=== PATIENT | female | born 1955 | race Caucasian/White ===

== ENCOUNTER → 2016-10-01 | Outpatient (CLI) | payer OTHER ==
[2016-10-01 13:46] LABS: ARTERIAL BLOOD O2 SATURATION 97.5 % (94-98)
== END ==
LOC: OD 13:03
PROVIDERS: ATTEND Nurse Practitioner Adult Health
DX: J96.12 Chronic respiratory failure with hypercapnia (principal); J18.9 Pneumonia, unspecified organism
CPT/HCPCS: 36600; 82803

== ENCOUNTER → 2016-11-02 | Outpatient (CLI) | payer OTHER | LOC: OD 14:10 | PROVIDERS: ATTEND Nurse Practitioner Adult Health | DX: J20.9 Acute bronchitis, unspecified (principal) | CPT/HCPCS: 71020 ==

== ENCOUNTER → 2016-11-02 | Outpatient (CLI) | payer OTHER ==
[2016-11-02 14:28] LABS: VENOUS BLOOD BASE EXCESS 5.1 mmol/L; VENOUS BLOOD HCO3 30.8 mmol/L (20-32); VENOUS BLOOD PCO2 50.2 mmHg (35-63); VENOUS BLOOD PH 7.41 (7.30-7.42)
[2016-11-02 14:42] LABS: ABSOLUTE LYMPHOCYTES (AUTO) 0.9 10^3/uL (0.5-4.7); ABSOLUTE MONOCYTES (AUTO) 0.6 10^3/uL (0.1-1.4); ABSOLUTE NEUT (AUTO) 9.4 10^3/uL (1.7-8.2); BASOPHILS % (AUTO) 0.2 % (0-2); EOSINOPHILS % (AUTO) 0.1 % (0-6); HEMATOCRIT 38.5 % (36.0-47.0); HEMOGLOBIN 12.4 g/dL (12.0-15.5); HGB HCT DIFFERENCE -1.3; LYMPHOCYTES % (AUTO) 8.1 % (13-45); MEAN CORPUSCULAR HEMOGLOBIN 31.1 pg (27.0-33.4); MEAN CORPUSCULAR HGB CONC 32.3 g/dL (32.0-36.0); MEAN CORPUSCULAR VOLUME 96 fl (80-97); MONOCYTES % (AUTO) 5.2 % (3-13); RED CELL DISTRIBUTION WIDTH 16.1 % (11.5-14.0); SEGMENTED NEUTROPHILS % (AUTO) 86.4 % (42-78); WHITE BLOOD COUNT 10.9 10^3/uL (4.0-10.5)
== END ==
LOC: OD 13:36
PROVIDERS: ATTEND Nurse Practitioner Adult Health
DX: J20.9 Acute bronchitis, unspecified (principal)
CPT/HCPCS: 36415; 82803; 85025

== ENCOUNTER 2016-11-11 13:39 | Inpatient (IN) | payer OTHER ==
[~2016-11-11 13:39] MED LIST: ROCURONIUM BROMIDE INJ 50 MG/5 ML VIAL IV ONE
[2016-11-11] MEDS ORDERED: NALOXONE HCL INJ 2 MG/2 ML DISP.SYRIN ONE (13:45)
[2016-11-11] MEDS ORDERED: IPRATROPIUM/ALBUTEROL 0.5-2.5 MG/3 ML AMPUL NEB ONE (13:49)
[2016-11-11] MEDS ORDERED: NOREPINEPHRINE BITARTRATE INJ/PF 4 MG/4 ML SDV IV ONE ×2 (13:59→16:51)
[2016-11-11] MEDS ORDERED: ETOMIDATE INJ/PF 20 MG/10 ML SDV IV ONE (14:01)
[2016-11-11] MEDS ORDERED: DIGOXIN INJ 0.5 MG/2 ML AMPULE IV ONE ×3 (14:15→22:30)
[2016-11-11] MEDS ORDERED: METHYLPREDNISOLONE INJ 125 MG/2 ML SDV IV ONE (14:15)
[2016-11-11] MEDS ORDERED: LORAZEPAM INJ 2 MG/1 ML VIAL ONE ×2 (14:21→14:38)
[2016-11-11 14:31] LABS: ABSOLUTE BASOPHILS # (AUTO) 0.1 10^3/uL (0.0-0.2); ABSOLUTE EOSINOPHILS # (AUTO) 0.1 10^3/uL (0.0-0.6); ABSOLUTE LYMPHOCYTES (AUTO) 1.7 10^3/uL (0.5-4.7); ABSOLUTE MONOCYTES (AUTO) 0.8 10^3/uL (0.1-1.4); ABSOLUTE NEUT (AUTO) 12.7 10^3/uL (1.7-8.2); BASOPHILS % (AUTO) 0.7 % (0-2); EOSINOPHILS % (AUTO) 0.7 % (0-6); HEMOGLOBIN 12.6 g/dL (12.0-15.5); HGB HCT DIFFERENCE -2.2; LYMPHOCYTES % (AUTO) 11.2 % (13-45); MEAN CORPUSCULAR HEMOGLOBIN 30.8 pg (27.0-33.4); MEAN CORPUSCULAR HGB CONC 31.5 g/dL (32.0-36.0); MEAN CORPUSCULAR VOLUME 98 fl (80-97); MONOCYTES % (AUTO) 5.4 % (3-13); RED BLOOD COUNT 4.09 10^6/uL (3.72-5.28); RED CELL DISTRIBUTION WIDTH 16.7 % (11.5-14.0); WHITE BLOOD COUNT 15.4 10^3/uL (4.0-10.5)
[2016-11-11 14:34] LABS: PARTIAL THROMBOPLASTIN TIME 40.7 SEC (23.5-35.8); PROTHROMBIN TIME 30.5 SEC (11.4-15.4)
[2016-11-11 14:45] LABS: ARTERIAL BLOOD BASE EXCESS -0.8 mmol/L; ARTERIAL BLOOD O2 SATURATION 89.5 % (94-98)
[2016-11-11 14:46] LABS: ALANINE AMINOTRANSFERASE 224 U/L (9-52); ALBUMIN 3.5 g/dL (3.5-5.0); ALKALINE PHOSPHATASE 61 U/L (38-126); ANION GAP 16 (5-19); ASPARTATE AMINO TRANSFERASE 241 U/L (14-36); BILIRUBIN,TOTAL 1.4 mg/dL (0.2-1.3); BLOOD UREA NITROGEN 38 mg/dL (7-20); CALCIUM 8.9 mg/dL (8.4-10.2); CARBON DIOXIDE 27 mmol/L (22-30); CHLORIDE 98 mmol/L (98-107); CREATINE KINASE 127 U/L (30-135); CREATININE RESULT 2.72 mg/dL (0.52-1.25); GLUCOSE 66 mg/dL (75-110); POTASSIUM 3.8 mmol/L (3.6-5.0); SODIUM 140.9 mmol/L (137-145); TOTAL PROTEIN 5.6 g/dL (6.3-8.2)
[2016-11-11 14:50] LABS: APPEARANCE,URINE CLEAR; BILIRUBIN,URINE NEGATIVE (NEGATIVE); GLUCOSE, URINE NEGATIVE (NEGATIVE); KETONES,URINE NEGATIVE (NEGATIVE); LEUKOCYTE ESTERASE,URINE NEGATIVE (NEGATIVE); NITRITE,URINE NEGATIVE (NEGATIVE); PROTEIN,URINE NEGATIVE (NEGATIVE); URINE SPECIFIC GRAVITY 1.012; UROBILINOGEN,URINE NEGATIVE mg/dL (<2.0)
[2016-11-11 14:58] LABS: CREATINE KINASE MB 1.75 ng/mL (<4.55)
[2016-11-11 15:00] LABS: TROPONIN I 0.073 ng/mL
[2016-11-11] MEDS ORDERED: CEFEPIME 1 GM/D5W RTU 50 ML IV ONE (15:43)
[2016-11-11] MEDS ORDERED: LINEZOLID 300 ML IV ONE (15:44)
[2016-11-11] MEDS ORDERED: CIPROFLOXACIN 400 MG/D5W RTU 200 ML IV ONE (15:44)
[2016-11-11] MEDS ORDERED: CEFEPIME HCL 1 GM in DEXTROSE 5%-WATER 50 ML IV ONE (17:00)
[2016-11-11] MEDS ORDERED: DEXTROSE 5%-WATER 250 ML with PHENYLEPHRINE HCL 40 MG IV PRN ×2 (17:11)
[2016-11-11] MEDS ORDERED: PHENYLEPHRINE HCL INJ/PF 10 MG/1 ML SDV ONE (17:22)
[2016-11-11] MEDS ORDERED: PROPOFOL 100 ML IV ONE (18:03)
[2016-11-11] MEDS ORDERED: PROPOFOL 100 ML IV PRN (18:06)
[2016-11-11] MEDS ORDERED: IMIPENEM/CILASTATIN SODIUM INJ 500 MG VIAL IV SCH (18:15)
--- NOTE | 2016-11-11 18:15 | ER Document Report ---
ED General - General Chief Complaint: Respiratory Distress Stated Complaint: RESPIRATORY DISTRESS Time seen by provider: 13:35 Mode of Arrival: Medic Information source: Relative, Emergency Med Personnel Notes: 60-year-old female brought via EMS with report of altered mental status and respiratory difficulty. Patient's arrives later and gives the following history. The patient for 3 days has had cough and subjective fever. She has a history of COPD and is followed by a physician for that and has had pneumonia in the past. The patient's cough and become productive over the past 2 days and what she's had in the past with pneumonia but she had no vomiting or complaints of pain. The patient had what may been some shaking chills during the night last night and frequent cough but seemed well when the last saw her about 12:30 this afternoon. She he checked on her again about 1:00 and found her on the floor wedged in sitting up in between dresser nightstand and unresponsive. EMS personnel were called. They report that at times the patient would wake up but would not follow commands and they had widely variable blood pressures varying between 80 systolic and 180 systolic. reports the patient also has a history of congestive heart failure and atrial fibrillation but his knowledge she is not on any anticoagulation. On arrival here the patient would awaken to voice and speak her name but otherwise would not follow commands and was intubated for hypoxemia airway protection impending respiratory failure and hypotension. Physical Exam: General: Lethargic HEENT: Normocephalic. Atraumatic. PERRLA. Extraocular movements intact. Oropharynx clear. Neck: Supple. Non-tender. No JVD no carotid bruits Respiratory: Markedly diminished aeration throughout all lung méndez with rhonchi bilaterally poor inspiratory effort tachypnea Cardiovascular: Regular rate and rhythm. Abdominal: Normal Inspection. Soft, non-tender. No distension. Normal Bowel Sounds. Back: Non-tender. No deformity or step off. Extremities all warm with brisk capillary refill but I do not palpate radial or dorsalis pedis pulses. She has strong femoral and carotid pulses.. Neurological: Patient could not cooperate with formal neurologic testing Skin: Warm. Dry. Normal color. TRAVEL OUTSIDE OF THE [place] IN LAST 30 DAYS: No - Related Data Allergies/Adverse Reactions: MERRITT Inhibitors [Merritt Inhibitors] Allergy (Verified 07/26/16 14:17) amoxicillin trihydrate [From Augmentin] Allergy (Verified 07/26/16 14:17) Potassium Clavulanate * [From Augmentin] Allergy (Verified 07/26/16 14:17) Home Medications: Current Home Medications Allopurinol [Zyloprim 300 mg Tablet] 300 mg PO DAILY 11/11/16 [History] Atenolol [Tenormin 50 mg Tablet] 50 mg PO BID 11/11/16 [History] Cyclobenzaprine HCl [Flexeril 10 mg Tablet] 10 mg PO TID 11/11/16 [History] Diltiazem HCl [Diltiazem 24Hr Cd] 120 mg PO DAILY 11/11/16 [History] Fentanyl [Duragesic 12 Mcg/Hr Transdermal Patch] 1 patch TOP Q3D 11/11/16 [ History] Fentanyl [Duragesic 25 mcg/hr Transdermal Patch] 1 patch TOP Q3D 11/11/16 [ History] Furosemide [Lasix] 40 mg PO BID 11/11/16 [History] Guaifenesin [Mucinex] 600 mg PO Q12 11/11/16 [History] Hydrocodone/Acetaminophen [[place] 5-325 mg Tablet] 1 tab PO QIDP PRN 11/11/16 [ History] Levothyroxine Sodium [Synthroid 0.025 mg Tablet] 0.025 mg PO DAILY 11/11/16 [ History] Prednisone 2.5 mg PO DAILY@1500 11/11/16 [History] Prednisone [Deltasone 5 mg Tablet] 5 mg PO QAM 11/11/16 [History] Pregabalin [Lyrica] 150 mg PO TID 11/11/16 [History] Ropinirole HCl 1 mg PO QHS 11/11/16 [History] Simvastatin [Zocor 20 mg Tablet] 20 mg PO QHS 11/11/16 [History] Spironolactone [Aldactone 25 mg Tablet] 12.5 mg PO Q12 11/11/16 [History] Sumatriptan Succinate [Imitrex 100 mg Tablet] 100 mg PO PRN PRN 11/11/16 [ History] Past Medical History - Social History Smoking Status: Former Smoker Family History: Other - Asthma and dementia - Past Medical History Cardiac Medical History: Reports: Hx Congestive Heart Failure, Hx Hypertension Pulmonary Medical History: Reports: Hx Asthma, Hx Pneumonia Psychiatric Medical History: Reports: Hx Depression Past Surgical History: Reports: Hx Section - X4, Hx Orthopedic Surgery - right knee replacement, right toe, left shoulder - Immunizations Hx Diphtheria, Pertussis, Tetanus Vaccination: Yes Review of Systems - Review of Systems -: Yes ROS unobtainable due to patient's medical condition Physical Exam - Vital signs Vitals: Pulse Ox 94 11/11/16 14:20 Course - Re-evaluation Re-evalutation: 11/11/16 19:47 Patient was hypotensive on arrival and was initially treated with fluid bolus. Patient's B Ector peptide is elevated and chest x-ray showed some evidence for vascular congestion and additional concern is a right lower lobe aspiration pneumonia and fluids were stopped and switched to norepinephrine IV drip. This was titrated to a map of 60. The patient also is in A. fib RVR I believe most of tachycardia is physiologic related to her hypotension because of a rate in the 140 she was treated with digoxin 0.125 mg IV 1 dose which reduced her rate to approximately 110 and I have elected to leave that there. Patient also temperature 100.9 on arrival and she is cultured and started on IV antibiotics. Prior to intubation we had a trial of supple oxygen and BiPAP along with IV steroids and nebulizer treatments but the patient's respiratory distress declined in spite of that necessitating intubation. I discussed CODE STATUS with patient and after he arrived and he confirms that she should be a full code. I discussed case with Dr. Remy on the hospitalist service and he'll be coming to see the patient 11/11/16 19:50 Total critical care time excluding billable procedures is 1 hour - Vital Signs Vital signs: Temp Pulse Resp BP Pulse Ox 100.4 F 36 H 90/51 L 95 11/11/16 19:30 11/11/16 19:30 11/11/16 19:30 11/11/16 19:30 - Laboratory Result Diagrams: 11/11/16 13:45 11/11/16 13:45 Laboratory results interpreted by me: 11/11/16 11/11/16 11/11/16 13:45 13:45 13:45 WBC 15.4 H MCV 98 H MCHC 31.5 L RDW 16.7 H Seg Neutrophils % 82.0 H Lymphocytes % 11.2 L Absolute Neutrophils 12.7 H PT APTT ABG pCO2 ABG pO2 ABG O2 Saturation BUN 38 H Creatinine 2.72 H Est GFR ( Amer) 21 L Est GFR (Non-Af Amer) 18 L Glucose 66 L Total Bilirubin 1.4 H AST 241 H ALT 224 H NT-Pro-B Natriuret Pep 32351 H Total Protein 5.6 L 11/11/16 11/11/16 13:45 14:20 WBC MCV MCHC RDW Seg Neutrophils % Lymphocytes % Absolute Neutrophils PT 30.5 H APTT 40.7 H ABG pCO2 34.8 L ABG pO2 54.3 L ABG O2 Saturation 89.5 L BUN Creatinine Est GFR ( Amer) Est GFR (Non-Af Amer) Glucose Total Bilirubin AST ALT NT-Pro-B Natriuret Pep Total Protein - Diagnostic Test Radiology reviewed: Image reviewed, Reports reviewed - EKG Interpretation by Me Additional EKG results interpreted by me: 11/11/16 19:44 EKG reviewed by myself shows atrial fibrillation with ventricular rate of [address] changes Procedures - Central Line Right Internal jugular Time completed: 15:30 Consent obtained: No - procedure performed emergently prior to family arriving Central line pre-insertion: Sterile PPE donned Central line lumen type: Triple Anesthetic type: 1% Lidocaine mL's of anesthesia: 2 Ultrasound guided: Yes CM at insertion site: 12 Line secured with sutures: Yes Central line post-insertion: Blood return from lumens, Sterile dressing applied , Position confirmed w/ CXR Number of attempts: 1 Complications: No - Intubation Orotracheal Time of Intubation: 14:00 Medications: Etomidate Intubation method: Orotracheal Blade type: Lissette Blade size: 3 ETT size: 7.5 ETT secured at: Teeth ETT secured at (cm): 23 Breath Sounds after Intubation: Equal End tidal CO2 confirmed: Yes Post Intubation Xray: Yes Intubation Complications: No complications Discharge - Discharge Clinical Impression: Acute hypoxemic respiratory failure Pneumonia Qualifiers: Pneumonia type: due to unspecified organism Laterality: right Lung location: lower lobe of lung Qualified Code(s): J18.1 - Lobar pneumonia, unspecified organism Sepsis Qualifiers: Sepsis type: sepsis due to unspecified organism Qualified Code(s): A41.9 - Sepsis, unspecified organism Condition: Critical Disposition: ADMITTED INPATIENT Admitting Provider: Hospitalist Unit Admitted: ICU
[2016-11-11] MEDS ORDERED: 1/2 NORMAL SALINE 1,000 ML IV PRN (18:20)
[2016-11-11] MEDS ORDERED: ONDANSETRON HCL INJ/PF 4 MG/2 ML SDV IV PRN (18:20)
[2016-11-11] MEDS ORDERED: ACETAMINOPHEN 325 MG TABLET NG PRN (18:20)
[2016-11-11] MEDS ORDERED: PHARMACY COMMUNICATION ORDER MC NR (18:30)
[2016-11-11] MEDS ORDERED: HYDROCORTISONE SOD SUCCINATE INJ/PF 100 MG/2 ML SDV IV ONE (19:00)
--- NOTE | 2016-11-11 19:00 | PDOC H&P ---
History of Present Illness Admission Date/PCP: ARA WEBB MD Patient complains of: Altered mental status History of Present Illness: NIMISHA PORTILLO is a 60 year old female, with history of COPD and chronic respiratory failure on home oxygen, diastolic heart failure, atrial fibrillation , pulmonary hypertension, valvular heart disease, morbid obesity, adrenal insufficiency brought to the emergency room by the family due to altered mental status. For the past several weeks the patient has been dealing with increasing lower extremity edema and coughing with dyspnea on exertion where he was evaluated by her physician and was placed on Bumex. She developed a rash and therefore this was discontinued and she was maintained on Lasix which she has chronically. Her lower extremity edema improved. However she continues to have intermittent coughing and she has baseline shortness of breath where she was evaluated by her feeder associate and the chest x-ray did not reveal any acute infiltrate 10 days ago. She was in her usual state of health with no noted increasing edema on the legs, but with persistent cough and chronic shortness of breath started to develop low-grade fever last night. Family reports that she has not really complained of anything new. Cough is normally dry. No reported paroxysmal nocturnal dyspnea or any orthopnea. She is supposed to see her physician today in the pain clinic however the patient remains unresponsive when the family went back home. She was found in between the bed and the closet sitting on the floor but leaning on the bed unresponsive. She was brought to the emergency room reportedly she was in respiratory distress with systolic blood pressure in the 50s. She was intubated. Chest x-ray shows findings suggestive of pulmonary edema, as well as cardiomegaly. WBC however was elevated. She was begun on intravenous antibiotic, vasopressors and was referred for admission Past Medical History Past Medical History: Medication reconciliation pending verification from the patient's pharmacist. Cardiac Medical History: Reports: Atrial Fibrillation, Congestive Heart Failure , Hypertension, Other - Valvular heart disease Pulmonary Medical History: Reports: Chronic Obstructive Pulmonary Disease (COPD) , Pneumonia, Respiratory Failure - On home oxygen, Other - Pulmonary hypertension Endocrine Medical History: Reports: Hypothyroidism, Other - Adrenal insufficiency Psychiatric Medical History: Reports: Depression Past Surgical History Past Surgical History: Reports: Section - X4, Orthopedic Surgery - right knee replacement, right toe, left shoulder Social History Information Source: Relative Smoking Status: Former Smoker Frequency of Alcohol Use: None Hx Recreational Drug Use: No Drugs: None Hx Prescription Drug Abuse: No Family History Family History: Other - Asthma and dementia Parental Family History Reviewed: Yes Children Family History Reviewed: Yes Sibling(s) Family History Reviewed.: Yes Medication/Allergy Home Medications: Allopurinol [Zyloprim 300 mg Tablet] 300 mg PO DAILY 11/11/16 Atenolol [Tenormin 50 mg Tablet] 50 mg PO BID 11/11/16 Cyclobenzaprine HCl [Flexeril 10 mg Tablet] 10 mg PO TID 11/11/16 Diltiazem HCl [Diltiazem 24Hr Cd] 120 mg PO DAILY 11/11/16 Fentanyl [Duragesic 12 Mcg/Hr Transdermal Patch] 1 patch TOP Q3D 11/11/16 Fentanyl [Duragesic 25 mcg/hr Transdermal Patch] 1 patch TOP Q3D 11/11/16 Furosemide [Lasix] 40 mg PO BID 11/11/16 Guaifenesin [Mucinex] 600 mg PO Q12 11/11/16 Hydrocodone/Acetaminophen [[place] 5-325 mg Tablet] 1 tab PO QIDP PRN 11/11/16 Levothyroxine Sodium [Synthroid 0.025 mg Tablet] 0.025 mg PO DAILY 11/11/16 Prednisone 2.5 mg PO DAILY@1500 11/11/16 Prednisone [Deltasone 5 mg Tablet] 5 mg PO QAM 11/11/16 Pregabalin [Lyrica] 150 mg PO TID 11/11/16 Ropinirole HCl 1 mg PO QHS 11/11/16 Simvastatin [Zocor 20 mg Tablet] 20 mg PO QHS 11/11/16 Spironolactone [Aldactone 25 mg Tablet] 12.5 mg PO Q12 11/11/16 Sumatriptan Succinate [Imitrex 100 mg Tablet] 100 mg PO PRN PRN 11/11/16 Allergies/Adverse Reactions: MERRITT Inhibitors [Merritt Inhibitors] Allergy (Verified 07/26/16 14:17) amoxicillin trihydrate [From Augmentin] Allergy (Verified 07/26/16 14:17) Potassium Clavulanate * [From Augmentin] Allergy (Verified 07/26/16 14:17) Review of Systems ROS unobtainable: Due to endotracheal tube - Other than demonstrated in the history no other available information at this time, Due to mental status Physical Exam Vital Signs: Temp Pulse Resp BP Pulse Ox 100.0 F 13 80/49 L 94 11/11/16 17:42 11/11/16 17:42 11/11/16 17:42 11/11/16 17:42 General appearance: PRESENT: no acute distress, morbidly obese, other - Intubated and sedated Head exam: PRESENT: atraumatic, normocephalic Eye exam: PRESENT: conjunctiva pink, other - Pupils are fixed and dilated but the patient received paralytic. ABSENT: scleral icterus Ear exam: PRESENT: normal external ear exam. ABSENT: drainage Mouth exam: PRESENT: moist, neck supple Neck exam: ABSENT: carotid bruit, JVD, lymphadenopathy, thyromegaly Respiratory exam: PRESENT: crackles - Scattered bilateral, decreased breath sounds, wheezes - Mild bilateral Cardiovascular exam: PRESENT: irregular rhythm, +S1, +S2. ABSENT: diastolic murmur, gallop, rubs, systolic murmur Pulses: PRESENT: normal dorsalis pedis pul Vascular exam: PRESENT: normal capillary refill GI/Abdominal exam: PRESENT: distended - Obese, normal bowel sounds, soft. ABSENT: guarding, mass, organolmegaly, rebound, tenderness Rectal exam: PRESENT: deferred Extremities exam: PRESENT: full ROM, +1 edema. ABSENT: calf tenderness, clubbing Neurological exam: PRESENT: altered - Intubated and sedated Skin exam: PRESENT: dry, intact, rash - On the anterior chest wall and on the face which are macular, warm. ABSENT: cyanosis Results Laboratory Results: 11/11/16 13:45 11/11/16 13:45 11/11/16 11/11/16 11/11/16 13:45 13:45 14:20 WBC 15.4 H RBC 4.09 Hgb 12.6 Hct 40.0 MCV 98 H MCH 30.8 MCHC 31.5 L RDW 16.7 H Plt Count 194 Seg Neutrophils % 82.0 H Lymphocytes % 11.2 L Monocytes % 5.4 Eosinophils % 0.7 Basophils % 0.7 Absolute Neutrophils 12.7 H Absolute Lymphocytes 1.7 Absolute Monocytes 0.8 Absolute Eosinophils 0.1 Absolute Basophils 0.1 Carbonic Acid HCO3/H2CO3 Ratio ABG pH ABG pCO2 ABG pO2 ABG HCO3 ABG O2 Saturation ABG Base Excess FiO2 Sodium 140.9 Potassium 3.8 Chloride 98 Carbon Dioxide 27 Anion Gap 16 BUN 38 H Creatinine 2.72 H Est GFR ( Amer) 21 L Est GFR (Non-Af Amer) 18 L Glucose 66 L Calcium 8.9 Magnesium 2.0 Total Bilirubin 1.4 H AST 241 H ALT 224 H Alkaline Phosphatase 61 Total Protein 5.6 L Albumin 3.5 Urine Color YELLOW Urine Appearance CLEAR Urine pH 6.0 Ur Specific [place] 1.012 Urine Protein NEGATIVE Urine Glucose (UA) NEGATIVE Urine Ketones NEGATIVE Urine Blood NEGATIVE Urine Nitrite NEGATIVE Ur Leukocyte Esterase NEGATIVE Urine RBC (Auto) 0 11/11/16 14:20 WBC RBC Hgb Hct MCV MCH MCHC RDW Plt Count Seg Neutrophils % Lymphocytes % Monocytes % Eosinophils % Basophils % Absolute Neutrophils Absolute Lymphocytes Absolute Monocytes Absolute Eosinophils Absolute Basophils Carbonic Acid 1.05 HCO3/H2CO3 Ratio 21:1 ABG pH 7.44 ABG pCO2 34.8 L ABG pO2 54.3 L ABG HCO3 22.9 ABG O2 Saturation 89.5 L ABG Base Excess -0.8 FiO2 45% Sodium Potassium Chloride Carbon Dioxide Anion Gap BUN Creatinine Est GFR ( Amer) Est GFR (Non-Af Amer) Glucose Calcium Magnesium Total Bilirubin AST ALT Alkaline Phosphatase Total Protein Albumin Urine Color Urine Appearance Urine pH Ur Specific Wray Urine Protein Urine Glucose (UA) Urine Ketones Urine Blood Urine Nitrite Ur Leukocyte Esterase Urine RBC (Auto) 11/11/16 11/11/16 13:45 13:45 Creatine Kinase 127 CK-MB (CK-2) 1.75 Troponin I 0.073 NT-Pro-B Natriuret Pep 60574 H Impressions: Chest X-Ray 11/11/16 14:12 IMPRESSION: Cardiomegaly with pulmonary vascular congestion. Bilateral pleural effusions as noted above. Ill-defined density in the left mid lung field which could represent a focal infiltrate or asymmetric pulmonary edema. Other findings as noted above Cervical Spine CT 11/11/16 14:13 IMPRESSION: CHRONIC DEGENERATIVE CHANGES. NO ACUTE FINDINGS. Head CT 11/11/16 14:13 IMPRESSION: NORMAL BRAIN CT WITHOUT CONTRAST. Assessment & Plan - Diagnosis (1) Acute and chronic respiratory failure ([id number]) Qualifiers: Respiratory failure complication: hypoxia Qualified Code(s): J96.21 - Acute and chronic respiratory failure with hypoxia Is this a current diagnosis for this admission?: Yes (2) Septic shock Is this a current diagnosis for this admission?: Yes (3) Bilateral pneumonia Qualifiers: Pneumonia type: due to unspecified organism Lung location: unspecified part of lung Qualified Code(s): J18.9 - Pneumonia, unspecified organism Is this a current diagnosis for this admission?: Yes (4) Adrenal insufficiency Is this a current diagnosis for this admission?: Yes (5) Acute on chronic diastolic heart failure Is this a current diagnosis for this admission?: Yes (6) Acute renal failure Qualifiers: Acute renal failure type: unspecified Qualified Code(s): N17.9 - Acute kidney failure, unspecified Is this a current diagnosis for this admission?: Yes (7) Transaminitis Is this a current diagnosis for this admission?: Yes (8) Hypoglycemia Is this a current diagnosis for this admission?: Yes (9) Coagulopathy Is this a current diagnosis for this admission?: Yes (10) Atrial fibrillation Qualifiers: Atrial fibrillation type: unspecified Qualified Code(s): I48.91 - Unspecified atrial fibrillation Is this a current diagnosis for this admission?: Yes (11) Hypothyroidism (acquired) Is this a current diagnosis for this admission?: Yes (12) Morbid obesity Qualifiers: Obesity type: unspecified obesity type Qualified Code(s): E66.01 - Morbid (severe) obesity due to excess calories Is this a current diagnosis for this admission?: Yes (13) Pulmonary hypertension Is this a current diagnosis for this admission?: Yes (14) Valvular heart disease Is this a current diagnosis for this admission?: Yes - Time Time Spent: 50 to 70 Minutes - Inpatient Certification Based on my medical assessment, after consideration of the patient's comorbidities, presenting symptoms, or acuity I expect that the services needed warrant INPATIENT care.: Yes I certify that my determination is in accordance with my understanding of Medicare's requirements for reasonable and necessary INPATIENT services [42 CFR 412.3e].: Yes Medical Necessity: Significant Comorbidiites Make Outpatient Treatment Too Risky , Need Close Monitoring Due to Risk of Patient Decompensation, Need For Continuous Telemetry Monitoring, Need for Nebulizer Therapy and Monitoring of Response, Need for IV Antibiotics, Risk of Complication if Not Cared For in Hospital, Risk of Diagnosis Which Will Require Inpatient Eval/Care/Monitoring Post Hospital Care: D/C Assisted Living Care Manager Documentation - Plan Summary Plan Summary: The patient will be admitted to the intensive care unit. We will begin broad- spectrum antibiotic with Primaxin and Levaquin. We will culture the sputum and the blood. I will give the patient intravenous diuretic obtain echocardiogram. We will culture the sputum and blood and urine. I will hold the patient's antihypertensive medications. Continue Levophed and Brady-Synephrine. Add diprivan and continue ventilatory support. Consult cardiology and pulmonary for further management. I will continue the patient on eliquis instead of xarelto. Stress dose of steroids will also be given. Bronchodilators will be added to the treatment regimen. Further testing depends on the initial evaluation and per specialty recommendation as outlined above.
[2016-11-11] MEDS ORDERED: RINGERS SOLUTION,LACTATED 2,000 ML IV ONE (19:45)
--- NOTE | 2016-11-11 20:05 | EKG REPORT ---
SEVERITY:- ABNORMAL ECG - ATRIAL FIBRILLATION, V-RATE [id number] PROBABLE INFERIOR INFARCT, AGE INDETERMINATE : Confirmed by: Cezar Arellano 11-Nov-2016 20:04:13
[2016-11-11 20:19] LABS: ARTERIAL BLOOD BASE EXCESS -5.7 mmol/L; ARTERIAL BLOOD O2 SATURATION 95.4 % (94-98)
[2016-11-11] MEDS: IPRATROPIUM/ALBUTEROL 0.5-2.5 MG/3 ML AMPUL NEB SCH (20:30)
[2016-11-11] MEDS ORDERED: VASOPRESSIN INJ 20 UNIT/1 ML VIAL ONE (20:58)
[2016-11-11] MEDS: DEXTROSE 5%-WATER 250 ML with NOREPINEPHRINE BITARTRATE 4 MG IV PRN ×2 (21:30)
[2016-11-11] MEDS: IMIPENEM/CILASTATIN SODIUM 250 MG in NORMAL SALINE 100 ML IV SCH (21:32)
[2016-11-11] MEDS ORDERED: FUROSEMIDE INJ/PF 40 MG/4 ML SDV IV SCH (22:00)
[2016-11-11 22:06] LABS: ANION GAP 13 (5-19); BLOOD UREA NITROGEN 39 mg/dL (7-20); CALCIUM 8.1 mg/dL (8.4-10.2); CARBON DIOXIDE 22 mmol/L (22-30); CHLORIDE 100 mmol/L (98-107); CREATINE KINASE 1287 U/L (30-135); CREATININE RESULT 2.58 mg/dL (0.52-1.25); GLUCOSE 163 mg/dL (75-110); SODIUM 134.8 mmol/L (137-145)
[2016-11-11 22:35] LABS: THYROID STIMULATING HORMONE 1.14 uIU/mL (0.47-4.68)
[2016-11-11 22:42] LABS: CREATINE KINASE MB 9.96 ng/mL (<4.55)
[2016-11-11 22:45] LABS: TROPONIN I 0.483 ng/mL
[2016-11-11] MEDS ORDERED: NORMAL SALINE 1000 ML 2,000 ML IV ONE (22:45)
[2016-11-11] MEDS: APIXABAN 2.5 MG TABLET NG SCH (22:56)
[2016-11-11] MEDS ORDERED: VANCOMYCIN HCL 0 MG in DEXTROSE 5%-WATER 250 ML IV NR (23:15)
[2016-11-11] MEDS ORDERED: VANCOMYCIN HCL INJ 500 MG VIAL IV SCH (23:45)
[2016-11-11] MEDS ORDERED: VANCOMYCIN HCL INJ 1000 MG VIAL IV SCH (23:45)
[2016-11-12] MEDS: HYDROCORTISONE SOD SUCCINATE INJ/PF 100 MG/2 ML SDV IV SCH ×2 (00:01→05:24)
[2016-11-12] MEDS ORDERED: VANCOMYCIN HCL INJ 1000 MG VIAL ONE (00:29)
[2016-11-12] MEDS ORDERED: VANCOMYCIN HCL INJ 500 MG VIAL ONE (00:30)
[2016-11-12] MEDS ORDERED: VANCOMYCIN HCL 1,500 MG in DEXTROSE 5%-WATER 250 ML IV ONE (01:00)
[2016-11-12] MEDS ORDERED: ALBUTEROL SULFATE 0.083% NEB 2.5 MG/3 ML AMPUL NEB PRN (02:45)
[2016-11-12 03:21] LABS: ANION GAP 17 (5-19); BLOOD UREA NITROGEN 35 mg/dL (7-20); CALCIUM 7.2 mg/dL (8.4-10.2); CARBON DIOXIDE 15 mmol/L (22-30); CHLORIDE 101 mmol/L (98-107); CREATININE RESULT 2.53 mg/dL (0.52-1.25); GLUCOSE 200 mg/dL (75-110); MAGNESIUM 1.7 mg/dL (1.6-2.3); POTASSIUM 5.5 mmol/L (3.6-5.0); SODIUM 133.1 mmol/L (137-145)
[2016-11-12] MEDS: DEXTROSE 5%-WATER 250 ML with PHENYLEPHRINE HCL 40 MG IV PRN ×6 (03:54→10:16)
[2016-11-12] MEDS: IMIPENEM/CILASTATIN SODIUM 250 MG in NORMAL SALINE 100 ML IV SCH ×2 (03:54→09:53)
[2016-11-12] MEDS ORDERED: DEXTROSE 50%-WATER 25 GM/50 ML DISP.SYRIN IV ONE (04:46)
[2016-11-12] MEDS ORDERED: NORMAL SALINE 1000 ML 1,000 ML IV ONE (04:48)
[2016-11-12] MEDS ORDERED: INSULIN REG, HUMAN 100 UNIT/ML 3 ML VIAL (PYX) IV ONE (05:00)
[2016-11-12 05:02] LABS: CREATINE KINASE MB 15.4 ng/mL (<4.55)
[2016-11-12 05:07] LABS: TROPONIN I 0.477 ng/mL
[2016-11-12] MEDS: NORMAL SALINE 1000 ML 1,000 ML IV PRN ×2 (06:26→09:51)
[2016-11-12 06:49] LABS: ARTERIAL BLOOD BASE EXCESS -14.9 mmol/L; ARTERIAL BLOOD O2 SATURATION 96.9 % (94-98)
[2016-11-12 06:54] LABS: HEMATOCRIT 38.1 % (36.0-47.0); HEMOGLOBIN 11.7 g/dL (12.0-15.5); MEAN CORPUSCULAR HEMOGLOBIN 30.9 pg (27.0-33.4); MEAN CORPUSCULAR HGB CONC 30.7 g/dL (32.0-36.0); MEAN CORPUSCULAR VOLUME 101 fl (80-97); RED BLOOD COUNT 3.79 10^6/uL (3.72-5.28); RED CELL DISTRIBUTION WIDTH 16.5 % (11.5-14.0); WHITE BLOOD COUNT 21.9 10^3/uL (4.0-10.5)
[2016-11-12 07:20] LABS: BASOPHILS % (MANUAL) 0 % (0-2); EOSINOPHILS % (MANUAL) 0 % (0-6); LYMPHOCYTES % (MANUAL) 3 % (13-45); TOTAL CELLS COUNTED 100
[2016-11-12 07:23] LABS: ANISOCYTOSIS 1+; BAND NEUTROPHILS % (MANUAL) 20 % (3-5); BURR CELLS SLIGHT; OVALOCYTES SLIGHT; POIKILOCYTOSIS 1+; POLYCHROMASIA SLIGHT; TOXIC GRANULATION SLIGHT; TOXIC VACUOLATION PRESENT
[2016-11-12 07:26] LABS: ALBUMIN 2.5 g/dL (3.5-5.0); ALKALINE PHOSPHATASE 73 U/L (38-126); ANION GAP 16 (5-19); BILIRUBIN,DIRECT 0.3 mg/dL (0.0-0.3); BILIRUBIN,TOTAL 2.1 mg/dL (0.2-1.3); BLOOD UREA NITROGEN 36 mg/dL (7-20); CALCIUM 7.1 mg/dL (8.4-10.2); CARBON DIOXIDE 15 mmol/L (22-30); CHLORIDE 101 mmol/L (98-107); CREATININE RESULT 2.65 mg/dL (0.52-1.25); GLUCOSE 337 mg/dL (75-110); SODIUM 132.3 mmol/L (137-145); TOTAL PROTEIN 4.3 g/dL (6.3-8.2)
[2016-11-12] MEDS: IPRATROPIUM/ALBUTEROL 0.5-2.5 MG/3 ML AMPUL NEB SCH (07:30)
[2016-11-12 07:46] LABS: ALANINE AMINOTRANSFERASE 3520 U/L (9-52); ASPARTATE AMINO TRANSFERASE 5695 U/L (14-36)
[2016-11-12 08:35] LABS: ARTERIAL BLOOD O2 SATURATION 95.2 % (94-98)
[2016-11-12] MEDS ORDERED: FUROSEMIDE INJ/PF 40 MG/4 ML SDV ONE (08:53)
[2016-11-12] MEDS ORDERED: DOBUTAMINE HCL/D5W 500 MG/250 ML RTUINJ IV ONE (08:53)
[2016-11-12] MEDS: DEXTROSE 5%-WATER 250 ML with NOREPINEPHRINE BITARTRATE 4 MG IV PRN ×2 (09:03)
[2016-11-12 09:27] LABS: PATH REVIEW PATHOLOGIST REVIEWED
[2016-11-12] MEDS ORDERED: DEXTROSE 5%-WATER 250 ML with VASOPRESSIN 100 UNIT IV PRN ×2 (09:48)
[2016-11-12] MEDS ORDERED: LEVOFLOXACIN 750 MG/D5W RTU 750 MG/150 ML RTUPB IV SCH (10:00)
[2016-11-12] MEDS ORDERED: LEVOTHYROXINE SODIUM 0.025 MG TABLET NG SCH (10:00)
[2016-11-12] MEDS: APIXABAN 2.5 MG TABLET NG SCH (10:16)
[2016-11-12 10:26] LABS: CREATINE KINASE MB 13.3 ng/mL (<4.55); TROPONIN I 0.372 ng/mL
--- NOTE | 2016-11-12 10:30 | PDOC TRANSFER SUMMARY ---
General Admission Date/PCP: 11/11/16 18:14 ARA WEBB MD Transfer Date: 11/12/16 Accepting Facility: [facility] Accepting Physician: Dr. Palma Resuscitation Status: Full Code - Transfer Diagnosis (1) Acute and chronic respiratory failure ([id number]) Is this a current diagnosis for this admission?: Yes (2) Septic shock Is this a current diagnosis for this admission?: Yes (3) Bilateral pneumonia Is this a current diagnosis for this admission?: Yes (4) Adrenal insufficiency Is this a current diagnosis for this admission?: Yes (5) Acute on chronic diastolic heart failure Is this a current diagnosis for this admission?: Yes (6) Acute renal failure Is this a current diagnosis for this admission?: Yes (7) Transaminitis Is this a current diagnosis for this admission?: Yes (8) Hypoglycemia Is this a current diagnosis for this admission?: Yes (9) Coagulopathy Is this a current diagnosis for this admission?: Yes (10) Atrial fibrillation Is this a current diagnosis for this admission?: Yes (11) Hypothyroidism (acquired) Is this a current diagnosis for this admission?: Yes (12) Morbid obesity Is this a current diagnosis for this admission?: Yes (13) Pulmonary hypertension Is this a current diagnosis for this admission?: Yes (14) Valvular heart disease Is this a current diagnosis for this admission?: Yes - Transfer Medications Home Medications: Allopurinol [Zyloprim 300 mg Tablet] 300 mg PO DAILY 11/11/16 Atenolol [Tenormin 50 mg Tablet] 50 mg PO BID 11/11/16 Cyclobenzaprine HCl [Flexeril 10 mg Tablet] 10 mg PO TID 11/11/16 Diltiazem HCl [Diltiazem 24Hr Cd] 120 mg PO DAILY 11/11/16 Fentanyl [Duragesic 12 Mcg/Hr Transdermal Patch] 1 patch TOP Q3D 11/11/16 Fentanyl [Duragesic 25 mcg/hr Transdermal Patch] 1 patch TOP Q3D 11/11/16 Furosemide [Lasix] 40 mg PO BID 11/11/16 Guaifenesin [Mucinex] 600 mg PO Q12 11/11/16 Hydrocodone/Acetaminophen [[place] 5-325 mg Tablet] 1 tab PO QIDP PRN 11/11/16 Levothyroxine Sodium [Synthroid 0.025 mg Tablet] 0.025 mg PO DAILY 11/11/16 Prednisone 2.5 mg PO DAILY@1500 11/11/16 Prednisone [Deltasone 5 mg Tablet] 5 mg PO QAM 11/11/16 Pregabalin [Lyrica] 150 mg PO TID 11/11/16 Ropinirole HCl 1 mg PO QHS 11/11/16 Simvastatin [Zocor 20 mg Tablet] 20 mg PO QHS 11/11/16 Spironolactone [Aldactone 25 mg Tablet] 12.5 mg PO Q12 11/11/16 Sumatriptan Succinate [Imitrex 100 mg Tablet] 100 mg PO PRN PRN 11/11/16 Transfer Medications: Current Medications Acetaminophen (Tylenol 325 Mg Tablet) 650 mg NG Q4HP PRN PRN Reason: pain or temp greater than 101F Stop: 12/11/16 18:19 Last Admin: 11/12/16 00:07 Dose: 650 mg Albuterol (Ventolin 0.083% Neb 2.5 Mg/3 Ml Ampul) 2.5 mg NEB RTQ2HP PRN PRN Reason: SHORTNESS OF BREATH Stop: 12/12/16 02:44 Last Admin: 11/12/16 03:00 Dose: 2.5 mg Albuterol/Ipratropium (Duoneb 3 Ml Ampul) 3 ml NEB [id number] [facility] Stop: 12/11/16 19:59 Last Admin: 11/12/16 07:30 Dose: 3 ml Furosemide (Lasix Inj/Pf 40 Mg/4 Ml Sdv) 40 mg IV Q8 [facility] Stop: 12/12/16 13:59 Hydrocortisone Sodium Succinate (Solu-Cortef Inj/Pf 100 Mg/ 2 Ml Sdv) 100 mg IV Q6 [facility] Stop: 12/12/16 00:00 Last Admin: 11/12/16 05:24 Dose: 100 mg Norepinephrine Bitartrate 4 mg (/ Dextrose) 254 mls @ 0 mls/hr IV CONTINUOUS PRN; Titrate PRN Reason: THIS MED IS NOT "PRN" Stop: 12/11/16 18:05 Last Admin: 11/12/16 09:03 Dose: 4 mg Propofol (Diprivan Rtu 1000 Mg/100 Ml Inf.Bottle) 100 mls @ 0 mls/hr IV CONTINUOUS PRN; Titrate PRN Reason: THIS MED IS NOT "PRN" Stop: 12/11/16 18:05 Last Admin: 11/12/16 09:56 Dose: 100 ml Hard Fat/Phenylephrine 40 mg/ (Dextrose) 254 mls @ 0 mls/hr IV CONTINUOUS PRN; Protocol; Titrate PRN Reason: THIS MED IS NOT "PRN" Stop: 12/11/16 17:10 Last Admin: 11/12/16 03:55 Dose: 40 mg Levofloxacin/Dextrose (Levaquin Rtu 750 Mg/D5w 150 Ml Premix) 750 mg in 150 mls @ 100 mls/hr IV Q2DAYS [facility] Stop: 11/19/16 09:59 Imipenem/Cilastatin Sodium 250 (mg/ Sodium Chloride) 100 mls @ 100 mls/hr IV Q6A [facility] Stop: 11/18/16 20:59 Last Admin: 11/12/16 09:53 Dose: 250 mg Sodium Chloride (Nacl 0.9% 1000 Ml Iv Soln) 1,000 mls @ 300 mls/hr IV CONTINUOUS PRN PRN Reason: THIS MED IS NOT "PRN" Stop: 12/11/16 22:30 Last Admin: 11/12/16 09:51 Dose: 1,000 ml Vancomycin HCl 750 mg/ (Dextrose) 250 mls @ 166.667 mls/hr IV QHS [facility] Stop: 11/19/16 21:59 Levothyroxine Sodium (Synthroid 0.025 Mg Tablet) 0.025 mg NG DAILY [facility] Stop: 12/12/16 09:59 Ondansetron HCl (Zofran Inj/Pf 4 Mg/2 Ml Sdv) 4 mg IV Q6HP PRN PRN Reason: nausea/vomiting Stop: 12/11/16 18:19 Pharmacy Profile Note (Medication Communication Order) 1 each .NOTICE NR Stop: 12/11/16 18:29 Sodium Chloride (Saline Flush 2.5 Ml Monoject Prefil Syrin) 2.5 ml IV Q8 [facility] Stop: 12/11/16 21:59 Last Admin: 11/12/16 05:26 Dose: Not Given - Allergies Allergies/Adverse Reactions: MERRITT Inhibitors [Merritt Inhibitors] Allergy (Verified 07/26/16 14:17) amoxicillin trihydrate [From Augmentin] Allergy (Verified 07/26/16 14:17) bumetanide [From Bumex] Allergy (Unverified 11/12/16 08:06) Potassium Clavulanate * [From Augmentin] Allergy (Verified 07/26/16 14:17) - Diet/Activity Discharge Diet: Other (Comments) - Nothing by mouth Discharge Activity: Bedrest Hospital Course Hospital Course: The patient was admitted to the intensive care unit. The patient was given intravenous fluids, continued on vasopressors with Brady-Synephrine, as well as the Levophed. Cultures were performed. Broad-spectrum antibiotics were started. Blood culture grew gram-positive cocci and vancomycin was added to the treatment regimen. The patient was noted to have renal failure as well as abn. LFTs. Renal ultrasound did not show any obstruction or hydronephrosis. Diuretics was likewise started for heart failure findings. Coagulation panel was abnormal. Her chronic anticoagulation for atrial fibrillation was discontinued. Heparin given for DVT prophylaxis. Nephrology, cardiology, and pulmonary services were consulted. The family requested the patient be transferred to a tertiary facility. At this point, [facility] was contacted for transfer, Dr. Palma responded and accepted the patient. When a bed was available she was eventually transferred. Physical Exam Vital Signs: Temp Pulse Resp BP Pulse Ox 100.0 F 115 H 15 99/56 L 95 11/12/16 07:44 11/12/16 07:56 11/12/16 07:44 11/12/16 07:44 11/12/16 07:44 Intake & Output 11/11/16 11/12/16 11/13/16 06:59 06:59 06:59 Intake Total 6503 Output Total 55 20 Balance 6448 -20 Weight 101.6 kg General appearance: PRESENT: obese, other - Intubated and sedated Head exam: PRESENT: normocephalic Eye exam: PRESENT: conjunctiva pale Mouth exam: PRESENT: moist, neck supple Neck exam: ABSENT: JVD Respiratory exam: PRESENT: rhonchi - Bilateral. ABSENT: wheezes Cardiovascular exam: PRESENT: irregular rhythm. ABSENT: gallop GI/Abdominal exam: PRESENT: soft. ABSENT: distended Extremities exam: PRESENT: other - Trace edema Skin exam: PRESENT: dry, warm. ABSENT: cyanosis Results Laboratory Results: 11/12/16 06:30 11/12/16 06:30 11/11/16 11/11/16 11/11/16 20:05 21:25 21:25 WBC RBC Hgb Hct MCV MCH MCHC RDW Plt Count Seg Neutrophils % Lymphocytes % Monocytes % Eosinophils % Basophils % Absolute Neutrophils Absolute Lymphocytes Absolute Monocytes Absolute Eosinophils Absolute Basophils Carbonic Acid 1.10 HCO3/H2CO3 Ratio 17:1 ABG pH 7.34 L ABG pCO2 36.4 ABG pO2 80.8 ABG HCO3 19.3 L ABG O2 Saturation 95.4 ABG Base Excess -5.7 FiO2 60% Sodium 134.8 L Potassium 5.0 D Chloride 100 Carbon Dioxide 22 Anion Gap 13 BUN 39 H Creatinine 2.58 H Est GFR ( Amer) 23 L Est GFR (Non-Af Amer) 19 L Glucose 163 H Calcium 8.1 L Magnesium Total Bilirubin AST ALT Alkaline Phosphatase Total Protein Albumin Triglycerides TSH 1.14 Free T4 1.47 11/11/16 11/11/16 11/12/16 21:25 21:25 02:55 WBC RBC Hgb Hct MCV MCH MCHC RDW Plt Count Seg Neutrophils % Lymphocytes % Monocytes % Eosinophils % Basophils % Absolute Neutrophils Absolute Lymphocytes Absolute Monocytes Absolute Eosinophils Absolute Basophils Carbonic Acid HCO3/H2CO3 Ratio ABG pH ABG pCO2 ABG pO2 ABG HCO3 ABG O2 Saturation ABG Base Excess FiO2 Sodium Cancelled 133.1 L Potassium Cancelled 5.5 H Chloride Cancelled 101 Carbon Dioxide Cancelled 15 L Anion Gap Cancelled 17 BUN Cancelled 35 H Creatinine Cancelled 2.53 H Est GFR ( Amer) Cancelled 23 L Est GFR (Non-Af Amer) Cancelled 19 L Glucose Cancelled 200 H Calcium Cancelled 7.2 L Magnesium 1.7 Total Bilirubin AST ALT Alkaline Phosphatase Total Protein Albumin Triglycerides TSH Free T4 Cancelled 11/12/16 11/12/16 11/12/16 02:55 06:30 06:30 WBC 21.9 H RBC 3.79 Hgb 11.7 L Hct 38.1 MCV 101 H MCH 30.9 MCHC 30.7 L RDW 16.5 H Plt Count 177 Seg Neutrophils % Not Reportable Lymphocytes % Not Reportable Monocytes % Not Reportable Eosinophils % Not Reportable Basophils % Not Reportable Absolute Neutrophils Not Reportable Absolute Lymphocytes Not Reportable Absolute Monocytes Not Reportable Absolute Eosinophils Not Reportable Absolute Basophils Not Reportable Carbonic Acid HCO3/H2CO3 Ratio ABG pH ABG pCO2 ABG pO2 ABG HCO3 ABG O2 Saturation ABG Base Excess FiO2 Sodium 132.3 L Potassium 5.0 Chloride 101 Carbon Dioxide 15 L Anion Gap 16 BUN 36 H Creatinine 2.65 H Est GFR ( Amer) 22 L Est GFR (Non-Af Amer) 18 L Glucose 337 H Calcium 7.1 L Magnesium Total Bilirubin 2.1 H AST 5695 H ALT 3520 H Alkaline Phosphatase 73 Total Protein 4.3 L Albumin 2.5 L Triglycerides 108 TSH Free T4 11/12/16 11/12/16 06:30 08:27 WBC RBC Hgb Hct MCV MCH MCHC RDW Plt Count Seg Neutrophils % Lymphocytes % Monocytes % Eosinophils % Basophils % Absolute Neutrophils Absolute Lymphocytes Absolute Monocytes Absolute Eosinophils Absolute Basophils Carbonic Acid 1.00 L 0.73 L HCO3/H2CO3 Ratio 12:1 15:1 ABG pH 7.19 L* 7.28 L ABG pCO2 33.3 L 24.2 L ABG pO2 109.5 H 83.0 ABG HCO3 12.3 L 11.0 L ABG O2 Saturation 96.9 95.2 ABG Base Excess -14.9 -14.0 FiO2 80% 55% Sodium Potassium Chloride Carbon Dioxide Anion Gap BUN Creatinine Est GFR ( Amer) Est GFR (Non-Af Amer) Glucose Calcium Magnesium Total Bilirubin AST ALT Alkaline Phosphatase Total Protein Albumin Triglycerides TSH Free T4 11/11/16 11/11/16 11/11/16 21:25 21:25 21:25 Creatine Kinase 1287 H Cancelled CK-MB (CK-2) 9.96 H Troponin I 0.483 11/12/16 11/12/16 03:50 03:50 Creatine Kinase 2330 H CK-MB (CK-2) 15.40 H Troponin I 0.477 Impressions: Cervical Spine CT 11/11/16 14:13 IMPRESSION: CHRONIC DEGENERATIVE CHANGES. NO ACUTE FINDINGS. Head CT 11/11/16 14:13 IMPRESSION: NORMAL BRAIN CT WITHOUT CONTRAST. Renal Ultrasound 11/12/16 00:00 IMPRESSION: No hydronephrosis. Chest X-Ray 11/12/16 06:00 IMPRESSION: No significant interval change. 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
--- NOTE | 2016-11-12 10:44 | Progress Note ---
Provider Note Provider Note: 11/11/2016, 11:40 PM: After chart review was performed, I met at bedside with patient's and younger female--daughter? I discussed patient's overall acute health issues and told them in Krishna layperson's terms that patient was extremely sick, and despite quite intensive efforts by nursing staff and multiple physicians, that patient may very well not survive this profound insult. Questions were answered. They seemed to accept this discussion well.
[2016-11-12 13:01] VITALS: BP 88/63
[2016-11-12] MEDS ORDERED: HEPARIN SOD (PORCINE) 5,000 UNIT/ML 1 ML SYRINGE SUBCUT SCH (14:00)
[2016-11-12] MEDS ORDERED: FUROSEMIDE INJ/PF 40 MG/4 ML SDV IV SCH (14:00)
--- NOTE | 2016-11-12 18:27 | XCELERA REPORT ---
[address] [address] Transthoracic Echocardiogram Report Name: NIMISHA PORTILLO Age: 60 yrs Gender: Female : 1955 Patient Status: Inpatient Patient Location: ICU\S\610\S\A Study Date: 11/12/2016 08:29 AM Height: 62 in Weight: 223 lb BSA: 2.0 m2 Procedure: A two-dimensional transthoracic echocardiogram with color flow and Doppler was performed. The study was technically difficult with many images being suboptimal in quality. Reason For Study: CHF History: CHF. Ordering Physician: JASON CARTER Performed By: Sharifa Owen Interpretation Summary The left ventricle is normal in size. There is normal left ventricular wall thickness. LV EF is 40% Left ventricular systolic function is moderately reduced. There is moderate global hypokinesis of the left ventricle. Mild to moderate LA enlargement. There is no evidence of mitral valve prolapse. There is no mitral valve stenosis. There is a moderate to severe amount of mitral regurgitation There is no aortic valve stenosis There is no LVOT obstruction. Aortic Scllerosiscwithout Sctenosis There is no pulmonic valvular stenosis. There is no pericardial effusion. Moderta to severe TR. RVSP is 45 mm of Hg , RA mean of 20.RVSP is 45 mm of Hg , with RA mean of 20. MMode/2D Measurements \T\ Calculations RVDd: 3.4 cm LVIDd: 3.9 cm FS: 21.6 % MV Diam: 2.5 cm IVSd: 1.1 cm LVIDs: 3.0 cm EDV(Teich): LVPWd: 1.1 cm 64.2 ml ESV(Teich): 35.7 ml EF(Teich): 44.5 % Ao root diam: LVOT diam: LVLd ap4: 7.4 cm SV(MOD-sp4): 40.0 ml 2.8 cm 2.1 cm EDV(MOD-sp4): Ao root area: LVOT area: 88.0 ml 6.0 cm2 3.5 cm2 LVLs ap4: 6.4 cm LA dimension: ESV(MOD-sp4): 4.5 cm 48.0 ml EF(MOD-sp4): 45.5 % LA A2Cs: 25.8 cm2 LA A4Cs: LA length: 7.0 cm LA Vol Index (BP): 26.4 cm2 41.3 ml/m2 LA Volume: 82.7 ml Doppler Measurements \T\ Calculations MV E max coral: MV area (1 diam): MV P1/2t max coral: Ao V2 max: 89.3 cm/sec 89.8 cm/sec 184.0 cm/sec 5.1 cm2 MV P1/2t: 53.9 msec Ao max PG: MV Flow area 13.5 mmHg (1diam): 5.1 cm2 MVA(P1/2t): 4.1 cm2 SALVATORE(V,D): MV dec slope: 487.9 cm/sec2 1.5 cm2 AI max coral: LV V1 max PG: MR max coral: PA V2 max: 403.0 cm/sec 2.4 mmHg 485.9 cm/sec 56.3 cm/sec AI max PG: LV V1 max: MR max P.5 mmHgPA max P.0 mmHg 77.9 cm/sec 1.3 mmHg AI dec slope: LV dP/dt: 144.0 cm/sec2 699.0 mmHg/s AI P1/2t: 819.9 msec TR max coral: 246.3 cm/sec TR max P.3 mmHg Left Ventricle The left ventricle is normal in size. There is normal left ventricular wall thickness. LV EF is 40%. Left ventricular systolic function is moderately reduced. LV diastolic function not assessed. There is moderate global hypokinesis of the left ventricle. There is no thrombus. Right Ventricle The right ventricle is not well visualized secondary to technical limitations. Atria The right atrium is normal. Mild to moderate LA enlargement. Mitral Valve There is mild mitral annular calcification. There is no evidence of mitral valve prolapse. There is no mitral valve stenosis. There is a moderate to severe amount of mitral regurgitation. Aortic Valve There is no aortic valvular vegetation. There is no aortic valve stenosis. There is no LVOT obstruction. Aortic Scllerosiscwithout Sctenosis. Tricuspid Valve Moderta to severe TR. RVSP is 45 mm of Hg , RA mean of 20.RVSP is 45 mm of Hg , with RA mean of 20. There is mild pulmonary hypertension by echo. Pulmonic Valve There is no pulmonic valvular stenosis. There is a trace amount of pulmonic regurgitation. Great Vessels The aortic root is normal size. Effusions There is no pericardial effusion. : JASON CARTER Lakshmi
--- NOTE | 2016-11-12 19:41 | EKG REPORT ---
SEVERITY:- ABNORMAL ECG - ATRIAL FIBRILLATION BORDERLINE RIGHT AXIS DEVIATION LOW VOLTAGE THROUGHOUT NONSPECIFIC T ABNORMALITIES, DIFFUSE LEADS : Confirmed by: Cezar Arellano 12-Nov-2016 19:40:33
[2016-11-12] MEDS ORDERED: VANCOMYCIN HCL 750 MG in DEXTROSE 5%-WATER 250 ML IV SCH (22:00)
== END 2016-11-12 12:30 | disposition short-term general hospital (02) | DRG 871 ==
LOC: ER 13:39 → EH 18:14 → UNDOADMIN 18:53 → EH 18:53 → ICU 20:24
PROC: 5A1935Z Respiratory Ventilation, Less than 24 Consecutive Hours (ICD-10-PCS; principal; 2016-11-11)
PROC: 0BH17EZ Insertion of Endotracheal Airway into Trachea, Via Natural or Artificial Opening (ICD-10-PCS; 2016-11-11)
PROC: 05HM33Z Insertion of Infusion Device into Right Internal Jugular Vein, Percutaneous Approach (ICD-10-PCS; 2016-11-11)
PROC: B543ZZA Ultrasonography of Right Jugular Veins, Guidance (ICD-10-PCS; 2016-11-11)
PROC: 3E0F73Z Introduction of Anti-inflammatory into Respiratory Tract, Via Natural or Artificial Opening (ICD-10-PCS; 2016-11-12)
DX: A41.9 Sepsis, unspecified organism (principal); J96.21 Acute and chronic respiratory failure with hypoxia; R65.21 Severe sepsis with septic shock; J18.9 Pneumonia, unspecified organism; I50.33 Acute on chronic diastolic (congestive) heart failure; J44.0 Chronic obstructive pulmonary disease with (acute) lower respiratory infection; E27.40 Unspecified adrenocortical insufficiency; N17.9 Acute kidney failure, unspecified; Z68.41 Body mass index [BMI] 40.0-44.9, adult; I11.0 Hypertensive heart disease with heart failure; E16.2 Hypoglycemia, unspecified; I48.91 Unspecified atrial fibrillation; E03.9 Hypothyroidism, unspecified; I27.2 Other secondary pulmonary hypertension; F32.9 Major depressive disorder, single episode, unspecified; E66.01 Morbid (severe) obesity due to excess calories; Z78.1 Physical restraint status; Z79.899 Other long term (current) drug therapy; Z88.1 Allergy status to other antibiotic agents; Z88.8 Allergy status to other drugs, medicaments and biological substances; Z99.81 Dependence on supplemental oxygen; Z87.891 Personal history of nicotine dependence; Z82.5 Family history of asthma and other chronic lower respiratory diseases; Z84.89 Family history of other specified conditions
CPT/HCPCS: 36415; 36600; 70450; 71010; 72125; 76770; 80048; 80053; 81001; 82550; 82553; 82803; 83735; 83880; 84439; 84443; 84478; 84484; 85025; 85610; 85730; 87040; 87070; 87077; 87086; 87186; 87205; 93005; 93010; 93306; 94002; 94003; 94640; 96365; 96375; 96376; 99285; C1751; J0692; J0743; J0744; J1160; J1250; J1720; J1815; J1940; J1956; J2060; J2310; J2370; J2704; J2930; J3370; J3490; J7030; J7060; J7120; J7620

== ENCOUNTER 2016-12-01 15:36 | Inpatient (IN) | payer OTHER ==
[2016-12-01] MEDS ORDERED: GUAIFENESIN SYRP 200 MG/10 ML UDC PO PRN (21:24)
[2016-12-01] MEDS ORDERED: IPRATROPIUM/ALBUTEROL 0.5-2.5 MG/3 ML AMPUL NEB PRN (21:24)
[2016-12-01] MEDS ORDERED: ACETAMINOPHEN 325 MG TABLET PO PRN (21:24)
[2016-12-01] MEDS ORDERED: METOPROLOL TARTRATE PF/INJ 5 MG/5 ML SDV IV ONE (22:45)
[2016-12-01] MEDS ORDERED: DILTIAZEM HCL 60 MG TABLET PO ONE (22:45)
[2016-12-01] MEDS ORDERED: DILTIAZEM HCL INJ 25 MG/5 ML VIAL ONE (23:57)
[2016-12-02] MEDS ORDERED: FENTANYL 25 MCG/HR PATCH.TD72 TOP SCH
[2016-12-02] MEDS ORDERED: INSULIN LISPRO 100 UNIT/ML 3 ML VIAL SUBCUT PRN (00:20)
[2016-12-02] MEDS ORDERED: GLUCAGON,HUMAN RECOMB 1 MG INJ IM PRN (00:20)
[2016-12-02] MEDS ORDERED: DEXTROSE 40% GEL 15 GM TUBE PO PRN ×2 (00:20)
[2016-12-02] MEDS ORDERED: DEXTROSE 50%-WATER 25 GM/50 ML DISP.SYRIN IV PRN ×2 (00:20)
[2016-12-02] MEDS ORDERED: CLINDAMYCIN 900 MG/D5W RTU 50 ML IV SCH (00:30)
[2016-12-02 00:56] LABS: ALANINE AMINOTRANSFERASE 24 U/L (9-52); ALBUMIN 3.3 g/dL (3.5-5.0); ALKALINE PHOSPHATASE 103 U/L (38-126); ANION GAP 15 (5-19); ASPARTATE AMINO TRANSFERASE 24 U/L (14-36); BILIRUBIN,DIRECT 0.4 mg/dL (0.0-0.4); BILIRUBIN,TOTAL 0.6 mg/dL (0.2-1.3); BLOOD UREA NITROGEN 13 mg/dL (7-20); CALCIUM 9.3 mg/dL (8.4-10.2); CARBON DIOXIDE 24 mmol/L (22-30); CHLORIDE 105 mmol/L (98-107); CREATINE KINASE 28 U/L (30-135); CREATININE RESULT 0.73 mg/dL (0.52-1.25); GLUCOSE 108 mg/dL (75-110); MAGNESIUM 1.6 mg/dL (1.6-2.3); POTASSIUM 3.9 mmol/L (3.6-5.0); SODIUM 143.5 mmol/L (137-145); TOTAL PROTEIN 6.8 g/dL (6.3-8.2)
[2016-12-02] MEDS ORDERED: CLINDAMYCIN 900 MG/D5W RTU 50 ML IV ONE ×2 (01:00)
[2016-12-02 01:27] LABS: ABSOLUTE BASOPHILS # (AUTO) 0.1 10^3/uL (0.0-0.2); ABSOLUTE EOSINOPHILS # (AUTO) 0.1 10^3/uL (0.0-0.6); ABSOLUTE LYMPHOCYTES (AUTO) 1.5 10^3/uL (0.5-4.7); ABSOLUTE MONOCYTES (AUTO) 0.8 10^3/uL (0.1-1.4); ABSOLUTE NEUT (AUTO) 6.8 10^3/uL (1.7-8.2); BASOPHILS % (AUTO) 1.2 % (0-2); EOSINOPHILS % (AUTO) 0.7 % (0-6); HEMATOCRIT 33.3 % (36.0-47.0); HEMOGLOBIN 10.9 g/dL (12.0-15.5); HGB HCT DIFFERENCE -0.6; LYMPHOCYTES % (AUTO) 16.2 % (13-45); MEAN CORPUSCULAR HEMOGLOBIN 30.1 pg (27.0-33.4); MEAN CORPUSCULAR HGB CONC 32.7 g/dL (32.0-36.0); MONOCYTES % (AUTO) 9.1 % (3-13); RED BLOOD COUNT 3.61 10^6/uL (3.72-5.28); RED CELL DISTRIBUTION WIDTH 15.9 % (11.5-14.0); SEGMENTED NEUTROPHILS % (AUTO) 72.8 % (42-78); WHITE BLOOD COUNT 9.3 10^3/uL (4.0-10.5)
[2016-12-02 01:29] LABS: TROPONIN I < 0.012 ng/mL
[2016-12-02 01:32] LABS: MEAN CORPUSCULAR VOLUME 92 fl (80-97)
[2016-12-02] MEDS: IPRATROPIUM/ALBUTEROL 0.5-2.5 MG/3 ML AMPUL NEB SCH ×4 (02:10→21:14)
[2016-12-02] MEDS ORDERED: D5W RTU IV ONE (02:12)
[2016-12-02] MEDS ORDERED: CLINDAMYCIN IV ONE (02:12)
--- NOTE | 2016-12-02 02:41 | PDOC H&P ---
History of Present Illness Admission Date/PCP: 12/01/16 15:36 ARA WEBB MD Patient complains of: Short of breath History of Present Illness: NIMISHA PORTILLO is a 60 year old female with an extensive past medical history including hypothyroidism, COPD, pulmonary hypertension, adrenal insufficiency, diastolic heart failure, H fibrillation, morbid obesity, obstructive sleep apnea , fibromyalgia, diabetes, opiate dependent chronic pain, who was transferred to [facility] and in [place] for pneumonia with septic shock on November 12 and now has been accepted in transfer to return, following a 20 day admission for profound sepsis with methicillin sensitive staph aureus bacteremia requiring intubation for respiratory failure, and complicated by shock liver and acute renal failure who is had tremendous recovery. She remains severely debilitated requiring IV antibiotics will require extensive physical therapy. Upon arrival she is notably short of breath with A. fib with RVR and nonproductive cough with crackles in the bilateral lung méndez. Patient's nurse is ordered to obtain EKG initiate IV Cardizem, BiPAP and labs Past Medical History Cardiac Medical History: Reports: Atrial Fibrillation, Congestive Heart Failure , Hypertension Pulmonary Medical History: Reports: Asthma, Chronic Obstructive Pulmonary Disease (COPD), Pneumonia, Respiratory Failure - On home oxygen, Sleep Apnea Endocrine Medical History: Reports: Hypothyroidism, Obesity Psychiatric Medical History: Reports: Depression, Other - Chronic pain, restless legs Past Surgical History Past Surgical History: Reports: Section - X4, Orthopedic Surgery - right knee replacement, right toe, left shoulder Social History Information Source: Patient, Outside Facility Records Lives with: Alone Smoking Status: Never Smoker Frequency of Alcohol Use: None Hx Recreational Drug Use: No Drugs: None Hx Prescription Drug Abuse: No - Advance Directive Resuscitation Status: Full Code Family History Family History: Other - Asthma and dementia Parental Family History Reviewed: Yes Children Family History Reviewed: Yes Sibling(s) Family History Reviewed.: Yes Medication/Allergy Home Medications: Allopurinol [Zyloprim 300 mg Tablet] 300 mg PO DAILY 11/11/16 Atenolol [Tenormin 50 mg Tablet] 50 mg PO BID 11/11/16 Cyclobenzaprine HCl [Flexeril 10 mg Tablet] 10 mg PO TID 11/11/16 Diltiazem HCl [Diltiazem 24Hr Cd] 120 mg PO DAILY 11/11/16 Fentanyl [Duragesic 12 Mcg/Hr Transdermal Patch] 1 patch TOP Q3D 11/11/16 Fentanyl [Duragesic 25 mcg/hr Transdermal Patch] 1 patch TOP Q3D 11/11/16 Furosemide [Lasix] 40 mg PO BID 11/11/16 Guaifenesin [Mucinex] 600 mg PO Q12 11/11/16 Hydrocodone/Acetaminophen [[place] 5-325 mg Tablet] 1 tab PO QIDP PRN 11/11/16 Levothyroxine Sodium [Synthroid 0.025 mg Tablet] 0.025 mg PO DAILY 11/11/16 Prednisone 2.5 mg PO DAILY@1500 11/11/16 Prednisone [Deltasone 5 mg Tablet] 5 mg PO QAM 11/11/16 Pregabalin [Lyrica] 150 mg PO TID 11/11/16 Ropinirole HCl 1 mg PO QHS 11/11/16 Simvastatin [Zocor 20 mg Tablet] 20 mg PO QHS 11/11/16 Spironolactone [Aldactone 25 mg Tablet] 12.5 mg PO Q12 11/11/16 Sumatriptan Succinate [Imitrex 100 mg Tablet] 100 mg PO PRN PRN 11/11/16 Budesonide/Formoterol Fumarate [Symbicort Hfa 160-4.5 Mcg Inhaler 6 gm] 2 puff IH Q12 12/01/16 Cefazolin Sodium in 0.9 % NaCl [Cefazolin 2 G/100 ml-0.9% NaCl] 2 gm IV Diltiazem HCl [Diltiazem 24Hr ER] 12/01/16 Allergies/Adverse Reactions: MERRITT Inhibitors [Merritt Inhibitors] Allergy (Verified 07/26/16 14:17) amoxicillin trihydrate [From Augmentin] Allergy (Verified 07/26/16 14:17) bumetanide [From Bumex] Allergy (Unverified 11/12/16 08:06) Potassium Clavulanate * [From Augmentin] Allergy (Verified 07/26/16 14:17) Review of Systems Constitutional: ABSENT: chills, fever(s), headache(s), weight gain, weight loss Eyes: ABSENT: visual disturbances Ears: ABSENT: hearing changes Cardiovascular: PRESENT: palpitations. ABSENT: chest pain, dyspnea on exertion , edema, orthropnea Respiratory: ABSENT: cough, hemoptysis Gastrointestinal: ABSENT: abdominal pain, constipation, diarrhea, hematemesis, hematochezia, nausea, vomiting Genitourinary: ABSENT: dysuria, hematuria Musculoskeletal: ABSENT: joint swelling Integumentary: ABSENT: rash, wounds Neurological: PRESENT: weakness. ABSENT: abnormal gait, abnormal speech, confusion, dizziness, focal weakness, syncope Psychiatric: PRESENT: anxiety, depression. ABSENT: homidical ideation, suicidal ideation Endocrine: ABSENT: cold intolerance, heat intolerance, polydipsia, polyuria Hematologic/Lymphatic: ABSENT: easy bleeding, easy bruising Physical Exam Vital Signs: Temp Pulse Resp BP Pulse Ox 98.5 F 104 H 24 H 123/77 97 12/01/16 21:04 12/02/16 00:00 12/02/16 01:06 12/01/16 21:04 12/02/16 01:06 Intake & Output 11/30/16 12/01/16 12/02/16 11:59 11:59 11:59 Intake Total 310 Balance 310 Weight 79.7 kg General appearance: PRESENT: cooperative, mild distress Head exam: PRESENT: atraumatic, normocephalic Eye exam: PRESENT: conjunctiva pink, EOMI, PERRLA. ABSENT: scleral icterus Ear exam: PRESENT: normal external ear exam Mouth exam: PRESENT: moist, tongue midline Neck exam: ABSENT: carotid bruit, JVD, lymphadenopathy, thyromegaly Respiratory exam: PRESENT: accessory muscle use, crackles, prolonged expiratory phas, symmetrical, tachypnea. ABSENT: chest wall tenderness, clear to auscultation lyn, rhonchi, stridor Cardiovascular exam: PRESENT: RRR. ABSENT: diastolic murmur, rubs, systolic murmur Pulses: PRESENT: normal dorsalis pedis pul Vascular exam: PRESENT: normal capillary refill GI/Abdominal exam: PRESENT: normal bowel sounds, soft. ABSENT: distended, guarding, mass, organolmegaly, rebound, tenderness Rectal exam: PRESENT: deferred Extremities exam: PRESENT: full ROM. ABSENT: calf tenderness, clubbing, pedal edema Neurological exam: PRESENT: alert, awake, oriented to person, oriented to place , oriented to time, oriented to situation, CN II-XII grossly intact. ABSENT: motor sensory deficit Psychiatric exam: PRESENT: anxious, normal mood. ABSENT: homicidal ideation, suicidal ideation Skin exam: PRESENT: dry, intact, warm. ABSENT: cyanosis, rash Results Laboratory Results: 12/02/16 01:18 12/02/16 00:31 12/02/16 12/02/16 12/02/16 00:31 00:31 01:18 WBC Cancelled 9.3 RBC Cancelled 3.61 L Hgb Cancelled 10.9 L Hct Cancelled 33.3 L MCV Cancelled 92 D MCH Cancelled 30.1 MCHC Cancelled 32.7 RDW Cancelled 15.9 H Plt Count Cancelled 243 Seg Neutrophils % Cancelled 72.8 Lymphocytes % Cancelled 16.2 Monocytes % Cancelled 9.1 Eosinophils % Cancelled 0.7 Basophils % Cancelled 1.2 Absolute Neutrophils Cancelled 6.8 Absolute Lymphocytes Cancelled 1.5 Absolute Monocytes Cancelled 0.8 Absolute Eosinophils Cancelled 0.1 Absolute Basophils Cancelled 0.1 Sodium 143.5 Potassium 3.9 Chloride 105 Carbon Dioxide 24 Anion Gap 15 BUN 13 Creatinine 0.73 Est GFR ( Amer) > 60 Est GFR (Non-Af Amer) > 60 Glucose 108 Calcium 9.3 Magnesium 1.6 Total Bilirubin 0.6 AST 24 ALT 24 Alkaline Phosphatase 103 Total Protein 6.8 Albumin 3.3 L 12/02/16 12/02/16 00:31 00:31 Creatine Kinase 28 L CK-MB (CK-2) 0.60 Troponin I < 0.012 Assessment & Plan - Diagnosis (1) Atrial fibrillation Qualifiers: Atrial fibrillation type: unspecified Qualified Code(s): I48.91 - Unspecified atrial fibrillation Plan: Given her presentation with A. fib with RVR she's gotten receive IV Lopressor as blood pressure tolerates and IV Cardizem with transition to by mouth (2) Bacteremia Is this a current diagnosis for this admission?: YesPlan: Evaluation of patient's microbiology is significant for methicillin sensitive staph aureus , on cefazolin sodium, she is on day 20 of 28 of IV antibiotics. Given her evaluation on arrival I am concerned for recurrent pneumonia following evaluation of blood cultures November 12 I'll initiate clindamycin given excellent PAULINE less than 0.5 (3) Acute and chronic respiratory failure ([id number]) Qualifiers: Respiratory failure complication: hypoxia Qualified Code(s): J96.21 - Acute and chronic respiratory failure with hypoxia Is this a current diagnosis for this admission?: YesPlan: Encourage incentive spirometry, flutter valve and continue albuterol and Atrovent with early mobilization (4) Debility Is this a current diagnosis for this admission?: YesPlan: Profound debility following prolonged critical care compensated by the above I' ll obtain physical therapy consultation in anticipation for inpatient rehabilitation (5) ANNA (obstructive sleep apnea) Is this a current diagnosis for this admission?: YesPlan: Cpap ordered - Time Time Spent: 50 to 70 Minutes - Inpatient Certification Medical Necessity: Need Close Monitoring Due to Risk of Patient Decompensation
[2016-12-02] MEDS: DILTIAZEM HCL 60 MG TABLET PO SCH ×4 (04:19→20:58)
[2016-12-02] MEDS: HEPARIN SOD (PORCINE) 5,000 UNIT/ML 1 ML SYRINGE SUBCUT SCH ×3 (04:22→14:20)
[2016-12-02 06:20] LABS: ABSOLUTE BASOPHILS # (AUTO) 0.1 10^3/uL (0.0-0.2); ABSOLUTE EOSINOPHILS # (AUTO) 0.1 10^3/uL (0.0-0.6); ABSOLUTE LYMPHOCYTES (AUTO) 0.8 10^3/uL (0.5-4.7); ABSOLUTE MONOCYTES (AUTO) 0.7 10^3/uL (0.1-1.4); ABSOLUTE NEUT (AUTO) 5.8 10^3/uL (1.7-8.2); HEMATOCRIT 33.7 % (36.0-47.0); HEMOGLOBIN 10.8 g/dL (12.0-15.5); HGB HCT DIFFERENCE -1.3; LYMPHOCYTES % (AUTO) 10.8 % (13-45); MEAN CORPUSCULAR HEMOGLOBIN 29.3 pg (27.0-33.4); MEAN CORPUSCULAR VOLUME 92 fl (80-97); MONOCYTES % (AUTO) 9.6 % (3-13); RED BLOOD COUNT 3.68 10^6/uL (3.72-5.28); SEGMENTED NEUTROPHILS % (AUTO) 77.6 % (42-78); WHITE BLOOD COUNT 7.4 10^3/uL (4.0-10.5)
[2016-12-02 06:33] LABS: ANION GAP 11 (5-19); BLOOD UREA NITROGEN 11 mg/dL (7-20); CALCIUM 9.5 mg/dL (8.4-10.2); CARBON DIOXIDE 27 mmol/L (22-30); CHLORIDE 104 mmol/L (98-107); GLUCOSE 88 mg/dL (75-110); POTASSIUM 3.5 mmol/L (3.6-5.0); SODIUM 142.2 mmol/L (137-145)
--- NOTE | 2016-12-02 08:18 | EKG REPORT ---
SEVERITY:- ABNORMAL ECG - ATRIAL FIBRILLATION, V-RATE 81-156 ABNORMAL T, NON SPECIFIC BORDERLINE PROLONGED QT INTERVAL : Confirmed by: Cezar Arellano 02-Dec-2016 08:16:57
[2016-12-02] MEDS: PREDNISONE 5 MG TABLET PO SCH (08:43)
[2016-12-02] MEDS: ATENOLOL 50 MG TABLET PO SCH ×2 (09:53→17:59)
[2016-12-02] MEDS: CLINDAMYCIN 900 MG/D5W RTU 50 ML IV SCH ×2 (09:55→17:58)
--- NOTE | 2016-12-02 11:24 | PDOC PROGRESS REPORT ---
Subjective Progress Note for:: 12/02/16 Subjective:: Complaints of productive cough. She also had an episode of atrial fibrillation with rapid ventricular rate yesterday evening. Physical Exam Vital Signs: Temp Pulse Resp BP Pulse Ox 98.2 F 132 H 16 110/68 100 12/02/16 08:06 12/02/16 08:55 12/02/16 08:55 12/02/16 08:06 12/02/16 08:06 Intake & Output 12/01/16 12/02/16 12/03/16 06:59 06:59 06:59 Intake Total 532 Output Total 350 Balance 182 Weight 79.4 kg General appearance: PRESENT: no acute distress Eye exam: PRESENT: conjunctiva pink. ABSENT: scleral icterus Mouth exam: PRESENT: moist, tongue midline Neck exam: ABSENT: JVD Respiratory exam: PRESENT: rhonchi - Coarse rhonchi bilaterally.. ABSENT: rales , wheezes Cardiovascular exam: PRESENT: irregular rhythm. ABSENT: diastolic murmur, rubs , systolic murmur GI/Abdominal exam: PRESENT: normal bowel sounds, soft. ABSENT: distended, guarding, mass, organolmegaly, rebound, tenderness Extremities exam: ABSENT: calf tenderness, clubbing, pedal edema Neurological exam: PRESENT: alert, awake, oriented to person, oriented to place , oriented to time, oriented to situation, CN II-XII grossly intact. ABSENT: motor sensory deficit Psychiatric exam: PRESENT: appropriate affect Skin exam: PRESENT: dry, intact, warm. ABSENT: cyanosis, rash Results Laboratory Results: 12/02/16 05:48 12/02/16 05:48 12/02/16 12/02/16 12/02/16 00:31 00:31 01:18 WBC Cancelled 9.3 RBC Cancelled 3.61 L Hgb Cancelled 10.9 L Hct Cancelled 33.3 L MCV Cancelled 92 D MCH Cancelled 30.1 MCHC Cancelled 32.7 RDW Cancelled 15.9 H Plt Count Cancelled 243 Seg Neutrophils % Cancelled 72.8 Lymphocytes % Cancelled 16.2 Monocytes % Cancelled 9.1 Eosinophils % Cancelled 0.7 Basophils % Cancelled 1.2 Absolute Neutrophils Cancelled 6.8 Absolute Lymphocytes Cancelled 1.5 Absolute Monocytes Cancelled 0.8 Absolute Eosinophils Cancelled 0.1 Absolute Basophils Cancelled 0.1 Sodium 143.5 Potassium 3.9 Chloride 105 Carbon Dioxide 24 Anion Gap 15 BUN 13 Creatinine 0.73 Est GFR ( Amer) > 60 Est GFR (Non-Af Amer) > 60 Glucose 108 Calcium 9.3 Magnesium 1.6 Total Bilirubin 0.6 AST 24 ALT 24 Alkaline Phosphatase 103 Total Protein 6.8 Albumin 3.3 L 12/02/16 12/02/16 05:48 05:48 WBC 7.4 RBC 3.68 L Hgb 10.8 L Hct 33.7 L MCV 92 MCH 29.3 MCHC 32.0 RDW 16.0 H Plt Count 220 Seg Neutrophils % 77.6 Lymphocytes % 10.8 L Monocytes % 9.6 Eosinophils % 1.0 Basophils % 1.0 Absolute Neutrophils 5.8 Absolute Lymphocytes 0.8 Absolute Monocytes 0.7 Absolute Eosinophils 0.1 Absolute Basophils 0.1 Sodium 142.2 Potassium 3.5 L Chloride 104 Carbon Dioxide 27 Anion Gap 11 BUN 11 Creatinine 0.70 Est GFR ( Amer) > 60 Est GFR (Non-Af Amer) > 60 Glucose 88 Calcium 9.5 Magnesium Total Bilirubin AST ALT Alkaline Phosphatase Total Protein Albumin 12/02/16 12/02/16 00:31 00:31 Creatine Kinase 28 L CK-MB (CK-2) 0.60 Troponin I < 0.012 Assessment & Plan - Diagnosis (1) Sepsis Qualifiers: Sepsis type: sepsis due to unspecified organism Qualified Code(s): A41.9 - Sepsis, unspecified organism Is this a current diagnosis for this admission?: YesPlan: Has sepsis from bilateral pneumonia. The patient was just transferred back from [place]. We'll continue with antibiotics for methicillin sensitive staph aureus bacteremia. (2) Bilateral pneumonia Qualifiers: Pneumonia type: due to unspecified organism Lung location: unspecified part of lung Qualified Code(s): J18.9 - Pneumonia, unspecified organism Is this a current diagnosis for this admission?: YesPlan: Patient is on clindamycin for bilateral pneumonia. (3) Acute and chronic respiratory failure ([id number]) Qualifiers: Respiratory failure complication: hypoxia Qualified Code(s): J96.21 - Acute and chronic respiratory failure with hypoxia Is this a current diagnosis for this admission?: YesPlan: This was secondary to the bilateral pneumonia. The patient was on a ventilator for greater than a week (4) Bacteremia Is this a current diagnosis for this admission?: YesPlan: With methicillin sensitive staph aureus. Patient will be on clindamycin. (5) Acute on chronic diastolic heart failure Is this a current diagnosis for this admission?: YesPlan: Patient appears to be euvolemic at this time. (6) Debility Is this a current diagnosis for this admission?: YesPlan: Patient will get physical therapy and referred for rehabilitation. (7) Acute renal failure Qualifiers: Acute renal failure type: unspecified Qualified Code(s): N17.9 - Acute kidney failure, unspecified Is this a current diagnosis for this admission?: YesPlan: Patient's creatinine has normalized. (8) Adrenal insufficiency Is this a current diagnosis for this admission?: YesPlan: Continue with prednisone. (9) Atrial fibrillation Qualifiers: Atrial fibrillation type: unspecified Qualified Code(s): I48.91 - Unspecified atrial fibrillation Is this a current diagnosis for this admission?: YesPlan: The patient has had some episodes of tachycardia overnight. We'll continue with her beta shaun and diltiazem. (10) COPD exacerbation Is this a current diagnosis for this admission?: YesPlan: Patient has no wheezing on exam today. We'll continue with the prednisone and nebulizers as needed (11) Hypokalemia Is this a current diagnosis for this admission?: YesPlan: Will monitor and replace as needed. (12) Hypothyroidism (acquired) Is this a current diagnosis for this admission?: YesPlan: The patient was on Synthroid prior to hospitalization. We will check a TSH and a T4 and restart the Synthroid. (13) Pulmonary hypertension Is this a current diagnosis for this admission?: Yes (14) Valvular heart disease Is this a current diagnosis for this admission?: Yes (15) Fibromyalgia Is this a current diagnosis for this admission?: Yes (16) Hyperlipidemia Is this a current diagnosis for this admission?: Yes (17) ANNA (obstructive sleep apnea) Is this a current diagnosis for this admission?: YesPlan: Continue CPAP as needed - Time Time Spent with patient: 25-34 minutes - Inpatient Certification Medical Necessity: Need Close Monitoring Due to Risk of Patient Decompensation
[2016-12-02 12:47] LABS: THYROID STIMULATING HORMONE 2.81 uIU/mL (0.47-4.68)
[2016-12-02] MEDS ORDERED: LEVALBUTEROL HCL NEB 1.25 MG/3 ML AMPUL NEB PRN (13:10)
[2016-12-02] MEDS ORDERED: DIGOXIN 0.25 MG TABLET PO ONE (14:00)
[2016-12-02] MEDS ORDERED: CALCIUM CARBONATE 500 MG TABLET PO PRN (19:50)
[2016-12-02] MEDS ORDERED: CALCIUM CARBONATE 500 MG TAB.CHEW PO PRN (20:19)
[2016-12-03] MEDS: IPRATROPIUM/ALBUTEROL 0.5-2.5 MG/3 ML AMPUL NEB SCH ×4 (02:38→20:58)
[2016-12-03] MEDS: DILTIAZEM HCL 60 MG TABLET PO SCH ×4 (03:34→22:12)
[2016-12-03] MEDS: CLINDAMYCIN 900 MG/D5W RTU 50 ML IV SCH ×3 (03:35→17:41)
[2016-12-03] MEDS: ROPINIROLE HCL 1 MG TABLET PO SCH ×2 (03:41→22:13)
[2016-12-03] MEDS: HEPARIN SOD (PORCINE) 5,000 UNIT/ML 1 ML SYRINGE SUBCUT SCH ×4 (05:23→22:11)
[2016-12-03 05:53] LABS: ABSOLUTE BASOPHILS # (AUTO) 0.1 10^3/uL (0.0-0.2); ABSOLUTE LYMPHOCYTES (AUTO) 0.8 10^3/uL (0.5-4.7); ABSOLUTE MONOCYTES (AUTO) 0.7 10^3/uL (0.1-1.4); ABSOLUTE NEUT (AUTO) 3.3 10^3/uL (1.7-8.2); BASOPHILS % (AUTO) 1.8 % (0-2); EOSINOPHILS % (AUTO) 0.7 % (0-6); HEMATOCRIT 31.4 % (36.0-47.0); HEMOGLOBIN 10.4 g/dL (12.0-15.5); HGB HCT DIFFERENCE -0.2; MEAN CORPUSCULAR HEMOGLOBIN 30.3 pg (27.0-33.4); MEAN CORPUSCULAR HGB CONC 33.3 g/dL (32.0-36.0); MEAN CORPUSCULAR VOLUME 91 fl (80-97); MONOCYTES % (AUTO) 14.6 % (3-13); RED BLOOD COUNT 3.45 10^6/uL (3.72-5.28); RED CELL DISTRIBUTION WIDTH 15.8 % (11.5-14.0); SEGMENTED NEUTROPHILS % (AUTO) 66.9 % (42-78); WHITE BLOOD COUNT 4.9 10^3/uL (4.0-10.5)
[2016-12-03 06:06] LABS: ANION GAP 11 (5-19); BLOOD UREA NITROGEN 13 mg/dL (7-20); CALCIUM 9.2 mg/dL (8.4-10.2); CARBON DIOXIDE 28 mmol/L (22-30); CHLORIDE 102 mmol/L (98-107); CREATININE RESULT 0.67 mg/dL (0.52-1.25); GLUCOSE 78 mg/dL (75-110); POTASSIUM 3.5 mmol/L (3.6-5.0); SODIUM 141.2 mmol/L (137-145)
[2016-12-03] MEDS: PREDNISONE 5 MG TABLET PO SCH (08:33)
--- NOTE | 2016-12-03 10:17 | PDOC PROGRESS REPORT ---
Subjective Progress Note for:: 12/03/16 Subjective:: Complains of nausea. Physical Exam Vital Signs: Temp Pulse Resp BP Pulse Ox 97.9 F 87 18 97/57 L 100 12/03/16 07:47 12/03/16 07:47 12/03/16 07:47 12/03/16 07:47 12/03/16 07:47 Intake & Output 12/02/16 12/03/16 12/04/16 06:59 06:59 06:59 Intake Total 532 1673 Output Total 350 1100 Balance 182 573 Weight 79.4 kg 80.1 kg General appearance: PRESENT: no acute distress Eye exam: PRESENT: conjunctiva pink. ABSENT: scleral icterus Mouth exam: PRESENT: moist, tongue midline Neck exam: ABSENT: JVD Respiratory exam: PRESENT: wheezes - Bilateral expiratory wheezes.. ABSENT: rales, rhonchi Cardiovascular exam: PRESENT: irregular rhythm, tachycardia. ABSENT: diastolic murmur, rubs, systolic murmur GI/Abdominal exam: PRESENT: normal bowel sounds, soft. ABSENT: distended, guarding, mass, organolmegaly, rebound, tenderness Extremities exam: ABSENT: calf tenderness, clubbing, pedal edema Neurological exam: PRESENT: alert, awake, oriented to person, oriented to place , oriented to time, oriented to situation, CN II-XII grossly intact. ABSENT: motor sensory deficit Psychiatric exam: PRESENT: appropriate affect Skin exam: PRESENT: dry, intact, warm. ABSENT: cyanosis, rash Results Laboratory Results: 12/03/16 05:20 12/03/16 05:20 12/02/16 12/03/16 12/03/16 05:48 05:20 05:20 WBC 4.9 RBC 3.45 L Hgb 10.4 L Hct 31.4 L MCV 91 MCH 30.3 MCHC 33.3 RDW 15.8 H Plt Count 164 Seg Neutrophils % 66.9 Lymphocytes % 16.0 Monocytes % 14.6 H Eosinophils % 0.7 Basophils % 1.8 Absolute Neutrophils 3.3 Absolute Lymphocytes 0.8 Absolute Monocytes 0.7 Absolute Eosinophils 0.0 Absolute Basophils 0.1 Sodium 141.2 Potassium 3.5 L Chloride 102 Carbon Dioxide 28 Anion Gap 11 BUN 13 Creatinine 0.67 Est GFR ( Amer) > 60 Est GFR (Non-Af Amer) > 60 Glucose 78 Calcium 9.2 TSH 2.81 Free T4 2.16 12/02/16 12/02/16 00:31 00:31 Creatine Kinase 28 L CK-MB (CK-2) 0.60 Troponin I < 0.012 Assessment & Plan - Diagnosis (1) Sepsis Qualifiers: Sepsis type: sepsis due to unspecified organism Qualified Code(s): A41.9 - Sepsis, unspecified organism Is this a current diagnosis for this admission?: YesPlan: Has sepsis from bilateral pneumonia. We'll continue with antibiotics for methicillin sensitive staph aureus bacteremia. (2) Bilateral pneumonia Qualifiers: Pneumonia type: due to unspecified organism Lung location: unspecified part of lung Qualified Code(s): J18.9 - Pneumonia, unspecified organism Is this a current diagnosis for this admission?: YesPlan: Patient is on clindamycin for bilateral pneumonia. (3) Acute and chronic respiratory failure ([id number]) Qualifiers: Respiratory failure complication: hypoxia Qualified Code(s): J96.21 - Acute and chronic respiratory failure with hypoxia Is this a current diagnosis for this admission?: YesPlan: This was secondary to the bilateral pneumonia. The patient was on a ventilator for greater than a week (4) Bacteremia Is this a current diagnosis for this admission?: YesPlan: With methicillin sensitive staph aureus. Patient will be on clindamycin. (5) Acute on chronic diastolic heart failure Is this a current diagnosis for this admission?: YesPlan: Patient appears to be euvolemic at this time. (6) Debility Is this a current diagnosis for this admission?: YesPlan: Patient will get physical therapy and referred for rehabilitation. (7) Acute renal failure Qualifiers: Acute renal failure type: unspecified Qualified Code(s): N17.9 - Acute kidney failure, unspecified Is this a current diagnosis for this admission?: YesPlan: Patient's creatinine has normalized. (8) Adrenal insufficiency Is this a current diagnosis for this admission?: YesPlan: Continue with prednisone. (9) Atrial fibrillation Qualifiers: Atrial fibrillation type: unspecified Qualified Code(s): I48.91 - Unspecified atrial fibrillation Is this a current diagnosis for this admission?: YesPlan: The patient has had some episodes of tachycardia. We'll continue with her beta shaun and diltiazem. (10) COPD exacerbation Is this a current diagnosis for this admission?: YesPlan: Patient has wheezing on exam today. We'll continue with the prednisone and nebulizers as needed (11) Hypokalemia Is this a current diagnosis for this admission?: YesPlan: Will monitor and replace as needed. (12) Hypothyroidism (acquired) Is this a current diagnosis for this admission?: YesPlan: The patient was on Synthroid prior to hospitalization. TSH and T4 were normal and have restart the Synthroid. (13) Pulmonary hypertension Is this a current diagnosis for this admission?: Yes (14) Valvular heart disease Is this a current diagnosis for this admission?: Yes (15) Fibromyalgia Is this a current diagnosis for this admission?: Yes (16) Hyperlipidemia Is this a current diagnosis for this admission?: Yes (17) ANNA (obstructive sleep apnea) Is this a current diagnosis for this admission?: YesPlan: Continue CPAP as needed - Time Time Spent with patient: 25-34 minutes - Inpatient Certification Medical Necessity: Need Close Monitoring Due to Risk of Patient Decompensation, Need for IV Antibiotics
[2016-12-03] MEDS: DIGOXIN 0.25 MG TABLET PO SCH (11:01)
[2016-12-03] MEDS: LEVOTHYROXINE SODIUM 0.025 MG TABLET PO SCH (11:01)
[2016-12-03] MEDS: ATENOLOL 50 MG TABLET PO SCH ×2 (11:02→17:42)
[2016-12-03] MEDS: ONDANSETRON HCL INJ/PF 4 MG/2 ML SDV IV PRN (21:02)
[2016-12-04] MEDS: IPRATROPIUM/ALBUTEROL 0.5-2.5 MG/3 ML AMPUL NEB SCH ×4 (02:11→20:31)
[2016-12-04] MEDS: CLINDAMYCIN 900 MG/D5W RTU 50 ML IV SCH ×3 (03:06→18:33)
[2016-12-04] MEDS: DILTIAZEM HCL 60 MG TABLET PO SCH ×4 (04:33→21:13)
[2016-12-04 05:27] LABS: ABSOLUTE BASOPHILS # (AUTO) 0.1 10^3/uL (0.0-0.2); ABSOLUTE EOSINOPHILS # (AUTO) 0.1 10^3/uL (0.0-0.6); ABSOLUTE LYMPHOCYTES (AUTO) 1.7 10^3/uL (0.5-4.7); ABSOLUTE MONOCYTES (AUTO) 0.6 10^3/uL (0.1-1.4); ABSOLUTE NEUT (AUTO) 2.1 10^3/uL (1.7-8.2); BASOPHILS % (AUTO) 2.1 % (0-2); EOSINOPHILS % (AUTO) 2.4 % (0-6); HEMATOCRIT 29.8 % (36.0-47.0); HEMOGLOBIN 9.9 g/dL (12.0-15.5); HGB HCT DIFFERENCE -0.1; MEAN CORPUSCULAR HEMOGLOBIN 30.3 pg (27.0-33.4); MEAN CORPUSCULAR HGB CONC 33.1 g/dL (32.0-36.0); MEAN CORPUSCULAR VOLUME 92 fl (80-97); MONOCYTES % (AUTO) 12.7 % (3-13); RED BLOOD COUNT 3.26 10^6/uL (3.72-5.28); RED CELL DISTRIBUTION WIDTH 15.7 % (11.5-14.0); SEGMENTED NEUTROPHILS % (AUTO) 45.8 % (42-78); WHITE BLOOD COUNT 4.6 10^3/uL (4.0-10.5)
[2016-12-04 05:51] LABS: ANION GAP 12 (5-19); BLOOD UREA NITROGEN 13 mg/dL (7-20); CALCIUM 8.7 mg/dL (8.4-10.2); CARBON DIOXIDE 26 mmol/L (22-30); CHLORIDE 102 mmol/L (98-107); GLUCOSE 81 mg/dL (75-110); POTASSIUM 3.6 mmol/L (3.6-5.0)
[2016-12-04] MEDS: HEPARIN SOD (PORCINE) 5,000 UNIT/ML 1 ML SYRINGE SUBCUT SCH ×3 (06:35→21:16)
[2016-12-04] MEDS: LEVOTHYROXINE SODIUM 0.025 MG TABLET PO SCH (09:04)
[2016-12-04] MEDS: DIGOXIN 0.25 MG TABLET PO SCH (09:04)
[2016-12-04] MEDS: PREDNISONE 5 MG TABLET PO SCH (09:04)
[2016-12-04] MEDS: ATENOLOL 50 MG TABLET PO SCH ×2 (09:29→18:31)
--- NOTE | 2016-12-04 10:55 | PDOC PROGRESS REPORT ---
Subjective Progress Note for:: 12/04/16 Subjective:: Complains of cough. Physical Exam Vital Signs: Temp Pulse Resp BP Pulse Ox 98.1 F 89 20 91/55 L 96 12/04/16 08:00 12/04/16 08:37 12/04/16 08:37 12/04/16 08:00 12/04/16 08:37 Intake & Output 12/03/16 12/04/16 12/05/16 06:59 06:59 06:59 Intake Total 1673 1303 Output Total 1100 1700 Balance 573 -397 Weight 80.1 kg 81.1 kg General appearance: PRESENT: no acute distress Eye exam: PRESENT: conjunctiva pink. ABSENT: scleral icterus Mouth exam: PRESENT: moist, tongue midline Neck exam: ABSENT: JVD Respiratory exam: PRESENT: rales - Bibasal rails. ABSENT: rhonchi, wheezes Cardiovascular exam: PRESENT: irregular rhythm. ABSENT: diastolic murmur, rubs , systolic murmur GI/Abdominal exam: PRESENT: normal bowel sounds, soft. ABSENT: distended, guarding, mass, organolmegaly, rebound, tenderness Extremities exam: ABSENT: calf tenderness, clubbing, pedal edema Neurological exam: PRESENT: alert, awake, oriented to person, oriented to place , oriented to time, oriented to situation, CN II-XII grossly intact. ABSENT: motor sensory deficit Psychiatric exam: PRESENT: appropriate affect Skin exam: PRESENT: dry, intact, warm. ABSENT: cyanosis, rash Results Laboratory Results: 12/04/16 04:24 12/04/16 04:24 12/04/16 12/04/16 04:24 04:24 WBC 4.6 RBC 3.26 L Hgb 9.9 L Hct 29.8 L MCV 92 MCH 30.3 MCHC 33.1 RDW 15.7 H Plt Count 146 L Seg Neutrophils % 45.8 Lymphocytes % 37.0 Monocytes % 12.7 Eosinophils % 2.4 Basophils % 2.1 H Absolute Neutrophils 2.1 Absolute Lymphocytes 1.7 Absolute Monocytes 0.6 Absolute Eosinophils 0.1 Absolute Basophils 0.1 Sodium 140.0 Potassium 3.6 Chloride 102 Carbon Dioxide 26 Anion Gap 12 BUN 13 Creatinine 0.70 Est GFR ( Amer) > 60 Est GFR (Non-Af Amer) > 60 Glucose 81 Calcium 8.7 12/02/16 12/02/16 00:31 00:31 Creatine Kinase 28 L CK-MB (CK-2) 0.60 Troponin I < 0.012 Assessment & Plan - Diagnosis (1) Sepsis Qualifiers: Sepsis type: sepsis due to unspecified organism Qualified Code(s): A41.9 - Sepsis, unspecified organism Is this a current diagnosis for this admission?: YesPlan: Has sepsis from bilateral pneumonia. We'll continue with antibiotics for methicillin sensitive staph aureus bacteremia. The patient continues to have bibasal her rails and we will get a repeat chest x-ray today. (2) Bilateral pneumonia Qualifiers: Pneumonia type: due to unspecified organism Lung location: unspecified part of lung Qualified Code(s): J18.9 - Pneumonia, unspecified organism Is this a current diagnosis for this admission?: YesPlan: Patient is on clindamycin for bilateral pneumonia. (3) Acute and chronic respiratory failure ([id number]) Qualifiers: Respiratory failure complication: hypoxia Qualified Code(s): J96.21 - Acute and chronic respiratory failure with hypoxia Is this a current diagnosis for this admission?: YesPlan: This was secondary to the bilateral pneumonia. The patient was on a ventilator for greater than a week (4) Bacteremia Is this a current diagnosis for this admission?: YesPlan: With methicillin sensitive staph aureus. Patient will be on clindamycin. (5) Acute on chronic diastolic heart failure Is this a current diagnosis for this admission?: YesPlan: Patient appears to be euvolemic at this time. (6) Debility Is this a current diagnosis for this admission?: YesPlan: Patient will get physical therapy and referred for rehabilitation. (7) Acute renal failure Qualifiers: Acute renal failure type: unspecified Qualified Code(s): N17.9 - Acute kidney failure, unspecified Is this a current diagnosis for this admission?: YesPlan: Patient's creatinine has normalized. (8) Adrenal insufficiency Is this a current diagnosis for this admission?: YesPlan: Continue with prednisone. (9) Atrial fibrillation Qualifiers: Atrial fibrillation type: unspecified Qualified Code(s): I48.91 - Unspecified atrial fibrillation Is this a current diagnosis for this admission?: YesPlan: The patient has had some episodes of tachycardia. We'll continue with her beta shaun and diltiazem. (10) COPD exacerbation Is this a current diagnosis for this admission?: YesPlan: Patient has wheezing on exam today. We'll continue with the prednisone and nebulizers as needed (11) Hypokalemia Is this a current diagnosis for this admission?: YesPlan: Will monitor and replace as needed. (12) Hypothyroidism (acquired) Is this a current diagnosis for this admission?: YesPlan: The patient was on Synthroid prior to hospitalization. TSH and T4 were normal and have restarted the Synthroid. (13) Pulmonary hypertension Is this a current diagnosis for this admission?: Yes (14) Valvular heart disease Is this a current diagnosis for this admission?: Yes (15) Fibromyalgia Is this a current diagnosis for this admission?: Yes (16) Hyperlipidemia Is this a current diagnosis for this admission?: Yes (17) ANNA (obstructive sleep apnea) Is this a current diagnosis for this admission?: YesPlan: Continue CPAP as needed - Time Time Spent with patient: 25-34 minutes - Inpatient Certification Medical Necessity: Need for IV Antibiotics
[2016-12-04] MEDS: ONDANSETRON HCL INJ/PF 4 MG/2 ML SDV IV PRN (11:32)
[2016-12-04] MEDS: ROPINIROLE HCL 1 MG TABLET PO SCH (21:16)
[2016-12-05] MEDS: IPRATROPIUM/ALBUTEROL 0.5-2.5 MG/3 ML AMPUL NEB SCH ×4 (02:19→21:08)
[2016-12-05] MEDS: DILTIAZEM HCL 60 MG TABLET PO SCH ×4 (02:39→21:29)
[2016-12-05] MEDS: CLINDAMYCIN 900 MG/D5W RTU 50 ML IV SCH ×3 (02:42→18:26)
[2016-12-05] MEDS: HEPARIN SOD (PORCINE) 5,000 UNIT/ML 1 ML SYRINGE SUBCUT SCH ×3 (06:42→21:31)
[2016-12-05] MEDS: PREDNISONE 5 MG TABLET PO SCH (08:53)
[2016-12-05] MEDS: LEVOTHYROXINE SODIUM 0.025 MG TABLET PO SCH (09:01)
[2016-12-05] MEDS: ATENOLOL 50 MG TABLET PO SCH ×2 (09:02→18:27)
[2016-12-05] MEDS: DIGOXIN 0.25 MG TABLET PO SCH (09:04)
--- NOTE | 2016-12-05 11:14 | PDOC PROGRESS REPORT ---
Subjective Progress Note for:: 12/05/16 Subjective:: Denies any complaints. Physical Exam Vital Signs: Temp Pulse Resp BP Pulse Ox 98.1 F 73 16 93/51 L 98 12/05/16 08:11 12/05/16 08:11 12/05/16 08:11 12/05/16 08:11 12/05/16 08:11 Intake & Output 12/04/16 12/05/16 12/06/16 06:59 06:59 06:59 Intake Total 1303 1973 Output Total 1700 1450 Balance -397 523 Weight 81.1 kg 82 kg General appearance: PRESENT: no acute distress Eye exam: PRESENT: conjunctiva pink. ABSENT: scleral icterus Mouth exam: PRESENT: moist, tongue midline Neck exam: ABSENT: JVD Respiratory exam: PRESENT: rhonchi - Coarse rhonchi bilaterally.. ABSENT: rales , wheezes Cardiovascular exam: PRESENT: irregular rhythm. ABSENT: diastolic murmur, rubs , systolic murmur GI/Abdominal exam: PRESENT: normal bowel sounds, soft. ABSENT: distended, guarding, mass, organolmegaly, rebound, tenderness Extremities exam: ABSENT: calf tenderness, clubbing, pedal edema Neurological exam: PRESENT: alert, awake, oriented to person, oriented to place , oriented to time, oriented to situation, CN II-XII grossly intact. ABSENT: motor sensory deficit Psychiatric exam: PRESENT: appropriate affect Skin exam: PRESENT: dry, intact, warm. ABSENT: cyanosis, rash Results Laboratory Results: 12/04/16 04:24 12/04/16 04:24 12/03/16 03:00 Nasophary ([facility] Only) MRSA Surveillance Culture - Final NO MRSA RECOVERED 12/02/16 12/02/16 00:31 00:31 Creatine Kinase 28 L CK-MB (CK-2) 0.60 Troponin I < 0.012 Impressions: Chest X-Ray 12/04/16 00:00 IMPRESSION: CARDIOMEGALY. MILD SCATTERED ATELECTASIS. PREVIOUSLY SEEN INFILTRATES HAVE CLEARED. Assessment & Plan - Diagnosis (1) Sepsis Qualifiers: Sepsis type: sepsis due to unspecified organism Qualified Code(s): A41.9 - Sepsis, unspecified organism Is this a current diagnosis for this admission?: YesPlan: Has sepsis from bilateral pneumonia. We'll continue with antibiotics for methicillin sensitive staph aureus bacteremia. The patient repeat chest x-ray yesterday that shows resolution of the infiltrates. (2) Bilateral pneumonia Qualifiers: Pneumonia type: due to unspecified organism Lung location: unspecified part of lung Qualified Code(s): J18.9 - Pneumonia, unspecified organism Is this a current diagnosis for this admission?: YesPlan: Patient is on clindamycin for bilateral pneumonia. The chest x-ray yesterday has shown resolution of the infiltrates however she continues to clinically have rales. (3) Acute and chronic respiratory failure ([id number]) Qualifiers: Respiratory failure complication: hypoxia Qualified Code(s): J96.21 - Acute and chronic respiratory failure with hypoxia Is this a current diagnosis for this admission?: YesPlan: This was secondary to the bilateral pneumonia. The patient was on a ventilator for greater than a week (4) Bacteremia Is this a current diagnosis for this admission?: YesPlan: With methicillin sensitive staph aureus. Patient is on clindamycin. (5) Acute on chronic diastolic heart failure Is this a current diagnosis for this admission?: YesPlan: Patient appears to be euvolemic at this time. (6) Debility Is this a current diagnosis for this admission?: YesPlan: Patient will get physical therapy and referred for rehabilitation. (7) Acute renal failure Qualifiers: Acute renal failure type: unspecified Qualified Code(s): N17.9 - Acute kidney failure, unspecified Is this a current diagnosis for this admission?: YesPlan: Patient's creatinine has normalized. (8) Adrenal insufficiency Is this a current diagnosis for this admission?: YesPlan: Continue with prednisone. (9) Atrial fibrillation Qualifiers: Atrial fibrillation type: unspecified Qualified Code(s): I48.91 - Unspecified atrial fibrillation Is this a current diagnosis for this admission?: YesPlan: The patient has had some episodes of tachycardia. We'll continue with her beta shaun and diltiazem. Diltiazem was held yesterday and today because of relatively low blood pressure. (10) COPD exacerbation Is this a current diagnosis for this admission?: YesPlan: Patient has less wheezing on exam today. We'll continue with the prednisone and nebulizers as needed (11) Hypokalemia Is this a current diagnosis for this admission?: YesPlan: Resolved. (12) Hypothyroidism (acquired) Is this a current diagnosis for this admission?: YesPlan: The patient was on Synthroid prior to hospitalization. TSH and T4 were normal and have restarted the Synthroid. (13) Pulmonary hypertension Is this a current diagnosis for this admission?: Yes (14) Valvular heart disease Is this a current diagnosis for this admission?: Yes (15) Fibromyalgia Is this a current diagnosis for this admission?: Yes (16) Hyperlipidemia Is this a current diagnosis for this admission?: Yes (17) ANNA (obstructive sleep apnea) Is this a current diagnosis for this admission?: YesPlan: Continue CPAP as needed - Time Time Spent with patient: 25-34 minutes - Inpatient Certification Medical Necessity: Need Close Monitoring Due to Risk of Patient Decompensation
[2016-12-05] MEDS: ROPINIROLE HCL 1 MG TABLET PO SCH (21:29)
[2016-12-06] MEDS: IPRATROPIUM/ALBUTEROL 0.5-2.5 MG/3 ML AMPUL NEB SCH ×4 (02:37→20:50)
[2016-12-06] MEDS: CLINDAMYCIN 900 MG/D5W RTU 50 ML IV SCH ×3 (02:48→17:14)
[2016-12-06] MEDS: DILTIAZEM HCL 60 MG TABLET PO SCH ×4 (02:49→21:13)
[2016-12-06 05:59] LABS: ABSOLUTE BASOPHILS # (AUTO) 0.1 10^3/uL (0.0-0.2); ABSOLUTE EOSINOPHILS # (AUTO) 0.1 10^3/uL (0.0-0.6); ABSOLUTE LYMPHOCYTES (AUTO) 2.3 10^3/uL (0.5-4.7); ABSOLUTE MONOCYTES (AUTO) 0.6 10^3/uL (0.1-1.4); ABSOLUTE NEUT (AUTO) 3.5 10^3/uL (1.7-8.2); BASOPHILS % (AUTO) 0.9 % (0-2); EOSINOPHILS % (AUTO) 1.4 % (0-6); HEMATOCRIT 31.7 % (36.0-47.0); HEMOGLOBIN 10.4 g/dL (12.0-15.5); HGB HCT DIFFERENCE -0.5; MEAN CORPUSCULAR HEMOGLOBIN 29.8 pg (27.0-33.4); MEAN CORPUSCULAR HGB CONC 32.7 g/dL (32.0-36.0); MEAN CORPUSCULAR VOLUME 91 fl (80-97); MONOCYTES % (AUTO) 9.9 % (3-13); RED BLOOD COUNT 3.48 10^6/uL (3.72-5.28); RED CELL DISTRIBUTION WIDTH 16.1 % (11.5-14.0); SEGMENTED NEUTROPHILS % (AUTO) 52.8 % (42-78); WHITE BLOOD COUNT 6.6 10^3/uL (4.0-10.5)
[2016-12-06 06:27] LABS: ANION GAP 11 (5-19); BLOOD UREA NITROGEN 13 mg/dL (7-20); CARBON DIOXIDE 28 mmol/L (22-30); CHLORIDE 101 mmol/L (98-107); CREATININE RESULT 0.62 mg/dL (0.52-1.25); GLUCOSE 68 mg/dL (75-110); SODIUM 139.5 mmol/L (137-145)
[2016-12-06] MEDS: HEPARIN SOD (PORCINE) 5,000 UNIT/ML 1 ML SYRINGE SUBCUT SCH ×3 (06:51→21:12)
[2016-12-06] MEDS: PREDNISONE 5 MG TABLET PO SCH (10:17)
[2016-12-06] MEDS: DIGOXIN 0.25 MG TABLET PO SCH (10:17)
[2016-12-06] MEDS: ATENOLOL 50 MG TABLET PO SCH ×2 (10:17→17:12)
[2016-12-06] MEDS: LEVOTHYROXINE SODIUM 0.025 MG TABLET PO SCH (10:18)
--- NOTE | 2016-12-06 11:10 | PDOC PROGRESS REPORT ---
Subjective Progress Note for:: 12/06/16 Subjective:: Denies any complaints. Physical Exam Vital Signs: Temp Pulse Resp BP Pulse Ox 98.9 F 98 20 94/51 L 100 12/06/16 08:26 12/06/16 08:26 12/06/16 08:26 12/06/16 08:26 12/06/16 08:26 Intake & Output 12/05/16 12/06/16 12/07/16 06:59 06:59 06:59 Intake Total 1973 1700 Output Total 1450 2200 Balance 523 -500 Weight 82 kg 80.5 kg General appearance: PRESENT: no acute distress Eye exam: PRESENT: conjunctiva pink. ABSENT: scleral icterus Mouth exam: PRESENT: moist, tongue midline Neck exam: ABSENT: JVD Respiratory exam: PRESENT: rhonchi - Coarse rhonchi bilaterally.. ABSENT: rales , wheezes Cardiovascular exam: PRESENT: irregular rhythm. ABSENT: diastolic murmur, rubs , systolic murmur GI/Abdominal exam: PRESENT: normal bowel sounds, soft. ABSENT: distended, guarding, mass, organolmegaly, rebound, tenderness Extremities exam: ABSENT: calf tenderness, clubbing, pedal edema Neurological exam: PRESENT: alert, awake, oriented to person, oriented to place , oriented to time, oriented to situation, CN II-XII grossly intact. ABSENT: motor sensory deficit Psychiatric exam: PRESENT: appropriate affect Skin exam: PRESENT: dry, intact, warm. ABSENT: cyanosis, rash Results Laboratory Results: 12/06/16 05:14 12/06/16 05:14 12/06/16 12/06/16 05:14 05:14 WBC 6.6 RBC 3.48 L Hgb 10.4 L Hct 31.7 L MCV 91 MCH 29.8 MCHC 32.7 RDW 16.1 H Plt Count 139 L Seg Neutrophils % 52.8 Lymphocytes % 35.0 Monocytes % 9.9 Eosinophils % 1.4 Basophils % 0.9 Absolute Neutrophils 3.5 Absolute Lymphocytes 2.3 Absolute Monocytes 0.6 Absolute Eosinophils 0.1 Absolute Basophils 0.1 Sodium 139.5 Potassium 4.0 Chloride 101 Carbon Dioxide 28 Anion Gap 11 BUN 13 Creatinine 0.62 Est GFR ( Amer) > 60 Est GFR (Non-Af Amer) > 60 Glucose 68 L Calcium 9.0 12/02/16 12/02/16 00:31 00:31 Creatine Kinase 28 L CK-MB (CK-2) 0.60 Troponin I < 0.012 Impressions: Chest X-Ray 12/04/16 00:00 IMPRESSION: CARDIOMEGALY. MILD SCATTERED ATELECTASIS. PREVIOUSLY SEEN INFILTRATES HAVE CLEARED. Assessment & Plan - Diagnosis (1) Sepsis Qualifiers: Sepsis type: sepsis due to unspecified organism Qualified Code(s): A41.9 - Sepsis, unspecified organism Is this a current diagnosis for this admission?: YesPlan: Has sepsis from bilateral pneumonia. We'll continue with antibiotics for methicillin sensitive staph aureus bacteremia. The patient repeat chest x-ray yesterday that shows resolution of the infiltrates. (2) Bilateral pneumonia Qualifiers: Pneumonia type: due to unspecified organism Lung location: unspecified part of lung Qualified Code(s): J18.9 - Pneumonia, unspecified organism Is this a current diagnosis for this admission?: YesPlan: Patient is on clindamycin for bilateral pneumonia. The chest x-ray yesterday has shown resolution of the infiltrates however she continues to clinically have rales. (3) Acute and chronic respiratory failure ([id number]) Qualifiers: Respiratory failure complication: hypoxia Qualified Code(s): J96.21 - Acute and chronic respiratory failure with hypoxia Is this a current diagnosis for this admission?: YesPlan: This was secondary to the bilateral pneumonia. The patient was on a ventilator for greater than a week (4) Bacteremia Is this a current diagnosis for this admission?: YesPlan: With methicillin sensitive staph aureus. Patient is on clindamycin. (5) Acute on chronic diastolic heart failure Is this a current diagnosis for this admission?: YesPlan: Patient appears to be euvolemic at this time. (6) Debility Is this a current diagnosis for this admission?: YesPlan: Patient will get physical therapy and referred for rehabilitation. (7) Acute renal failure Qualifiers: Acute renal failure type: unspecified Qualified Code(s): N17.9 - Acute kidney failure, unspecified Is this a current diagnosis for this admission?: YesPlan: Patient's creatinine has normalized. (8) Adrenal insufficiency Is this a current diagnosis for this admission?: YesPlan: Continue with prednisone. (9) Atrial fibrillation Qualifiers: Atrial fibrillation type: unspecified Qualified Code(s): I48.91 - Unspecified atrial fibrillation Is this a current diagnosis for this admission?: YesPlan: The patient has had some episodes of tachycardia. We'll continue with her beta shaun and diltiazem. (10) COPD exacerbation Is this a current diagnosis for this admission?: YesPlan: Patient has less wheezing on exam today. We'll continue with the prednisone and nebulizers as needed (11) Hypokalemia Is this a current diagnosis for this admission?: YesPlan: Resolved. (12) Hypothyroidism (acquired) Is this a current diagnosis for this admission?: YesPlan: Continue Synthroid. (13) Pulmonary hypertension Is this a current diagnosis for this admission?: Yes (14) Valvular heart disease Is this a current diagnosis for this admission?: Yes (15) Fibromyalgia Is this a current diagnosis for this admission?: Yes (16) Hyperlipidemia Is this a current diagnosis for this admission?: Yes (17) ANNA (obstructive sleep apnea) Is this a current diagnosis for this admission?: YesPlan: Continue CPAP as needed - Time Time Spent with patient: 25-34 minutes - Inpatient Certification Medical Necessity: Need Close Monitoring Due to Risk of Patient Decompensation, Need for IV Antibiotics
[2016-12-06] MEDS: ONDANSETRON HCL INJ/PF 4 MG/2 ML SDV IV PRN (20:56)
[2016-12-06] MEDS: ROPINIROLE HCL 1 MG TABLET PO SCH (21:12)
[2016-12-07] MEDS: IPRATROPIUM/ALBUTEROL 0.5-2.5 MG/3 ML AMPUL NEB SCH ×4 (02:29→20:39)
[2016-12-07] MEDS: CLINDAMYCIN 900 MG/D5W RTU 50 ML IV SCH ×3 (02:43→17:30)
[2016-12-07] MEDS: DILTIAZEM HCL 60 MG TABLET PO SCH ×4 (02:49→21:45)
[2016-12-07] MEDS: HEPARIN SOD (PORCINE) 5,000 UNIT/ML 1 ML SYRINGE SUBCUT SCH ×3 (06:23→21:44)
[2016-12-07] MEDS: PREDNISONE 5 MG TABLET PO SCH (08:18)
[2016-12-07] MEDS: DIGOXIN 0.25 MG TABLET PO SCH (10:39)
[2016-12-07] MEDS: LEVOTHYROXINE SODIUM 0.025 MG TABLET PO SCH (10:39)
[2016-12-07] MEDS: ATENOLOL 50 MG TABLET PO SCH ×2 (10:40→17:30)
--- NOTE | 2016-12-07 12:19 | PDOC PROGRESS REPORT ---
Subjective Progress Note for:: 12/07/16 Subjective:: Denies any complaints. Physical Exam Vital Signs: Temp Pulse Resp BP Pulse Ox 98.3 F 81 18 94/62 L 93 12/07/16 07:26 12/07/16 08:11 12/07/16 08:11 12/07/16 07:26 12/07/16 08:11 Intake & Output 12/06/16 12/07/16 12/08/16 06:59 06:59 06:59 Intake Total 1700 1679 Output Total 2200 1250 Balance -500 429 Weight 80.5 kg 80.1 kg General appearance: PRESENT: no acute distress Eye exam: PRESENT: conjunctiva pink. ABSENT: scleral icterus Mouth exam: PRESENT: moist, tongue midline Neck exam: ABSENT: JVD Respiratory exam: PRESENT: rhonchi - Coarse rhonchi bilaterally.. ABSENT: rales , wheezes Cardiovascular exam: PRESENT: RRR. ABSENT: diastolic murmur, rubs, systolic murmur GI/Abdominal exam: PRESENT: normal bowel sounds, soft. ABSENT: distended, guarding, mass, organolmegaly, rebound, tenderness Extremities exam: ABSENT: calf tenderness, clubbing, pedal edema Neurological exam: PRESENT: alert, awake, oriented to person, oriented to place , oriented to time, oriented to situation, CN II-XII grossly intact. ABSENT: motor sensory deficit Psychiatric exam: PRESENT: appropriate affect Skin exam: PRESENT: dry, intact, warm. ABSENT: cyanosis, rash Results Laboratory Results: 12/06/16 05:14 12/06/16 05:14 12/02/16 12/02/16 00:31 00:31 Creatine Kinase 28 L CK-MB (CK-2) 0.60 Troponin I < 0.012 Impressions: Chest X-Ray 12/04/16 00:00 IMPRESSION: CARDIOMEGALY. MILD SCATTERED ATELECTASIS. PREVIOUSLY SEEN INFILTRATES HAVE CLEARED. Assessment & Plan - Diagnosis (1) Sepsis Qualifiers: Sepsis type: sepsis due to unspecified organism Qualified Code(s): A41.9 - Sepsis, unspecified organism Is this a current diagnosis for this admission?: YesPlan: Has sepsis from bilateral pneumonia. We'll continue with antibiotics for methicillin sensitive staph aureus bacteremia. . (2) Bilateral pneumonia Qualifiers: Pneumonia type: due to unspecified organism Lung location: unspecified part of lung Qualified Code(s): J18.9 - Pneumonia, unspecified organism Is this a current diagnosis for this admission?: YesPlan: Patient is on clindamycin for bilateral pneumonia. (3) Acute and chronic respiratory failure ([id number]) Qualifiers: Respiratory failure complication: hypoxia Qualified Code(s): J96.21 - Acute and chronic respiratory failure with hypoxia Is this a current diagnosis for this admission?: YesPlan: This was secondary to the bilateral pneumonia. The patient was on a ventilator for greater than a week (4) Bacteremia Is this a current diagnosis for this admission?: YesPlan: With methicillin sensitive staph aureus. Patient is on clindamycin. (5) Acute on chronic diastolic heart failure Is this a current diagnosis for this admission?: YesPlan: Patient appears to be euvolemic at this time. (6) Debility Is this a current diagnosis for this admission?: YesPlan: Patient will get physical therapy and referred for rehabilitation. (7) Acute renal failure Qualifiers: Acute renal failure type: unspecified Qualified Code(s): N17.9 - Acute kidney failure, unspecified Is this a current diagnosis for this admission?: YesPlan: Patient's creatinine has normalized. (8) Adrenal insufficiency Is this a current diagnosis for this admission?: YesPlan: Continue with prednisone. (9) Atrial fibrillation Qualifiers: Atrial fibrillation type: unspecified Qualified Code(s): I48.91 - Unspecified atrial fibrillation Is this a current diagnosis for this admission?: YesPlan: The patient has had some episodes of tachycardia. We'll continue with her beta shaun and diltiazem. (10) COPD exacerbation Is this a current diagnosis for this admission?: YesPlan: We'll continue with the prednisone and nebulizers as needed (11) Hypokalemia Is this a current diagnosis for this admission?: YesPlan: Resolved. (12) Hypothyroidism (acquired) Is this a current diagnosis for this admission?: YesPlan: Continue Synthroid. (13) Pulmonary hypertension Is this a current diagnosis for this admission?: Yes (14) Valvular heart disease Is this a current diagnosis for this admission?: Yes (15) Fibromyalgia Is this a current diagnosis for this admission?: Yes (16) Hyperlipidemia Is this a current diagnosis for this admission?: Yes (17) ANNA (obstructive sleep apnea) Is this a current diagnosis for this admission?: YesPlan: Continue CPAP as needed - Time Time Spent with patient: 25-34 minutes - Inpatient Certification Medical Necessity: Need for IV Antibiotics - Plan Summary Plan Summary: We'll plan on transfer to rehabilitation when a bed becomes available
[2016-12-07] MEDS: ROPINIROLE HCL 1 MG TABLET PO SCH (21:45)
[2016-12-08] MEDS: DILTIAZEM HCL 60 MG TABLET PO SCH ×4 (02:24→22:17)
[2016-12-08] MEDS: CLINDAMYCIN 900 MG/D5W RTU 50 ML IV SCH (02:24)
[2016-12-08] MEDS: IPRATROPIUM/ALBUTEROL 0.5-2.5 MG/3 ML AMPUL NEB SCH ×4 (02:32→21:29)
[2016-12-08] MEDS: HEPARIN SOD (PORCINE) 5,000 UNIT/ML 1 ML SYRINGE SUBCUT SCH ×2 (06:09→14:07)
[2016-12-08] MEDS: ONDANSETRON HCL INJ/PF 4 MG/2 ML SDV IV PRN ×2 (08:34→18:17)
[2016-12-08] MEDS: PREDNISONE 5 MG TABLET PO SCH (08:35)
--- NOTE | 2016-12-08 10:26 | PDOC PROGRESS REPORT ---
Subjective Progress Note for:: 12/08/16 Subjective:: Denies any complaints. Physical Exam Vital Signs: Temp Pulse Resp BP Pulse Ox 98.0 F 80 16 93/61 L 96 12/08/16 07:36 12/08/16 08:12 12/08/16 08:12 12/08/16 07:36 12/08/16 08:12 Intake & Output 12/07/16 12/08/16 12/09/16 06:59 06:59 06:59 Intake Total 1679 1931 Output Total 1250 1400 Balance 429 531 Weight 80.1 kg 80.4 kg General appearance: PRESENT: no acute distress Eye exam: PRESENT: conjunctiva pink. ABSENT: scleral icterus Mouth exam: PRESENT: moist, tongue midline Neck exam: ABSENT: JVD Respiratory exam: PRESENT: rhonchi - Coarse rhonchi bilaterally.. ABSENT: rales , wheezes Cardiovascular exam: PRESENT: RRR. ABSENT: diastolic murmur, rubs, systolic murmur GI/Abdominal exam: PRESENT: normal bowel sounds, soft. ABSENT: distended, guarding, mass, organolmegaly, rebound, tenderness Extremities exam: ABSENT: calf tenderness, clubbing, pedal edema Neurological exam: PRESENT: alert, awake, oriented to person, oriented to place , oriented to time, oriented to situation, CN II-XII grossly intact. ABSENT: motor sensory deficit Psychiatric exam: PRESENT: appropriate affect Skin exam: PRESENT: dry, intact, warm. ABSENT: cyanosis, rash Results Laboratory Results: 12/06/16 05:14 12/06/16 05:14 12/02/16 12/02/16 00:31 00:31 Creatine Kinase 28 L CK-MB (CK-2) 0.60 Troponin I < 0.012 Impressions: Chest X-Ray 12/04/16 00:00 IMPRESSION: CARDIOMEGALY. MILD SCATTERED ATELECTASIS. PREVIOUSLY SEEN INFILTRATES HAVE CLEARED. Assessment & Plan - Diagnosis (1) Sepsis Qualifiers: Sepsis type: sepsis due to unspecified organism Qualified Code(s): A41.9 - Sepsis, unspecified organism Is this a current diagnosis for this admission?: YesPlan: Has sepsis from bilateral pneumonia. Patient has completed antibiotics for methicillin sensitive staph aureus bacteremia. . (2) Bilateral pneumonia Qualifiers: Pneumonia type: due to unspecified organism Lung location: unspecified part of lung Qualified Code(s): J18.9 - Pneumonia, unspecified organism Is this a current diagnosis for this admission?: YesPlan: Patient has finished clindamycin for bilateral pneumonia. (3) Acute and chronic respiratory failure ([id number]) Qualifiers: Respiratory failure complication: hypoxia Qualified Code(s): J96.21 - Acute and chronic respiratory failure with hypoxia Is this a current diagnosis for this admission?: YesPlan: This was secondary to the bilateral pneumonia. The patient was on a ventilator for greater than a week (4) Bacteremia Is this a current diagnosis for this admission?: YesPlan: With methicillin sensitive staph aureus. Patient has completed clindamycin. (5) Acute on chronic diastolic heart failure Is this a current diagnosis for this admission?: YesPlan: Patient appears to be euvolemic at this time. (6) Debility Is this a current diagnosis for this admission?: YesPlan: Patient will get physical therapy and referred for rehabilitation. (7) Acute renal failure Qualifiers: Acute renal failure type: unspecified Qualified Code(s): N17.9 - Acute kidney failure, unspecified Is this a current diagnosis for this admission?: YesPlan: Patient's creatinine has normalized. (8) Adrenal insufficiency Is this a current diagnosis for this admission?: YesPlan: Continue with prednisone. (9) Atrial fibrillation Qualifiers: Atrial fibrillation type: unspecified Qualified Code(s): I48.91 - Unspecified atrial fibrillation Is this a current diagnosis for this admission?: YesPlan: The patient has had some episodes of tachycardia. We'll continue with her beta shaun and diltiazem. (10) COPD exacerbation Is this a current diagnosis for this admission?: YesPlan: We'll continue with the prednisone and nebulizers as needed (11) Hypokalemia Is this a current diagnosis for this admission?: YesPlan: Resolved. (12) Hypothyroidism (acquired) Is this a current diagnosis for this admission?: YesPlan: Continue Synthroid. (13) Pulmonary hypertension Is this a current diagnosis for this admission?: Yes (14) Valvular heart disease Is this a current diagnosis for this admission?: Yes (15) Fibromyalgia Is this a current diagnosis for this admission?: Yes (16) Hyperlipidemia Is this a current diagnosis for this admission?: Yes (17) ANNA (obstructive sleep apnea) Is this a current diagnosis for this admission?: YesPlan: Continue CPAP as needed - Time Time Spent with patient: 25-34 minutes - Inpatient Certification Medical Necessity: Need Close Monitoring Due to Risk of Patient Decompensation - Plan Summary Plan Summary: Will DC to rehabilitation when a bed becomes available.
[2016-12-08] MEDS: DIGOXIN 0.25 MG TABLET PO SCH (10:41)
[2016-12-08] MEDS: ATENOLOL 50 MG TABLET PO SCH ×2 (10:41→18:15)
[2016-12-08] MEDS: LEVOTHYROXINE SODIUM 0.025 MG TABLET PO SCH (10:41)
[2016-12-08] MEDS: ROPINIROLE HCL 1 MG TABLET PO SCH (22:17)
[2016-12-09] MEDS: IPRATROPIUM/ALBUTEROL 0.5-2.5 MG/3 ML AMPUL NEB SCH ×4 (02:29→20:54)
[2016-12-09] MEDS: HEPARIN SOD (PORCINE) 5,000 UNIT/ML 1 ML SYRINGE SUBCUT SCH ×4 (02:42→21:37)
[2016-12-09] MEDS: DILTIAZEM HCL 60 MG TABLET PO SCH (05:35)
[2016-12-09 06:44] LABS: ABSOLUTE EOSINOPHILS # (AUTO) 0.2 10^3/uL (0.0-0.6); ABSOLUTE LYMPHOCYTES (AUTO) 2.8 10^3/uL (0.5-4.7); ABSOLUTE MONOCYTES (AUTO) 0.7 10^3/uL (0.1-1.4); ABSOLUTE NEUT (AUTO) 2.8 10^3/uL (1.7-8.2); BASOPHILS % (AUTO) 0.7 % (0-2); EOSINOPHILS % (AUTO) 2.8 % (0-6); HEMOGLOBIN 10.8 g/dL (12.0-15.5); HGB HCT DIFFERENCE -0.6; LYMPHOCYTES % (AUTO) 43.2 % (13-45); MEAN CORPUSCULAR HEMOGLOBIN 29.7 pg (27.0-33.4); MEAN CORPUSCULAR HGB CONC 32.6 g/dL (32.0-36.0); MEAN CORPUSCULAR VOLUME 91 fl (80-97); MONOCYTES % (AUTO) 10.3 % (3-13); RED BLOOD COUNT 3.63 10^6/uL (3.72-5.28); RED CELL DISTRIBUTION WIDTH 16.5 % (11.5-14.0); WHITE BLOOD COUNT 6.5 10^3/uL (4.0-10.5)
[2016-12-09 06:59] LABS: ANION GAP 10 (5-19); BLOOD UREA NITROGEN 13 mg/dL (7-20); CALCIUM 9.3 mg/dL (8.4-10.2); CARBON DIOXIDE 29 mmol/L (22-30); CHLORIDE 102 mmol/L (98-107); CREATININE RESULT 0.65 mg/dL (0.52-1.25); GLUCOSE 72 mg/dL (75-110); POTASSIUM 4.3 mmol/L (3.6-5.0); SODIUM 140.8 mmol/L (137-145)
[2016-12-09] MEDS: PREDNISONE 5 MG TABLET PO SCH (08:57)
[2016-12-09] MEDS: DIGOXIN 0.25 MG TABLET PO SCH (11:12)
[2016-12-09] MEDS: LEVOTHYROXINE SODIUM 0.025 MG TABLET PO SCH (11:12)
--- NOTE | 2016-12-09 11:12 | PDOC PROGRESS REPORT ---
Subjective Progress Note for:: 12/09/16 Subjective:: Denies any complaints. Physical Exam Vital Signs: Temp Pulse Resp BP Pulse Ox 98.2 F 96 17 94/51 L 99 12/09/16 08:28 12/09/16 08:28 12/09/16 08:28 12/09/16 08:28 12/09/16 08:28 Intake & Output 12/08/16 12/09/16 12/10/16 06:59 06:59 06:59 Intake Total 1931 342 Output Total 1400 700 Balance 531 -358 Weight 80.4 kg 80.1 kg General appearance: PRESENT: no acute distress Eye exam: PRESENT: conjunctiva pink. ABSENT: scleral icterus Mouth exam: PRESENT: moist, tongue midline Neck exam: ABSENT: JVD Respiratory exam: PRESENT: rhonchi. ABSENT: rales, wheezes Cardiovascular exam: PRESENT: irregular rhythm. ABSENT: diastolic murmur, rubs , systolic murmur GI/Abdominal exam: PRESENT: normal bowel sounds, soft. ABSENT: distended, guarding, mass, organolmegaly, rebound, tenderness Extremities exam: ABSENT: calf tenderness, clubbing, pedal edema Neurological exam: PRESENT: alert, awake, oriented to person, oriented to place , oriented to time, oriented to situation, CN II-XII grossly intact. ABSENT: motor sensory deficit Psychiatric exam: PRESENT: appropriate affect Skin exam: PRESENT: dry, intact, warm. ABSENT: cyanosis, rash Results Laboratory Results: 12/09/16 06:22 12/09/16 06:22 12/09/16 12/09/16 06:22 06:22 WBC 6.5 RBC 3.63 L Hgb 10.8 L Hct 33.0 L MCV 91 MCH 29.7 MCHC 32.6 RDW 16.5 H Plt Count 181 Seg Neutrophils % 43.0 Lymphocytes % 43.2 Monocytes % 10.3 Eosinophils % 2.8 Basophils % 0.7 Absolute Neutrophils 2.8 Absolute Lymphocytes 2.8 Absolute Monocytes 0.7 Absolute Eosinophils 0.2 Absolute Basophils 0.0 Sodium 140.8 Potassium 4.3 Chloride 102 Carbon Dioxide 29 Anion Gap 10 BUN 13 Creatinine 0.65 Est GFR ( Amer) > 60 Est GFR (Non-Af Amer) > 60 Glucose 72 L Calcium 9.3 12/02/16 12/02/16 00:31 00:31 Creatine Kinase 28 L CK-MB (CK-2) 0.60 Troponin I < 0.012 Impressions: Chest X-Ray 12/04/16 00:00 IMPRESSION: CARDIOMEGALY. MILD SCATTERED ATELECTASIS. PREVIOUSLY SEEN INFILTRATES HAVE CLEARED. Assessment & Plan - Diagnosis (1) Sepsis Qualifiers: Sepsis type: sepsis due to unspecified organism Qualified Code(s): A41.9 - Sepsis, unspecified organism Is this a current diagnosis for this admission?: YesPlan: Has sepsis from bilateral pneumonia. Patient has completed antibiotics for methicillin sensitive staph aureus bacteremia. . (2) Bilateral pneumonia Qualifiers: Pneumonia type: due to unspecified organism Lung location: unspecified part of lung Qualified Code(s): J18.9 - Pneumonia, unspecified organism Is this a current diagnosis for this admission?: YesPlan: Patient has finished clindamycin for bilateral pneumonia. (3) Acute and chronic respiratory failure ([id number]) Qualifiers: Respiratory failure complication: hypoxia Qualified Code(s): J96.21 - Acute and chronic respiratory failure with hypoxia Is this a current diagnosis for this admission?: YesPlan: This was secondary to the bilateral pneumonia. The patient was on a ventilator for greater than a week (4) Bacteremia Is this a current diagnosis for this admission?: YesPlan: With methicillin sensitive staph aureus. Patient has completed clindamycin. (5) Acute on chronic diastolic heart failure Is this a current diagnosis for this admission?: YesPlan: Patient appears to be euvolemic at this time. (6) Debility Is this a current diagnosis for this admission?: YesPlan: Patient will get physical therapy at rehabilitation. (7) Acute renal failure Qualifiers: Acute renal failure type: unspecified Qualified Code(s): N17.9 - Acute kidney failure, unspecified Is this a current diagnosis for this admission?: YesPlan: Patient's creatinine has normalized. (8) Adrenal insufficiency Is this a current diagnosis for this admission?: YesPlan: Continue with prednisone. Patient had an episode of hypotension last night. We will hold her an hypertensives and if she has any further hypotension would give stress dose steroids. (9) Atrial fibrillation Qualifiers: Atrial fibrillation type: unspecified Qualified Code(s): I48.91 - Unspecified atrial fibrillation Is this a current diagnosis for this admission?: YesPlan: The patient has been rate controlled. We will stop the shaun and diltiazem because of hypotension. (10) COPD exacerbation Is this a current diagnosis for this admission?: YesPlan: We'll continue with the prednisone and nebulizers as needed (11) Hypokalemia Is this a current diagnosis for this admission?: YesPlan: Resolved. (12) Hypothyroidism (acquired) Is this a current diagnosis for this admission?: YesPlan: Continue Synthroid. (13) Pulmonary hypertension Is this a current diagnosis for this admission?: Yes (14) Valvular heart disease Is this a current diagnosis for this admission?: Yes (15) Fibromyalgia Is this a current diagnosis for this admission?: Yes (16) Hyperlipidemia Is this a current diagnosis for this admission?: Yes (17) ANNA (obstructive sleep apnea) Is this a current diagnosis for this admission?: YesPlan: Continue CPAP as needed - Time Time Spent with patient: 25-34 minutes - Inpatient Certification Medical Necessity: Need Close Monitoring Due to Risk of Patient Decompensation
--- NOTE | 2016-12-09 16:37 | PDOC TRANSFER SUMMARY ---
General - Admit/Disc Date/PCP Admission Date/Primary Care Provider: 12/01/16 15:36 ARA WEBB MD Discharge Date: 12/10/16 - Discharge Diagnosis (1) Sepsis Is this a current diagnosis for this admission?: YesSummary: Secondary to methicillin sensitive staph aureus bacteremia because of pneumonia. Patient has completed 14 days of antibiotics. (2) Bilateral pneumonia Is this a current diagnosis for this admission?: YesSummary: With positive blood cultures for methicillin sensitive staph aureus. Patient was on a ventilator for over a week. (3) Acute and chronic respiratory failure ([id number]) Is this a current diagnosis for this admission?: Yes (4) Bacteremia Is this a current diagnosis for this admission?: Yes (5) Acute on chronic diastolic heart failure Is this a current diagnosis for this admission?: Yes (6) Debility Is this a current diagnosis for this admission?: Yes (7) Acute renal failure Is this a current diagnosis for this admission?: Yes (8) Adrenal insufficiency Is this a current diagnosis for this admission?: Yes (9) Atrial fibrillation Is this a current diagnosis for this admission?: Yes (10) COPD exacerbation Is this a current diagnosis for this admission?: Yes (11) Hypokalemia Is this a current diagnosis for this admission?: Yes (12) Hypothyroidism (acquired) Is this a current diagnosis for this admission?: Yes (13) Pulmonary hypertension Is this a current diagnosis for this admission?: Yes (14) Valvular heart disease Is this a current diagnosis for this admission?: Yes (15) Fibromyalgia Is this a current diagnosis for this admission?: Yes (16) Hyperlipidemia Is this a current diagnosis for this admission?: Yes (17) ANNA (obstructive sleep apnea) Is this a current diagnosis for this admission?: YesSummary: To be sent home on CPAP with a pressure of 12. - Additional Information Resuscitation Status: Full Code Discharge Diet: Cardiac Discharge Activity: Activity As Tolerated Home Medications: Allopurinol [Zyloprim 300 mg Tablet] 300 mg PO DAILY 11/11/16 Cyclobenzaprine HCl [Flexeril 10 mg Tablet] 10 mg PO TID 11/11/16 Furosemide [Lasix] 40 mg PO BID 11/11/16 Levothyroxine Sodium [Synthroid 0.025 mg Tablet] 0.025 mg PO DAILY 11/11/16 Prednisone 2.5 mg PO DAILY@1500 11/11/16 Prednisone [Deltasone 5 mg Tablet] 5 mg PO QAM 11/11/16 Pregabalin [Lyrica] 150 mg PO TID 11/11/16 Ropinirole HCl 1 mg PO QHS 11/11/16 Simvastatin [Zocor 20 mg Tablet] 20 mg PO QHS 11/11/16 Sumatriptan Succinate [Imitrex 100 mg Tablet] 100 mg PO PRN PRN 11/11/16 Budesonide/Formoterol Fumarate [Symbicort HFA 160-4.5 mcg Inhaler 6 gm] 2 puff IH Q12 12/01/16 Atenolol [Tenormin 50 mg Tablet] 25 mg PO Q12 tablet 12/09/16 Calcium Carbonate [Tums Chewable 500 mg Tab.chew] 500 mg PO Q6HP PRN tab.chew 12/09/16 History of Present Illness Admission Date/PCP: 12/01/16 15:36 ARA WEBB MD History of Present Illness: NIMISHA PORTILLO is a 60 year old female with an extensive past medical history including hypothyroidism, COPD, pulmonary hypertension, adrenal insufficiency, diastolic heart failure, H fibrillation, morbid obesity, obstructive sleep apnea , fibromyalgia, diabetes, opiate dependent chronic pain, who was transferred to provide care in [place] for pneumonia with septic shock on November 12 and now has been accepted in transfer to return, following a 20 day admission for profound sepsis with methicillin sensitive staph aureus bacteremia requiring intubation for respiratory failure, and complicated by shock liver and acute renal failure who is had tremendous recovery. She remains severely debilitated requiring IV antibiotics will require extensive physical therapy. Upon arrival she is notably short of breath with A. fib with RVR and nonproductive cough with crackles in the bilateral lung méndez. Patient's nurse is ordered to obtain EKG initiate IV Cardizem, BiPAP and labs Hospital Course Hospital Course: 60-year-old female who initially presented to our facility with pneumonia bilaterally requiring intubation and ventilation. Because of her sepsis and acute illness she was transferred to [facility] for further care. She was therefore 2 weeks and then was transferred back to our facility. The patient grew methicillin sensitive staph aureus from her cultures. She has completed a course of antibiotics for that. The patient has been doing a physical therapy trying to get stronger. She also has had problems with atrial fibrillation with occasional rapid ventricular rate. She was on both diltiazem and atenolol. And these were stopped because of hypotension. The patient's blood pressure has improved and she's been restarted back on atenolol but still is off of the diltiazem. She has improved but still requires significant rehabilitation be strong enough to go home and the decision was made for her to go to [facility] for rehabilitation. She will need physical therapy. She also has history of obstructive sleep apnea and will be sent home with a CPAP. Physical Exam Vital Signs: Temp Pulse Resp BP Pulse Ox 98.1 F 103 H 20 121/64 98 12/09/16 15:38 12/09/16 15:38 12/09/16 15:38 12/09/16 15:38 12/09/16 15:38 Intake & Output 12/08/16 12/09/16 12/10/16 06:59 06:59 06:59 Intake Total 1931 342 Output Total 1400 700 Balance 531 -358 Weight 80.4 kg 80.1 kg General appearance: PRESENT: no acute distress Eye exam: PRESENT: conjunctiva pink. ABSENT: scleral icterus Mouth exam: PRESENT: moist, tongue midline Neck exam: ABSENT: JVD Respiratory exam: PRESENT: rhonchi - Scattered expiratory rhonchi. Cardiovascular exam: PRESENT: irregular rhythm. ABSENT: diastolic murmur, rubs , systolic murmur GI/Abdominal exam: PRESENT: normal bowel sounds, soft. ABSENT: distended, guarding, mass, organolmegaly, rebound, tenderness Extremities exam: ABSENT: calf tenderness, clubbing, pedal edema Neurological exam: PRESENT: alert, awake, oriented to person, oriented to place , oriented to time, oriented to situation, CN II-XII grossly intact. ABSENT: motor sensory deficit Psychiatric exam: PRESENT: appropriate affect Skin exam: PRESENT: dry, intact, warm. ABSENT: cyanosis, rash Results Laboratory Results: 12/09/16 06:22 12/09/16 06:22 12/09/16 12/09/16 06:22 06:22 WBC 6.5 RBC 3.63 L Hgb 10.8 L Hct 33.0 L MCV 91 MCH 29.7 MCHC 32.6 RDW 16.5 H Plt Count 181 Seg Neutrophils % 43.0 Lymphocytes % 43.2 Monocytes % 10.3 Eosinophils % 2.8 Basophils % 0.7 Absolute Neutrophils 2.8 Absolute Lymphocytes 2.8 Absolute Monocytes 0.7 Absolute Eosinophils 0.2 Absolute Basophils 0.0 Sodium 140.8 Potassium 4.3 Chloride 102 Carbon Dioxide 29 Anion Gap 10 BUN 13 Creatinine 0.65 Est GFR ( Amer) > 60 Est GFR (Non-Af Amer) > 60 Glucose 72 L Calcium 9.3 12/02/16 12/02/16 00:31 00:31 Creatine Kinase 28 L CK-MB (CK-2) 0.60 Troponin I < 0.012 Impressions: Chest X-Ray 12/04/16 00:00 IMPRESSION: CARDIOMEGALY. MILD SCATTERED ATELECTASIS. PREVIOUSLY SEEN INFILTRATES HAVE CLEARED. Transfer Plan - Disposition Transfer Plan: Patient is to be transferred to [facility] for rehabilitation. - Time Spent with Patient Time spent with patient: Greater than 30 Minutes Qualifiers PATEINT BEING DISCHARGED WITH ANY OF THE FOLLOWING DIAGNOSIS?: No Plan Discharge Plan: Patient will follow up with her primary care doctor in 1 week. Time Spent: Greater than 30 Minutes
[2016-12-09] MEDS: ROPINIROLE HCL 1 MG TABLET PO SCH (21:38)
[2016-12-09] MEDS: ATENOLOL 50 MG TABLET PO SCH (21:39)
[2016-12-10] MEDS: IPRATROPIUM/ALBUTEROL 0.5-2.5 MG/3 ML AMPUL NEB SCH ×3 (02:20→13:45)
[2016-12-10] MEDS: HEPARIN SOD (PORCINE) 5,000 UNIT/ML 1 ML SYRINGE SUBCUT SCH ×2 (05:46→14:25)
[2016-12-10] MEDS: DIGOXIN 0.25 MG TABLET PO SCH (09:07)
[2016-12-10] MEDS: ATENOLOL 50 MG TABLET PO SCH (09:07)
[2016-12-10] MEDS: LEVOTHYROXINE SODIUM 0.025 MG TABLET PO SCH (09:08)
[2016-12-10] MEDS: PREDNISONE 5 MG TABLET PO SCH (09:08)
--- NOTE | 2016-12-10 11:44 | PDOC PROGRESS REPORT ---
Subjective Progress Note for:: 12/10/16 Subjective:: Patient has no complaints. She has bed offer a [facility] for acute rehabilitation. Patient denies fever, chills, headache, new focal weakness, chest pain, shortness of breath, abdominal pain, nausea, vomiting, diarrhea, constipation. Physical Exam Vital Signs: Temp Pulse Resp BP Pulse Ox 98.5 F 93 16 104/66 95 12/10/16 07:37 12/10/16 08:27 12/10/16 08:27 12/10/16 07:37 12/10/16 07:37 Intake & Output 12/09/16 12/10/16 12/11/16 06:59 06:59 06:59 Intake Total 342 1376 Output Total 700 1300 Balance -358 76 Weight 80.1 kg 80.5 kg GENERAL: No acute distress HEENT: Conjunctiva clear, nonicteric, moist mucous membranes, no JVD, midline trachea RESPIRATORY: Clear to auscultation bilaterally, no wheezes, no rhonchi CARDIAC: Regular rate and rhythm, no murmurs/gallops/rubs ABDOMEN: Soft, nondistended, nontender, positive bowel sounds, no rebound, no guarding EXTREMETIES: No edema, cyanosis, clubbing NEUROLOGIC: Alert, oriented to person/place/time, CN's grossly intact, no focal deficits SKIN: No rash, wounds PSYCH: Normal mood, normal affect Results Laboratory Results: 12/09/16 06:22 12/09/16 06:22 12/02/16 12/02/16 00:31 00:31 Creatine Kinase 28 L CK-MB (CK-2) 0.60 Troponin I < 0.012 Impressions: Chest X-Ray 12/04/16 00:00 IMPRESSION: CARDIOMEGALY. MILD SCATTERED ATELECTASIS. PREVIOUSLY SEEN INFILTRATES HAVE CLEARED. Assessment & Plan - Diagnosis (1) Acute and chronic respiratory failure ([id number]) Qualifiers: Respiratory failure complication: hypoxia Qualified Code(s): J96.21 - Acute and chronic respiratory failure with hypoxia Is this a current diagnosis for this admission?: YesPlan: Stable for transfer to acute rehabilitation facility. O2 sat now stable on room air. (2) Acute on chronic diastolic heart failure Is this a current diagnosis for this admission?: Yes (3) Critical illness myopathy Is this a current diagnosis for this admission?: YesPlan: Transfer to acute rehabilitation facility. (4) Hypothyroidism (acquired) Is this a current diagnosis for this admission?: Yes (5) Pneumonia Qualifiers: Pneumonia type: due to unspecified organism Laterality: left Lung location: lower lobe of lung Qualified Code(s): J18.9 - Pneumonia, unspecified organism Is this a current diagnosis for this admission?: Yes (6) Septic shock Is this a current diagnosis for this admission?: Yes (7) Adrenal insufficiency Is this a current diagnosis for this admission?: YesPlan: Continue scheduled prednisone. - Time Time Spent with patient: 25-34 minutes Anticipated discharge: Acute Rehab
[2016-12-10 13:27] VITALS: BP 110/69
== END 2016-12-10 15:51 | DRG 871 ==
LOC: 3S 15:36
PROVIDERS: ADMIT Internal Medicine; ATTEND Internal Medicine
PROC: 3E0F7GC Introduction of Other Therapeutic Substance into Respiratory Tract, Via Natural or Artificial Opening (ICD-10-PCS; principal; 2016-12-01)
DX: A41.02 Sepsis due to Methicillin resistant Staphylococcus aureus (principal); R65.21 Severe sepsis with septic shock; J18.9 Pneumonia, unspecified organism; J96.21 Acute and chronic respiratory failure with hypoxia; I50.33 Acute on chronic diastolic (congestive) heart failure; J44.1 Chronic obstructive pulmonary disease with (acute) exacerbation; N17.9 Acute kidney failure, unspecified; E27.40 Unspecified adrenocortical insufficiency; I38 Endocarditis, valve unspecified; I48.91 Unspecified atrial fibrillation; E87.6 Hypokalemia; G72.9 Myopathy, unspecified; M79.7 Fibromyalgia; I27.2 Other secondary pulmonary hypertension; E03.9 Hypothyroidism, unspecified; G47.33 Obstructive sleep apnea (adult) (pediatric); E78.5 Hyperlipidemia, unspecified; E11.9 Type 2 diabetes mellitus without complications; F32.9 Major depressive disorder, single episode, unspecified; Z79.899 Other long term (current) drug therapy; Z88.8 Allergy status to other drugs, medicaments and biological substances; Z88.1 Allergy status to other antibiotic agents; Z96.651 Presence of right artificial knee joint
CPT/HCPCS: 36415; 71020; 80048; 80053; 82533; 82550; 82553; 82962; 83735; 84439; 84443; 84484; 85025; 93005; 93010; 94640; 94660; 94799; J1644; J2405; J3490; J7512; J7620

== ENCOUNTER → 2017-04-05 | Outpatient (CLI) | payer OTHER ==
--- NOTE | 2017-04-05 15:11 | RADIOLOGY REPORT (SQ) ---
EXAM DESCRIPTION: CHEST PA/LATERAL COMPLETED DATE/TIME: 04/05/2017 3:01 pm REASON FOR STUDY: PRE OP COMPARISON: 12/04/2016. EXAM PARAMETERS: NUMBER OF VIEWS: two views TECHNIQUE: Digital Frontal and Lateral radiographic views of the chest acquired. RADIATION DOSE: NA LIMITATIONS: none FINDINGS: LUNGS AND PLEURA: Scattered linear atelectasis/ scarring. No lobar infiltrates, masses or pneumothorax. No pleural effusion. MEDIASTINUM AND HILAR STRUCTURES: No masses or contour abnormalities. HEART AND VASCULAR STRUCTURES: Stable cardiomegaly. BONES: No acute findings. Chronic changes in the spine and shoulders. HARDWARE: Hardware in the left humeral head. OTHER: No other significant finding. IMPRESSION: STABLE CARDIOMEGALY. SCATTERED LINEAR ATELECTASIS/ SCARRING. NO ACUTE FINDINGS. TECHNICAL DOCUMENTATION: JOB ID: [id number] [employer]- All Rights Reserved
[2017-04-05 15:28] LABS: ABSOLUTE LYMPHOCYTES (AUTO) 1.6 10^3/uL (0.5-4.7); ABSOLUTE MONOCYTES (AUTO) 0.8 10^3/uL (0.1-1.4); ABSOLUTE NEUT (AUTO) 9.5 10^3/uL (1.7-8.2); BASOPHILS % (AUTO) 0.3 % (0-2); EOSINOPHILS % (AUTO) 0.3 % (0-6); HEMOGLOBIN 13.9 g/dL (12.0-15.5); HGB HCT DIFFERENCE -0.3; LYMPHOCYTES % (AUTO) 13.7 % (13-45); MEAN CORPUSCULAR HEMOGLOBIN 31.8 pg (27.0-33.4); MEAN CORPUSCULAR HGB CONC 33.1 g/dL (32.0-36.0); MEAN CORPUSCULAR VOLUME 96 fl (80-97); MONOCYTES % (AUTO) 6.8 % (3-13); RED BLOOD COUNT 4.37 10^6/uL (3.72-5.28); RED CELL DISTRIBUTION WIDTH 16.7 % (11.5-14.0); SEGMENTED NEUTROPHILS % (AUTO) 78.9 % (42-78)
[2017-04-05 15:29] LABS: APPEARANCE,URINE CLEAR; BILIRUBIN,URINE NEGATIVE (NEGATIVE); GLUCOSE, URINE NEGATIVE (NEGATIVE); KETONES,URINE NEGATIVE (NEGATIVE); LEUKOCYTE ESTERASE,URINE TRACE (NEGATIVE); NITRITE,URINE NEGATIVE (NEGATIVE); PROTEIN,URINE NEGATIVE (NEGATIVE); URINE SPECIFIC GRAVITY 1.012; UROBILINOGEN,URINE NEGATIVE mg/dL (<2.0)
[2017-04-05 15:52] LABS: ANION GAP 15 (5-19); BLOOD UREA NITROGEN 39 mg/dL (7-20); CALCIUM 10.2 mg/dL (8.4-10.2); CARBON DIOXIDE 27 mmol/L (22-30); CHLORIDE 96 mmol/L (98-107); CREATININE RESULT 1.63 mg/dL (0.52-1.25); GLUCOSE 101 mg/dL (75-110); POTASSIUM 4.5 mmol/L (3.6-5.0); SODIUM 138.2 mmol/L (137-145)
--- NOTE | 2017-04-05 18:26 | EKG REPORT ---
SEVERITY:- ABNORMAL ECG - ATRIAL FIBRILLATION, V-RATE 74-152 PROBABLE INFERIOR INFARCT, AGE INDETERMINATE : Confirmed by: Kamar Mitchell MD 05-Apr-2017 18:26:22
== END ==
LOC: OD 14:13
PROVIDERS: ATTEND Orthopaedic Surgery
DX: Z01.810 Encounter for preprocedural cardiovascular examination (principal); Z01.812 Encounter for preprocedural laboratory examination; Z01.818 Encounter for other preprocedural examination; I51.7 Cardiomegaly
CPT/HCPCS: 36415; 71020; 80048; 81001; 85025; 93005; 93010

== ENCOUNTER 2017-04-29 11:17 | Emergency (ER) | payer OTHER ==
[2017-04-29 11:24] VITALS: BP 101/76
--- NOTE | 2017-04-29 11:41 | ER Document Report ---
ED Extremity Problem, Upper - General Chief Complaint: Arm Pain Stated Complaint: LEFT ARM PAIN Time Seen by Provider: 04/29/17 11:32 Notes: Patient is a 61-year-old female presents emergency department complaining of left elbow pain for the past 3 weeks. Patient denies any trauma, fall or injury. Patient states that she has a history of bursitis. Tender to touch without any surrounding erythema, edema. Range of motion intact. No pain with range of motion. TRAVEL OUTSIDE OF THE [place] IN LAST 30 DAYS: No - Related Data Allergies/Adverse Reactions: MERRITT Inhibitors [Merritt Inhibitors] Allergy (Verified 04/29/17 11:21) Angioneurotic Edema amoxicillin trihydrate [From Augmentin] Allergy (Verified 04/29/17 11:21) Hives bumetanide [From Bumex] Allergy (Verified 04/29/17 11:21) Hives Potassium Clavulanate * [From Augmentin] Allergy (Verified 04/29/17 11:21) Hives Past Medical History - Social History Smoking Status: Unknown if Ever Smoked Family History: Other - Asthma and dementia Patient has suicidal ideation: No Patient has homicidal ideation: No - Past Medical History Cardiac Medical History: Reports: Hx Atrial Fibrillation, Hx Congestive Heart Failure, Hx Hypertension Pulmonary Medical History: Reports: Hx Asthma, Hx COPD, Hx Pneumonia, Hx Respiratory Failure - On home oxygen, Hx Sleep Apnea Endocrine Medical History: Reports: Hx Hypothyroidism Renal/ Medical History: Denies: Hx Peritoneal Dialysis Psychiatric Medical History: Reports: Hx Depression Past Surgical History: Reports: Hx Section - X4, Hx Orthopedic Surgery - right knee replacement, right toe, left shoulder - Immunizations Hx Diphtheria, Pertussis, Tetanus Vaccination: Yes Review of Systems - Review of Systems Constitutional: No symptoms reported Musculoskeletal: See HPI -: Yes All other systems reviewed and negative Physical Exam - Vital signs Vitals: Temp Pulse Resp BP Pulse Ox 98.6 F 100 20 101/76 94 04/29/17 11:21 04/29/17 11:21 04/29/17 11:21 04/29/17 11:21 04/29/17 11:21 - General General appearance: Appears well, Alert In distress: None - Extremities General upper extremity: Normal inspection, Tender - over olecranon bursa, Normal color, Normal ROM, Normal strength, Normal temperature. No: Edema Arm: Normal, Nontender Elbow: Normal, Tender - over olecranon bursa left elbow. No: Abrasion, Deformity, Dislocation, Ecchymosis, Instability, Joint effusion, Laceration, Limited ROM, Swollen bursa Forearm: Normal, Nontender Wrist: Normal, Nontender Hand: Normal, Nontender - Skin Skin Temperature: Warm Skin Moisture: Dry Skin Color: Normal Skin Turgor: Elastic Skin irregularity: negative: Erythema, Laceration Course - Re-evaluation Re-evalutation: 04/29/17 12:02 Patient is a 61-year-old female who is hemodynamically stable, no acute distress afebrile. Presentation consistent with olecranon bursitis. Patient educated on using compression sleeve to help with swelling as well as protect the joint and ice. Patient to continue taking her home Percocet. Given that patient has no traumatic mechanism of injury, intact range of motion without any pain, no evidence of deformity no additional imaging is required. No concern for septic arthritis at this time given no evidence of erythema, edema, joint effusion or pain with range of motion, fever. Patient to follow-up with primary care. - Vital Signs Vital signs: Temp Pulse Resp BP Pulse Ox 98.6 F 100 20 101/76 94 04/29/17 11:21 04/29/17 11:21 04/29/17 11:21 04/29/17 11:21 04/29/17 11:21 Discharge - Discharge Clinical Impression: Olecranon bursitis Qualifiers: Laterality: left Qualified Code(s): M70.22 - Olecranon bursitis, left elbow Condition: Good Disposition: HOME, SELF-CARE Instructions: Olecranon Bursitis ([facility]) Referrals: ARA WEBB MD [Primary Care Provider] - Follow up as needed
== END 2017-04-29 11:47 | disposition home or self-care (01) ==
LOC: ER 11:17
DX: M70.22 Olecranon bursitis, left elbow (principal); I10 Essential (primary) hypertension; J44.9 Chronic obstructive pulmonary disease, unspecified; Z88.8 Allergy status to other drugs, medicaments and biological substances; Z88.0 Allergy status to penicillin
CPT/HCPCS: 99283

== ENCOUNTER 2017-05-29 18:41 | Inpatient (IN) | payer OTHER ==
[2017-05-29] MEDS ORDERED: VANCOMYCIN HCL INJ 1000 MG VIAL IV ONE (18:55)
[2017-05-29] MEDS ORDERED: NORMAL SALINE 250 ML IV ONE (18:55)
[2017-05-29] MEDS ORDERED: AZITHROMYCIN INJ 500 MG VIAL IV ONE (18:56)
[2017-05-29] MEDS ORDERED: CEFEPIME 1 GM/D5W RTU 1 GM/50 ML RTUPB IV ONE (18:56)
[2017-05-29 19:33] LABS: VENOUS BLOOD BASE EXCESS 6.2 mmol/L; VENOUS BLOOD HCO3 31.6 mmol/L (20-32); VENOUS BLOOD PH 7.43 (7.30-7.42)
[2017-05-29 19:34] LABS: HEMATOCRIT 36.2 % (36.0-47.0); HGB HCT DIFFERENCE -0.2; MEAN CORPUSCULAR HEMOGLOBIN 32.9 pg (27.0-33.4); MEAN CORPUSCULAR HGB CONC 33.2 g/dL (32.0-36.0); MEAN CORPUSCULAR VOLUME 99 fl (80-97); RED BLOOD COUNT 3.67 10^6/uL (3.72-5.28); WHITE BLOOD COUNT 23.5 10^3/uL (4.0-10.5)
[2017-05-29 19:48] LABS: ALBUMIN 3.9 g/dL (3.5-5.0); BLOOD UREA NITROGEN 96 mg/dL (7-20); CALCIUM 9.7 mg/dL (8.4-10.2); CARBON DIOXIDE 27 mmol/L (22-30); CHLORIDE 79 mmol/L (98-107); CREATININE RESULT 2.92 mg/dL (0.52-1.25); GLUCOSE 264 mg/dL (75-110); POTASSIUM 5.3 mmol/L (3.6-5.0)
[2017-05-29 19:49] LABS: ALANINE AMINOTRANSFERASE 46 U/L (9-52); ALKALINE PHOSPHATASE 68 U/L (38-126); ASPARTATE AMINO TRANSFERASE 54 U/L (14-36); BILIRUBIN,DIRECT 0.7 mg/dL (0.0-0.4); BILIRUBIN,TOTAL 1.7 mg/dL (0.2-1.3)
[2017-05-29 19:50] LABS: BAND NEUTROPHILS % (MANUAL) 1 % (3-5); BASOPHILS % (MANUAL) 0 % (0-2); EOSINOPHILS % (MANUAL) 0 % (0-6); LYMPHOCYTES % (MANUAL) 3 % (13-45); NUCLEATED RED BLOOD CELLS 2 /100 WBC (0); TOTAL CELLS COUNTED 100
[2017-05-29 19:53] LABS: ANISOCYTOSIS 1+; OVALOCYTES SLIGHT; PLATELET CLUMPS PRESENT; POIKILOCYTOSIS SLIGHT; STOMATOCYTES SLIGHT
[2017-05-29 19:55] LABS: POLYCHROMASIA 1+; TARGET CELLS SLIGHT
[2017-05-29] MEDS ORDERED: HYDROCORTISONE SOD SUCCINATE INJ/PF 100 MG/2 ML SDV IV ONE (19:56)
[2017-05-29 19:57] LABS: ANION GAP 23 (5-19)
--- NOTE | 2017-05-29 20:05 | ER Document Report ---
ED General - General Chief Complaint: Weakness Stated Complaint: COUGH,VOMITING,BACK PAIN Time Seen by Provider: 05/29/17 18:54 Notes: The patient is a 61-year-old female, past medical history A. fib (on Xarelto), CHF, chronic adrenal insufficiency, chronic back and hip pain, presents with 2 days of generalized weakness, productive cough and 1 day of nausea, vomiting and left lower quadrant abdominal pain. 6 months ago, she was admitted for septic shock and respiratory failure with similar symptoms. Patient had a fall last week after tripping over her walker and landing on her left arm and chest wall. She has large bruising in that area. Her spironolactone was decreased last week by her primary care physician. Patient denies chest pain, hematemesis , fevers, urinary symptoms, headache, neck stiffness, new back pain, focal weakness or numbness. TRAVEL OUTSIDE OF THE [place] IN LAST 30 DAYS: No - Related Data Allergies/Adverse Reactions: MERRITT Inhibitors [Merritt Inhibitors] Allergy (Verified 05/29/17 18:49) Angioneurotic Edema amoxicillin trihydrate [From Augmentin] Allergy (Verified 05/29/17 18:49) Hives bumetanide [From Bumex] Allergy (Verified 05/29/17 18:49) Hives Potassium Clavulanate * [From Augmentin] Allergy (Verified 05/29/17 18:49) Hives Past Medical History - General Information source: Patient - Social History Smoking Status: Unknown if Ever Smoked Family History: Other - Asthma and dementia - Past Medical History Cardiac Medical History: Reports: Hx Atrial Fibrillation, Hx Congestive Heart Failure, Hx Hypertension Pulmonary Medical History: Reports: Hx Asthma, Hx COPD, Hx Pneumonia, Hx Respiratory Failure - On home oxygen, Hx Sleep Apnea Endocrine Medical History: Reports: Hx Hypothyroidism Renal/ Medical History: Denies: Hx Peritoneal Dialysis Psychiatric Medical History: Reports: Hx Depression Past Surgical History: Reports: Hx Section - X4, Hx Orthopedic Surgery - right knee replacement, right toe, left shoulder - Immunizations Hx Diphtheria, Pertussis, Tetanus Vaccination: Yes Review of Systems - Review of Systems Notes: REVIEW OF SYSTEMS: CONSTITUTIONAL: -fevers, -chills EENT: -eye pain, -difficulty swallowing, -nasal congestion CARDIOVASCULAR: -chest pain, -syncope. RESPIRATORY: +cough, +SOB GASTROINTESTINAL: +LLQ abdominal pain, +nausea, +vomiting, -diarrhea GENITOURINARY: -dysuria, -hematuria MUSCULOSKELETAL: +chronic back pain, -neck pain SKIN: +bruises HEMATOLOGIC: +easy bruising or bleeding. LYMPHATIC: -swollen, enlarged glands. NEUROLOGICAL: -altered mental status or loss of consciousness, -headache, - neurologic symptoms PSYCHIATRIC: -anxiety, -depression. ALL OTHER SYSTEMS REVIEWED AND NEGATIVE. Physical Exam - Vital signs Vitals: Temp Pulse Resp BP Pulse Ox 97.8 F 119 H 20 73/58 L 95 05/29/17 18:49 05/29/17 18:49 05/29/17 18:49 05/29/17 18:49 05/29/17 18:49 - Notes Notes: PHYSICAL EXAMINATION: GENERAL: Mild distress. HEAD: Atraumatic, normocephalic. EYES: Pupils equal round and reactive to light, extraocular movements intact, sclera anicteric, conjunctiva are normal. ENT: nares patent, oropharynx clear without exudates. Moist mucous membranes. NECK: Normal range of motion, supple without lymphadenopathy LUNGS: Tachypnea. Crackles and coarse breath sounds. HEART: Tachycardia, irregular irregular rhythm ABDOMEN: Soft, moderate LLQ tenderness, normoactive bowel sounds. No guarding, no rebound. No masses appreciated. EXTREMITIES: Normal range of motion, no pitting or edema. No cyanosis. NEUROLOGICAL: Cranial nerves grossly intact. Normal speech, normal gait. Normal sensory and motor exams. PSYCH: Normal mood, normal affect. SKIN: Fentanyl patch on left upper chest wall. Large area of ecchymosis over left upper arm and left chest wall. Course - Re-evaluation Re-evalutation: Patient with hypotension on arrival, which improved with 30 cc/kg IV fluid bolus. She has evidence of severe sepsis with lactate of 8.6, which also improved to 1.6 after IVF and Abx. Central line placed due to hypotension and Levophed started to keep map above 65. It was difficult obtaining accurate blood pressures on patient so left radial arterial line placed to obtain accurate readings. Her initial x-ray does not show any acute processes but repeat x-ray after central line placement shows a right lower lung infiltrate. With her leukocytosis of 23, productive cough and crackles in the right lower lobe, broad-spectrum antibiotics started for HCAP. Patient also has evidence of acute kidney injury, most likely from the hypoperfusion from her hypotension and septic shock. Due to her history of adrenal insufficiency, stress dose hydrocortisone was provided to patient. CT obtained due to left lower quadrant abdominal pain and it revealed an ileus, most likely from her chronic narcotic use. Patient says that she is passing gas. No other signs of infection in her abdomen. Pt's PMD is Dr. Garcia. 05/30/17 00:[address] Cabrera and he will be down to evaluate patient. 05/30/17 01:00 Dr. Cabrera will admit patient to ICU. - Vital Signs Vital signs: Temp Pulse Resp BP Pulse Ox 97.8 F 119 H 21 H 94/72 L 92 05/29/17 18:49 05/29/17 18:49 05/30/17 00:16 05/30/17 00:16 05/30/17 00:16 - Laboratory Result Diagrams: 05/29/17 19:03 05/30/17 01:10 Laboratory results interpreted by me: 05/29/17 05/29/17 05/29/17 19:03 19:03 19:03 WBC 23.5 H RBC 3.67 L MCV 99 H RDW 17.0 H Seg Neuts % (Manual) 90 H Band Neutrophils % 1 L Lymphocytes % (Manual) 3 L Abs Neuts (Manual) 21.4 H PT Carbonic Acid ABG pH ABG pCO2 ABG HCO3 ABG Total CO2 VBG pH Sodium 129.0 L Potassium 5.3 H Chloride 79 L Carbon Dioxide Anion Gap 23 H BUN 96 H Creatinine 2.92 H Est GFR ( Amer) 20 L Est GFR (Non-Af Amer) 16 L Glucose 264 H POC Glucose Lactic Acid 8.6 H Calcium Magnesium Total Bilirubin 1.7 H Direct Bilirubin 0.7 H AST 54 H ALT Total Protein 6.0 L Albumin Urine Glucose (UA) Urine Blood 05/29/17 05/29/17 05/30/17 19:03 20:25 00:43 WBC RBC MCV RDW Seg Neuts % (Manual) Band Neutrophils % Lymphocytes % (Manual) Abs Neuts (Manual) PT 20.5 H Carbonic Acid ABG pH ABG pCO2 ABG HCO3 ABG Total CO2 VBG pH 7.43 H Sodium Potassium Chloride Carbon Dioxide Anion Gap BUN Creatinine Est GFR ( Amer) Est GFR (Non-Af Amer) Glucose POC Glucose Lactic Acid Calcium Magnesium Total Bilirubin Direct Bilirubin AST ALT Total Protein Albumin Urine Glucose (UA) 50 H Urine Blood SMALL H 05/30/17 05/30/17 05/30/17 01:00 01:08 01:10 WBC RBC MCV RDW Seg Neuts % (Manual) Band Neutrophils % Lymphocytes % (Manual) Abs Neuts (Manual) PT Carbonic Acid 1.41 H ABG pH 7.46 H ABG pCO2 46.9 H ABG HCO3 32.3 H ABG Total CO2 33.7 H VBG pH Sodium 128.9 L Potassium Chloride 86 L Carbon Dioxide 33 H Anion Gap BUN 96 H Creatinine 2.37 H Est GFR ( Amer) 25 L Est GFR (Non-Af Amer) 21 L Glucose 135 H POC Glucose 153 H Lactic Acid Calcium 8.0 L Magnesium 2.6 H Total Bilirubin 1.7 H Direct Bilirubin 0.7 H AST 71 H ALT 65 H Total Protein 4.8 L Albumin 2.9 L Urine Glucose (UA) Urine Blood - Diagnostic Test Radiology reviewed: Image reviewed, Reports reviewed Radiology results interpreted by me: CXR: Left IJ central venous catheter tip overlies the region of the SVC at the level of the elissa.No pneumothorax. Mild patchy airspace opacities are present in the right mid lung and left lung base. CT A/P: Multiple loops of small bowel measuring greater than 4.4 cm in diameter with fecalization of contents common nonspecific, possibly persistent ileus. No obvious mesenteric inflammatory changes. 3.2 cm low-density partial rim enhancing lesion in the right sciatic notch, unclear ideology as there are no adjacent inflammatory changes, possible nerve sheath tumor is a differential consideration. Probable wall thickening in the distal esophagus versus adjacent compressive subsegmental atelectasis,, apparent wall thickness measuring up to 7 mm. Small right hip joint effusion and moderate osteoarthritic changes. - EKG Interpretation by Me EKG shows normal: [place], Intervals, QRS Complexes, ST-T Waves Rate: Tachycardia Rhythm: A.Fib When compared to previous EKG there are: No significant change Procedures - Central Line Left Internal jugular Time completed: 22:30 Consent obtained: Yes Central line pre-insertion: Sterile PPE donned, Betadine prep applied, Chloraprep applied, Sterile drapes applied Central line lumen type: Triple Anesthetic type: 1% Lidocaine mL's of anesthesia: 7 Ultrasound guided: Yes CM at insertion site: 17 Line secured with sutures: Yes Central line post-insertion: Blood return from lumens, Biopatch applied, Sutured , Sterile dressing applied, Position confirmed w/ CXR Number of attempts: 1 Complications: No - Additional Procedures ABG Time performed: 22:45 Additional Procedures: Other - Left radial artierial line Notes: After verbal and signed consent, using sterile technique, a 20 gauge arterial line was inserted into his left radial artery under ultrasound guidance with return of arterial blood. Critical Care Note - Critical Care Note Total time excluding time spent on procedures (mins): 55 Discharge - Discharge Clinical Impression: Septic shock, Ileus Pneumonia Qualifiers: Pneumonia type: due to unspecified organism Laterality: right Lung location: lower lobe of lung Qualified Code(s): J18.1 - Lobar pneumonia, unspecified organism Condition: Serious Disposition: ADMITTED INPATIENT Admitting Provider: [facility] Unit Admitted: ICU
--- NOTE | 2017-05-29 20:12 | RADIOLOGY REPORT (SQ) ---
EXAM DESCRIPTION: CHEST SINGLE VIEW COMPLETED DATE/TIME: 05/29/2017 7:55 pm REASON FOR STUDY: bed 8 sepsis protocol COMPARISON: 04/05/2017 EXAM PARAMETERS: NUMBER OF VIEWS: One view. TECHNIQUE: Single frontal radiographic view of the chest acquired. RADIATION DOSE: NA LIMITATIONS: None. FINDINGS: LUNGS AND PLEURA: Low lung volumes. Perihilar atelectasis. No pneumothorax. MEDIASTINUM AND HILAR STRUCTURES: No masses. Contour normal. HEART AND VASCULAR STRUCTURES: Heart normal in size. Normal vasculature. BONES: Postsurgical changes left shoulder. HARDWARE: None in the chest. OTHER: No other significant finding. IMPRESSION: Low lung volumes with perihilar atelectasis. TECHNICAL DOCUMENTATION: JOB ID: [id number]
[2017-05-29 20:40] LABS: PROTHROMBIN TIME 20.5 SEC (11.4-15.4)
[2017-05-29] MEDS ORDERED: ONDANSETRON HCL INJ/PF 4 MG/2 ML SDV IV ONE (21:05)
[2017-05-29] MEDS ORDERED: ONDANSETRON HCL INJ/PF 4 MG/2 ML SDV ONE (21:09)
--- NOTE | 2017-05-29 22:56 | RADIOLOGY REPORT (SQ) ---
EXAM DESCRIPTION: CHEST SINGLE VIEW COMPLETED DATE/TIME: 05/29/2017 10:43 pm REASON FOR STUDY: line placement COMPARISON: None. EXAM PARAMETERS: NUMBER OF VIEWS: One view. TECHNIQUE: Single frontal radiographic view of the chest acquired. RADIATION DOSE: NA LIMITATIONS: None. FINDINGS: LUNGS AND PLEURA: No pneumothorax. Mild patchy airspace opacities are present in the righ t mid lung and left lung base. No significant pleural effusion. MEDIASTINUM AND HILAR STRUCTURES: Stable. HEART AND VASCULAR STRUCTURES: Stable. BONES: No acute findings. HARDWARE: Left IJ central venous catheter tip overlies the region of the SVC at the level of the na. OTHER: No other significant finding. IMPRESSION: Left IJ central venous catheter tip overlies the region of the SVC at the level of the c cheo.No pneumothorax. Mild patchy airspace opacities are present in the right mid lung and left serina g base. TECHNICAL DOCUMENTATION: JOB ID: [id number]
[2017-05-29] MEDS: NORMAL SALINE 1000 ML 1,000 ML IV PRN ×3 (23:03→23:07)
[2017-05-29] MEDS ORDERED: HEPARIN SOD (PORCINE) 1 UNIT/ML PF 3 ML SYRINGE IV PRN (23:03)
--- NOTE | 2017-05-30 00:16 | RADIOLOGY REPORT (SQ) ---
EXAM DESCRIPTION: CT ABD/PELVIS ORAL ONLY COMPLETED DATE/TIME: 05/29/2017 11:48 pm REASON FOR STUDY: LLQ pain, severe sepsis COMPARISON: 06/28/[address] TECHNIQUE: CT scan of the abdomen and pelvis performed without intravenous or oral contrast. Images reviewed with lung, soft tissue, and bone windows. Reconstructed coronal and sagittal MPR images revi ewed. All images stored on PACS. All CT scanners at this facility use dose modulation, iterative reconstruction, and/or weight based d osing when appropriate to reduce radiation dose to as low as reasonably achievable (ALARA). [facility]: Dose Right [facility]: CareDose [facility]: Dose Right [facility]: Teradose 4D [facility]: [employer] RADIATION DOSE: Up-to-date CT equipment and radiation dose reduction techniques were employed. CTDIv ol: 17.8 mGy. DLP: 997 mGy-cm.mGy. LIMITATIONS: None. FINDINGS: LOWER CHEST: Probable wall thickening in the distal esophagus versus adjacent compressive subsegmental atelectasis,, apparent wall thickness measuring up to 7 mm. Mild bibasilar subsegmental atelectasis. Significant effusion NON-CONTRASTED LIVER, SPLEEN, ADRENALS: Evaluation limited by lack of IV contrast. No identified sign ificant masses. PANCREAS: No masses. No peripancreatic inflammatory changes. GALLBLADDER: No identified stones by CT criteria. No inflammatory changes to suggest cholecystitis. RIGHT KIDNEY AND URETER: No suspicious masses. Assessment limited by lack of IV contrast. No signif icant calcifications. No hydronephrosis or hydroureter. 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 . Assessment limited by lack of IV contrast. No significant calcifications. No hydroneph rosis or hydroureter. AORTA AND RETROPERITONEUM: No aneurysm. No retroperitoneal masses or adenopathy. BOWEL AND PERITONEAL CAVITY: Multiple loops of small bowel measuring greater than 4.4 cm in diameter with fecalization of contents. No obvious mesenteric inflammatory changes. No fluid collection. APPENDIX: Normal. PELVIS, BLADDER, AND ABDOMINAL WALL:3.2 cm low-density partial rim enhancing lesion in the right scia tic notch. Age-appropriate appearance of the uterus and ovaries. No fluid in the deep pelvis. Bladd er normal. BONES: Small right hip joint effusion and moderate osteoarthritic changes. OTHER: No other significant finding. IMPRESSION: Multiple loops of small bowel measuring greater than 4.4 cm in diameter with fecalizatio n of contents common nonspecific, possibly persistent ileus. No obvious mesenteric inflammatory mercedes ges. 3.2 cm low-density partial rim enhancing lesion in the right sciatic notch, unclear ideology as there are no adjacent inflammatory changes, possible nerve sheath tumor is a differential consideration. Probable wall thickening in the distal esophagus versus adjacent compressive subsegmental atelectasis ,, apparent wall thickness measuring up to 7 mm. Small right hip joint effusion and moderate osteoarthritic changes. COMMENT: Quality ID # [id number]: Final reports with documentation of one or more dose reduction techniques (e.g., Automated exposure control, adjustment of the mA and/or kV according to patient size, use of iterative reconstruction technique) TECHNICAL DOCUMENTATION: JOB ID: [id number] [employer]- All Rights Reserved
[2017-05-30] MEDS ORDERED: DEXTROSE 5%-WATER 250 ML with NOREPINEPHRINE BITARTRATE 4 MG IV PRN ×2 (00:24)
[2017-05-30 01:07] LABS: ARTERIAL BLOOD BASE EXCESS 7.5 mmol/L; ARTERIAL BLOOD O2 SATURATION 97.1 % (94-98)
[2017-05-30 01:31] LABS: APPEARANCE,URINE SLIGHTLY-CLOUDY; BILIRUBIN,URINE NEGATIVE (NEGATIVE); GLUCOSE, URINE 50 mg/dL (NEGATIVE); KETONES,URINE NEGATIVE (NEGATIVE); LEUKOCYTE ESTERASE,URINE NEGATIVE (NEGATIVE); NITRITE,URINE NEGATIVE (NEGATIVE); PROTEIN,URINE NEGATIVE (NEGATIVE); URINE SPECIFIC GRAVITY 1.013; UROBILINOGEN,URINE NEGATIVE mg/dL (<2.0)
[2017-05-30 01:33] LABS: ALANINE AMINOTRANSFERASE 65 U/L (9-52); ALBUMIN 2.9 g/dL (3.5-5.0); ALKALINE PHOSPHATASE 57 U/L (38-126); ANION GAP 10 (5-19); ASPARTATE AMINO TRANSFERASE 71 U/L (14-36); BILIRUBIN,DIRECT 0.7 mg/dL (0.0-0.4); BILIRUBIN,TOTAL 1.7 mg/dL (0.2-1.3); BLOOD UREA NITROGEN 96 mg/dL (7-20); CARBON DIOXIDE 33 mmol/L (22-30); CHLORIDE 86 mmol/L (98-107); CREATININE RESULT 2.37 mg/dL (0.52-1.25); GLUCOSE 135 mg/dL (75-110); MAGNESIUM 2.6 mg/dL (1.6-2.3); POTASSIUM 4.6 mmol/L (3.6-5.0); SODIUM 128.9 mmol/L (137-145); TOTAL PROTEIN 4.8 g/dL (6.3-8.2)
[2017-05-30] MEDS ORDERED: ALBUTEROL SULFATE 0.083% NEB 2.5 MG/3 ML AMPUL NEB PRN (01:45)
[2017-05-30] MEDS ORDERED: DEXTROSE 50%-WATER 25 GM/50 ML DISP.SYRIN IV PRN ×2 (01:47)
[2017-05-30] MEDS ORDERED: DEXTROSE 40% GEL 15 GM TUBE PO PRN ×2 (01:47)
[2017-05-30] MEDS ORDERED: GLUCAGON,HUMAN RECOMB 1 MG INJ IM PRN (01:47)
[2017-05-30] MEDS ORDERED: ONDANSETRON HCL INJ/PF 4 MG/2 ML SDV ONE (01:48)
[2017-05-30] MEDS ORDERED: PROMETHAZINE HCL INJ 25 MG/1 ML VIAL IV PRN (01:50)
[2017-05-30] MEDS ORDERED: GUAIFENESIN SYRP 200 MG/10 ML UDC PO PRN (01:52)
[2017-05-30] MEDS ORDERED: VANCOMYCIN HCL 0 MG in DEXTROSE 5%-WATER 250 ML IV NR (02:00)
[2017-05-30] MEDS ORDERED: PHARMACY COMMUNICATION ORDER MC NR (02:00)
[2017-05-30] MEDS ORDERED: LEVOFLOXACIN 750 MG/D5W RTU 150 ML IV SCH (02:00)
[2017-05-30] MEDS ORDERED: LEVOFLOXACIN 750 MG/D5W RTU 750 MG/150 ML RTUPB IV ONE (03:00)
--- NOTE | 2017-05-30 03:02 | PDOC H&P ---
History of Present Illness Admission Date/PCP: 05/30/17 01:15 ARA WEBB MD [address] Gardner to be seen for the first time; has been followed by Dr. Berman Pulmonology Dr. Bolanos Endocrinology Dr. Hart in [facility] for her adrenal insufficiency Nephrology first appointment pending Patient complains of: Cough, vomiting, back pain History of Present Illness: NIMISHA PORTILLO is a 61 year old obese female with a fairly complicated chronic medical history, including asthma, COPD, obstructive sleep apnea, chronic atrial fibrillation on Xarelto, systolic congestive heart failure , fibromyalgia, chronic adrenal insufficiency, chronic back and hip pain, on fentanyl patches for same, valvular heart disease, hyperlipidemia, fibromyalgia , and hypothyroidism, who presents to the emergency room for 2 day history of above complaints. Patient has been discussed with emergency room physician who evaluated the patient. 2 day history of generalized weakness, productive cough, slowly progressive difficulty breathing, and a 24 hour history of nausea vomiting and left lower quadrant abdominal pain. Was hypotensive upon emergency room arrival, but has responded well to treatment so far, including steroids, IV antibiotics, and IV fluids. Arterial line and central line inserted by ER physician. Fentanyl patch removed. Fell recently while ambulating through her house with her walker, landing on her left breast, sustaining fairly extensive ecchymosis involving essentially the entire left breast, along with a portion of her left flank. Last antibiotic use was Levaquin a month ago for respiratory tract issue. Last hospitalization was December of this year. Transferred to [facility] November 12 of this year, after being admitted the previous day, with transfer diagnoses including acute and chronic respiratory failure, septic shock, bilateral pneumonia, acute renal failure, and acute on chronic heart failure. Transfer summary has been reviewed. Dictation via voice recognition software. Laboratory results are listed in [employer] and are reviewed. X-ray summary results are listed below, with full report(s) reviewed. . EKG reviewed and compared to tracing from December 01 of this year. Social history/personal habits: . 4 children. Retired. No use of alcohol tobacco or illicit drugs. Allergies/adverse reactions are listed in [employer] and are reviewed. No problems with Keflex or cefepime. Home medications initially autopopulated into [employer] may not accurately reflect patient's true medications, dosages, and/or frequencies. 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 Unfortunately, patient not certain of all medications/dosages/frequencies. REVIEW OF SYSTEMS: Constitutional: Shaking chills. Eyes: Wears glasses. ENT: No swallowing problems or complaints. Denies hearing loss. Pulmonary: See history and present illness. Cardiovascular: Mild chest discomfort with cough. See history and present illness. Gastrointestinal: See history and present illness. Skin: Occasional problems with eczema. Hematologic: Easy bruising. Neurologic: No current complaints, including numbness or tingling. Musculoskeletal: Fibromyalgia and chronic back pain. Psychiatric: Denies anxiety or depression. Endocrine: No current complaints, including polyuria. Genitourinary: No current complaints, including dysuria. PHYSICAL EXAMINATION: 4 feet 10 inches tall. 77.6 kg. BMI 35.7 kg/m. Blood pressure 102/68 by arterial line, inserted by emergency room physician. Pulse 116 and regular. 99 % saturation on 3 L oxygen per nasal cannula. Respirations are 15 and unlabored. Temperature 97.8. Obese otherwise well-developed somewhat chronically ill-appearing female who appears perhaps a bit older than her stated age. Appears somewhat fatigued, but maintaining airway well. Pleasant alert and cooperative. is present at her side; patient approves. Female emergency room nurse Vera is present. Skin is warm and dry. No grossly obvious evidence of rash in areas of skin examined. No subcutaneous nodules palpated. Extensive ecchymosis involving essentially the entire left breast, extending posteriorly along the left flank, and somewhat medially toward the right side. No tisha hematoma palpated. No obvious evidence of infection. ENT: Hearing grossly normal to normal conversation. Tongue midline on protrusion pink and tacky. Eyes: No scleral icterus. Pupils equal and reactive to light at 4 mm. [place] conjunctivae. Neck is supple and nontender to gentle active range of motion and palpation. Midline trachea. No palpable thyroid nodule mass enlargement or tenderness. Lymphatic: No palpable cervical or clavicular nodes. Neck and lymphatic exams limited by patient body habitus along with left internal jugular central line and associated dressing. Psychiatric: Reasonable insight into acute and chronic medical issues. Oriented to time location and why here. Lungs: Auscultation reveals equal breath sounds bilaterally. No use of accessory respiratory muscles. Intermittent coarse rhonchi, at times audible without a stethoscope. Cardiovascular: Heart regular rate and rhythm, without gallop murmur or rub. No right carotid or abdominal aortic bruits. No ankle or pedal edema. Faintly palpable posterior tibial pulses. Difficult to evaluate for left carotid bruit due to central line with associated dressing. Abdomen:soft obese nontender with positive bowel sounds. Unable to adequately evaluate abdomen for masses or organomegaly due to body habitus. Extremities: Feet are warm and dry. No calf tenderness to compression. No grossly obvious visual evidence of calf swelling. Gentle manipulation of lower extremities fails to reveal any obvious evidence of injury or instability to knees hips or ankles. Neurologic: Moves upper extremities grossly normally. Patellar reflexes absent. Absent Babinski. Light touch is intact at feet. Dorsiflexion and plantarflexion of feet 5 / 5 and symmetric. Past Medical History Cardiac Medical History: Reports: Atrial Fibrillation, Congestive Heart Failure , Hypertension Pulmonary Medical History: Reports: Asthma, Chronic Obstructive Pulmonary Disease (COPD), Pneumonia, Respiratory Failure - On home oxygen, Sleep Apnea Endocrine Medical History: Reports: Hypothyroidism Psychiatric Medical History: Reports: Depression Past Surgical History Past Surgical History: Reports: Section - X4, Orthopedic Surgery - right knee replacement, right toe, left shoulder Social History Information Source: Patient, Relative - , Emergency Med Personnel, [facility] Records Lives with: Spouse/Significant other Smoking Status: Unknown if Ever Smoked Frequency of Alcohol Use: None Hx Recreational Drug Use: No Drugs: None Hx Prescription Drug Abuse: No - Advance Directive Resuscitation Status: Full Code Surrogate healthcare decision maker:: Family History Family History: Other - Asthma and dementia Parental Family History Reviewed: Yes - Father of Alzheimer's. Mother of dementia also. Children Family History Reviewed: Yes - Son with asthma Sibling(s) Family History Reviewed.: Yes - Brother with asthma Medication/Allergy Home Medications: RX: Prednisone 2.5 mg PO DAILY@1500 11/11/16 RX: Diltiazem HCl [Cardizem Cd 120 mg Capsule] 120 mg PO DAILY 04/13/17 Albuterol Sulfate [Proair Hfa] 2 puff IN Q4HP PRN 05/30/17 Allopurinol [Zyloprim 300 mg Tablet] 300 mg PO DAILY 05/30/17 Atenolol [Tenormin] 25 mg PO Q12 05/30/17 Cyclobenzaprine HCl [Flexeril 10 mg Tablet] 10 mg PO Q8HP PRN 05/30/17 Fentanyl [Duragesic 25 mcg/hr Transdermal Patch] 1 patch TP Q3D 05/30/17 Fluticasone/Salmeterol [Advair 250-50 Diskus 28 dose] 1 puff IN Q12 05/30/17 Furosemide [Lasix 40 mg Tablet] 40 mg PO Q12 05/30/17 Ipratropium/Albuterol Sulfate [Iprat-Albut 0.5-3(2.5) Mg/3 Ml] 3 ml IN RTQ6HP PRN 05/30/17 Levothyroxine Sodium [Synthroid 0.025 mg Tablet] 0.025 mg PO DAILY 05/30/17 Lidocaine [Lidoderm 5% (700 mg) Transdermal Patch] 1 patch TP DAILY MDD 12 HOURS ON 12 HOURS OFF 05/30/17 Montelukast Sodium [Singulair 10 mg Tablet] 10 mg PO QHS 05/30/17 Oxycodone HCl/Acetaminophen [Oxycodone-Acetaminophen 10-325] 1 tab PO Q6HP PRN 05/30/17 Pregabalin [Lyrica] 150 mg PO Q8 05/30/17 Rivaroxaban [Xarelto] 20 mg PO QHS 05/30/17 Ropinirole HCl [Requip] 4 mg PO QHS 05/30/17 Simvastatin [Zocor 20 mg Tablet] 20 mg PO QHS 05/30/17 Spironolactone [Aldactone 25 mg Tablet] 25 mg PO Q12 05/30/17 Sumatriptan Succinate [Imitrex 100 mg Tablet] 100 mg PO DAILYP PRN MDD 2 TABS Allergies/Adverse Reactions: MERRITT Inhibitors [Merritt Inhibitors] Allergy (Verified 05/29/17 18:49) Angioneurotic Edema amoxicillin trihydrate [From Augmentin] Allergy (Verified 05/29/17 18:49) Hives bumetanide [From Bumex] Allergy (Verified 05/29/17 18:49) Hives Potassium Clavulanate * [From Augmentin] Allergy (Verified 05/29/17 18:49) Hives Physical Exam Vital Signs: Temp Pulse Resp BP Pulse Ox 97.8 F 119 H 18 100/82 96 05/29/17 18:49 05/29/17 18:49 05/30/17 02:01 05/30/17 02:01 05/30/17 02:21 Results Impressions: Abdomen/Pelvis CT 05/29/17 19:55 IMPRESSION: Multiple loops of small bowel measuring greater than 4.4 cm in diameter with fecalization of contents common nonspecific, possibly persistent ileus. No obvious mesenteric inflammatory changes. 3.2 cm low-density partial rim enhancing lesion in the right sciatic notch, unclear ideology as there are no adjacent inflammatory changes, possible nerve sheath tumor is a differential consideration. Probable wall thickening in the distal esophagus versus adjacent compressive subsegmental atelectasis,, apparent wall thickness measuring up to 7 mm. Small right hip joint effusion and moderate osteoarthritic changes. Chest X-Ray 05/29/17 22:30 IMPRESSION: Left IJ central venous catheter tip overlies the region of the SVC at the level of the elissa.No pneumothorax. Mild patchy airspace opacities are present in the right mid lung and left lung base. Assessment & Plan - Diagnosis (1) Abnormal CT scan, pelvis Is this a current diagnosis for this admission?: Yes Plan: Orthopedics consult. (2) Abnormal CT scan, esophagus Is this a current diagnosis for this admission?: Yes Plan: Consider GI consult. Discussed with day hospitalist team. (3) Hypothyroid Qualifiers: Hypothyroidism type: unspecified Qualified Code(s): E03.9 - Hypothyroidism , unspecified Is this a current diagnosis for this admission?: Yes Plan: Resume home medications as appropriate once these have been determined and reviewed. (4) Anticoagulated Is this a current diagnosis for this admission?: Yes Plan: Resume home medications as appropriate once these have been determined and reviewed. (5) Hyponatremia Is this a current diagnosis for this admission?: Yes Plan: Mild. Serial chemistry. (6) Elevated LFTs Is this a current diagnosis for this admission?: Yes Plan: Serial chemistry. (7) ARF (acute renal failure) Qualifiers: Acute renal failure type: unspecified Qualified Code(s): N17.9 - Acute kidney failure, unspecified Is this a current diagnosis for this admission?: Yes Plan: Suspect prerenal in nature. Serial chemistry. IV fluid. Adjust medications as needed. (8) Metabolic acidosis Is this a current diagnosis for this admission?: Yes Plan: Should clear with time and treatment. (9) Septic shock Is this a current diagnosis for this admission?: Yes Plan: Seems to be responding well so far to increased IV fluids. Will add vasopressor if necessary. Mon catheter; strict intake and output. (10) Bilateral pneumonia Qualifiers: Pneumonia type: due to unspecified organism Lung location: unspecified part of lung Qualified Code(s): J18.9 - Pneumonia, unspecified organism Is this a current diagnosis for this admission?: Yes Plan: Patient will be admitted under pneumonia protocol. Incentive spirometry twice a day. Scheduled DuoNeb's. As needed albuterol nebs. Antibiotics will consist of cefepime, and intravenous Levaquin and vancomycin. Pharmacy to assist with dosing. Sputum for culture and sensitivity. Pulmonology consult. Patient is a full code. Knee high SCDs for DVT prophylaxis; with patient on systemic anticoagulation for her atrial fibrillation, no need for Lovenox or heparin. Both patient and understand she is quite sick, and may yet need to be intubated. Impression and plans were discussed with patient and , both of whom concur Time spent in evaluation and management of patient: 100 critical care minutes. (11) COPD exacerbation Is this a current diagnosis for this admission?: Yes (12) ANNA (obstructive sleep apnea) Is this a current diagnosis for this admission?: Yes Plan: CPAP nightly (13) Hyperlipidemia Qualifiers: Hyperlipidemia type: unspecified Qualified Code(s): E78.5 - Hyperlipidemia , unspecified Is this a current diagnosis for this admission?: Yes Plan: Resume home medications as appropriate once these have been determined and reviewed. (14) Atrial fibrillation Qualifiers: Atrial fibrillation type: chronic Qualified Code(s): I48.2 - Chronic atrial fibrillation Is this a current diagnosis for this admission?: Yes Plan: Resume home medications as appropriate once these have been determined and reviewed. (15) Adrenal insufficiency Is this a current diagnosis for this admission?: Yes Plan: Every 8 hour Solu-Cortef for the present time. - Time Critical Time spent with patient: 35 or more minutes Medications reviewed and adjusted accordingly: No - Patient uncertain of all her meds. - Inpatient Certification Based on my medical assessment, after consideration of the patient's comorbidities, presenting symptoms, or acuity I expect that the services needed warrant INPATIENT care.: Yes I certify that my determination is in accordance with my understanding of Medicare's requirements for reasonable and necessary INPATIENT services [42 CFR 412.3e].: Yes Medical Necessity: Need Close Monitoring Due to Risk of Patient Decompensation, Need For IV Fluids, Need For Continuous Telemetry Monitoring, Need for Nebulizer Therapy and Monitoring of Response, Need for IV Antibiotics, Risk of Diagnosis Which Will Require Inpatient Eval/Care/Monitoring Post Hospital Care: D/C or Transfer Summary
[2017-05-30] MEDS ORDERED: NOREPINEPHRINE BITARTRATE INJ/PF 4 MG/4 ML SDV IV ONE (03:41)
[2017-05-30] MEDS ORDERED: HYDROCORTISONE SOD SUCCINATE INJ/PF 100 MG/2 ML SDV IV ONE (04:00)
[2017-05-30] MEDS ORDERED: NORMAL SALINE 1000 ML 500 ML IV ONE (05:00)
[2017-05-30 06:52] LABS: VENOUS BLOOD HCO3 33.6 mmol/L (20-32); VENOUS BLOOD PCO2 52.8 mmHg (35-63); VENOUS BLOOD PH 7.42 (7.30-7.42)
[2017-05-30 06:56] LABS: HEMATOCRIT 26.7 % (36.0-47.0); HGB HCT DIFFERENCE 0.3; MEAN CORPUSCULAR HEMOGLOBIN 33.3 pg (27.0-33.4); MEAN CORPUSCULAR HGB CONC 33.9 g/dL (32.0-36.0); MEAN CORPUSCULAR VOLUME 98 fl (80-97); RED BLOOD COUNT 2.72 10^6/uL (3.72-5.28); RED CELL DISTRIBUTION WIDTH 17.4 % (11.5-14.0); WHITE BLOOD COUNT 19.7 10^3/uL (4.0-10.5)
[2017-05-30 07:10] LABS: ANION GAP 10 (5-19); BLOOD UREA NITROGEN 97 mg/dL (7-20); CALCIUM 7.8 mg/dL (8.4-10.2); CARBON DIOXIDE 34 mmol/L (22-30); CHLORIDE 86 mmol/L (98-107); CREATININE RESULT 2.26 mg/dL (0.52-1.25); GLUCOSE 156 mg/dL (75-110); POTASSIUM 4.4 mmol/L (3.6-5.0); SODIUM 130.4 mmol/L (137-145)
[2017-05-30 07:39] LABS: BAND NEUTROPHILS % (MANUAL) 1 % (3-5); BASOPHILS % (MANUAL) 0 % (0-2); EOSINOPHILS % (MANUAL) 0 % (0-6); LYMPHOCYTES % (MANUAL) 7 % (13-45); NUCLEATED RED BLOOD CELLS 3 /100 WBC (0); TOTAL CELLS COUNTED 100
[2017-05-30 07:43] LABS: ANISOCYTOSIS 1+; OVALOCYTES SLIGHT; POLYCHROMASIA 1+; TARGET CELLS SLIGHT; TOXIC VACUOLATION PRESENT
[2017-05-30] MEDS: IPRATROPIUM/ALBUTEROL 0.5-2.5 MG/3 ML AMPUL NEB SCH ×3 (07:44→20:26)
[2017-05-30 07:45] LABS: POIKILOCYTOSIS SLIGHT; STOMATOCYTES SLIGHT
--- NOTE | 2017-05-30 08:01 | PDOC CONSULTATION ---
Consultation Consult Date: 05/30/17 Attending physician:: ILYA MARR Consult reason:: Right hip abnormality History of Present Illness Admission Date/PCP: 05/30/17 01:45 ARA WEBB MD Patient complains of: Chronic right hip pain History of Present Illness: NIMISHA PORTILLO is a 61 year old obese female with a fairly complicated chronic medical history, including asthma, COPD, obstructive sleep apnea, chronic atrial fibrillation on Xarelto, systolic congestive heart failure , fibromyalgia, chronic adrenal insufficiency, chronic back and hip pain, on fentanyl patches for same, valvular heart disease, hyperlipidemia, fibromyalgia , and hypothyroidism, who presents to the emergency room for due to weakness and cough. Patient was admitted for septicemia secondary to pneumonia. Patient states she has chronic right hip pain. Was set up for a right total hip arthroplasty by Dr. Wilson but has not been scheduled yet. She states the pain is worse with motion of her hip. Denies trauma to her right hip currently not complaining of significant right hip pain. Denies numbness or tingling. Pain 09/14. Past Medical History Cardiac Medical History: Reports: Atrial Fibrillation, Congestive Heart Failure , Hypertension Pulmonary Medical History: Reports: Asthma, Chronic Obstructive Pulmonary Disease (COPD), Pneumonia, Respiratory Failure - On home oxygen, Sleep Apnea Endocrine Medical History: Reports: Hypothyroidism Psychiatric Medical History: Reports: Depression Past Surgical History Past Surgical History: Reports: Section - X4, Orthopedic Surgery - right knee replacement, right toe, left shoulder Social History Lives with: Spouse/Significant other Smoking Status: Unknown if Ever Smoked Frequency of Alcohol Use: None Hx Recreational Drug Use: No Drugs: None Hx Prescription Drug Abuse: No - Advance Directive Resuscitation Status: Full Code Family History Family History: Other - Asthma and dementia Parental Family History Reviewed: No Children Family History Reviewed: No Sibling(s) Family History Reviewed.: No Medication/Allergy Home Medications: Prednisone 2.5 mg PO DAILY@1500 11/11/16 Diltiazem HCl [Cardizem Cd 120 mg Capsule] 120 mg PO DAILY 04/13/17 Furosemide [Lasix 40 mg Tablet] 40 mg PO Q12 05/30/17 Spironolactone [Aldactone 25 mg Tablet] 25 mg PO Q12 05/30/17 Allergies/Adverse Reactions: MERRITT Inhibitors [Merritt Inhibitors] Allergy (Verified 05/29/17 18:49) Angioneurotic Edema amoxicillin trihydrate [From Augmentin] Allergy (Verified 05/29/17 18:49) Hives bumetanide [From Bumex] Allergy (Verified 05/29/17 18:49) Hives Potassium Clavulanate * [From Augmentin] Allergy (Verified 05/29/17 18:49) Hives Review of Systems Constitutional: PRESENT: chills, night sweats, weakness. ABSENT: fever(s), headache(s), weight gain, weight loss Eyes: ABSENT: visual disturbances Ears: ABSENT: hearing changes Cardiovascular: ABSENT: chest pain, dyspnea on exertion, edema, orthropnea, palpitations Respiratory: PRESENT: cough. ABSENT: hemoptysis Gastrointestinal: ABSENT: abdominal pain, constipation, diarrhea, hematemesis, hematochezia, nausea, vomiting Genitourinary: ABSENT: dysuria, hematuria Musculoskeletal: PRESENT: as per HPI Integumentary: PRESENT: lesions. ABSENT: rash, wounds Neurological: PRESENT: frequent falls, weakness. ABSENT: abnormal gait, abnormal speech, confusion, dizziness, focal weakness, syncope Psychiatric: ABSENT: anxiety, depression, homidical ideation, suicidal ideation Endocrine: ABSENT: cold intolerance, heat intolerance, menstrual abnormalities, polydipsia, polyuria Hematologic/Lymphatic: ABSENT: easy bleeding, easy bruising, lymphadenopathy Physical Exam Vital Signs: Temp Pulse Resp BP Pulse Ox 99.7 F 113 H 18 107/63 97 05/30/17 06:15 05/30/17 07:49 05/30/17 07:49 05/30/17 05:13 05/30/17 07:49 Intake & Output 05/29/17 05/30/17 05/31/17 06:59 06:59 06:59 Intake Total 1056 Output Total 150 Balance 906 Weight 82.5 kg General appearance: PRESENT: no acute distress, well-developed, well-nourished Head exam: PRESENT: atraumatic, normocephalic Eye exam: PRESENT: conjunctiva pink, EOMI, PERRLA. ABSENT: scleral icterus Ear exam: PRESENT: normal external ear exam Mouth exam: PRESENT: moist, tongue midline Neck exam: PRESENT: full ROM. ABSENT: carotid bruit, JVD, lymphadenopathy, thyromegaly Respiratory exam: PRESENT: chest wall tenderness, wheezes Additional comments: Ecchymosis on the left chest wall. Cardiovascular exam: PRESENT: RRR. ABSENT: diastolic murmur, rubs, systolic murmur Pulses: PRESENT: normal dorsalis pedis pul, +2 pedal pulses bilateral Vascular exam: PRESENT: normal capillary refill GI/Abdominal exam: PRESENT: normal bowel sounds, soft. ABSENT: distended, guarding, mass, organolmegaly, rebound, tenderness Rectal exam: PRESENT: deferred Musculoskeletal exam: PRESENT: other - Right hip: Limited rotation with flexion internal rotation. Crepitus with range of motion. Mild tenderness along the piriformis musculature at the level of the noted mass on CT scan. Negative straight leg raise. No sensory deficits throughout right lower extremity. Intact plantar flexion/dorsiflexion with strength 5/5. No calf tenderness. Notable ecchymosis throughout the right and left lower extremities. Neurological exam: PRESENT: alert, awake, oriented to person, oriented to place , oriented to time, oriented to situation, CN II-XII grossly intact. ABSENT: motor sensory deficit Psychiatric exam: PRESENT: appropriate affect, normal mood. ABSENT: homicidal ideation, suicidal ideation Skin exam: PRESENT: dry, intact, warm. ABSENT: cyanosis, rash Results Laboratory Results: 05/30/17 06:35 05/30/17 06:35 05/30/17 05/30/17 05/30/17 06:35 06:35 06:35 WBC 19.7 H RBC 2.72 L Hgb 9.0 L D Hct 26.7 L MCV 98 H MCH 33.3 MCHC 33.9 RDW 17.4 H Plt Count 162 Seg Neutrophils % Not Reportable Lymphocytes % Not Reportable Monocytes % Not Reportable Eosinophils % Not Reportable Basophils % Not Reportable Absolute Neutrophils Not Reportable Absolute Lymphocytes Not Reportable Absolute Monocytes Not Reportable Absolute Eosinophils Not Reportable Absolute Basophils Not Reportable VBG pH 7.42 VBG pCO2 52.8 VBG HCO3 33.6 H VBG Base Excess 8.0 Sodium 130.4 L Potassium 4.4 Chloride 86 L Carbon Dioxide 34 H Anion Gap 10 BUN 97 H Creatinine 2.26 H Est GFR ( Amer) 26 L Est GFR (Non-Af Amer) 22 L Glucose 156 H Calcium 7.8 L Impressions: Abdomen/Pelvis CT 05/29/17 19:55 IMPRESSION: Multiple loops of small bowel measuring greater than 4.4 cm in diameter with fecalization of contents common nonspecific, possibly persistent ileus. No obvious mesenteric inflammatory changes. 3.2 cm low-density partial rim enhancing lesion in the right sciatic notch, unclear ideology as there are no adjacent inflammatory changes, possible nerve sheath tumor is a differential consideration. Probable wall thickening in the distal esophagus versus adjacent compressive subsegmental atelectasis,, apparent wall thickness measuring up to 7 mm. Small right hip joint effusion and moderate osteoarthritic changes. Chest X-Ray 05/29/17 22:30 IMPRESSION: Left IJ central venous catheter tip overlies the region of the SVC at the level of the elissa.No pneumothorax. Mild patchy airspace opacities are present in the right mid lung and left lung base. Assessment & Plan - Diagnosis (1) Arthritis of right hip Is this a current diagnosis for this admission?: Yes Plan: I have reviewed patient's CT scan which demonstrates a mass along the sciatic notch of the pelvis. Currently patient is having no symptoms from this but does have known history of right hip arthritis. Given her current medical issues including sepsis secondary to pneumonia I do not feel inpatient workup is required would recommend MRI patient follow-up as an outpatient with Dr. Wilson.
--- NOTE | 2017-05-30 08:07 | EKG REPORT ---
SEVERITY:- ABNORMAL ECG - ATRIAL FIBRILLATION, V-RATE 75-126 PROBABLE INFERIOR INFARCT, AGE INDETERMINATE BORDERLINE R WAVE PROGRESSION, ANTERIOR LEADS BORDERLINE PROLONGED QT INTERVAL : Confirmed by: Mikala Olivo MD 30-May-2017 08:06:29
[2017-05-30] MEDS ORDERED: BISACODYL 10 MG SUPP.RECT PR ONE (08:30)
[2017-05-30] MEDS: PROMETHAZINE HCL INJ 25 MG/1 ML VIAL IV PRN (08:39)
[2017-05-30] MEDS: NORMAL SALINE 1000 ML 1,000 ML IV PRN ×3 (08:40→23:56)
[2017-05-30] MEDS ORDERED: PHENYLEPHRINE HCL INJ/PF 10 MG/1 ML SDV ONE (09:29)
[2017-05-30] MEDS: FAMOTIDINE INJ/PF 20 MG/2 ML SDV IV SCH ×2 (09:35→21:23)
[2017-05-30] MEDS: HYDROCORTISONE SOD SUCCINATE INJ/PF 100 MG/2 ML SDV IV SCH ×2 (09:35→17:07)
[2017-05-30] MEDS: ACETAMINOPHEN 325 MG TABLET PO PRN ×2 (09:46→22:23)
[2017-05-30] MEDS ORDERED: CEFEPIME 2 GM/D5W RTU 50 ML IV SCH (10:00)
[2017-05-30 10:50] LABS: PATH REVIEW PATHOLOGIST REVIEWED
[2017-05-30] MEDS: HEPARIN SOD (PORCINE) 5,000 UNIT/ML 1 ML SYRINGE SUBCUT SCH ×2 (10:50→21:22)
--- NOTE | 2017-05-30 10:59 | PDOC CONSULTATION ---
Consultation Consult Date: 05/30/17 Attending physician:: SERA CHARLTON Consult reason:: sepsis History of Present Illness Admission Date/PCP: 05/30/17 01:45 ARA WEBB MD History of Present Illness: 61-year-old female well-known to my service for asthma and chronic respiratory failure presented to the ED after 3 days of progressive weakness to the cough that was nonproductive questionable fever chills she admits to nausea and abdominal pain but no diarrhea stated above she has a long history of chronic respiratory failure and asthmatic lung disease along with atrial fibrillation congestive heart failure. She is a lifelong asthmatic she admits to exposure to passive smoke as a child but not as much as an adult she herself has never smoked she has no pets denies recent travel denies angina-like chest pain sleeps on 2 pillows no PND occasional nocturnal cough frequent edema. She carries a diagnosis of obstructive sleep apnea and wears CPAP Past Medical History Cardiac Medical History: Reports: Atrial Fibrillation, Congestive Heart Failure , Hypertension Pulmonary Medical History: Reports: Asthma, Chronic Obstructive Pulmonary Disease (COPD), Pneumonia, Respiratory Failure - On home oxygen, Sleep Apnea Endocrine Medical History: Reports: Hypothyroidism Psychiatric Medical History: Reports: Depression Past Surgical History Past Surgical History: Reports: Section - X4, Orthopedic Surgery - right knee replacement, right toe, left shoulder Social History Lives with: Spouse/Significant other Smoking Status: Never Smoker Passive smoke exposure as: Both Frequency of Alcohol Use: None Hx Recreational Drug Use: No Drugs: None Hx Prescription Drug Abuse: No Do you have pets?: No Have you had any respiratory illnesses as a child?: Yes Have you been exposed to any sick contacts recently?: Yes Have you had any recent respiratory illnesses?: Yes Have you travelled outside of [place] in the past 12 months?: No - Advance Directive Resuscitation Status: Full Code Family History Family History: Other - Asthma and dementia Parental Family History Reviewed: Yes Children Family History Reviewed: Yes Sibling(s) Family History Reviewed.: Yes Medication/Allergy Home Medications: Prednisone 2.5 mg PO DAILY@1500 11/11/16 Diltiazem HCl [Cardizem Cd 120 mg Capsule] 120 mg PO DAILY 04/13/17 Albuterol Sulfate [Proair Hfa] 2 puff IN Q4HP PRN 05/30/17 Allopurinol [Zyloprim 300 mg Tablet] 300 mg PO DAILY 05/30/17 Atenolol [Tenormin] 25 mg PO Q12 05/30/17 Cyclobenzaprine HCl [Flexeril 10 mg Tablet] 10 mg PO Q8HP PRN 05/30/17 Fentanyl [Duragesic 25 mcg/hr Transdermal Patch] 1 patch TP Q3D 05/30/17 Fluticasone/Salmeterol [Advair 250-50 Diskus 28 dose] 1 puff IN Q12 05/30/17 Furosemide [Lasix 40 mg Tablet] 40 mg PO Q12 05/30/17 Ipratropium/Albuterol Sulfate [Iprat-Albut 0.5-3(2.5) Mg/3 Ml] 3 ml IN RTQ6HP PRN 05/30/17 Levothyroxine Sodium [Synthroid 0.025 mg Tablet] 0.025 mg PO DAILY 05/30/17 Lidocaine [Lidoderm 5% (700 mg) Transdermal Patch] 1 patch TP DAILY MDD 12 HOURS ON 12 HOURS OFF 05/30/17 Montelukast Sodium [Singulair 10 mg Tablet] 10 mg PO QHS 05/30/17 Oxycodone HCl/Acetaminophen [Oxycodone-Acetaminophen 10-325] 1 tab PO Q6HP PRN 05/30/17 Pregabalin [Lyrica] 150 mg PO Q8 05/30/17 Rivaroxaban [Xarelto] 20 mg PO QHS 05/30/17 Ropinirole HCl [Requip] 4 mg PO QHS 05/30/17 Simvastatin [Zocor 20 mg Tablet] 20 mg PO QHS 05/30/17 Spironolactone [Aldactone 25 mg Tablet] 25 mg PO Q12 05/30/17 Sumatriptan Succinate [Imitrex 100 mg Tablet] 100 mg PO DAILYP PRN MDD 2 TABS Allergies/Adverse Reactions: MERRITT Inhibitors [Merritt Inhibitors] Allergy (Verified 05/29/17 18:49) Angioneurotic Edema amoxicillin trihydrate [From Augmentin] Allergy (Verified 05/29/17 18:49) Hives bumetanide [From Bumex] Allergy (Verified 05/29/17 18:49) Hives Potassium Clavulanate * [From Augmentin] Allergy (Verified 05/29/17 18:49) Hives Review of Systems All systems: reviewed and no additional remarkable complaints except as stated Physical Exam Vital Signs: Temp Pulse Resp BP Pulse Ox 99.7 F 113 H 18 107/63 97 05/30/17 06:15 05/30/17 07:49 05/30/17 07:49 05/30/17 05:13 05/30/17 07:49 Intake & Output 05/29/17 05/30/17 05/31/17 06:59 06:59 06:59 Intake Total 1056 Output Total 150 Balance 906 Weight 82.5 kg General appearance: PRESENT: disheveled, mild distress, morbidly obese, well- developed Head exam: PRESENT: atraumatic, normocephalic Eye exam: PRESENT: conjunctiva pale, EOMI Mouth exam: PRESENT: dry mucosa, neck supple, tongue midline Neck exam: ABSENT: carotid bruit, JVD, lymphadenopathy, thyromegaly Respiratory exam: PRESENT: decreased breath sounds, prolonged expiratory phas, rales, rhonchi, symmetrical. ABSENT: crackles, retraction, stridor, tachypnea, wheezes Cardiovascular exam: PRESENT: RRR, +S1 Pulses: PRESENT: normal radial pulses GI/Abdominal exam: PRESENT: soft, tenderness Rectal exam: PRESENT: deferred Gentrourinary exam: PRESENT: indwelling catheter Extremities exam: PRESENT: +1 edema Neurological exam: PRESENT: awake Skin exam: PRESENT: dry, warm Results Laboratory Results: 05/30/17 06:35 05/30/17 06:35 05/30/17 05/30/17 05/30/17 06:35 06:35 06:35 WBC 19.7 H RBC 2.72 L Hgb 9.0 L D Hct 26.7 L MCV 98 H MCH 33.3 MCHC 33.9 RDW 17.4 H Plt Count 162 Seg Neutrophils % Not Reportable Lymphocytes % Not Reportable Monocytes % Not Reportable Eosinophils % Not Reportable Basophils % Not Reportable Absolute Neutrophils Not Reportable Absolute Lymphocytes Not Reportable Absolute Monocytes Not Reportable Absolute Eosinophils Not Reportable Absolute Basophils Not Reportable VBG pH 7.42 VBG pCO2 52.8 VBG HCO3 33.6 H VBG Base Excess 8.0 Sodium 130.4 L Potassium 4.4 Chloride 86 L Carbon Dioxide 34 H Anion Gap 10 BUN 97 H Creatinine 2.26 H Est GFR ( Amer) 26 L Est GFR (Non-Af Amer) 22 L Glucose 156 H Calcium 7.8 L Impressions: Abdomen/Pelvis CT 05/29/17 19:55 IMPRESSION: Multiple loops of small bowel measuring greater than 4.4 cm in diameter with fecalization of contents common nonspecific, possibly persistent ileus. No obvious mesenteric inflammatory changes. 3.2 cm low-density partial rim enhancing lesion in the right sciatic notch, unclear ideology as there are no adjacent inflammatory changes, possible nerve sheath tumor is a differential consideration. Probable wall thickening in the distal esophagus versus adjacent compressive subsegmental atelectasis,, apparent wall thickness measuring up to 7 mm. Small right hip joint effusion and moderate osteoarthritic changes. Chest X-Ray 05/29/17 22:30 IMPRESSION: Left IJ central venous catheter tip overlies the region of the SVC at the level of the elissa.No pneumothorax. Mild patchy airspace opacities are present in the right mid lung and left lung base. Assessment & Plan - Diagnosis (1) ARF (acute renal failure) Qualifiers: Acute renal failure type: unspecified Qualified Code(s): N17.9 - Acute kidney failure, unspecified Is this a current diagnosis for this admission?: Yes (2) Abnormal CT scan, esophagus Is this a current diagnosis for this admission?: Yes (3) Abnormal CT scan, pelvis Is this a current diagnosis for this admission?: Yes Plan: Surgical consult Dr. Grimes to evaluate; Patient has not had a bowel movement since 10 days prior to admission (5) Asthma Is this a current diagnosis for this admission?: Yes Plan: Bronchodilators inhaled corticosteroids (6) Atrial fibrillation Qualifiers: Atrial fibrillation type: unspecified Qualified Code(s): I48.91 - Unspecified atrial fibrillation Is this a current diagnosis for this admission?: Yes Plan: May need to treat with Cardizem intravenously (7) CHF (congestive heart failure) Is this a current diagnosis for this admission?: Yes Plan: Check a BNP patient oxygenating and ventilating well (8) ANNA (obstructive sleep apnea) Is this a current diagnosis for this admission?: Yes (9) Septic shock Is this a current diagnosis for this admission?: Yes Plan: A. fib with RVR suggest changing Levophed to Brady-Synephrine if necessary adding some Cardizem while this might initially decreased blood pressure and may allow increased filling of the ventricles therefore improving perfusionSignificant leukocytosis with a left shift somewhat out of proportion to the degree of lung abnormalities display suspect there may be a secondary cause of her sepsis - Time Critical Time spent with patient: 35 or more minutes - 55 min
[2017-05-30] MEDS ORDERED: DILTIAZEM HCL/D5W 125 MG/125 ML RTUINJ IV ONE (11:21)
[2017-05-30] MEDS: CEFEPIME 2 GM/D5W RTU 2 GM/50 ML RTUPB IV SCH (13:30)
[2017-05-30] MEDS ORDERED: FUROSEMIDE INJ/PF 40 MG/4 ML SDV ONE (15:13)
[2017-05-30] MEDS ORDERED: FUROSEMIDE INJ/PF 40 MG/4 ML SDV IV ONE (15:30)
--- NOTE | 2017-05-30 15:42 | PDOC CONSULTATION ---
Consultation Consult Date: 05/30/17 Attending physician:: COLLETTE EMMANUEL Consult reason:: Abdominal pain rule out acute abdomen History of Present Illness Admission Date/PCP: 05/30/17 01:45 ARA WEBB MD History of Present Illness: 61-year-old female well-known to my service for asthma and chronic respiratory failure presented to the ED after 3 days of progressive weakness to the cough that was nonproductive questionable fever chills she admits to nausea and abdominal pain but no diarrhea stated above she has a long history of chronic respiratory failure and asthmatic lung disease along with atrial fibrillation congestive heart failure. She is a lifelong asthmatic she admits to exposure to passive smoke as a child but not as much as an adult she herself has never smoked she has no pets denies recent travel denies angina-like chest pain sleeps on 2 pillows no PND occasional nocturnal cough frequent edema. She carries a diagnosis of obstructive sleep apnea and wears CPAP According to the patient and significant other who are poor historians, the patient had a colonoscopy within the last several months which apparently showed no pathologic findings. The patient has not had a good bowel movement in at least a week. Her physical activity is extremely limited she does take a lot of medications. She has never taken a stool softener. She was hospitalized for failure to thrive primarily due to respiratory deterioration. She was seen in the emergency department admitted to the hospital service and brought to the intensive care unit. The patient was evaluated this morning where she stated she felt better compared to when she was admitted Past Medical History Cardiac Medical History: Reports: Atrial Fibrillation, Congestive Heart Failure , Hypertension Pulmonary Medical History: Reports: Asthma, Chronic Obstructive Pulmonary Disease (COPD), Pneumonia, Respiratory Failure - On home oxygen, Sleep Apnea Endocrine Medical History: Reports: Hypothyroidism Psychiatric Medical History: Reports: Depression Past Surgical History Past Surgical History: Reports: Section - X4, Orthopedic Surgery - right knee replacement, right toe, left shoulder Social History Lives with: Spouse/Significant other Smoking Status: Never Smoker Frequency of Alcohol Use: None Hx Recreational Drug Use: No Drugs: None Hx Prescription Drug Abuse: No - Advance Directive Resuscitation Status: Full Code Family History Family History: Other - Asthma and dementia Parental Family History Reviewed: Yes Children Family History Reviewed: Yes Sibling(s) Family History Reviewed.: Yes Medication/Allergy Home Medications: Prednisone 2.5 mg PO DAILY@1500 11/11/16 Diltiazem HCl [Cardizem Cd 120 mg Capsule] 120 mg PO DAILY 04/13/17 Albuterol Sulfate [Proair Hfa] 2 puff IN Q4HP PRN 05/30/17 Allopurinol [Zyloprim 300 mg Tablet] 300 mg PO DAILY 05/30/17 Atenolol [Tenormin] 25 mg PO Q12 05/30/17 Cyclobenzaprine HCl [Flexeril 10 mg Tablet] 10 mg PO Q8HP PRN 05/30/17 Fentanyl [Duragesic 25 mcg/hr Transdermal Patch] 1 patch TP Q3D 05/30/17 Fluticasone/Salmeterol [Advair 250-50 Diskus 28 dose] 1 puff IN Q12 05/30/17 Furosemide [Lasix 40 mg Tablet] 40 mg PO Q12 05/30/17 Ipratropium/Albuterol Sulfate [Iprat-Albut 0.5-3(2.5) Mg/3 Ml] 3 ml IN RTQ6HP PRN 05/30/17 Levothyroxine Sodium [Synthroid 0.025 mg Tablet] 0.025 mg PO DAILY 05/30/17 Lidocaine [Lidoderm 5% (700 mg) Transdermal Patch] 1 patch TP DAILY MDD 12 HOURS ON 12 HOURS OFF 05/30/17 Montelukast Sodium [Singulair 10 mg Tablet] 10 mg PO QHS 05/30/17 Oxycodone HCl/Acetaminophen [Oxycodone-Acetaminophen 10-325] 1 tab PO Q6HP PRN 05/30/17 Pregabalin [Lyrica] 150 mg PO Q8 05/30/17 Rivaroxaban [Xarelto] 20 mg PO QHS 05/30/17 Ropinirole HCl [Requip] 4 mg PO QHS 05/30/17 Simvastatin [Zocor 20 mg Tablet] 20 mg PO QHS 05/30/17 Spironolactone [Aldactone 25 mg Tablet] 25 mg PO Q12 05/30/17 Sumatriptan Succinate [Imitrex 100 mg Tablet] 100 mg PO DAILYP PRN MDD 2 TABS Allergies/Adverse Reactions: MERRITT Inhibitors [Merritt Inhibitors] Allergy (Verified 05/29/17 18:49) Angioneurotic Edema amoxicillin trihydrate [From Augmentin] Allergy (Verified 05/29/17 18:49) Hives bumetanide [From Bumex] Allergy (Verified 05/29/17 18:49) Hives Potassium Clavulanate * [From Augmentin] Allergy (Verified 05/29/17 18:49) Hives Review of Systems Constitutional: PRESENT: as per HPI Eyes: PRESENT: as per HPI Ears: PRESENT: as per HPI Nose, Mouth, and Throat: PRESENT: as per HPI Breasts: PRESENT: as per HPI Cardiovascular: PRESENT: as per HPI Respiratory: PRESENT: as per HPI Gastrointestinal: PRESENT: as per HPI Genitourinary: PRESENT: as per HPI Musculoskeletal: PRESENT: as per HPI Physical Exam Vital Signs: Temp Pulse Resp BP Pulse Ox 100.4 F 107 H 16 81/64 L 94 05/30/17 14:15 05/30/17 13:35 05/30/17 14:15 05/30/17 13:13 05/30/17 14:15 Intake & Output 05/29/17 05/30/17 05/31/17 06:59 06:59 06:59 Intake Total 1056 Output Total 150 410 Balance 906 -410 Weight 82.5 kg General appearance: PRESENT: mild distress, morbidly obese Eye exam: PRESENT: other - Poor focus Mouth exam: PRESENT: dry mucosa Neck exam: PRESENT: other - No JVD Respiratory exam: PRESENT: rhonchi, other - Very productive rattling respiration Cardiovascular exam: PRESENT: RRR Pulses: PRESENT: normal carotid pulses GI/Abdominal exam: PRESENT: other - Moderately distended, no peritoneal signs no rigidity. Well-healed infraumbilical scar, no hernia Results Laboratory Results: 05/30/17 06:35 05/30/17 06:35 05/30/17 05/30/17 05/30/17 06:35 06:35 06:35 WBC 19.7 H RBC 2.72 L Hgb 9.0 L D Hct 26.7 L MCV 98 H MCH 33.3 MCHC 33.9 RDW 17.4 H Plt Count 162 Seg Neutrophils % Not Reportable Lymphocytes % Not Reportable Monocytes % Not Reportable Eosinophils % Not Reportable Basophils % Not Reportable Absolute Neutrophils Not Reportable Absolute Lymphocytes Not Reportable Absolute Monocytes Not Reportable Absolute Eosinophils Not Reportable Absolute Basophils Not Reportable VBG pH 7.42 VBG pCO2 52.8 VBG HCO3 33.6 H VBG Base Excess 8.0 Sodium 130.4 L Potassium 4.4 Chloride 86 L Carbon Dioxide 34 H Anion Gap 10 BUN 97 H Creatinine 2.26 H Est GFR ( Amer) 26 L Est GFR (Non-Af Amer) 22 L Glucose 156 H Lactic Acid Calcium 7.8 L 05/30/17 08:57 WBC RBC Hgb Hct MCV MCH MCHC RDW Plt Count Seg Neutrophils % Lymphocytes % Monocytes % Eosinophils % Basophils % Absolute Neutrophils Absolute Lymphocytes Absolute Monocytes Absolute Eosinophils Absolute Basophils VBG pH VBG pCO2 VBG HCO3 VBG Base Excess Sodium Potassium Chloride Carbon Dioxide Anion Gap BUN Creatinine Est GFR ( Amer) Est GFR (Non-Af Amer) Glucose Lactic Acid 1.3 Calcium Impressions: Abdomen/Pelvis CT 05/29/17 19:55 IMPRESSION: Multiple loops of small bowel measuring greater than 4.4 cm in diameter with fecalization of contents common nonspecific, possibly persistent ileus. No obvious mesenteric inflammatory changes. 3.2 cm low-density partial rim enhancing lesion in the right sciatic notch, unclear ideology as there are no adjacent inflammatory changes, possible nerve sheath tumor is a differential consideration. Probable wall thickening in the distal esophagus versus adjacent compressive subsegmental atelectasis,, apparent wall thickness measuring up to 7 mm. Small right hip joint effusion and moderate osteoarthritic changes. Chest X-Ray 05/29/17 22:30 IMPRESSION: Left IJ central venous catheter tip overlies the region of the SVC at the level of the elissa.No pneumothorax. Mild patchy airspace opacities are present in the right mid lung and left lung base. Status: Imported from PACS Assessment & Plan - Diagnosis (1) Constipation Is this a current diagnosis for this admission?: Yes Plan: I reviewed the patient's documentation, examined the patient, and reviewed her imaging studies. I believe the patient has constipation, with an element of equalization of the small intestine due to immobility chronic medication side effects. Recommendations: 1. No indication for surgical intervention at this time 2. Would suggest cathartics either from above or below 3. Will sign off; reconsult surgery if clinically indicated. - Time Time Spent: 30 to 50 Minutes Critical Time spent with patient: Less than 15 minutes - Inpatient Certification Medical Necessity: Need For IV Fluids
[2017-05-30] MEDS: DILTIAZEM HCL/D5W 125 MG/125 ML RTUINJ IV PRN ×2 (16:22→23:57)
[2017-05-30] MEDS: DEXTROSE 5%-WATER 250 ML with PHENYLEPHRINE HCL 40 MG IV PRN ×4 (17:07→23:58)
[2017-05-30] MEDS: VANCOMYCIN HCL 750 MG in DEXTROSE 5%-WATER 250 ML IV SCH (17:07)
[2017-05-30] MEDS: DEXTROSE 5%-WATER 250 ML with NOREPINEPHRINE BITARTRATE 4 MG IV PRN ×2 (17:14)
[2017-05-30] MEDS: INSULIN LISPRO 100 UNIT/ML 3 ML VIAL SUBCUT PRN ×2 (17:50→23:56)
--- NOTE | 2017-05-30 20:31 | PDOC CONSULTATION ---
Consultation Consult Date: 05/30/17 Attending physician:: SERA CABRERA Consult reason:: I was asked by Dr. Cabrera to see the patient because of acute renal failure. History of Present Illness Admission Date/PCP: 05/30/17 01:45 ARA WEBB MD History of Present Illness: 61-year-old female well-known to my service for asthma and chronic respiratory failure, COPD, obstructive sleep apnea, chronic atrial fibrillation, congestive heart failure, and chronic adrenal insufficiency who presented to the ED after 3 days of progressive weakness to the cough that was nonproductive questionable fever, and chills. She admits progressive worsening of shortness of breath especially for the last 2 days. She admits to nausea and abdominal pain but no diarrhea. She stated that her blood pressure is typically low on the 1 teens over 50s-60s however for the last 2-3 weeks it has been worse with blood pressure of 80s over 40s. She said she has been having decreased oral intake for the last 2-3 weeks. She claims that it is she tries to drink but that has also decreased for the last couple of days. She denies any dizziness no chest pains. She claims that she has good urine output and denies any hematuria. She states her swelling seems actually better compared to previous. Review of history showed that patient was admitted in November by the [facility] for septic shock with MSSA bacteremia and acute kidney injury requiring CRRT briefly. This time the patient came in with a BUN of 96 and creatinine of 2.92 with estimated GFR of 16. Today she has a BUN of 97 creatinine of 2.26 and estimated GFR of 22. Last April 05 she had a BUN of 39 creatinine of 1.63 with a GFR of 32. She is currently nonoliguric and making some urine. She is awake and is able to give me her medical history as well as circumstances leading to her admission. Upon admission the patient was started on pressors which is currently being continued. She is also on normal saline at 150 mL an hour. Due to her atrial fibrillation/atrial flutter she was also started on diltiazem. She was given a dose of Lasix 40 mg IV. She is also currently on antibiotics with cefepime and vancomycin. Currently she seems to be clinically better and she admits that she is feeling a little bit better than she when she came into the emergency room yesterday. Past Medical History Cardiac Medical History: Reports: Atrial Fibrillation, CHF-Systolic, Hyperlipidemia, Valvular Heart disease Pulmonary Medical History: Reports: Asthma, Chronic Obstructive Pulmonary Disease (COPD), Pneumonia, Respiratory Failure - On home oxygen, Sleep Apnea Endocrine Medical History: Reports: Hypothyroidism, Other - Chronic adrenal insufficiency on maintenance steroids Renal/ Medical History: Reports: Other - Episode of acute kidney injury requiring temporary CRRT last November 2016 Musculoskeltal Medical History: Reports: Fibromyalgia, Other - Chronic hip and back pain Psychiatric Medical History: Reports: Depression Past Surgical History Past Surgical History: Reports: Section - X4, Orthopedic Surgery - right knee replacement, right toe, left shoulder Social History Information Source: Patient, [facility] Records Lives with: Spouse/Significant other Smoking Status: Never Smoker Frequency of Alcohol Use: None Hx Recreational Drug Use: No Drugs: None Hx Prescription Drug Abuse: No - Advance Directive Resuscitation Status: Full Code Family History Family History: Chronic Kidney Disease - Grandfather and brothers, Other - Dementia and her father and mother; asthma on her son and brother Parental Family History Reviewed: Yes Children Family History Reviewed: Yes Sibling(s) Family History Reviewed.: Yes Medication/Allergy Home Medications: Prednisone 2.5 mg PO DAILY@1500 11/11/16 Diltiazem HCl [Cardizem Cd 120 mg Capsule] 120 mg PO DAILY 04/13/17 Albuterol Sulfate [Proair Hfa] 2 puff IN Q4HP PRN 05/30/17 Allopurinol [Zyloprim 300 mg Tablet] 300 mg PO DAILY 05/30/17 Atenolol [Tenormin] 25 mg PO Q12 05/30/17 Cyclobenzaprine HCl [Flexeril 10 mg Tablet] 10 mg PO Q8HP PRN 05/30/17 Fentanyl [Duragesic 25 mcg/hr Transdermal Patch] 1 patch TP Q3D 05/30/17 Fluticasone/Salmeterol [Advair 250-50 Diskus 28 dose] 1 puff IN Q12 05/30/17 Furosemide [Lasix 40 mg Tablet] 40 mg PO Q12 05/30/17 Ipratropium/Albuterol Sulfate [Iprat-Albut 0.5-3(2.5) Mg/3 Ml] 3 ml IN RTQ6HP PRN 05/30/17 Levothyroxine Sodium [Synthroid 0.025 mg Tablet] 0.025 mg PO DAILY 05/30/17 Lidocaine [Lidoderm 5% (700 mg) Transdermal Patch] 1 patch TP DAILY MDD 12 HOURS ON 12 HOURS OFF 05/30/17 Montelukast Sodium [Singulair 10 mg Tablet] 10 mg PO QHS 05/30/17 Oxycodone HCl/Acetaminophen [Oxycodone-Acetaminophen 10-325] 1 tab PO Q6HP PRN 05/30/17 Pregabalin [Lyrica] 150 mg PO Q8 05/30/17 Rivaroxaban [Xarelto] 20 mg PO QHS 05/30/17 Ropinirole HCl [Requip] 4 mg PO QHS 05/30/17 Simvastatin [Zocor 20 mg Tablet] 20 mg PO QHS 05/30/17 Spironolactone [Aldactone 25 mg Tablet] 25 mg PO Q12 05/30/17 Sumatriptan Succinate [Imitrex 100 mg Tablet] 100 mg PO DAILYP PRN MDD 2 TABS Allergies/Adverse Reactions: MERRITT Inhibitors [Merritt Inhibitors] Allergy (Verified 05/29/17 18:49) Angioneurotic Edema amoxicillin trihydrate [From Augmentin] Allergy (Verified 05/29/17 18:49) Hives bumetanide [From Bumex] Allergy (Verified 05/29/17 18:49) Hives Potassium Clavulanate * [From Augmentin] Allergy (Verified 05/29/17 18:49) Hives Review of Systems All systems: reviewed and no additional remarkable complaints except as stated Review of Systems: Constitutional: ABSENT: chills, fatigue, fever(s), headache(s), weight gain, weight loss; admits generalized weakness Eyes: ABSENT: visual disturbances Ears: ABSENT: hearing changes Cardiovascular: ABSENT: chest pain, dyspnea on exertion, edema, orthropnea, palpitations Respiratory: ABSENT: Hemoptysis; admits cough and worsening shortness of breath Gastrointestinal: ABSENT: Diarrhea, hematemesis, hematochezia; admits nausea, vomiting, abdominal pain and constipation for 8 days Genitourinary: ABSENT: dysuria, hematuria Musculoskeletal: ABSENT: joint swelling Integumentary: ABSENT: rash, wounds Neurological: ABSENT: abnormal gait, abnormal speech, confusion, dizziness, focal weakness, numbness, syncope Psychiatric: ABSENT: anxiety, depression Endocrine: ABSENT: cold intolerance, heat intolerance, polydipsia, polyuria Hematologic/Lymphatic: ABSENT: easy bleeding, easy bruising, lymphadenopathy Physical Exam Vital Signs: Temp Pulse Resp BP Pulse Ox 99.9 F 107 H 18 76/48 L 93 05/30/17 18:00 05/30/17 13:35 05/30/17 18:00 05/30/17 17:13 05/30/17 18:00 Intake & Output 05/29/17 05/30/17 05/31/17 06:59 06:59 06:59 Intake Total 1056 2065 Output Total 150 1010 Balance 906 1055 Weight 82.5 kg Arterial blood pressure when I was seeing her: 105/61 Exam: General appearance: no acute distress, cooperative, well-developed, well- nourished Head exam: PRESENT: atraumatic, normocephalic Eye exam: PRESENT: Conjunctiva [place], EOMI, PERRLA. ABSENT: conjunctival injection, scleral icterus Mouth exam: PRESENT: moist, neck supple, tongue midline Neck exam: PRESENT: full ROM. ABSENT: carotid bruit, JVD, lymphadenopathy, thyromegaly Respiratory exam: PRESENT: Coarse breath sounds on auscultation anteriorly bilaterally. Positive rhonchi. ABSENT: rales, stridor, wheezes Cardiovascular exam: PRESENT: Irregularly irregular, +S1, +S2. ABSENT: systolic murmur Pulses: PRESENT: normal radial pulses, normal dorsalis pedis pulses GI/Abdominal exam: PRESENT: normal bowel sounds, soft. ABSENT: guarding, mass, tenderness Rectal exam: deferred Extremities exam: PRESENT: full ROM. ABSENT: calf tenderness, pedal edema Musculoskeletal: PRESENT: full ROM. ABSENT: deformity Neurological exam: PRESENT: alert, Awake, Oriented to person, Oriented to place , Oriented to time, reflexes normal, CN II-XII grossly intact. ABSENT: motor sensory deficit Psychiatric exam: PRESENT: appropriate affect, normal mood. ABSENT: homicidal ideation, suicidal ideation Skin exam: PRESENT: intact, dry, warm. ABSENT: rash Results Laboratory Results: 05/30/17 06:35 05/30/17 06:35 05/30/17 05/30/17 05/30/17 06:35 06:35 06:35 WBC 19.7 H RBC 2.72 L Hgb 9.0 L D Hct 26.7 L MCV 98 H MCH 33.3 MCHC 33.9 RDW 17.4 H Plt Count 162 Seg Neutrophils % Not Reportable Lymphocytes % Not Reportable Monocytes % Not Reportable Eosinophils % Not Reportable Basophils % Not Reportable Absolute Neutrophils Not Reportable Absolute Lymphocytes Not Reportable Absolute Monocytes Not Reportable Absolute Eosinophils Not Reportable Absolute Basophils Not Reportable VBG pH 7.42 VBG pCO2 52.8 VBG HCO3 33.6 H VBG Base Excess 8.0 Sodium 130.4 L Potassium 4.4 Chloride 86 L Carbon Dioxide 34 H Anion Gap 10 BUN 97 H Creatinine 2.26 H Est GFR ( Amer) 26 L Est GFR (Non-Af Amer) 22 L Glucose 156 H Lactic Acid Calcium 7.8 L 05/30/17 08:57 WBC RBC Hgb Hct MCV MCH MCHC RDW Plt Count Seg Neutrophils % Lymphocytes % Monocytes % Eosinophils % Basophils % Absolute Neutrophils Absolute Lymphocytes Absolute Monocytes Absolute Eosinophils Absolute Basophils VBG pH VBG pCO2 VBG HCO3 VBG Base Excess Sodium Potassium Chloride Carbon Dioxide Anion Gap BUN Creatinine Est GFR ( Amer) Est GFR (Non-Af Amer) Glucose Lactic Acid 1.3 Calcium Impressions: Abdomen/Pelvis CT 05/29/17 19:55 IMPRESSION: Multiple loops of small bowel measuring greater than 4.4 cm in diameter with fecalization of contents common nonspecific, possibly persistent ileus. No obvious mesenteric inflammatory changes. 3.2 cm low-density partial rim enhancing lesion in the right sciatic notch, unclear ideology as there are no adjacent inflammatory changes, possible nerve sheath tumor is a differential consideration. Probable wall thickening in the distal esophagus versus adjacent compressive subsegmental atelectasis,, apparent wall thickness measuring up to 7 mm. Small right hip joint effusion and moderate osteoarthritic changes. Chest X-Ray 05/29/17 22:30 IMPRESSION: Left IJ central venous catheter tip overlies the region of the SVC at the level of the elissa.No pneumothorax. Mild patchy airspace opacities are present in the right mid lung and left lung base. Assessment & Plan - Diagnosis (1) EDY (acute kidney injury) Is this a current diagnosis for this admission?: Yes Plan: This could start as secondary to prerenal azotemia due to decreased p.o. intake worsened by persistent hypotension leading to acute tubular necrosis. Currently the patient is nonoliguric and I do not believe she is fluid overloaded either. Patient does not have any proteinuria no significant microhematuria. Agree with current management with IV fluids with normal saline , and pressors to maintain an adequate perfusion pressure to the kidneys. At this time the patient does not need any renal replacement therapy. Needs to monitor the patient closely. There seems to be a very slow improvement with current management for the last 24 hours. Needs to follow vancomycin trough level to avoid nephrotoxicity. Continuation of vancomycin needs to be evaluated based on cultures. (2) Acute renal tubular necrosis Is this a current diagnosis for this admission?: Yes (3) Septic shock Is this a current diagnosis for this admission?: Yes (4) Adrenal insufficiency Is this a current diagnosis for this admission?: Yes Plan: Continue hydrocortisone. (5) Hypermagnesemia Is this a current diagnosis for this admission?: Yes (6) Hyponatremia Is this a current diagnosis for this admission?: Yes Plan: Improving with normal saline. (7) Hypoalbuminemia Is this a current diagnosis for this admission?: Yes (8) Bilateral pneumonia Qualifiers: Pneumonia type: due to unspecified organism Lung location: unspecified part of lung Qualified Code(s): J18.9 - Pneumonia, unspecified organism Is this a current diagnosis for this admission?: Yes (9) Atrial fibrillation Qualifiers: Atrial fibrillation type: unspecified Qualified Code(s): I48.91 - Unspecified atrial fibrillation Is this a current diagnosis for this admission?: Yes - Notes Notes: Thank you very much for this consultation. I will follow the patient with you. - Time Time Spent: Greater than 70 Minutes
[2017-05-30 23:51] LABS: VENOUS BLOOD BASE EXCESS 1.9 mmol/L; VENOUS BLOOD PH 7.41 (7.30-7.42)
--- NOTE | 2017-05-30 23:51 | RADIOLOGY REPORT (SQ) ---
EXAM DESCRIPTION: CHEST SINGLE VIEW COMPLETED DATE/TIME: 05/30/2017 11:41 pm REASON FOR STUDY: sob COMPARISON: 05/29/2017 EXAM PARAMETERS: NUMBER OF VIEWS: One view. TECHNIQUE: Single frontal radiographic view of the chest acquired. RADIATION DOSE: NA LIMITATIONS: Patient has made a shallow inspiration. FINDINGS: LUNGS AND PLEURA: There are patchy densities in the left lung which appears slightly more pronounced as compared to the previous study. The previously described patchy airspace opacities in the right mid lung field appear improved. MEDIASTINUM AND HILAR STRUCTURES: No masses. Contour normal. HEART AND VASCULAR STRUCTURES: The configuration of the heart and mediastinal structures is unchanged BONES: No acute findings. HARDWARE: None in the chest. OTHER: No other significant finding. IMPRESSION: Patchy densities in the left lung which appears slightly more pronounced as compared to the previous study. The previously described patchy airspace opacities in the right mid lung field a ppear improved TECHNICAL DOCUMENTATION: JOB ID: [id number]
[2017-05-31 00:04] LABS: ALANINE AMINOTRANSFERASE 46 U/L (9-52); ALBUMIN 2.5 g/dL (3.5-5.0); ALKALINE PHOSPHATASE 47 U/L (38-126); ANION GAP 8 (5-19); ASPARTATE AMINO TRANSFERASE 34 U/L (14-36); BILIRUBIN,DIRECT 0.7 mg/dL (0.0-0.4); BILIRUBIN,TOTAL 1.3 mg/dL (0.2-1.3); BLOOD UREA NITROGEN 94 mg/dL (7-20); CALCIUM 7.8 mg/dL (8.4-10.2); CARBON DIOXIDE 25 mmol/L (22-30); CHLORIDE 92 mmol/L (98-107); CREATININE RESULT 1.98 mg/dL (0.52-1.25); GLUCOSE 207 mg/dL (75-110); MAGNESIUM 2.2 mg/dL (1.6-2.3); POTASSIUM 4.6 mmol/L (3.6-5.0); SODIUM 125.2 mmol/L (137-145); TOTAL PROTEIN 4.3 g/dL (6.3-8.2)
[2017-05-31 00:10] LABS: HEMATOCRIT 24.9 % (36.0-47.0); HEMOGLOBIN 8.3 g/dL (12.0-15.5); MEAN CORPUSCULAR HEMOGLOBIN 33.3 pg (27.0-33.4); MEAN CORPUSCULAR HGB CONC 33.3 g/dL (32.0-36.0); MEAN CORPUSCULAR VOLUME 100 fl (80-97); RED BLOOD COUNT 2.49 10^6/uL (3.72-5.28); RED CELL DISTRIBUTION WIDTH 17.6 % (11.5-14.0); WHITE BLOOD COUNT 15.1 10^3/uL (4.0-10.5)
[2017-05-31 00:19] LABS: BAND NEUTROPHILS % (MANUAL) 6 % (3-5); BASOPHILS % (MANUAL) 0 % (0-2); EOSINOPHILS % (MANUAL) 0 % (0-6); LYMPHOCYTES % (MANUAL) 8 % (13-45); TOTAL CELLS COUNTED 100
[2017-05-31 00:21] LABS: ANISOCYTOSIS 1+; NUCLEATED RED BLOOD CELLS 9 /100 WBC (0); OVALOCYTES SLIGHT; POIKILOCYTOSIS SLIGHT; POLYCHROMASIA 1+; TEAR DROP CELLS SLIGHT; TOXIC GRANULATION 1+
[2017-05-31] MEDS: HYDROCORTISONE SOD SUCCINATE INJ/PF 100 MG/2 ML SDV IV SCH ×3 (01:53→17:57)
[2017-05-31] MEDS: LEVOFLOXACIN 750 MG/D5W RTU 750 MG/150 ML RTUPB IV SCH (05:28)
[2017-05-31 05:34] LABS: HEMATOCRIT 24.9 % (36.0-47.0); HEMOGLOBIN 8.4 g/dL (12.0-15.5); HGB HCT DIFFERENCE 0.3; MEAN CORPUSCULAR HEMOGLOBIN 33.3 pg (27.0-33.4); MEAN CORPUSCULAR HGB CONC 33.8 g/dL (32.0-36.0); MEAN CORPUSCULAR VOLUME 99 fl (80-97); RED BLOOD COUNT 2.53 10^6/uL (3.72-5.28); RED CELL DISTRIBUTION WIDTH 17.8 % (11.5-14.0)
[2017-05-31 05:38] LABS: ARTERIAL BLOOD BASE EXCESS 0.4 mmol/L; ARTERIAL BLOOD O2 SATURATION 95.2 % (94-98)
[2017-05-31 05:55] LABS: ALANINE AMINOTRANSFERASE 41 U/L (9-52); ALBUMIN 2.5 g/dL (3.5-5.0); ALKALINE PHOSPHATASE 46 U/L (38-126); ANION GAP 8 (5-19); ASPARTATE AMINO TRANSFERASE 29 U/L (14-36); BILIRUBIN,DIRECT 0.7 mg/dL (0.0-0.4); BILIRUBIN,TOTAL 1.3 mg/dL (0.2-1.3); BLOOD UREA NITROGEN 93 mg/dL (7-20); CARBON DIOXIDE 23 mmol/L (22-30); CHLORIDE 95 mmol/L (98-107); CREATININE RESULT 1.84 mg/dL (0.52-1.25); GLUCOSE 189 mg/dL (75-110); MAGNESIUM 2.2 mg/dL (1.6-2.3); POTASSIUM 4.4 mmol/L (3.6-5.0); TOTAL PROTEIN 4.4 g/dL (6.3-8.2)
[2017-05-31 06:27] LABS: WHITE BLOOD COUNT 17.2 10^3/uL (4.0-10.5)
[2017-05-31] MEDS: DEXTROSE 5%-WATER 250 ML with PHENYLEPHRINE HCL 40 MG IV PRN ×6 (07:59→22:13)
[2017-05-31] MEDS: IPRATROPIUM/ALBUTEROL 0.5-2.5 MG/3 ML AMPUL NEB SCH ×3 (08:12→20:16)
[2017-05-31] MEDS: LACTULOSE SYRUP 20 GM/30 ML UDCUP PO SCH ×3 (09:53→17:58)
[2017-05-31] MEDS: FAMOTIDINE INJ/PF 20 MG/2 ML SDV IV SCH ×2 (09:53→21:57)
[2017-05-31] MEDS: HEPARIN SOD (PORCINE) 5,000 UNIT/ML 1 ML SYRINGE SUBCUT SCH ×2 (09:53→21:59)
[2017-05-31] MEDS: NORMAL SALINE 1000 ML 1,000 ML IV PRN ×2 (11:53→22:14)
[2017-05-31] MEDS: DILTIAZEM HCL/D5W 125 MG/125 ML RTUINJ IV PRN ×2 (11:54→22:13)
[2017-05-31] MEDS: DEXTROSE 5%-WATER 250 ML with NOREPINEPHRINE BITARTRATE 4 MG IV PRN ×2 (11:54)
[2017-05-31] MEDS: DIGOXIN INJ 0.5 MG/2 ML AMPULE IV SCH ×2 (12:20→17:57)
--- NOTE | 2017-05-31 13:36 | PDOC PROGRESS REPORT ---
Subjective Progress Note for:: 05/31/17 Subjective:: Complains of constipation. Physical Exam Vital Signs: Temp Pulse Resp BP Pulse Ox 99.0 F 101 H 18 94/62 L 94 05/31/17 12:45 05/31/17 10:00 05/31/17 12:45 05/31/17 11:13 05/31/17 12:45 Intake & Output 05/30/17 05/31/17 06/01/17 06:59 06:59 06:59 Intake Total 1056 4363 Output Total 150 1735 275 Balance 906 2628 -275 Weight 82.5 kg 86.9 kg General appearance: PRESENT: no acute distress Eye exam: PRESENT: conjunctiva pink. ABSENT: scleral icterus Mouth exam: PRESENT: moist, tongue midline Neck exam: ABSENT: JVD Respiratory exam: PRESENT: rhonchi - Scattered rhonchi bilaterally.. ABSENT: rales, wheezes Cardiovascular exam: PRESENT: tachycardia. ABSENT: diastolic murmur, rubs, systolic murmur GI/Abdominal exam: PRESENT: normal bowel sounds, soft. ABSENT: distended, guarding, mass, organolmegaly, rebound, tenderness Extremities exam: ABSENT: calf tenderness, clubbing, pedal edema Neurological exam: PRESENT: alert, awake, oriented to person, oriented to place , oriented to time, oriented to situation, CN II-XII grossly intact. ABSENT: motor sensory deficit Psychiatric exam: PRESENT: appropriate affect Skin exam: PRESENT: dry, intact, warm. ABSENT: cyanosis, rash Results Laboratory Results: 05/31/17 05:25 05/31/17 05:25 05/30/17 05/30/17 05/30/17 23:35 23:35 23:35 WBC 15.1 H RBC 2.49 L Hgb 8.3 L Hct 24.9 L MCV 100 H MCH 33.3 MCHC 33.3 RDW 17.6 H Plt Count 158 Seg Neutrophils % Not Reportable Lymphocytes % Not Reportable Monocytes % Not Reportable Eosinophils % Not Reportable Basophils % Not Reportable Absolute Neutrophils Not Reportable Absolute Lymphocytes Not Reportable Absolute Monocytes Not Reportable Absolute Eosinophils Not Reportable Absolute Basophils Not Reportable Carbonic Acid HCO3/H2CO3 Ratio ABG pH ABG pCO2 ABG pO2 ABG HCO3 ABG O2 Saturation ABG Base Excess VBG pH 7.41 VBG pCO2 44.0 VBG HCO3 27.0 VBG Base Excess 1.9 FiO2 Sodium 125.2 L Potassium 4.6 Chloride 92 L Carbon Dioxide 25 Anion Gap 8 BUN 94 H Creatinine 1.98 H Est GFR ( Amer) 31 L Est GFR (Non-Af Amer) 25 L Glucose 207 H Lactic Acid Calcium 7.8 L Magnesium 2.2 Total Bilirubin 1.3 AST 34 ALT 46 Alkaline Phosphatase 47 Total Protein 4.3 L Albumin 2.5 L 05/31/17 05/31/17 05/31/17 05:25 05:25 05:25 WBC 17.2 H RBC 2.53 L Hgb 8.4 L Hct 24.9 L MCV 99 H MCH 33.3 MCHC 33.8 RDW 17.8 H Plt Count 156 Seg Neutrophils % Lymphocytes % Monocytes % Eosinophils % Basophils % Absolute Neutrophils Absolute Lymphocytes Absolute Monocytes Absolute Eosinophils Absolute Basophils Carbonic Acid 1.04 L HCO3/H2CO3 Ratio 23:1 ABG pH 7.46 H ABG pCO2 34.5 L ABG pO2 71.2 L ABG HCO3 24.0 ABG O2 Saturation 95.2 ABG Base Excess 0.4 VBG pH VBG pCO2 VBG HCO3 VBG Base Excess FiO2 4 LITERS Sodium 126.0 L Potassium 4.4 Chloride 95 L Carbon Dioxide 23 Anion Gap 8 BUN 93 H Creatinine 1.84 H Est GFR ( Amer) 34 L Est GFR (Non-Af Amer) 28 L Glucose 189 H Lactic Acid Calcium 8.0 L Magnesium 2.2 Total Bilirubin 1.3 AST 29 ALT 41 Alkaline Phosphatase 46 Total Protein 4.4 L Albumin 2.5 L 05/31/17 09:20 WBC RBC Hgb Hct MCV MCH MCHC RDW Plt Count Seg Neutrophils % Lymphocytes % Monocytes % Eosinophils % Basophils % Absolute Neutrophils Absolute Lymphocytes Absolute Monocytes Absolute Eosinophils Absolute Basophils Carbonic Acid HCO3/H2CO3 Ratio ABG pH ABG pCO2 ABG pO2 ABG HCO3 ABG O2 Saturation ABG Base Excess VBG pH VBG pCO2 VBG HCO3 VBG Base Excess FiO2 Sodium Potassium Chloride Carbon Dioxide Anion Gap BUN Creatinine Est GFR ( Amer) Est GFR (Non-Af Amer) Glucose Lactic Acid 2.7 H Calcium Magnesium Total Bilirubin AST ALT Alkaline Phosphatase Total Protein Albumin 05/30/17 05/30/17 05/31/17 23:35 23:35 05:25 Troponin I 0.015 NT-Pro-B Natriuret Pep 1950 H 1670 H Impressions: Abdomen/Pelvis CT 05/29/17 19:55 IMPRESSION: Multiple loops of small bowel measuring greater than 4.4 cm in diameter with fecalization of contents common nonspecific, possibly persistent ileus. No obvious mesenteric inflammatory changes. 3.2 cm low-density partial rim enhancing lesion in the right sciatic notch, unclear ideology as there are no adjacent inflammatory changes, possible nerve sheath tumor is a differential consideration. Probable wall thickening in the distal esophagus versus adjacent compressive subsegmental atelectasis,, apparent wall thickness measuring up to 7 mm. Small right hip joint effusion and moderate osteoarthritic changes. Chest X-Ray 05/30/17 00:00 IMPRESSION: Patchy densities in the left lung which appears slightly more pronounced as compared to the previous study. The previously described patchy airspace opacities in the right mid lung field appear improved Assessment & Plan - Diagnosis (1) Septic shock Is this a current diagnosis for this admission?: Yes Plan: Patient still requiring vasopressors. Is not entirely clear what her volume status is. She is getting IV fluids. Will ask cardiology to evaluate get their opinion. Also being followed by pulmonary medicine. (2) Bilateral pneumonia Qualifiers: Pneumonia type: due to unspecified organism Lung location: unspecified part of lung Qualified Code(s): J18.9 - Pneumonia, unspecified organism Is this a current diagnosis for this admission?: Yes Plan: Patient is on vancomycin, cefepime, Levaquin. (3) ARF (acute renal failure) Qualifiers: Acute renal failure type: unspecified Qualified Code(s): N17.9 - Acute kidney failure, unspecified Is this a current diagnosis for this admission?: Yes Plan: Patient's creatinine has continued to improve. (4) Metabolic acidosis Is this a current diagnosis for this admission?: Yes Plan: Secondary to acute renal failure (5) Pulmonary hypertension Is this a current diagnosis for this admission?: Yes (6) Atrial fibrillation Qualifiers: Atrial fibrillation type: unspecified Qualified Code(s): I48.91 - Unspecified atrial fibrillation Is this a current diagnosis for this admission?: Yes Plan: Patient is currently rate controlled. Cardiology has been consulted. (7) CHF (congestive heart failure) Is this a current diagnosis for this admission?: Yes Plan: The patient's volume status is not entirely clear to me. Because of this cardiology has been consulted. She has a history of an ejection fraction of 40% . (8) Fibromyalgia Is this a current diagnosis for this admission?: Yes (9) Hyperlipidemia Qualifiers: Hyperlipidemia type: unspecified Qualified Code(s): E78.5 - Hyperlipidemia , unspecified Is this a current diagnosis for this admission?: Yes (10) Hypothyroid Qualifiers: Hypothyroidism type: unspecified Qualified Code(s): E03.9 - Hypothyroidism , unspecified Is this a current diagnosis for this admission?: Yes (11) ANNA (obstructive sleep apnea) Is this a current diagnosis for this admission?: Yes - Time Time Spent with patient: 25-34 minutes - Inpatient Certification Medical Necessity: Need For IV Fluids, Need for IV Antibiotics
[2017-05-31] MEDS ORDERED: NA PHOS,M-B/NA PHOS,DI-BA (ADULT) 133 ML ENEMA PR ONE (14:00)
--- NOTE | 2017-05-31 14:34 | PDOC PROGRESS REPORT ---
Subjective Progress Note for:: 05/31/17 Subjective:: Awake for more alert Physical Exam Vital Signs: Temp Pulse Resp BP Pulse Ox 100.4 F 90 15 96/70 L 94 05/31/17 06:00 05/30/17 21:34 05/31/17 06:00 05/31/17 05:13 05/31/17 06:00 Intake & Output 05/30/17 05/31/17 06/01/17 06:59 06:59 06:59 Intake Total 1056 4363 Output Total 150 1735 Balance 906 2628 Weight 82.5 kg 86.9 kg General appearance: PRESENT: no acute distress, cooperative, disheveled, morbidly obese, well-developed Head exam: PRESENT: atraumatic, normocephalic Eye exam: PRESENT: conjunctiva pale, EOMI Mouth exam: PRESENT: dry mucosa, neck supple, tongue midline Neck exam: ABSENT: carotid bruit, JVD, lymphadenopathy, thyromegaly Respiratory exam: PRESENT: crackles, decreased breath sounds, prolonged expiratory phas, rhonchi, symmetrical, unlabored. ABSENT: retraction, stridor, tachypnea Cardiovascular exam: PRESENT: irregular rhythm. ABSENT: bradycardia Pulses: PRESENT: normal radial pulses GI/Abdominal exam: PRESENT: normal bowel sounds, soft. ABSENT: distended, guarding, mass, organolmegaly, rebound, tenderness Rectal exam: PRESENT: deferred Gentrourinary exam: PRESENT: indwelling catheter Extremities exam: PRESENT: +1 edema Neurological exam: PRESENT: alert, awake Skin exam: PRESENT: dry, warm Results Laboratory Results: 05/31/17 05:25 05/31/17 05:25 05/30/17 05/30/17 05/30/17 08:57 23:35 23:35 WBC 15.1 H RBC 2.49 L Hgb 8.3 L Hct 24.9 L MCV 100 H MCH 33.3 MCHC 33.3 RDW 17.6 H Plt Count 158 Seg Neutrophils % Not Reportable Lymphocytes % Not Reportable Monocytes % Not Reportable Eosinophils % Not Reportable Basophils % Not Reportable Absolute Neutrophils Not Reportable Absolute Lymphocytes Not Reportable Absolute Monocytes Not Reportable Absolute Eosinophils Not Reportable Absolute Basophils Not Reportable Carbonic Acid HCO3/H2CO3 Ratio ABG pH ABG pCO2 ABG pO2 ABG HCO3 ABG O2 Saturation ABG Base Excess VBG pH VBG pCO2 VBG HCO3 VBG Base Excess FiO2 Sodium 125.2 L Potassium 4.6 Chloride 92 L Carbon Dioxide 25 Anion Gap 8 BUN 94 H Creatinine 1.98 H Est GFR ( Amer) 31 L Est GFR (Non-Af Amer) 25 L Glucose 207 H Lactic Acid 1.3 Calcium 7.8 L Magnesium 2.2 Total Bilirubin 1.3 AST 34 ALT 46 Alkaline Phosphatase 47 Total Protein 4.3 L Albumin 2.5 L 05/30/17 05/31/17 05/31/17 23:35 05:25 05:25 WBC RBC Hgb Hct MCV MCH MCHC RDW Plt Count Seg Neutrophils % Lymphocytes % Monocytes % Eosinophils % Basophils % Absolute Neutrophils Absolute Lymphocytes Absolute Monocytes Absolute Eosinophils Absolute Basophils Carbonic Acid 1.04 L HCO3/H2CO3 Ratio 23:1 ABG pH 7.46 H ABG pCO2 34.5 L ABG pO2 71.2 L ABG HCO3 24.0 ABG O2 Saturation 95.2 ABG Base Excess 0.4 VBG pH 7.41 VBG pCO2 44.0 VBG HCO3 27.0 VBG Base Excess 1.9 FiO2 4 LITERS Sodium 126.0 L Potassium 4.4 Chloride 95 L Carbon Dioxide 23 Anion Gap 8 BUN 93 H Creatinine 1.84 H Est GFR ( Amer) 34 L Est GFR (Non-Af Amer) 28 L Glucose 189 H Lactic Acid Calcium 8.0 L Magnesium 2.2 Total Bilirubin 1.3 AST 29 ALT 41 Alkaline Phosphatase 46 Total Protein 4.4 L Albumin 2.5 L 05/31/17 05:25 WBC 17.2 H RBC 2.53 L Hgb 8.4 L Hct 24.9 L MCV 99 H MCH 33.3 MCHC 33.8 RDW 17.8 H Plt Count 156 Seg Neutrophils % Lymphocytes % Monocytes % Eosinophils % Basophils % Absolute Neutrophils Absolute Lymphocytes Absolute Monocytes Absolute Eosinophils Absolute Basophils Carbonic Acid HCO3/H2CO3 Ratio ABG pH ABG pCO2 ABG pO2 ABG HCO3 ABG O2 Saturation ABG Base Excess VBG pH VBG pCO2 VBG HCO3 VBG Base Excess FiO2 Sodium Potassium Chloride Carbon Dioxide Anion Gap BUN Creatinine Est GFR ( Amer) Est GFR (Non-Af Amer) Glucose Lactic Acid Calcium Magnesium Total Bilirubin AST ALT Alkaline Phosphatase Total Protein Albumin 05/30/17 05/30/17 05/31/17 23:35 23:35 05:25 Troponin I 0.015 NT-Pro-B Natriuret Pep 1950 H 1670 H Impressions: Abdomen/Pelvis CT 05/29/17 19:55 IMPRESSION: Multiple loops of small bowel measuring greater than 4.4 cm in diameter with fecalization of contents common nonspecific, possibly persistent ileus. No obvious mesenteric inflammatory changes. 3.2 cm low-density partial rim enhancing lesion in the right sciatic notch, unclear ideology as there are no adjacent inflammatory changes, possible nerve sheath tumor is a differential consideration. Probable wall thickening in the distal esophagus versus adjacent compressive subsegmental atelectasis,, apparent wall thickness measuring up to 7 mm. Small right hip joint effusion and moderate osteoarthritic changes. Chest X-Ray 05/30/17 00:00 IMPRESSION: Patchy densities in the left lung which appears slightly more pronounced as compared to the previous study. The previously described patchy airspace opacities in the right mid lung field appear improved Assessment & Plan - Diagnosis (1) ARF (acute renal failure) Qualifiers: Acute renal failure type: unspecified Qualified Code(s): N17.9 - Acute kidney failure, unspecified Is this a current diagnosis for this admission?: Yes (2) Abnormal CT scan, esophagus Is this a current diagnosis for this admission?: Yes (3) Abnormal CT scan, pelvis Is this a current diagnosis for this admission?: Yes (5) Asthma Is this a current diagnosis for this admission?: Yes (6) Atrial fibrillation Qualifiers: Atrial fibrillation type: unspecified Qualified Code(s): I48.91 - Unspecified atrial fibrillation Is this a current diagnosis for this admission?: Yes (7) CHF (congestive heart failure) Is this a current diagnosis for this admission?: Yes (8) ANNA (obstructive sleep apnea) Is this a current diagnosis for this admission?: Yes (9) Septic shock Is this a current diagnosis for this admission?: Yes - Time Critical Time spent with patient: 35 or more minutes
[2017-05-31] MEDS: CEFEPIME 2 GM/D5W RTU 2 GM/50 ML RTUPB IV SCH (14:37)
--- NOTE | 2017-05-31 15:46 | PDOC PROGRESS REPORT ---
Subjective Progress Note for:: 05/31/17 Subjective:: Patient is looking much better. She also admits feeling much better. She is making good amount of urine. Her blood pressures also been improved within acceptable. However she is still requiring pressors. Physical Exam Vital Signs: Temp Pulse Resp BP Pulse Ox 99.0 F 114 H 16 94/62 L 99 05/31/17 12:45 05/31/17 14:29 05/31/17 14:29 05/31/17 11:13 05/31/17 14:29 Intake & Output 05/30/17 05/31/17 06/01/17 06:59 06:59 06:59 Intake Total 1056 4363 Output Total 150 1735 275 Balance 906 2628 -275 Weight 82.5 kg 86.9 kg Exam: General appearance: PRESENT: no acute distress, cooperative, well-developed, well-nourished Head exam: PRESENT: atraumatic, normocephalic Eye exam: PRESENT: conjunctiva pale, PERRLA. ABSENT: scleral icterus Neck exam: ABSENT: JVD Respiratory exam: PRESENT: Coarse breath sounds. She has rhonchi anteriorly and posteriorly bilaterally diffusely ABSENT: crackles, rales, unlabored, wheezes Cardiovascular exam: PRESENT: Regular rate rhythm -+S1, +S2. ABSENT: diastolic murmur, systolic murmur GI/Abdominal exam: PRESENT: normal bowel sounds, soft. ABSENT: guarding, mass, tenderness Extremities exam: ABSENT: No edema Neurological exam: PRESENT: alert, awake, oriented to person, place and time. Skin exam: PRESENT: dry, warm, Results Laboratory Results: 05/31/17 05:25 05/31/17 05:25 05/30/17 05/30/17 05/30/17 23:35 23:35 23:35 WBC 15.1 H RBC 2.49 L Hgb 8.3 L Hct 24.9 L MCV 100 H MCH 33.3 MCHC 33.3 RDW 17.6 H Plt Count 158 Seg Neutrophils % Not Reportable Lymphocytes % Not Reportable Monocytes % Not Reportable Eosinophils % Not Reportable Basophils % Not Reportable Absolute Neutrophils Not Reportable Absolute Lymphocytes Not Reportable Absolute Monocytes Not Reportable Absolute Eosinophils Not Reportable Absolute Basophils Not Reportable Carbonic Acid HCO3/H2CO3 Ratio ABG pH ABG pCO2 ABG pO2 ABG HCO3 ABG O2 Saturation ABG Base Excess VBG pH 7.41 VBG pCO2 44.0 VBG HCO3 27.0 VBG Base Excess 1.9 FiO2 Sodium 125.2 L Potassium 4.6 Chloride 92 L Carbon Dioxide 25 Anion Gap 8 BUN 94 H Creatinine 1.98 H Est GFR ( Amer) 31 L Est GFR (Non-Af Amer) 25 L Glucose 207 H Lactic Acid Calcium 7.8 L Magnesium 2.2 Total Bilirubin 1.3 AST 34 ALT 46 Alkaline Phosphatase 47 Total Protein 4.3 L Albumin 2.5 L 05/31/17 05/31/17 05/31/17 05:25 05:25 05:25 WBC 17.2 H RBC 2.53 L Hgb 8.4 L Hct 24.9 L MCV 99 H MCH 33.3 MCHC 33.8 RDW 17.8 H Plt Count 156 Seg Neutrophils % Lymphocytes % Monocytes % Eosinophils % Basophils % Absolute Neutrophils Absolute Lymphocytes Absolute Monocytes Absolute Eosinophils Absolute Basophils Carbonic Acid 1.04 L HCO3/H2CO3 Ratio 23:1 ABG pH 7.46 H ABG pCO2 34.5 L ABG pO2 71.2 L ABG HCO3 24.0 ABG O2 Saturation 95.2 ABG Base Excess 0.4 VBG pH VBG pCO2 VBG HCO3 VBG Base Excess FiO2 4 LITERS Sodium 126.0 L Potassium 4.4 Chloride 95 L Carbon Dioxide 23 Anion Gap 8 BUN 93 H Creatinine 1.84 H Est GFR ( Amer) 34 L Est GFR (Non-Af Amer) 28 L Glucose 189 H Lactic Acid Calcium 8.0 L Magnesium 2.2 Total Bilirubin 1.3 AST 29 ALT 41 Alkaline Phosphatase 46 Total Protein 4.4 L Albumin 2.5 L 05/31/17 09:20 WBC RBC Hgb Hct MCV MCH MCHC RDW Plt Count Seg Neutrophils % Lymphocytes % Monocytes % Eosinophils % Basophils % Absolute Neutrophils Absolute Lymphocytes Absolute Monocytes Absolute Eosinophils Absolute Basophils Carbonic Acid HCO3/H2CO3 Ratio ABG pH ABG pCO2 ABG pO2 ABG HCO3 ABG O2 Saturation ABG Base Excess VBG pH VBG pCO2 VBG HCO3 VBG Base Excess FiO2 Sodium Potassium Chloride Carbon Dioxide Anion Gap BUN Creatinine Est GFR ( Amer) Est GFR (Non-Af Amer) Glucose Lactic Acid 2.7 H Calcium Magnesium Total Bilirubin AST ALT Alkaline Phosphatase Total Protein Albumin 05/30/17 05/30/17 05/31/17 23:35 23:35 05:25 Troponin I 0.015 NT-Pro-B Natriuret Pep 1950 H 1670 H Impressions: Abdomen/Pelvis CT 05/29/17 19:55 IMPRESSION: Multiple loops of small bowel measuring greater than 4.4 cm in diameter with fecalization of contents common nonspecific, possibly persistent ileus. No obvious mesenteric inflammatory changes. 3.2 cm low-density partial rim enhancing lesion in the right sciatic notch, unclear ideology as there are no adjacent inflammatory changes, possible nerve sheath tumor is a differential consideration. Probable wall thickening in the distal esophagus versus adjacent compressive subsegmental atelectasis,, apparent wall thickness measuring up to 7 mm. Small right hip joint effusion and moderate osteoarthritic changes. Chest X-Ray 05/30/17 00:00 IMPRESSION: Patchy densities in the left lung which appears slightly more pronounced as compared to the previous study. The previously described patchy airspace opacities in the right mid lung field appear improved Assessment & Plan - Diagnosis (1) EDY (acute kidney injury) Is this a current diagnosis for this admission?: Yes Plan: This could start as secondary to prerenal azotemia due to decreased p.o. intake worsened by persistent hypotension leading to acute tubular necrosis. Currently the patient is nonoliguric and I do not believe she is fluid overloaded either. Patient does not have any proteinuria no significant microhematuria. Agree with current management with IV fluids with normal saline , and pressors to maintain an adequate perfusion pressure to the kidneys. At this time the patient does not need any renal replacement therapy. Needs to monitor the patient closely. There seems to be a very slow improvement with current management for the last 24 hours. Needs to follow vancomycin trough level to avoid nephrotoxicity. Continuation of vancomycin needs to be evaluated based on cultures. Patient's kidney function is slowly improving. Her BUN seems to be disproportionately more elevated compared to the creatinine which is likely due to combination of factors including steroids, and cardiorenal syndrome. Decrease her IV fluid to 75 mL an hour. Continue to monitor kidney function. (2) Acute renal tubular necrosis Is this a current diagnosis for this admission?: Yes (3) Septic shock Is this a current diagnosis for this admission?: Yes (4) Adrenal insufficiency Is this a current diagnosis for this admission?: Yes Plan: Continue hydrocortisone. (5) Hypermagnesemia Is this a current diagnosis for this admission?: Yes Plan: Resolved. (6) Hyponatremia Is this a current diagnosis for this admission?: Yes Plan: Unchanged. Could be due to the hypotonic fluids from medications. (7) Hypoalbuminemia Is this a current diagnosis for this admission?: Yes (8) Bilateral pneumonia Qualifiers: Pneumonia type: due to unspecified organism Lung location: unspecified part of lung Qualified Code(s): J18.9 - Pneumonia, unspecified organism Is this a current diagnosis for this admission?: Yes (9) Atrial fibrillation Qualifiers: Atrial fibrillation type: unspecified Qualified Code(s): I48.91 - Unspecified atrial fibrillation Is this a current diagnosis for this admission?: Yes - Time Time with patient: 15-25 minutes
[2017-05-31] MEDS: VANCOMYCIN HCL 750 MG in DEXTROSE 5%-WATER 250 ML IV SCH (17:56)
--- NOTE | 2017-05-31 19:18 | XCELERA REPORT ---
[address] [address] Transthoracic Echocardiogram Report Name: NIMISHA PORTILLO Age: 61 yrs Gender: Female : 1955 Patient Status: Inpatient Patient Location: ICU^[id number] Study Date: 05/31/2017 10:43 AM Height: 59 in Weight: 191 lb BSA: 1.8 m2 Procedure: A complete two-dimensional transthoracic echocardiogram was performed (2D, M-mode, spectral and color flow Doppler). The study was technically difficult with many images being suboptimal in quality. Reason For Study: Hypotension, atrial fibrillation Ordering Physician: CEZAR CLARKE Performed By: Yadi Tripp Interpretation Summary The study was technically difficult with many images being suboptimal in quality. The Ejection Fraction estimate is 45-50% Left ventricular systolic function is mildly reduced. LV diastolic function could not be adequately assessed due to atrial fibrilation. Not all wall segments were well visualized. Wall motion cannot be accurately commented on, but no definite regional wall motion abnormalities noted. There is mild concentric left ventricular hypertrophy. The left ventricle is grossly normal size. The right ventricular systolic function is mildly reduced. The right ventricle is mildly dilated. There is a mild amount of mitral regurgitation No significant mitral valve stenosis. The left atrium is moderately dilated. There is a moderate amount of aortic regurgitation There is no aortic valve stenosis There is a mild amount of tricuspid regurgitation Tricuspid regurgitation jet envelope not well defined to measure RV systolic pressure accurately. Minimal pericardial effusion. Consider additional methods to assess LVEF such as MUGA scan, CTA heart, cardiac MRI, LUIZA, etc. if clinically indicated. MMode/2D Measurements & Calculations RVDd: 2.9 cm LVIDd: 4.2 cm FS: 37.6 % Ao root diam: 2.7 cm IVSd: 0.99 cm LVIDs: 2.6 cm EDV(Teich): 79.5 ml LVPWd: 0.89 cmESV(Teich): 25.4 ml Ao root area: 5.6 cm2 EF(Teich): 68.1 % LA dimension: 4.6 cm LVOT diam: 2.0 cm LVOT area: 3.1 cm2 Doppler Measurements & Calculations MV E max coral: MV P1/2t max coral: Ao V2 max: LV V1 max P.0 cm/sec 79.0 cm/sec 234.8 cm/sec 5.9 mmHg MV P1/2t: 40.0 msec Ao max PG: LV V1 mean PG: MVA(P1/2t): 5.5 cm2 22.1 mmHg 2.9 mmHg MV dec slope: Ao V2 mean: LV V1 max: 578.7 cm/sec2 159.8 cm/sec 121.4 cm/sec Ao mean PG: LV V1 mean: 12.0 mmHg 75.8 cm/sec Ao V2 VTI: 28.7 cmLV V1 VTI: SALVATORE(I,D): 1.9 cm2 17.6 cm SALVATORE(V,D): 1.6 cm2 SV(LVOT): 54.5 ml PA V2 max: PI end-d coral: TR max coral: 91.3 cm/sec 195.5 cm/sec 220.7 cm/sec PA max P.3 mmHg TR max P.5 mmHg Left Ventricle The left ventricle is grossly normal size. There is mild concentric left ventricular hypertrophy. Left ventricular systolic function is mildly reduced. The Ejection Fraction estimate is 45-50%. Consider additional methods to assess LVEF such as MUGA scan, CTA heart, cardiac MRI, LUIZA, etc. if clinically indicated. LV diastolic function could not be adequately assessed due to atrial fibrilation. Not all wall segments were well visualized. Wall motion cannot be accurately commented on, but no definite regional wall motion abnormalities noted. Right Ventricle The right ventricle is mildly dilated. The right ventricular systolic function is mildly reduced. Atria The right atrium is mildly dilated. The left atrium is moderately dilated. Interarterial septum not well visualized and not well dopplered. Cannot comment on ASD/PFO presence. Mitral Valve The mitral valve leaflets are sclerotic, but show no functional abnormalities. No significant mitral valve stenosis. There is a mild amount of mitral regurgitation. Aortic Valve The aortic valve is mildly calcified. There is no aortic valve stenosis. There is a moderate amount of aortic regurgitation. Tricuspid Valve The tricuspid valve is not well visualized secondary to technical limitations. There is no tricuspid stenosis. There is a mild amount of tricuspid regurgitation. Tricuspid regurgitation jet envelope not well defined to measure RV systolic pressure accurately. Pulmonic Valve The pulmonic valve is not well visualized. Great Vessels The aortic root is not well visualized. The inferior vena cava was not well visualized. Effusions Minimal pericardial effusion. : CEZAR CLARKE > Cezar Clarke
--- NOTE | 2017-05-31 19:50 | PDOC CONSULTATION ---
Consultation Consult Date: 05/31/17 Attending physician:: SERA CHARLTON Consult reason:: Atrial fibrillation with rapid ventricular response and hypotension History of Present Illness Admission Date/PCP: 05/30/17 01:45 ARA WEBB MD Patient complains of: Fatigue and tiredness History of Present Illness: 61-year-old female with asthma and chronic respiratory failure, COPD, obstructive sleep apnea, chronic atrial fibrillation, congestive heart failure, and chronic adrenal insufficiency who presented to the ED after 3 days of progressive weakness to the cough that was nonproductive questionable fever, and chills. She admits progressive worsening of shortness of breath especially for the last 2 days. She admits to nausea and abdominal pain but no diarrhea. She stated that her blood pressure is typically low however for the last 2-3 weeks it has been worse with blood pressure of 80s. She said she has been having decreased oral intake for the last 2-3 weeks. She claims that it is she tries to drink but that has also decreased for the last couple of days. She denies any dizziness no chest pains. She claims that she has good urine output and denies any hematuria. She states her swelling seems actually better compared to previous. Review of history showed that patient was admitted in November by the [facility] for septic shock with MSSA bacteremia and acute kidney injury requiring CRRT briefly. This time the patient came in with a BUN of 96 and creatinine of 2.92 with estimated GFR of 16. Today she has a BUN of 97 creatinine of 2.26 and estimated GFR of 22. Last April 05 she had a BUN of 39 creatinine of 1.63 with a GFR of 32. She is currently nonoliguric and making some urine. She is awake and is able to give me her medical history as well as circumstances leading to her admission. Upon admission the patient was started on pressors which is currently being continued. She is also on normal saline at 150 mL an hour. Due to her atrial fibrillation/atrial flutter she was also started on diltiazem. She was given a dose of Lasix 40 mg IV. She is also currently on antibiotics with cefepime and vancomycin. Currently she seems to be clinically better and she admits that she is feeling a little bit better than she when she came into the emergency room. Patient claims that she was recently evaluated at a tertiary care center and does not want to go back there. Will try to obtain those records. Patient is denying any chest pain. She has history of valvular heart disease but denied any history of coronary artery disease. Past Medical History Cardiac Medical History: Reports: Atrial Fibrillation, Congestive Heart Failure , Hyperlipidema, Hypertension Pulmonary Medical History: Reports: Asthma, Chronic Obstructive Pulmonary Disease (COPD), Pneumonia, Respiratory Failure - On home oxygen, Sleep Apnea Endocrine Medical History: Reports: Hypothyroidism, Other - Chronic adrenal insufficiency on maintenance steroids Renal/ Medical History: Reports: Other - Episode of acute kidney injury requiring temporary CRRT last November 2016 Musculoskeltal Medical History: Reports: Fibromyalgia, Other - Chronic hip and back pain Psychiatric Medical History: Reports: Depression Past Surgical History Past Surgical History: Reports: Section - X4, Orthopedic Surgery - right knee replacement, right toe, left shoulder Social History Lives with: Spouse/Significant other Smoking Status: Never Smoker Frequency of Alcohol Use: None Hx Recreational Drug Use: No Drugs: None Hx Prescription Drug Abuse: No - Advance Directive Resuscitation Status: Full Code Family History Family History: Hypertension, Other - Asthma and dementia Parental Family History Reviewed: Yes Children Family History Reviewed: Yes Sibling(s) Family History Reviewed.: Yes Medication/Allergy Home Medications: Prednisone 2.5 mg PO DAILY@1500 11/11/16 Diltiazem HCl [Cardizem Cd 120 mg Capsule] 120 mg PO DAILY 04/13/17 Albuterol Sulfate [Proair Hfa] 2 puff IN Q4HP PRN 05/30/17 Allopurinol [Zyloprim 300 mg Tablet] 300 mg PO DAILY 05/30/17 Atenolol [Tenormin] 25 mg PO Q12 05/30/17 Cyclobenzaprine HCl [Flexeril 10 mg Tablet] 10 mg PO Q8HP PRN 05/30/17 Fentanyl [Duragesic 25 mcg/hr Transdermal Patch] 1 patch TP Q3D 05/30/17 Fluticasone/Salmeterol [Advair 250-50 Diskus 28 dose] 1 puff IN Q12 05/30/17 Furosemide [Lasix 40 mg Tablet] 40 mg PO Q12 05/30/17 Ipratropium/Albuterol Sulfate [Iprat-Albut 0.5-3(2.5) Mg/3 Ml] 3 ml IN RTQ6HP PRN 05/30/17 Levothyroxine Sodium [Synthroid 0.025 mg Tablet] 0.025 mg PO DAILY 05/30/17 Lidocaine [Lidoderm 5% (700 mg) Transdermal Patch] 1 patch TP DAILY MDD 12 HOURS ON 12 HOURS OFF 05/30/17 Montelukast Sodium [Singulair 10 mg Tablet] 10 mg PO QHS 05/30/17 Oxycodone HCl/Acetaminophen [Oxycodone-Acetaminophen 10-325] 1 tab PO Q6HP PRN 05/30/17 Pregabalin [Lyrica] 150 mg PO Q8 05/30/17 Rivaroxaban [Xarelto] 20 mg PO QHS 05/30/17 Ropinirole HCl [Requip] 4 mg PO QHS 05/30/17 Simvastatin [Zocor 20 mg Tablet] 20 mg PO QHS 05/30/17 Spironolactone [Aldactone 25 mg Tablet] 25 mg PO Q12 05/30/17 Sumatriptan Succinate [Imitrex 100 mg Tablet] 100 mg PO DAILYP PRN MDD 2 TABS Allergies/Adverse Reactions: MERRITT Inhibitors [Merritt Inhibitors] Allergy (Verified 05/29/17 18:49) Angioneurotic Edema amoxicillin trihydrate [From Augmentin] Allergy (Verified 05/29/17 18:49) Hives bumetanide [From Bumex] Allergy (Verified 05/29/17 18:49) Hives Potassium Clavulanate * [From Augmentin] Allergy (Verified 05/29/17 18:49) Hives Physical Exam Vital Signs: Temp Pulse Resp BP Pulse Ox 100.4 F 94 18 96/70 L 100 05/31/17 06:00 05/31/17 08:12 05/31/17 08:12 05/31/17 05:13 05/31/17 08:12 Intake & Output 05/30/17 05/31/17 06/01/17 06:59 06:59 06:59 Intake Total 1056 4363 Output Total 150 1735 275 Balance 906 2628 -275 Weight 82.5 kg 86.9 kg Exam: GENERAL: well-nourished and in no acute distress. Alert and oriented x3 HEAD: Atraumatic, normocephalic. EYES: Pupils equal round and reactive to light, extraocular movements intact, sclera anicteric, conjunctiva are normal. ENT: TMs normal, nares patent, oropharynx clear without exudates. Moist mucous membranes. No oral ulcerations or bleeding gums noted NECK: supple without lymphadenopathy. Trachea is central. No cervical or axillary lymphadenopathy noted. Carotids are 2+, JVD WNL LUNGS: Respiration seems nonlabored, no significant accessory muscle action noted. Bibasilar fine crackles are noted CHEST: Palpation of the chest wall shows no significant chest wall tenderness. No other significant abnormalities noted. 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 ABDOMEN: Soft, no significant tenderness appreciated, normoactive bowel sounds. No guarding, no rebound. No rigidity noted . No masses appreciated. EXTREMITIES: Pedal pulses are 1-2+, no calf tenderness noted. No clubbing or cyanosis. 1-2 + pedal edema noted NEUROLOGICAL: Focused neurological exam showed no significant neurologic deficit. Normal speech, no focal weakness appreciated. PSYCH: Normal mood, normal affect. Judgment and insight within normal limits. SKIN: significant multiple areas of ecchymosis noted but no rash, ulcerations or signs of pruritus noted. MUSCULOSKELETAL EXAM: No significant joint swelling noted. Results Laboratory Results: 05/31/17 05:25 05/31/17 05:25 05/30/17 05/30/17 05/30/17 23:35 23:35 23:35 WBC 15.1 H RBC 2.49 L Hgb 8.3 L Hct 24.9 L MCV 100 H MCH 33.3 MCHC 33.3 RDW 17.6 H Plt Count 158 Seg Neutrophils % Not Reportable Lymphocytes % Not Reportable Monocytes % Not Reportable Eosinophils % Not Reportable Basophils % Not Reportable Absolute Neutrophils Not Reportable Absolute Lymphocytes Not Reportable Absolute Monocytes Not Reportable Absolute Eosinophils Not Reportable Absolute Basophils Not Reportable Carbonic Acid HCO3/H2CO3 Ratio ABG pH ABG pCO2 ABG pO2 ABG HCO3 ABG O2 Saturation ABG Base Excess VBG pH 7.41 VBG pCO2 44.0 VBG HCO3 27.0 VBG Base Excess 1.9 FiO2 Sodium 125.2 L Potassium 4.6 Chloride 92 L Carbon Dioxide 25 Anion Gap 8 BUN 94 H Creatinine 1.98 H Est GFR ( Amer) 31 L Est GFR (Non-Af Amer) 25 L Glucose 207 H Calcium 7.8 L Magnesium 2.2 Total Bilirubin 1.3 AST 34 ALT 46 Alkaline Phosphatase 47 Total Protein 4.3 L Albumin 2.5 L 05/31/17 05/31/17 05/31/17 05:25 05:25 05:25 WBC 17.2 H RBC 2.53 L Hgb 8.4 L Hct 24.9 L MCV 99 H MCH 33.3 MCHC 33.8 RDW 17.8 H Plt Count 156 Seg Neutrophils % Lymphocytes % Monocytes % Eosinophils % Basophils % Absolute Neutrophils Absolute Lymphocytes Absolute Monocytes Absolute Eosinophils Absolute Basophils Carbonic Acid 1.04 L HCO3/H2CO3 Ratio 23:1 ABG pH 7.46 H ABG pCO2 34.5 L ABG pO2 71.2 L ABG HCO3 24.0 ABG O2 Saturation 95.2 ABG Base Excess 0.4 VBG pH VBG pCO2 VBG HCO3 VBG Base Excess FiO2 4 LITERS Sodium 126.0 L Potassium 4.4 Chloride 95 L Carbon Dioxide 23 Anion Gap 8 BUN 93 H Creatinine 1.84 H Est GFR ( Amer) 34 L Est GFR (Non-Af Amer) 28 L Glucose 189 H Calcium 8.0 L Magnesium 2.2 Total Bilirubin 1.3 AST 29 ALT 41 Alkaline Phosphatase 46 Total Protein 4.4 L Albumin 2.5 L 05/30/17 05/30/17 05/31/17 23:35 23:35 05:25 Troponin I 0.015 NT-Pro-B Natriuret Pep 1950 H 1670 H EKG Comments: Atrial fibrillation with rapid ventricular response, no acute ST-T wave changes noted. QRS voltage on the low side. Impressions: Abdomen/Pelvis CT 05/29/17 19:55 IMPRESSION: Multiple loops of small bowel measuring greater than 4.4 cm in diameter with fecalization of contents common nonspecific, possibly persistent ileus. No obvious mesenteric inflammatory changes. 3.2 cm low-density partial rim enhancing lesion in the right sciatic notch, unclear ideology as there are no adjacent inflammatory changes, possible nerve sheath tumor is a differential consideration. Probable wall thickening in the distal esophagus versus adjacent compressive subsegmental atelectasis,, apparent wall thickness measuring up to 7 mm. Small right hip joint effusion and moderate osteoarthritic changes. Chest X-Ray 05/30/17 00:00 IMPRESSION: Patchy densities in the left lung which appears slightly more pronounced as compared to the previous study. The previously described patchy airspace opacities in the right mid lung field appear improved Assessment & Plan - Diagnosis (1) Hypotension (arterial) Qualifiers: Hypotension type: unspecified hypotension type Qualified Code(s): I95.9 - Hypotension, unspecified Is this a current diagnosis for this admission?: Yes (2) Atrial fibrillation Qualifiers: Atrial fibrillation type: chronic Qualified Code(s): I48.2 - Chronic atrial fibrillation Is this a current diagnosis for this admission?: Yes (3) CHF (congestive heart failure) Qualifiers: Congestive heart failure type: combined Congestive heart failure chronicity : chronic Qualified Code(s): I50.42 - Chronic combined systolic (congestive) and diastolic (congestive) heart failure Is this a current diagnosis for this admission?: No (4) Valvular heart disease Is this a current diagnosis for this admission?: Yes (5) Sepsis Qualifiers: Sepsis type: sepsis due to unspecified organism Qualified Code(s): A41.9 - Sepsis, unspecified organism Is this a current diagnosis for this admission?: Yes (6) COPD (chronic obstructive pulmonary disease) Qualifiers: Emphysema type: unspecified Is this a current diagnosis for this admission?: Yes - Notes Notes: Hypotension: Most likely related to sepsis, however decreased cardiac output from relative hypovolemia and cardiac pump function could be contributing. Have elected to obtain a 2D echocardiogram to assess cardiac status and adjust therapy as needed. At this point continue with Levophed and Brady-Synephrine. If rapid ventricular response is a problem then vasopressin drip may be a better option for future. Atrial fibrillation with rapid ventricular response: Patient on currently Cardizem drip. Believes beta-blockers and digoxin are better option. In this regard patient., Patient placed on digoxin and also carvedilol therapy. Will try to gradually taper Cardizem to discontinuation. If heart rate control is a problem may consider amiodarone therapy however patient does seem to have some COPD. CHF: Seems compensated without any volume overload but in view of previous history of CHF, patient would need to be observed very carefully. BNP level is just mildly elevated. Valvular heart disease: Patient gives history of previous significant valvular regurgitation. A 2D echo is being repeated to assess this further. Sepsis: Continue broad-spectrum antibiotics. 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 COPD: Currently stable. Pulmonary following. - Time Time Spent with patient: CODE STATUS was discussed, patient remains full code. Surrogate decision-maker unchanged. Multiple medical problems were addressed. More than 50% of the time spent coordinating care, discussing management plans with involved caregivers. Management plans discussed with involved personnels. Medical decision making was of moderate to high complexity, patient's has multiple comorbidities. Medications reviewed and adjusted accordingly: Yes
[2017-05-31] MEDS: CARVEDILOL 3.125 MG TABLET PO SCH (21:58)
[2017-05-31] MEDS: INSULIN LISPRO 100 UNIT/ML 3 ML VIAL SUBCUT PRN (23:55)
[2017-06-01] MEDS: HYDROCORTISONE SOD SUCCINATE INJ/PF 100 MG/2 ML SDV IV SCH ×3 (02:03→17:58)
[2017-06-01] MEDS: DEXTROSE 5%-WATER 250 ML with PHENYLEPHRINE HCL 40 MG IV PRN ×4 (05:20→12:32)
[2017-06-01 05:24] LABS: ARTERIAL BLOOD BASE EXCESS -3.9 mmol/L; ARTERIAL BLOOD O2 SATURATION 95.2 % (94-98)
[2017-06-01 05:31] LABS: HEMATOCRIT 22.7 % (36.0-47.0); HGB HCT DIFFERENCE 0.7; MEAN CORPUSCULAR HEMOGLOBIN 34.1 pg (27.0-33.4); MEAN CORPUSCULAR HGB CONC 34.2 g/dL (32.0-36.0); MEAN CORPUSCULAR VOLUME 100 fl (80-97); RED BLOOD COUNT 2.28 10^6/uL (3.72-5.28); RED CELL DISTRIBUTION WIDTH 18.2 % (11.5-14.0)
[2017-06-01 05:40] LABS: ALANINE AMINOTRANSFERASE 41 U/L (9-52); ALBUMIN 2.4 g/dL (3.5-5.0); ALKALINE PHOSPHATASE 47 U/L (38-126); ANION GAP 11 (5-19); ASPARTATE AMINO TRANSFERASE 24 U/L (14-36); BILIRUBIN,DIRECT 0.6 mg/dL (0.0-0.4); BILIRUBIN,TOTAL 1.2 mg/dL (0.2-1.3); BLOOD UREA NITROGEN 74 mg/dL (7-20); CALCIUM 8.3 mg/dL (8.4-10.2); CARBON DIOXIDE 19 mmol/L (22-30); CHLORIDE 98 mmol/L (98-107); CREATININE RESULT 1.49 mg/dL (0.52-1.25); GLUCOSE 153 mg/dL (75-110); MAGNESIUM 2.2 mg/dL (1.6-2.3); PHOSPHORUS 4.5 mg/dL (2.5-4.5); SODIUM 127.6 mmol/L (137-145); TOTAL PROTEIN 4.3 g/dL (6.3-8.2)
[2017-06-01] MEDS: PROMETHAZINE HCL INJ 25 MG/1 ML VIAL IV PRN (05:58)
[2017-06-01 06:11] LABS: HEMOGLOBIN 7.8 g/dL (12.0-15.5)
[2017-06-01 06:15] LABS: ANISOCYTOSIS 1+; BAND NEUTROPHILS % (MANUAL) 6 % (3-5); BASOPHILS % (MANUAL) 0 % (0-2); EOSINOPHILS % (MANUAL) 0 % (0-6); LYMPHOCYTES % (MANUAL) 10 % (13-45); NUCLEATED RED BLOOD CELLS 8 /100 WBC (0); POLYCHROMASIA 1+; TEAR DROP CELLS SLIGHT; TOTAL CELLS COUNTED 100; TOXIC GRANULATION 1+
[2017-06-01 06:17] LABS: WHITE BLOOD COUNT 13.7 10^3/uL (4.0-10.5)
[2017-06-01] MEDS ORDERED: NORMAL SALINE 250 ML IV PRN ×2 (07:23)
--- NOTE | 2017-06-01 07:59 | RADIOLOGY REPORT (SQ) ---
EXAM DESCRIPTION: CHEST SINGLE VIEW COMPLETED DATE/TIME: 06/01/2017 6:17 am REASON FOR STUDY: sepsis COMPARISON: 05/30/2017. EXAM PARAMETERS: NUMBER OF VIEWS: One view. TECHNIQUE: Single frontal radiographic view of the chest acquired. RADIATION DOSE: NA LIMITATIONS: None. FINDINGS: LUNGS AND PLEURA: Small to moderate mixed interstitial and airspace opacities worst in the left mid and lower lung field and right mid lung field. Consolidate/ fibrosis of the left lower lob e. Moderate left lung volume. MEDIASTINUM AND HILAR STRUCTURES: No masses. Contour normal. HEART AND VASCULAR STRUCTURES: Mild enlargement of the cardiac silhouette. BONES: No acute findings. HARDWARE: Left internal jugular central line tip at the junction of the left brachiocephalic vein and SVC. OTHER: No other significant finding. IMPRESSION: No significant interval change. TECHNICAL DOCUMENTATION: JOB ID: [id number]
[2017-06-01] MEDS ORDERED: ALTEPLASE INJ 2 MG VIAL (CATH CLEARANCE) INJ ONE (08:00)
[2017-06-01] MEDS ORDERED: FUROSEMIDE INJ/PF 40 MG/4 ML SDV IV ONE (08:00)
[2017-06-01] MEDS ORDERED: FUROSEMIDE INJ/PF 40 MG/4 ML SDV IV PRN (08:14)
[2017-06-01] MEDS: IPRATROPIUM/ALBUTEROL 0.5-2.5 MG/3 ML AMPUL NEB SCH ×3 (08:33→20:11)
[2017-06-01] MEDS: CARVEDILOL 3.125 MG TABLET PO SCH ×2 (09:56→21:18)
[2017-06-01] MEDS: DIGOXIN 0.125 MG TABLET PO SCH (09:57)
[2017-06-01] MEDS: FAMOTIDINE INJ/PF 20 MG/2 ML SDV IV SCH ×2 (09:57→21:17)
[2017-06-01] MEDS: HEPARIN SOD (PORCINE) 5,000 UNIT/ML 1 ML SYRINGE SUBCUT SCH ×2 (09:58→22:57)
[2017-06-01] MEDS: LACTULOSE SYRUP 20 GM/30 ML UDCUP PO SCH ×3 (09:58→17:59)
--- NOTE | 2017-06-01 09:58 | PDOC PROGRESS REPORT ---
Subjective Progress Note for:: 06/01/17 Subjective:: Complains of cough. Physical Exam Vital Signs: Temp Pulse Resp BP Pulse Ox 99.7 F 112 H 26 H 86/57 L 100 06/01/17 06:00 06/01/17 08:33 06/01/17 08:33 06/01/17 05:14 06/01/17 08:33 Intake & Output 05/31/17 06/01/17 06/02/17 06:59 06:59 06:59 Intake Total 4363 3546 Output Total 1735 1625 150 Balance 2628 1921 -150 Weight 86.9 kg 88.1 kg General appearance: PRESENT: mild distress Eye exam: PRESENT: conjunctiva pink. ABSENT: scleral icterus Mouth exam: PRESENT: moist, tongue midline Neck exam: ABSENT: JVD Respiratory exam: PRESENT: rhonchi - Coarse rhonchi bilaterally.. ABSENT: rales , wheezes Cardiovascular exam: PRESENT: RRR. ABSENT: diastolic murmur, rubs, systolic murmur GI/Abdominal exam: PRESENT: normal bowel sounds, soft. ABSENT: distended, guarding, mass, organolmegaly, rebound, tenderness Extremities exam: ABSENT: calf tenderness, clubbing, pedal edema Neurological exam: PRESENT: alert, awake, oriented to person, oriented to place , oriented to time, oriented to situation, CN II-XII grossly intact. ABSENT: motor sensory deficit Psychiatric exam: PRESENT: appropriate affect Skin exam: PRESENT: other - Areas of ecchymosis on the legs and left arm. Results Laboratory Results: 06/01/17 05:15 06/01/17 05:15 05/31/17 06/01/17 06/01/17 09:20 04:50 05:15 WBC RBC Hgb Hct MCV MCH MCHC RDW Plt Count Seg Neutrophils % Lymphocytes % Monocytes % Eosinophils % Basophils % Absolute Neutrophils Absolute Lymphocytes Absolute Monocytes Absolute Eosinophils Absolute Basophils Carbonic Acid 0.83 L HCO3/H2CO3 Ratio 23:1 ABG pH 7.46 H ABG pCO2 27.5 L ABG pO2 70.0 L ABG HCO3 19.1 L ABG O2 Saturation 95.2 ABG Base Excess -3.9 FiO2 3 LITERS Sodium Potassium Chloride Carbon Dioxide Anion Gap BUN Creatinine Est GFR ( Amer) Est GFR (Non-Af Amer) Glucose Lactic Acid 2.7 H Calcium Phosphorus Magnesium Total Bilirubin AST ALT Alkaline Phosphatase Total Protein Albumin Stool Occult Blood NEGATIVE Blood Type Antibody Screen 06/01/17 06/01/17 06/01/17 05:15 05:15 05:15 WBC 13.7 H RBC 2.28 L Hgb 7.8 L Hct 22.7 L MCV 100 H MCH 34.1 H MCHC 34.2 RDW 18.2 H Plt Count 133 L Seg Neutrophils % Not Reportable Lymphocytes % Not Reportable Monocytes % Not Reportable Eosinophils % Not Reportable Basophils % Not Reportable Absolute Neutrophils Not Reportable Absolute Lymphocytes Not Reportable Absolute Monocytes Not Reportable Absolute Eosinophils Not Reportable Absolute Basophils Not Reportable Carbonic Acid HCO3/H2CO3 Ratio ABG pH ABG pCO2 ABG pO2 ABG HCO3 ABG O2 Saturation ABG Base Excess FiO2 Sodium 127.6 L Potassium 4.0 Chloride 98 Carbon Dioxide 19 L Anion Gap 11 BUN 74 H Creatinine 1.49 H Est GFR ( Amer) 43 L Est GFR (Non-Af Amer) 35 L Glucose 153 H Lactic Acid 2.3 H Calcium 8.3 L Phosphorus 4.5 Magnesium 2.2 Total Bilirubin 1.2 AST 24 ALT 41 Alkaline Phosphatase 47 Total Protein 4.3 L Albumin 2.4 L Stool Occult Blood Blood Type Antibody Screen 06/01/17 06/01/17 07:50 07:50 WBC RBC Hgb Hct MCV MCH MCHC RDW Plt Count Seg Neutrophils % Lymphocytes % Monocytes % Eosinophils % Basophils % Absolute Neutrophils Absolute Lymphocytes Absolute Monocytes Absolute Eosinophils Absolute Basophils Carbonic Acid HCO3/H2CO3 Ratio ABG pH ABG pCO2 ABG pO2 ABG HCO3 ABG O2 Saturation ABG Base Excess FiO2 Sodium Potassium Chloride Carbon Dioxide Anion Gap BUN Creatinine Est GFR ( Amer) Est GFR (Non-Af Amer) Glucose Lactic Acid 2.0 Calcium Phosphorus Magnesium Total Bilirubin AST ALT Alkaline Phosphatase Total Protein Albumin Stool Occult Blood Blood Type A POSITIVE Antibody Screen NEGATIVE 05/30/17 05/30/17 05/31/17 23:35 23:35 05:25 Troponin I 0.015 NT-Pro-B Natriuret Pep 1950 H 1670 H Impressions: Abdomen/Pelvis CT 05/29/17 19:55 IMPRESSION: Multiple loops of small bowel measuring greater than 4.4 cm in diameter with fecalization of contents common nonspecific, possibly persistent ileus. No obvious mesenteric inflammatory changes. 3.2 cm low-density partial rim enhancing lesion in the right sciatic notch, unclear ideology as there are no adjacent inflammatory changes, possible nerve sheath tumor is a differential consideration. Probable wall thickening in the distal esophagus versus adjacent compressive subsegmental atelectasis,, apparent wall thickness measuring up to 7 mm. Small right hip joint effusion and moderate osteoarthritic changes. Chest X-Ray 06/01/17 06:00 IMPRESSION: No significant interval change. Assessment & Plan - Diagnosis (1) Septic shock Is this a current diagnosis for this admission?: Yes Plan: Patient still requiring vasopressors. The patient is being followed by pulmonary medicine. We will continue with the antibiotics for bilateral pneumonia. (2) Bilateral pneumonia Qualifiers: Pneumonia type: due to unspecified organism Lung location: unspecified part of lung Qualified Code(s): J18.9 - Pneumonia, unspecified organism Is this a current diagnosis for this admission?: Yes Plan: Patient is on vancomycin, cefepime, Levaquin. (3) ARF (acute renal failure) Qualifiers: Acute renal failure type: unspecified Qualified Code(s): N17.9 - Acute kidney failure, unspecified Is this a current diagnosis for this admission?: Yes Plan: Patient is being followed by nephrology. The patient's CVP is not functioning properly and it is somewhat difficult to assess her volume status. (4) Metabolic acidosis Is this a current diagnosis for this admission?: Yes Plan: Secondary to acute renal failure (5) Pulmonary hypertension Is this a current diagnosis for this admission?: Yes (6) Atrial fibrillation Qualifiers: Atrial fibrillation type: chronic Qualified Code(s): I48.2 - Chronic atrial fibrillation Is this a current diagnosis for this admission?: Yes Plan: Patient is currently rate controlled. Cardiology is following (7) CHF (congestive heart failure) Qualifiers: Congestive heart failure type: combined Congestive heart failure chronicity : chronic Qualified Code(s): I50.42 - Chronic combined systolic (congestive) and diastolic (congestive) heart failure Is this a current diagnosis for this admission?: No Plan: Patient had an echocardiogram done yesterday evening. Cardiology is following the patient. (8) Fibromyalgia Is this a current diagnosis for this admission?: Yes (9) Hyperlipidemia Qualifiers: Hyperlipidemia type: unspecified Qualified Code(s): E78.5 - Hyperlipidemia , unspecified Is this a current diagnosis for this admission?: Yes (10) Hypothyroid Qualifiers: Hypothyroidism type: unspecified Qualified Code(s): E03.9 - Hypothyroidism , unspecified Is this a current diagnosis for this admission?: Yes (11) ANNA (obstructive sleep apnea) Is this a current diagnosis for this admission?: Yes (12) Anemia Is this a current diagnosis for this admission?: Yes Plan: Patient does not have any obvious blood loss however she does have a good bit of ecchymosis. Will transfuse 2 units of packed red blood cells. Will need to watch her volume status closely given her renal failure. - Time Time Spent with patient: 25-34 minutes - Inpatient Certification Medical Necessity: Need Close Monitoring Due to Risk of Patient Decompensation, Need for IV Antibiotics
[2017-06-01] MEDS: CEFEPIME 2 GM/D5W RTU 2 GM/50 ML RTUPB IV SCH (13:39)
[2017-06-01] MEDS ORDERED: FUROSEMIDE INJ/PF 20 MG/2 ML SDV IV ONE (16:30)
[2017-06-01] MEDS ORDERED: LORAZEPAM INJ 2 MG/1 ML VIAL IV PRN (16:33)
[2017-06-01] MEDS ORDERED: LORAZEPAM INJ 2 MG/1 ML VIAL ONE (16:44)
[2017-06-01] MEDS: VANCOMYCIN HCL 750 MG in DEXTROSE 5%-WATER 250 ML IV SCH (17:58)
[2017-06-01] MEDS: NORMAL SALINE 1000 ML 1,000 ML IV PRN (18:01)
--- NOTE | 2017-06-01 18:06 | PDOC PROGRESS REPORT ---
Subjective Progress Note for:: 06/01/17 Subjective:: Patient continues to improve every day. She is now off the Cardizem drip and levophed. Patient's hemoglobin dropped so she received 2 units of packed RBC with Lasix in between. She is making urine although less than her intake. Her blood pressures and breathing seems to be stable. Physical Exam Vital Signs: Temp Pulse Resp BP Pulse Ox 99.0 F 98 24 H 111/60 94 06/01/17 16:31 06/01/17 15:50 06/01/17 16:31 06/01/17 16:31 06/01/17 17:36 Intake & Output 05/31/17 06/01/17 06/02/17 06:59 06:59 06:59 Intake Total 4363 3546 700 Output Total 1735 1625 735 Balance 2628 1921 -35 Weight 86.9 kg 88.1 kg Exam: General appearance: PRESENT: no acute distress, cooperative, well-developed, well-nourished Head exam: PRESENT: atraumatic, normocephalic Eye exam: PRESENT: conjunctiva pale, PERRLA. ABSENT: scleral icterus Neck exam: ABSENT: JVD Respiratory exam: PRESENT: Diminished breath sounds. ABSENT: crackles, rales, rhonchi, unlabored, wheezes Cardiovascular exam: PRESENT: Irregularly irregular rate rhythm -+S1, +S2. ABSENT: diastolic murmur, systolic murmur GI/Abdominal exam: PRESENT: normal bowel sounds, soft. ABSENT: guarding, mass, tenderness Extremities exam: ABSENT: No edema Neurological exam: PRESENT: alert, awake, oriented to person, place and time. Skin exam: PRESENT: dry, warm, positive pallor Results Laboratory Results: 06/01/17 05:15 06/01/17 06/01/17 06/01/17 04:50 05:15 05:15 WBC 13.7 H RBC 2.28 L Hgb 7.8 L Hct 22.7 L MCV 100 H MCH 34.1 H MCHC 34.2 RDW 18.2 H Plt Count 133 L Seg Neutrophils % Not Reportable Lymphocytes % Not Reportable Monocytes % Not Reportable Eosinophils % Not Reportable Basophils % Not Reportable Absolute Neutrophils Not Reportable Absolute Lymphocytes Not Reportable Absolute Monocytes Not Reportable Absolute Eosinophils Not Reportable Absolute Basophils Not Reportable Carbonic Acid 0.83 L HCO3/H2CO3 Ratio 23:1 ABG pH 7.46 H ABG pCO2 27.5 L ABG pO2 70.0 L ABG HCO3 19.1 L ABG O2 Saturation 95.2 ABG Base Excess -3.9 FiO2 3 LITERS Sodium Potassium Chloride Carbon Dioxide Anion Gap BUN Creatinine Est GFR ( Amer) Est GFR (Non-Af Amer) Glucose Lactic Acid Calcium Phosphorus Magnesium Total Bilirubin AST ALT Alkaline Phosphatase Total Protein Albumin Stool Occult Blood NEGATIVE Blood Type Antibody Screen 06/01/17 06/01/17 06/01/17 05:15 05:15 07:50 WBC RBC Hgb Hct MCV MCH MCHC RDW Plt Count Seg Neutrophils % Lymphocytes % Monocytes % Eosinophils % Basophils % Absolute Neutrophils Absolute Lymphocytes Absolute Monocytes Absolute Eosinophils Absolute Basophils Carbonic Acid HCO3/H2CO3 Ratio ABG pH ABG pCO2 ABG pO2 ABG HCO3 ABG O2 Saturation ABG Base Excess FiO2 Sodium 127.6 L Potassium 4.0 Chloride 98 Carbon Dioxide 19 L Anion Gap 11 BUN 74 H Creatinine 1.49 H Est GFR ( Amer) 43 L Est GFR (Non-Af Amer) 35 L Glucose 153 H Lactic Acid 2.3 H Calcium 8.3 L Phosphorus 4.5 Magnesium 2.2 Total Bilirubin 1.2 AST 24 ALT 41 Alkaline Phosphatase 47 Total Protein 4.3 L Albumin 2.4 L Stool Occult Blood Blood Type A POSITIVE Antibody Screen NEGATIVE 06/01/17 07:50 WBC RBC Hgb Hct MCV MCH MCHC RDW Plt Count Seg Neutrophils % Lymphocytes % Monocytes % Eosinophils % Basophils % Absolute Neutrophils Absolute Lymphocytes Absolute Monocytes Absolute Eosinophils Absolute Basophils Carbonic Acid HCO3/H2CO3 Ratio ABG pH ABG pCO2 ABG pO2 ABG HCO3 ABG O2 Saturation ABG Base Excess FiO2 Sodium Potassium Chloride Carbon Dioxide Anion Gap BUN Creatinine Est GFR ( Amer) Est GFR (Non-Af Amer) Glucose Lactic Acid 2.0 Calcium Phosphorus Magnesium Total Bilirubin AST ALT Alkaline Phosphatase Total Protein Albumin Stool Occult Blood Blood Type Antibody Screen 05/30/17 05/30/17 05/31/17 23:35 23:35 05:25 Troponin I 0.015 NT-Pro-B Natriuret Pep 1950 H 1670 H Impressions: Abdomen/Pelvis CT 05/29/17 19:55 IMPRESSION: Multiple loops of small bowel measuring greater than 4.4 cm in diameter with fecalization of contents common nonspecific, possibly persistent ileus. No obvious mesenteric inflammatory changes. 3.2 cm low-density partial rim enhancing lesion in the right sciatic notch, unclear ideology as there are no adjacent inflammatory changes, possible nerve sheath tumor is a differential consideration. Probable wall thickening in the distal esophagus versus adjacent compressive subsegmental atelectasis,, apparent wall thickness measuring up to 7 mm. Small right hip joint effusion and moderate osteoarthritic changes. Chest X-Ray 06/01/17 06:00 IMPRESSION: No significant interval change. Assessment & Plan - Diagnosis (1) EDY (acute kidney injury) Is this a current diagnosis for this admission?: Yes Plan: This could start as secondary to prerenal azotemia due to decreased p.o. intake worsened by persistent hypotension leading to acute tubular necrosis. Currently the patient is nonoliguric and I do not believe she is fluid overloaded either. Patient does not have any proteinuria no significant microhematuria. Needs to maintain an adequate perfusion pressure to the kidneys. At this time the patient does not need any renal replacement therapy. Needs to monitor the patient closely. There seems to be a very slow improvement with current management for the last 24 hours. Needs to follow vancomycin trough level to avoid nephrotoxicity. Continuation of vancomycin needs to be evaluated based on cultures. Patient's kidney function is slowly improving. Her BUN seems to be disproportionately more elevated compared to the creatinine which is likely due to combination of factors including steroids, and cardiorenal syndrome. Decrease her IV fluid to 75 mL an hour. Continue to monitor kidney function. Once the patient start some form of diet I think the IV fluids can be tapered down or discontinued to prevent any fluid overload in view of her known CHF which is currently compensated clinically at least. (2) Acute renal tubular necrosis Is this a current diagnosis for this admission?: Yes (3) Septic shock Is this a current diagnosis for this admission?: Yes (4) Adrenal insufficiency Is this a current diagnosis for this admission?: Yes Plan: Continue hydrocortisone. (5) Hypermagnesemia Is this a current diagnosis for this admission?: Yes Plan: Resolved. (6) Hyponatremia Is this a current diagnosis for this admission?: Yes Plan: Slightly improved. Could be due to the hypotonic fluids from medications. (7) Hypoalbuminemia Is this a current diagnosis for this admission?: Yes (8) Bilateral pneumonia Qualifiers: Pneumonia type: due to unspecified organism Lung location: unspecified part of lung Qualified Code(s): J18.9 - Pneumonia, unspecified organism Is this a current diagnosis for this admission?: Yes (9) Atrial fibrillation Qualifiers: Atrial fibrillation type: chronic Qualified Code(s): I48.2 - Chronic atrial fibrillation Is this a current diagnosis for this admission?: Yes (10) Anemia Is this a current diagnosis for this admission?: Yes Plan: Patient transfused 2 units of packed RBC. - Time Time with patient: 15-25 minutes
[2017-06-01 18:12] LABS: HEMATOCRIT 29.9 % (36.0-47.0); HGB HCT DIFFERENCE 0.7; MEAN CORPUSCULAR HEMOGLOBIN 32.4 pg (27.0-33.4); MEAN CORPUSCULAR HGB CONC 34.2 g/dL (32.0-36.0); RED BLOOD COUNT 3.16 10^6/uL (3.72-5.28); RED CELL DISTRIBUTION WIDTH 15.9 % (11.5-14.0)
[2017-06-01 18:13] LABS: HEMOGLOBIN 10.2 g/dL (12.0-15.5)
[2017-06-01 18:14] LABS: MEAN CORPUSCULAR VOLUME 95 fl (80-97)
[2017-06-01 18:48] LABS: WHITE BLOOD COUNT 11.1 10^3/uL (4.0-10.5)
[2017-06-02] MEDS: PROMETHAZINE HCL INJ 25 MG/1 ML VIAL IV PRN (00:44)
[2017-06-02] MEDS: HYDROCORTISONE SOD SUCCINATE INJ/PF 100 MG/2 ML SDV IV SCH ×3 (02:54→17:56)
[2017-06-02 03:33] LABS: ARTERIAL BLOOD BASE EXCESS -1.7 mmol/L; ARTERIAL BLOOD O2 SATURATION 96.3 % (94-98)
[2017-06-02 03:38] LABS: HEMATOCRIT 27.4 % (36.0-47.0); HEMOGLOBIN 9.5 g/dL (12.0-15.5); HGB HCT DIFFERENCE 1.1; MEAN CORPUSCULAR HEMOGLOBIN 32.8 pg (27.0-33.4); MEAN CORPUSCULAR HGB CONC 34.7 g/dL (32.0-36.0); MEAN CORPUSCULAR VOLUME 95 fl (80-97); RED CELL DISTRIBUTION WIDTH 16.6 % (11.5-14.0); WHITE BLOOD COUNT 11.3 10^3/uL (4.0-10.5)
[2017-06-02 03:47] LABS: ALANINE AMINOTRANSFERASE 37 U/L (9-52); ALBUMIN 2.4 g/dL (3.5-5.0); ALKALINE PHOSPHATASE 42 U/L (38-126); ANION GAP 9 (5-19); ASPARTATE AMINO TRANSFERASE 33 U/L (14-36); BILIRUBIN,DIRECT 0.8 mg/dL (0.0-0.4); BILIRUBIN,TOTAL 1.7 mg/dL (0.2-1.3); BLOOD UREA NITROGEN 69 mg/dL (7-20); CALCIUM 8.1 mg/dL (8.4-10.2); CARBON DIOXIDE 21 mmol/L (22-30); CHLORIDE 102 mmol/L (98-107); CREATININE RESULT 1.22 mg/dL (0.52-1.25); GLUCOSE 129 mg/dL (75-110); MAGNESIUM 2.2 mg/dL (1.6-2.3); PHOSPHORUS 3.7 mg/dL (2.5-4.5); POTASSIUM 3.1 mmol/L (3.6-5.0); TOTAL PROTEIN 4.3 g/dL (6.3-8.2)
[2017-06-02 04:13] LABS: BASOPHILS % (MANUAL) 0 % (0-2); EOSINOPHILS % (MANUAL) 0 % (0-6); LYMPHOCYTES % (MANUAL) 16 % (13-45); TOTAL CELLS COUNTED 100
[2017-06-02 04:22] LABS: TOXIC GRANULATION 1+
[2017-06-02 04:23] LABS: ANISOCYTOSIS 1+; OVALOCYTES SLIGHT; POIKILOCYTOSIS SLIGHT; POLYCHROMASIA 1+; TOXIC VACUOLATION PRESENT
[2017-06-02 04:27] LABS: BAND NEUTROPHILS % (MANUAL) 16 % (3-5)
[2017-06-02 04:28] LABS: NUCLEATED RED BLOOD CELLS 8 /100 WBC (0)
[2017-06-02] MEDS: LEVOFLOXACIN 750 MG/D5W RTU 750 MG/150 ML RTUPB IV SCH (05:38)
[2017-06-02] MEDS: POTASSIUM CHLORIDE 20 MEQ/50 ML RTU IV SCH ×2 (05:39→07:18)
[2017-06-02] MEDS: DILTIAZEM HCL/D5W 125 MG/125 ML RTUINJ IV PRN ×2 (06:13→16:35)
[2017-06-02] MEDS ORDERED: POTASSI CL 20 MEQ/50 ML RIDER 20 MEQ/50 ML RTUPB IV SCH (08:00)
--- NOTE | 2017-06-02 08:01 | RADIOLOGY REPORT (SQ) ---
EXAM DESCRIPTION: CHEST SINGLE VIEW COMPLETED DATE/TIME: 06/02/2017 6:00 am REASON FOR STUDY: sepsis COMPARISON: 03/01/2017. EXAM PARAMETERS: NUMBER OF VIEWS: One view. TECHNIQUE: Single frontal radiographic view of the chest acquired. RADIATION DOSE: NA LIMITATIONS: None. FINDINGS: LUNGS AND PLEURA: Small mixed interstitial and airspace opacities worse than left upper he mithorax. Moderate lung volumes, left worse than right. MEDIASTINUM AND HILAR STRUCTURES: No masses. Contour normal. HEART AND VASCULAR STRUCTURES: Mild enlargement of the cardiac silhouette. BONES: No acute findings. HARDWARE: Left internal jugular central line tip at the proximal left brachiocephalic vein. OTHER: No other significant finding. IMPRESSION: No significant interval change. TECHNICAL DOCUMENTATION: JOB ID: [id number]
[2017-06-02] MEDS: IPRATROPIUM/ALBUTEROL 0.5-2.5 MG/3 ML AMPUL NEB SCH ×3 (08:17→19:50)
--- NOTE | 2017-06-02 08:40 | RADIOLOGY REPORT (SQ) ---
EXAM DESCRIPTION: CT HEAD WITHOUT COMPLETED DATE/TIME: 06/02/2017 8:30 am REASON FOR STUDY: confusion COMPARISON: 11/11/2016. TECHNIQUE: Axial images acquired through the brain without intravenous contrast. Images reviewed wi th bone, brain and subdural windows. Images stored on PACS. All CT scanners at this facility use dose modulation, iterative reconstruction, and/or weight based d osing when appropriate to reduce radiation dose to as low as reasonably achievable (ALARA). [facility]: Dose Right [facility]: CareDose [facility]: Dose Right [facility]: Teradose 4D [facility]: Smart Connect RADIATION DOSE: Up-to-date CT equipment and radiation dose reduction techniques were employed. CTDIv ol: 49.0 mGy. DLP: 783 mGy-cm. mGy. LIMITATIONS: None. FINDINGS: VENTRICLES: Prominent. CEREBRUM: No masses. No hemorrhage. No midline shift. Areas of low density in the white matter mos t likely due to chronic micro-vascular ischemic change. No evidence for acute infarction. CEREBELLUM: No masses. No hemorrhage. No alteration of density. No evidence for acute infarction. EXTRAAXIAL SPACES: Mild age-related involutional change. No fluid collections. No masses. ORBITS AND GLOBE: No intra- or extraconal masses. Normal contour of globe without masses. CALVARIUM: No fracture. PARANASAL SINUSES: No fluid or mucosal thickening. SOFT TISSUES: No mass or hematoma. OTHER: No other significant finding. IMPRESSION: MILD CHRONIC CHANGES OF ATROPHY AND MICROVASCULAR ISCHEMIA. NO ACUTE PROCESS. EVIDENCE OF ACUTE STROKE: NO. TECHNICAL DOCUMENTATION: JOB ID: [id number] Quality ID # [id number]: Final reports with documentation of one or more dose reduction techniques (e.g., Au tomated exposure control, adjustment of the mA and/or kV according to patient size, use of iterative reconstruction technique) 2010 [employer]- All Rights Reserved
--- NOTE | 2017-06-02 09:19 | PDOC PROGRESS REPORT ---
Subjective Progress Note for:: 06/01/17 Subjective:: Patient was seen yesterday but for some reason I forgot to dictate a note. Orders were given to the nurses in the morning. Orders were for IV Lasix 40 mg stat. Orders were also given for gradually tapering levo fed and Brady- Synephrine to DC. Patient was also supposed to get 2 units of PRBC which she got. She was noted to be somewhat agitated in the morning. Physical Exam Vital Signs: Temp Pulse Resp BP Pulse Ox 99.3 F 107 H 16 111/59 L 96 06/02/17 06:45 06/02/17 08:17 06/02/17 08:17 06/02/17 05:59 06/02/17 08:17 Intake & Output 06/01/17 06/02/17 06/03/17 06:59 06:59 06:59 Intake Total 3546 3323 Output Total 1625 2110 175 Balance 1921 1213 -175 Weight 88.1 kg 89.6 kg Exam: GENERAL: well-nourished and in no acute distress. Alert and oriented x3, however patient noted to be agitated. HEAD: Atraumatic, normocephalic. EYES: Pupils equal round and reactive to light, extraocular movements intact, sclera anicteric, conjunctiva are normal. ENT: TMs normal, nares patent, oropharynx clear without exudates. Moist mucous membranes. No oral ulcerations or bleeding gums noted NECK: supple without lymphadenopathy. Trachea is central. No cervical or axillary lymphadenopathy noted. Carotids are 2+, JVD WNL LUNGS: Respiration seems nonlabored, no significant accessory muscle action noted. Bilateral coarse crackles were noted. Very mild coarse wheezing noted. CHEST: Palpation of the chest wall shows no significant chest wall tenderness. No other significant abnormalities noted. HEART: [place] [employer], No PSH, 1/6 ZION aortic area, 1/6 laws systolic murmur mitral area, no rubs, no gallops. ABDOMEN: Soft, no significant tenderness appreciated, normoactive bowel sounds. No guarding, no rebound. No rigidity noted . No masses appreciated. EXTREMITIES: Pedal pulses are 1-2+, no calf tenderness noted. No clubbing or cyanosis.1+ pedal edema noted NEUROLOGICAL: Focused neurological exam showed no significant neurologic deficit. Normal speech, no focal weakness appreciated. PSYCH: Normal mood, normal affect. Judgment and insight within normal limits. SKIN: Bilateral diffuse areas of ecchymosis noted but no other rash, ulcerations or signs of pruritus noted. MUSCULOSKELETAL EXAM: No significant joint swelling noted. Results Laboratory Results: 06/02/17 03:05 06/02/17 03:05 06/01/17 06/01/17 06/02/17 07:50 17:43 03:05 WBC 11.1 H RBC 3.16 L Hgb 10.2 L D Hct 29.9 L MCV 95 D MCH 32.4 MCHC 34.2 RDW 15.9 H Plt Count 101 L Seg Neutrophils % Lymphocytes % Monocytes % Eosinophils % Basophils % Absolute Neutrophils Absolute Lymphocytes Absolute Monocytes Absolute Eosinophils Absolute Basophils Carbonic Acid 0.84 L HCO3/H2CO3 Ratio 24:1 ABG pH 7.48 H ABG pCO2 28.0 L ABG pO2 75.7 L ABG HCO3 20.6 ABG O2 Saturation 96.3 ABG Base Excess -1.7 FiO2 2L Sodium Potassium Chloride Carbon Dioxide Anion Gap BUN Creatinine Est GFR ( Amer) Est GFR (Non-Af Amer) Glucose Lactic Acid Calcium Phosphorus Magnesium Total Bilirubin AST ALT Alkaline Phosphatase Total Protein Albumin Blood Type A POSITIVE Antibody Screen NEGATIVE 06/02/17 06/02/17 06/02/17 03:05 03:05 03:05 WBC 11.3 H RBC 2.90 L Hgb 9.5 L Hct 27.4 L MCV 95 MCH 32.8 MCHC 34.7 RDW 16.6 H Plt Count 84 L Seg Neutrophils % Not Reportable Lymphocytes % Not Reportable Monocytes % Not Reportable Eosinophils % Not Reportable Basophils % Not Reportable Absolute Neutrophils Not Reportable Absolute Lymphocytes Not Reportable Absolute Monocytes Not Reportable Absolute Eosinophils Not Reportable Absolute Basophils Not Reportable Carbonic Acid HCO3/H2CO3 Ratio ABG pH ABG pCO2 ABG pO2 ABG HCO3 ABG O2 Saturation ABG Base Excess FiO2 Sodium 132.0 L Potassium 3.1 L Chloride 102 Carbon Dioxide 21 L Anion Gap 9 BUN 69 H Creatinine 1.22 Est GFR ( Amer) 54 L Est GFR (Non-Af Amer) 45 L Glucose 129 H Lactic Acid 1.6 Calcium 8.1 L Phosphorus 3.7 Magnesium 2.2 Total Bilirubin 1.7 H AST 33 ALT 37 Alkaline Phosphatase 42 Total Protein 4.3 L Albumin 2.4 L Blood Type Antibody Screen 05/30/17 05/30/17 05/31/17 23:35 23:35 05:25 Troponin I 0.015 NT-Pro-B Natriuret Pep 1950 H 1670 H Impressions: Abdomen/Pelvis CT 05/29/17 19:55 IMPRESSION: Multiple loops of small bowel measuring greater than 4.4 cm in diameter with fecalization of contents common nonspecific, possibly persistent ileus. No obvious mesenteric inflammatory changes. 3.2 cm low-density partial rim enhancing lesion in the right sciatic notch, unclear ideology as there are no adjacent inflammatory changes, possible nerve sheath tumor is a differential consideration. Probable wall thickening in the distal esophagus versus adjacent compressive subsegmental atelectasis,, apparent wall thickness measuring up to 7 mm. Small right hip joint effusion and moderate osteoarthritic changes. Head CT 06/02/17 00:00 IMPRESSION: MILD CHRONIC CHANGES OF ATROPHY AND MICROVASCULAR ISCHEMIA. NO ACUTE PROCESS. EVIDENCE OF ACUTE STROKE: NO. Chest X-Ray 06/02/17 06:00 IMPRESSION: No significant interval change. Assessment & Plan - Diagnosis (1) Hypotension (arterial) Qualifiers: Hypotension type: unspecified hypotension type Qualified Code(s): I95.9 - Hypotension, unspecified Is this a current diagnosis for this admission?: Yes (2) Atrial fibrillation Qualifiers: Atrial fibrillation type: chronic Qualified Code(s): I48.2 - Chronic atrial fibrillation Is this a current diagnosis for this admission?: Yes (3) CHF (congestive heart failure) Qualifiers: Congestive heart failure type: combined Congestive heart failure chronicity : chronic Qualified Code(s): I50.42 - Chronic combined systolic (congestive) and diastolic (congestive) heart failure Is this a current diagnosis for this admission?: No (4) Valvular heart disease Is this a current diagnosis for this admission?: Yes (5) Sepsis Qualifiers: Sepsis type: sepsis due to unspecified organism Qualified Code(s): A41.9 - Sepsis, unspecified organism Is this a current diagnosis for this admission?: Yes (6) COPD (chronic obstructive pulmonary disease) Qualifiers: Emphysema type: unspecified Is this a current diagnosis for this admission?: Yes - Notes Notes: Hypotension: Patient still on reduced dose of Levophed and up to 100 mcg of Brady- Synephrine. Attempts are being made to discontinue this. Dyspnea: Possibly related to combination of pneumonia and CHF. Patient getting IV Lasix 40 mg 1 dose given a stat. Patient to receive some more IV Lasix prior to blood transfusion. Atrial fibrillation with rapid ventricular response: Patient on currently Cardizem drip. Continue low-dose carvedilol and digoxin. In this regard patient. Will try to gradually taper Cardizem to discontinuation. If heart rate control is a problem may consider amiodarone therapy however patient does seem to have some COPD. CHF: Patient seems to have mild fluid retention. Treat with IV Lasix. 2D echo results were reviewed. Valvular heart disease: Patient gives history of previous significant valvular regurgitation. A 2D echo shows improvement in valvular regurgitation. Mild mitral regurgitation and moderate aortic incompetence noted. LVEF is mildly depressed. Sepsis: Continue broad-spectrum antibiotics. 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 COPD: Currently stable. Pulmonary following. - Time Time with patient: Greater than 35 minutes - CODE STATUS was discussed, patient remains full code. Surrogate decision-maker patient's . Multiple medical problems were addressed. More than 50% of the time spent coordinating care, discussing management plans with involved caregivers. Management plans discussed with involved personnels. Medical decision making was of moderate to high complexity, patient's has multiple comorbidities. Medications reviewed and adjusted accordingly: Yes
--- NOTE | 2017-06-02 09:53 | PDOC PROGRESS REPORT ---
Subjective Progress Note for:: 06/02/17 Subjective:: Patient seems to be doing better with gradual improvement. Pt is denying any chest arm or neck discomfort. Patient denying any PND, orthopnea. Patient denied any sustained palpitations, dizziness, syncope, near syncope. Patient denying any fever chills. Patient denying any other significant discomfort. Patient noted to have intermittent agitation. Last night patient was significantly agitated secondary to ICU psychosis. Patient is maintaining atrial fibrillation. Heart rate was noted to be increased and therefore was started back on Cardizem drip. Patient did receive 2 units of blood transfusion. Patient currently off Levophed and Brady- Synephrine.. Review of systems: Rest review of systems negative. Medications: Medications have been reviewed.. Physical Exam Vital Signs: Temp Pulse Resp BP Pulse Ox 99.3 F 107 H 16 111/59 L 96 06/02/17 06:45 06/02/17 08:17 06/02/17 08:17 06/02/17 05:59 06/02/17 08:17 Intake & Output 06/01/17 06/02/17 06/03/17 06:59 06:59 06:59 Intake Total 3546 3323 Output Total 1625 2110 175 Balance 1921 1213 -175 Weight 88.1 kg 89.6 kg Exam: GENERAL: well-nourished and in no acute distress. Alert and oriented x3. Patient slightly lethargic and at times agitated. HEAD: Atraumatic, normocephalic. EYES: Pupils equal round and reactive to light, extraocular movements intact, sclera anicteric, conjunctiva are normal. ENT: TMs normal, nares patent, oropharynx clear without exudates. Moist mucous membranes. No oral ulcerations or bleeding gums noted NECK: supple without lymphadenopathy. Trachea is central. No cervical or axillary lymphadenopathy noted. Carotids are 2+, JVD WNL LUNGS: Respiration seems nonlabored, no significant accessory muscle action noted. Bibasilar coarse wheezing and coarse rhonchi noted. CHEST: Palpation of the chest wall shows no significant chest wall tenderness. No other significant abnormalities noted. HEART: [place] POTATO PICKER, No PSH, 1/6 ZION aortic area, 1/6 laws systolic murmur mitral area, no rubs, no gallops. ABDOMEN: Soft, no significant tenderness appreciated, normoactive bowel sounds. No guarding, no rebound. No rigidity noted . No masses appreciated. EXTREMITIES: Pedal pulses are 1-2+, no calf tenderness noted. No clubbing or cyanosis. 1+ pedal edema noted NEUROLOGICAL: Focused neurological exam showed no significant neurologic deficit. Normal speech, no focal weakness appreciated. PSYCH: Normal mood, normal affect. Judgment and insight within normal limits. SKIN: Bilateral ecchymosis noted. No ulcerations or signs of pruritus noted. MUSCULOSKELETAL EXAM: No significant joint swelling noted. Results Laboratory Results: 06/02/17 03:05 06/02/17 03:05 06/01/17 06/01/17 06/02/17 07:50 17:43 03:05 WBC 11.1 H RBC 3.16 L Hgb 10.2 L D Hct 29.9 L MCV 95 D MCH 32.4 MCHC 34.2 RDW 15.9 H Plt Count 101 L Seg Neutrophils % Lymphocytes % Monocytes % Eosinophils % Basophils % Absolute Neutrophils Absolute Lymphocytes Absolute Monocytes Absolute Eosinophils Absolute Basophils Carbonic Acid 0.84 L HCO3/H2CO3 Ratio 24:1 ABG pH 7.48 H ABG pCO2 28.0 L ABG pO2 75.7 L ABG HCO3 20.6 ABG O2 Saturation 96.3 ABG Base Excess -1.7 FiO2 2L Sodium Potassium Chloride Carbon Dioxide Anion Gap BUN Creatinine Est GFR ( Amer) Est GFR (Non-Af Amer) Glucose Lactic Acid Calcium Phosphorus Magnesium Total Bilirubin AST ALT Alkaline Phosphatase Total Protein Albumin Blood Type A POSITIVE Antibody Screen NEGATIVE 06/02/17 06/02/17 06/02/17 03:05 03:05 03:05 WBC 11.3 H RBC 2.90 L Hgb 9.5 L Hct 27.4 L MCV 95 MCH 32.8 MCHC 34.7 RDW 16.6 H Plt Count 84 L Seg Neutrophils % Not Reportable Lymphocytes % Not Reportable Monocytes % Not Reportable Eosinophils % Not Reportable Basophils % Not Reportable Absolute Neutrophils Not Reportable Absolute Lymphocytes Not Reportable Absolute Monocytes Not Reportable Absolute Eosinophils Not Reportable Absolute Basophils Not Reportable Carbonic Acid HCO3/H2CO3 Ratio ABG pH ABG pCO2 ABG pO2 ABG HCO3 ABG O2 Saturation ABG Base Excess FiO2 Sodium 132.0 L Potassium 3.1 L Chloride 102 Carbon Dioxide 21 L Anion Gap 9 BUN 69 H Creatinine 1.22 Est GFR ( Amer) 54 L Est GFR (Non-Af Amer) 45 L Glucose 129 H Lactic Acid 1.6 Calcium 8.1 L Phosphorus 3.7 Magnesium 2.2 Total Bilirubin 1.7 H AST 33 ALT 37 Alkaline Phosphatase 42 Total Protein 4.3 L Albumin 2.4 L Blood Type Antibody Screen 05/30/17 05/30/17 05/31/17 23:35 23:35 05:25 Troponin I 0.015 NT-Pro-B Natriuret Pep 1950 H 1670 H Impressions: Abdomen/Pelvis CT 05/29/17 19:55 IMPRESSION: Multiple loops of small bowel measuring greater than 4.4 cm in diameter with fecalization of contents common nonspecific, possibly persistent ileus. No obvious mesenteric inflammatory changes. 3.2 cm low-density partial rim enhancing lesion in the right sciatic notch, unclear ideology as there are no adjacent inflammatory changes, possible nerve sheath tumor is a differential consideration. Probable wall thickening in the distal esophagus versus adjacent compressive subsegmental atelectasis,, apparent wall thickness measuring up to 7 mm. Small right hip joint effusion and moderate osteoarthritic changes. Head CT 06/02/17 00:00 IMPRESSION: MILD CHRONIC CHANGES OF ATROPHY AND MICROVASCULAR ISCHEMIA. NO ACUTE PROCESS. EVIDENCE OF ACUTE STROKE: NO. Chest X-Ray 06/02/17 06:00 IMPRESSION: No significant interval change. Assessment & Plan - Diagnosis (1) Hypotension (arterial) Qualifiers: Hypotension type: unspecified hypotension type Qualified Code(s): I95.9 - Hypotension, unspecified Is this a current diagnosis for this admission?: Yes (2) Atrial fibrillation Qualifiers: Atrial fibrillation type: chronic Qualified Code(s): I48.2 - Chronic atrial fibrillation Is this a current diagnosis for this admission?: Yes (3) CHF (congestive heart failure) Qualifiers: Congestive heart failure type: combined Congestive heart failure chronicity : chronic Qualified Code(s): I50.42 - Chronic combined systolic (congestive) and diastolic (congestive) heart failure Is this a current diagnosis for this admission?: No (4) Valvular heart disease Is this a current diagnosis for this admission?: Yes (5) Sepsis Qualifiers: Sepsis type: sepsis due to unspecified organism Qualified Code(s): A41.9 - Sepsis, unspecified organism Is this a current diagnosis for this admission?: Yes (6) COPD (chronic obstructive pulmonary disease) Qualifiers: Emphysema type: unspecified Is this a current diagnosis for this admission?: Yes - Notes Notes: Hypotension: Improved currently off vasopressors. Continue to monitor blood pressure closely. Atrial fibrillation with rapid ventricular response: Patient on currently Cardizem drip at 5 mg/h. will switch patient from carvedilol to metoprolol XL as patient is noted to have some wheezing today. CHF: Seems mildly decompensated. Lasix 40 mg IV ordered. Will start patient on spironolactone. 2D echo results were reviewed. Valvular heart disease: Currently is stable. Moderate aortic incompetence and mild to moderate mitral regurgitation noted. Sepsis: Continue broad-spectrum antibiotics. 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 COPD: Currently stable. Pulmonary following. - Time Time with patient: Greater than 35 minutes - CODE STATUS was discussed, patient remains full code. Surrogate decision-maker unchanged. Multiple medical problems were addressed. More than 50% of the time spent coordinating care, discussing management plans with involved caregivers. Management plans discussed with involved personnels. Medical decision making was of moderate to high complexity, patient's has multiple comorbidities. Medications reviewed and adjusted accordingly: Yes
[2017-06-02] MEDS ORDERED: SPIRONOLACTONE 25 MG TABLET PO SCH (10:00)
--- NOTE | 2017-06-02 10:16 | PDOC PROGRESS REPORT ---
Subjective Progress Note for:: 06/02/17 Subjective:: More lethargic, confused last night Physical Exam Vital Signs: Temp Pulse Resp BP Pulse Ox 99.3 F 102 H 21 H 111/59 L 96 06/02/17 06:45 06/01/17 22:00 06/02/17 06:45 06/02/17 05:59 06/02/17 06:30 Intake & Output 06/01/17 06/02/17 06/03/17 06:59 06:59 06:59 Intake Total 3546 3323 Output Total 1625 2110 Balance 1921 1213 Weight 88.1 kg 89.6 kg General appearance: PRESENT: no acute distress, cooperative, disheveled, obese Head exam: PRESENT: atraumatic, normocephalic Eye exam: PRESENT: conjunctiva pale, EOMI Mouth exam: PRESENT: dry mucosa, neck supple, tongue midline Neck exam: ABSENT: carotid bruit, JVD, lymphadenopathy, thyromegaly Respiratory exam: PRESENT: decreased breath sounds, prolonged expiratory phas, rales, rhonchi, symmetrical, unlabored. ABSENT: retraction, stridor, tachypnea Cardiovascular exam: PRESENT: RRR, +S1, +S2 Pulses: PRESENT: normal radial pulses GI/Abdominal exam: PRESENT: normal bowel sounds, soft. ABSENT: distended, guarding, mass, organolmegaly, rebound, tenderness Rectal exam: PRESENT: deferred Gentrourinary exam: PRESENT: indwelling catheter Extremities exam: PRESENT: +1 edema Neurological exam: PRESENT: awake Skin exam: PRESENT: dry, warm, other - Diffuse areas of subcutaneous ecchymosis especially left upper extremity left lateral chest wall Results Laboratory Results: 06/02/17 03:05 06/02/17 03:05 06/01/17 06/01/17 06/01/17 07:50 07:50 17:43 WBC 11.1 H RBC 3.16 L Hgb 10.2 L D Hct 29.9 L MCV 95 D MCH 32.4 MCHC 34.2 RDW 15.9 H Plt Count 101 L Seg Neutrophils % Lymphocytes % Monocytes % Eosinophils % Basophils % Absolute Neutrophils Absolute Lymphocytes Absolute Monocytes Absolute Eosinophils Absolute Basophils Carbonic Acid HCO3/H2CO3 Ratio ABG pH ABG pCO2 ABG pO2 ABG HCO3 ABG O2 Saturation ABG Base Excess FiO2 Sodium Potassium Chloride Carbon Dioxide Anion Gap BUN Creatinine Est GFR ( Amer) Est GFR (Non-Af Amer) Glucose Lactic Acid 2.0 Calcium Phosphorus Magnesium Total Bilirubin AST ALT Alkaline Phosphatase Total Protein Albumin Blood Type A POSITIVE Antibody Screen NEGATIVE 06/02/17 06/02/17 06/02/17 03:05 03:05 03:05 WBC 11.3 H RBC 2.90 L Hgb 9.5 L Hct 27.4 L MCV 95 MCH 32.8 MCHC 34.7 RDW 16.6 H Plt Count 84 L Seg Neutrophils % Not Reportable Lymphocytes % Not Reportable Monocytes % Not Reportable Eosinophils % Not Reportable Basophils % Not Reportable Absolute Neutrophils Not Reportable Absolute Lymphocytes Not Reportable Absolute Monocytes Not Reportable Absolute Eosinophils Not Reportable Absolute Basophils Not Reportable Carbonic Acid 0.84 L HCO3/H2CO3 Ratio 24:1 ABG pH 7.48 H ABG pCO2 28.0 L ABG pO2 75.7 L ABG HCO3 20.6 ABG O2 Saturation 96.3 ABG Base Excess -1.7 FiO2 2L Sodium 132.0 L Potassium 3.1 L Chloride 102 Carbon Dioxide 21 L Anion Gap 9 BUN 69 H Creatinine 1.22 Est GFR ( Amer) 54 L Est GFR (Non-Af Amer) 45 L Glucose 129 H Lactic Acid Calcium 8.1 L Phosphorus 3.7 Magnesium 2.2 Total Bilirubin 1.7 H AST 33 ALT 37 Alkaline Phosphatase 42 Total Protein 4.3 L Albumin 2.4 L Blood Type Antibody Screen 06/02/17 03:05 WBC RBC Hgb Hct MCV MCH MCHC RDW Plt Count Seg Neutrophils % Lymphocytes % Monocytes % Eosinophils % Basophils % Absolute Neutrophils Absolute Lymphocytes Absolute Monocytes Absolute Eosinophils Absolute Basophils Carbonic Acid HCO3/H2CO3 Ratio ABG pH ABG pCO2 ABG pO2 ABG HCO3 ABG O2 Saturation ABG Base Excess FiO2 Sodium Potassium Chloride Carbon Dioxide Anion Gap BUN Creatinine Est GFR ( Amer) Est GFR (Non-Af Amer) Glucose Lactic Acid 1.6 Calcium Phosphorus Magnesium Total Bilirubin AST ALT Alkaline Phosphatase Total Protein Albumin Blood Type Antibody Screen 05/30/17 05/30/17 05/31/17 23:35 23:35 05:25 Troponin I 0.015 NT-Pro-B Natriuret Pep 1950 H 1670 H Impressions: Abdomen/Pelvis CT 05/29/17 19:55 IMPRESSION: Multiple loops of small bowel measuring greater than 4.4 cm in diameter with fecalization of contents common nonspecific, possibly persistent ileus. No obvious mesenteric inflammatory changes. 3.2 cm low-density partial rim enhancing lesion in the right sciatic notch, unclear ideology as there are no adjacent inflammatory changes, possible nerve sheath tumor is a differential consideration. Probable wall thickening in the distal esophagus versus adjacent compressive subsegmental atelectasis,, apparent wall thickness measuring up to 7 mm. Small right hip joint effusion and moderate osteoarthritic changes. Chest X-Ray 06/02/17 06:00 IMPRESSION: No significant interval change. Assessment & Plan - Diagnosis (1) ARF (acute renal failure) Qualifiers: Acute renal failure type: unspecified Qualified Code(s): N17.9 - Acute kidney failure, unspecified Is this a current diagnosis for this admission?: Yes (2) Abnormal CT scan, esophagus Is this a current diagnosis for this admission?: Yes (3) Abnormal CT scan, pelvis Is this a current diagnosis for this admission?: Yes (4) Pulmonary hypertension Is this a current diagnosis for this admission?: Yes (5) Asthma Is this a current diagnosis for this admission?: Yes Plan: Bronchodilators inhaled corticosteroids (6) Atrial fibrillation Qualifiers: Atrial fibrillation type: chronic Qualified Code(s): I48.2 - Chronic atrial fibrillation Is this a current diagnosis for this admission?: Yes Plan: Ventricular response with improved control Cardizem and digoxin and beta-shaun (7) CHF (congestive heart failure) Qualifiers: Congestive heart failure type: combined Congestive heart failure chronicity : chronic Qualified Code(s): I50.42 - Chronic combined systolic (congestive) and diastolic (congestive) heart failure Is this a current diagnosis for this admission?: No Plan: Check a BNP (8) ANNA (obstructive sleep apnea) Is this a current diagnosis for this admission?: Yes (9) Septic shock Is this a current diagnosis for this admission?: Yes Plan: Continues to require supplemental vasopressor agent (10) Thrombocytopenia Is this a current diagnosis for this admission?: Yes Plan: Labs- All tests 24 hr 05/30/17 05/30/17 05/31/17 06:35 23:35 05:25 Plt Count 162 158 156 06/01/17 06/01/17 06/02/17 05:15 17:43 03:05 Plt Count 133 L 101 L 84 L check heparin induced
--- NOTE | 2017-06-02 10:19 | PDOC PROGRESS REPORT ---
Subjective Progress Note for:: 06/01/17 Subjective:: More Alert today Physical Exam Vital Signs: Temp Pulse Resp BP Pulse Ox 99.7 F 92 15 86/57 L 96 06/01/17 06:00 05/31/17 22:00 06/01/17 06:00 06/01/17 05:14 06/01/17 06:00 Intake & Output 05/31/17 06/01/17 06/02/17 06:59 06:59 06:59 Intake Total 4363 3546 Output Total 1735 1625 150 Balance 2628 1921 -150 Weight 86.9 kg 88.1 kg General appearance: PRESENT: no acute distress, cooperative, disheveled, morbidly obese, well-developed Head exam: PRESENT: atraumatic, normocephalic Eye exam: PRESENT: conjunctiva pale, EOMI Mouth exam: PRESENT: dry mucosa, neck supple, tongue midline Neck exam: ABSENT: carotid bruit, JVD, lymphadenopathy, thyromegaly Respiratory exam: PRESENT: decreased breath sounds, prolonged expiratory phas, rales, rhonchi, symmetrical, unlabored. ABSENT: retraction, stridor, tachypnea Cardiovascular exam: PRESENT: irregular rhythm Pulses: PRESENT: normal radial pulses GI/Abdominal exam: PRESENT: normal bowel sounds, soft. ABSENT: distended, guarding, mass, organolmegaly, rebound, tenderness Rectal exam: PRESENT: deferred Gentrourinary exam: PRESENT: indwelling catheter Extremities exam: PRESENT: +1 edema Neurological exam: PRESENT: alert, awake, oriented to person, oriented to place , oriented to time Skin exam: PRESENT: dry, warm Results Laboratory Results: 06/01/17 05:15 06/01/17 05:15 05/31/17 06/01/17 06/01/17 09:20 04:50 05:15 WBC RBC Hgb Hct MCV MCH MCHC RDW Plt Count Seg Neutrophils % Lymphocytes % Monocytes % Eosinophils % Basophils % Absolute Neutrophils Absolute Lymphocytes Absolute Monocytes Absolute Eosinophils Absolute Basophils Carbonic Acid 0.83 L HCO3/H2CO3 Ratio 23:1 ABG pH 7.46 H ABG pCO2 27.5 L ABG pO2 70.0 L ABG HCO3 19.1 L ABG O2 Saturation 95.2 ABG Base Excess -3.9 FiO2 3 LITERS Sodium Potassium Chloride Carbon Dioxide Anion Gap BUN Creatinine Est GFR ( Amer) Est GFR (Non-Af Amer) Glucose Lactic Acid 2.7 H Calcium Phosphorus Magnesium Total Bilirubin AST ALT Alkaline Phosphatase Total Protein Albumin Stool Occult Blood NEGATIVE 06/01/17 06/01/17 06/01/17 05:15 05:15 05:15 WBC 13.7 H RBC 2.28 L Hgb 7.8 L Hct 22.7 L MCV 100 H MCH 34.1 H MCHC 34.2 RDW 18.2 H Plt Count 133 L Seg Neutrophils % Not Reportable Lymphocytes % Not Reportable Monocytes % Not Reportable Eosinophils % Not Reportable Basophils % Not Reportable Absolute Neutrophils Not Reportable Absolute Lymphocytes Not Reportable Absolute Monocytes Not Reportable Absolute Eosinophils Not Reportable Absolute Basophils Not Reportable Carbonic Acid HCO3/H2CO3 Ratio ABG pH ABG pCO2 ABG pO2 ABG HCO3 ABG O2 Saturation ABG Base Excess FiO2 Sodium 127.6 L Potassium 4.0 Chloride 98 Carbon Dioxide 19 L Anion Gap 11 BUN 74 H Creatinine 1.49 H Est GFR ( Amer) 43 L Est GFR (Non-Af Amer) 35 L Glucose 153 H Lactic Acid 2.3 H Calcium 8.3 L Phosphorus 4.5 Magnesium 2.2 Total Bilirubin 1.2 AST 24 ALT 41 Alkaline Phosphatase 47 Total Protein 4.3 L Albumin 2.4 L Stool Occult Blood 05/30/17 05/30/17 05/31/17 23:35 23:35 05:25 Troponin I 0.015 NT-Pro-B Natriuret Pep 1950 H 1670 H Impressions: Abdomen/Pelvis CT 05/29/17 19:55 IMPRESSION: Multiple loops of small bowel measuring greater than 4.4 cm in diameter with fecalization of contents common nonspecific, possibly persistent ileus. No obvious mesenteric inflammatory changes. 3.2 cm low-density partial rim enhancing lesion in the right sciatic notch, unclear ideology as there are no adjacent inflammatory changes, possible nerve sheath tumor is a differential consideration. Probable wall thickening in the distal esophagus versus adjacent compressive subsegmental atelectasis,, apparent wall thickness measuring up to 7 mm. Small right hip joint effusion and moderate osteoarthritic changes. Chest X-Ray 06/01/17 06:00 IMPRESSION: No significant interval change. Assessment & Plan - Diagnosis (1) ARF (acute renal failure) Qualifiers: Acute renal failure type: unspecified Qualified Code(s): N17.9 - Acute kidney failure, unspecified Is this a current diagnosis for this admission?: Yes (2) Abnormal CT scan, esophagus Is this a current diagnosis for this admission?: Yes (3) Abnormal CT scan, pelvis Is this a current diagnosis for this admission?: Yes (4) Pulmonary hypertension Is this a current diagnosis for this admission?: Yes (5) Asthma Is this a current diagnosis for this admission?: Yes Plan: Bronchodilators inhaled corticosteroids (6) Atrial fibrillation Qualifiers: Atrial fibrillation type: chronic Qualified Code(s): I48.2 - Chronic atrial fibrillation Is this a current diagnosis for this admission?: Yes Plan: Ventricular response with improved control Cardizem and digoxin and beta-shaun (7) CHF (congestive heart failure) Qualifiers: Congestive heart failure type: combined Congestive heart failure chronicity : chronic Qualified Code(s): I50.42 - Chronic combined systolic (congestive) and diastolic (congestive) heart failure Is this a current diagnosis for this admission?: No (8) ANNA (obstructive sleep apnea) Is this a current diagnosis for this admission?: Yes (9) Septic shock Is this a current diagnosis for this admission?: Yes Plan: Continues to require supplemental vasopressor agent - Time Critical Time spent with patient: 25-34 minutes
[2017-06-02] MEDS: FAMOTIDINE INJ/PF 20 MG/2 ML SDV IV SCH ×2 (10:25→21:20)
[2017-06-02] MEDS: METOPROLOL SUCCINATE 25 MG TAB.SR.24H PO SCH ×2 (10:26→21:19)
[2017-06-02] MEDS: DIGOXIN 0.125 MG TABLET PO SCH (10:26)
[2017-06-02] MEDS: HEPARIN SOD (PORCINE) 5,000 UNIT/ML 1 ML SYRINGE SUBCUT SCH ×2 (10:27→21:20)
[2017-06-02] MEDS: LACTULOSE SYRUP 20 GM/30 ML UDCUP PO SCH ×3 (10:27→18:00)
--- NOTE | 2017-06-02 11:15 | PDOC PROGRESS REPORT ---
Subjective Progress Note for:: 06/02/17 Subjective:: Patient was confused overnight. She is having some component of ICU psychosis Physical Exam Vital Signs: Temp Pulse Resp BP Pulse Ox 99.3 F 107 H 16 111/59 L 96 06/02/17 06:45 06/02/17 08:17 06/02/17 08:17 06/02/17 05:59 06/02/17 08:17 Intake & Output 06/01/17 06/02/17 06/03/17 06:59 06:59 06:59 Intake Total 3546 3323 Output Total 1625 2110 175 Balance 1921 1213 -175 Weight 88.1 kg 89.6 kg General appearance: PRESENT: no acute distress Eye exam: PRESENT: conjunctiva pink. ABSENT: scleral icterus Ear exam: PRESENT: normal external ear exam Neck exam: ABSENT: JVD Respiratory exam: PRESENT: rhonchi - Coarse rhonchi bilaterally.. ABSENT: rales , wheezes Cardiovascular exam: PRESENT: irregular rhythm. ABSENT: diastolic murmur, rubs , systolic murmur GI/Abdominal exam: PRESENT: normal bowel sounds, soft. ABSENT: distended, guarding, mass, organolmegaly, rebound, tenderness Extremities exam: ABSENT: calf tenderness, clubbing, pedal edema Neurological exam: PRESENT: altered, awake Psychiatric exam: PRESENT: anxious Skin exam: PRESENT: other - Ecchymosis present on the left arm and bilateral legs. Results Laboratory Results: 06/02/17 03:05 06/02/17 03:05 06/01/17 06/01/17 06/02/17 07:50 17:43 03:05 WBC 11.1 H RBC 3.16 L Hgb 10.2 L D Hct 29.9 L MCV 95 D MCH 32.4 MCHC 34.2 RDW 15.9 H Plt Count 101 L Seg Neutrophils % Lymphocytes % Monocytes % Eosinophils % Basophils % Absolute Neutrophils Absolute Lymphocytes Absolute Monocytes Absolute Eosinophils Absolute Basophils Carbonic Acid 0.84 L HCO3/H2CO3 Ratio 24:1 ABG pH 7.48 H ABG pCO2 28.0 L ABG pO2 75.7 L ABG HCO3 20.6 ABG O2 Saturation 96.3 ABG Base Excess -1.7 FiO2 2L Sodium Potassium Chloride Carbon Dioxide Anion Gap BUN Creatinine Est GFR ( Amer) Est GFR (Non-Af Amer) Glucose Lactic Acid Calcium Phosphorus Magnesium Total Bilirubin AST ALT Alkaline Phosphatase Total Protein Albumin Blood Type A POSITIVE Antibody Screen NEGATIVE 06/02/17 06/02/17 06/02/17 03:05 03:05 03:05 WBC 11.3 H RBC 2.90 L Hgb 9.5 L Hct 27.4 L MCV 95 MCH 32.8 MCHC 34.7 RDW 16.6 H Plt Count 84 L Seg Neutrophils % Not Reportable Lymphocytes % Not Reportable Monocytes % Not Reportable Eosinophils % Not Reportable Basophils % Not Reportable Absolute Neutrophils Not Reportable Absolute Lymphocytes Not Reportable Absolute Monocytes Not Reportable Absolute Eosinophils Not Reportable Absolute Basophils Not Reportable Carbonic Acid HCO3/H2CO3 Ratio ABG pH ABG pCO2 ABG pO2 ABG HCO3 ABG O2 Saturation ABG Base Excess FiO2 Sodium 132.0 L Potassium 3.1 L Chloride 102 Carbon Dioxide 21 L Anion Gap 9 BUN 69 H Creatinine 1.22 Est GFR ( Amer) 54 L Est GFR (Non-Af Amer) 45 L Glucose 129 H Lactic Acid 1.6 Calcium 8.1 L Phosphorus 3.7 Magnesium 2.2 Total Bilirubin 1.7 H AST 33 ALT 37 Alkaline Phosphatase 42 Total Protein 4.3 L Albumin 2.4 L Blood Type Antibody Screen 05/30/17 05/30/17 05/31/17 23:35 23:35 05:25 Troponin I 0.015 NT-Pro-B Natriuret Pep 1950 H 1670 H Impressions: Abdomen/Pelvis CT 05/29/17 19:55 IMPRESSION: Multiple loops of small bowel measuring greater than 4.4 cm in diameter with fecalization of contents common nonspecific, possibly persistent ileus. No obvious mesenteric inflammatory changes. 3.2 cm low-density partial rim enhancing lesion in the right sciatic notch, unclear ideology as there are no adjacent inflammatory changes, possible nerve sheath tumor is a differential consideration. Probable wall thickening in the distal esophagus versus adjacent compressive subsegmental atelectasis,, apparent wall thickness measuring up to 7 mm. Small right hip joint effusion and moderate osteoarthritic changes. Head CT 06/02/17 00:00 IMPRESSION: MILD CHRONIC CHANGES OF ATROPHY AND MICROVASCULAR ISCHEMIA. NO ACUTE PROCESS. EVIDENCE OF ACUTE STROKE: NO. Chest X-Ray 06/02/17 06:00 IMPRESSION: No significant interval change. Assessment & Plan - Diagnosis (1) Septic shock Is this a current diagnosis for this admission?: Yes Plan: She is no longer requiring vasopressors. The patient is being followed by pulmonary medicine. We will continue with the antibiotics for bilateral pneumonia. (2) Bilateral pneumonia Qualifiers: Pneumonia type: due to unspecified organism Lung location: unspecified part of lung Qualified Code(s): J18.9 - Pneumonia, unspecified organism Is this a current diagnosis for this admission?: Yes Plan: Patient is on vancomycin, cefepime, Levaquin. (3) ARF (acute renal failure) Qualifiers: Acute renal failure type: unspecified Qualified Code(s): N17.9 - Acute kidney failure, unspecified Is this a current diagnosis for this admission?: Yes Plan: Patient is being followed by nephrology. (4) Metabolic acidosis Is this a current diagnosis for this admission?: Yes Plan: Secondary to acute renal failure (5) Pulmonary hypertension Is this a current diagnosis for this admission?: Yes (6) Atrial fibrillation Qualifiers: Atrial fibrillation type: chronic Qualified Code(s): I48.2 - Chronic atrial fibrillation Is this a current diagnosis for this admission?: Yes Plan: Was started on a diltiazem drip last night. Cardiology is following (7) CHF (congestive heart failure) Qualifiers: Congestive heart failure type: combined Congestive heart failure chronicity : chronic Qualified Code(s): I50.42 - Chronic combined systolic (congestive) and diastolic (congestive) heart failure Is this a current diagnosis for this admission?: No Plan: Patient had an echocardiogram done yesterday evening. Cardiology is following the patient. (8) Fibromyalgia Is this a current diagnosis for this admission?: Yes (9) Hyperlipidemia Qualifiers: Hyperlipidemia type: unspecified Qualified Code(s): E78.5 - Hyperlipidemia , unspecified Is this a current diagnosis for this admission?: Yes (10) Hypothyroid Qualifiers: Hypothyroidism type: unspecified Qualified Code(s): E03.9 - Hypothyroidism , unspecified Is this a current diagnosis for this admission?: Yes (11) ANNA (obstructive sleep apnea) Is this a current diagnosis for this admission?: Yes (12) Anemia Is this a current diagnosis for this admission?: Yes Plan: Patient does not have any obvious blood loss however she does have a good bit of ecchymosis. (13) Encephalopathy Is this a current diagnosis for this admission?: Yes Plan: This most likely represents ICU psychosis. The patient had a head CT done this morning which shows no acute event. We will try to move out of the intensive care unit to see if that will improve her confusion. - Time Time Spent with patient: 25-34 minutes - Inpatient Certification Medical Necessity: Need Close Monitoring Due to Risk of Patient Decompensation, Need for IV Antibiotics
[2017-06-02] MEDS: CEFEPIME 2 GM/D5W RTU 2 GM/50 ML RTUPB IV SCH (14:07)
[2017-06-02] MEDS: VANCOMYCIN HCL 750 MG in DEXTROSE 5%-WATER 250 ML IV SCH (18:00)
--- NOTE | 2017-06-02 18:17 | PDOC PROGRESS REPORT ---
Subjective Progress Note for:: 06/02/17 Subjective:: Patient has been transferred to [facility] this afternoon. She has some episodes of confusion deemed to be due to ICU psychosis. Patient's blood pressure has been stable so far. She is making good amount of urine. However her heart rate is still fast and she is back on Cardizem drip. Patient tells me that she wanted to eat but she has not had bowel movement for almost 2 weeks as confirmed by the at bedside. So currently she is still n.p.o. and she is going to receive some soapsuds enema tonight. Physical Exam Vital Signs: Temp Pulse Resp BP Pulse Ox 98.5 F 131 H 20 97/65 L 97 06/02/17 12:42 06/02/17 16:52 06/02/17 14:17 06/02/17 16:52 06/02/17 15:19 Intake & Output 06/01/17 06/02/17 06/03/17 06:59 06:59 06:59 Intake Total 3546 3323 0 Output Total 1625 2110 425 Balance 1921 1213 -425 Weight 88.1 kg 89.6 kg Exam: General appearance: PRESENT: no acute distress, cooperative, well-developed, well-nourished Head exam: PRESENT: atraumatic, normocephalic Eye exam: PRESENT: conjunctiva pale, PERRLA. ABSENT: scleral icterus Neck exam: ABSENT: JVD Respiratory exam: PRESENT: Diminished breath sounds. ABSENT: crackles, rales, rhonchi, unlabored, wheezes Cardiovascular exam: PRESENT: Irregularly irregular rate rhythm -+S1, +S2. ABSENT: diastolic murmur, systolic murmur GI/Abdominal exam: PRESENT: normal bowel sounds, soft. ABSENT: guarding, mass, tenderness Extremities exam: ABSENT: No edema Neurological exam: PRESENT: alert, awake, oriented to person, place and time. Skin exam: PRESENT: dry, warm, Results Laboratory Results: 06/02/17 03:05 06/02/17 03:05 06/01/17 06/01/17 06/02/17 07:50 17:43 03:05 WBC 11.1 H RBC 3.16 L Hgb 10.2 L D Hct 29.9 L MCV 95 D MCH 32.4 MCHC 34.2 RDW 15.9 H Plt Count 101 L Seg Neutrophils % Lymphocytes % Monocytes % Eosinophils % Basophils % Absolute Neutrophils Absolute Lymphocytes Absolute Monocytes Absolute Eosinophils Absolute Basophils Carbonic Acid 0.84 L HCO3/H2CO3 Ratio 24:1 ABG pH 7.48 H ABG pCO2 28.0 L ABG pO2 75.7 L ABG HCO3 20.6 ABG O2 Saturation 96.3 ABG Base Excess -1.7 FiO2 2L Sodium Potassium Chloride Carbon Dioxide Anion Gap BUN Creatinine Est GFR ( Amer) Est GFR (Non-Af Amer) Glucose Lactic Acid Calcium Phosphorus Magnesium Total Bilirubin AST ALT Alkaline Phosphatase Total Protein Albumin Blood Type A POSITIVE Antibody Screen NEGATIVE 06/02/17 06/02/17 06/02/17 03:05 03:05 03:05 WBC 11.3 H RBC 2.90 L Hgb 9.5 L Hct 27.4 L MCV 95 MCH 32.8 MCHC 34.7 RDW 16.6 H Plt Count 84 L Seg Neutrophils % Not Reportable Lymphocytes % Not Reportable Monocytes % Not Reportable Eosinophils % Not Reportable Basophils % Not Reportable Absolute Neutrophils Not Reportable Absolute Lymphocytes Not Reportable Absolute Monocytes Not Reportable Absolute Eosinophils Not Reportable Absolute Basophils Not Reportable Carbonic Acid HCO3/H2CO3 Ratio ABG pH ABG pCO2 ABG pO2 ABG HCO3 ABG O2 Saturation ABG Base Excess FiO2 Sodium 132.0 L Potassium 3.1 L Chloride 102 Carbon Dioxide 21 L Anion Gap 9 BUN 69 H Creatinine 1.22 Est GFR ( Amer) 54 L Est GFR (Non-Af Amer) 45 L Glucose 129 H Lactic Acid 1.6 Calcium 8.1 L Phosphorus 3.7 Magnesium 2.2 Total Bilirubin 1.7 H AST 33 ALT 37 Alkaline Phosphatase 42 Total Protein 4.3 L Albumin 2.4 L Blood Type Antibody Screen 05/30/17 05/30/17 05/31/17 23:35 23:35 05:25 Troponin I 0.015 NT-Pro-B Natriuret Pep 1950 H 1670 H Impressions: Abdomen/Pelvis CT 05/29/17 19:55 IMPRESSION: Multiple loops of small bowel measuring greater than 4.4 cm in diameter with fecalization of contents common nonspecific, possibly persistent ileus. No obvious mesenteric inflammatory changes. 3.2 cm low-density partial rim enhancing lesion in the right sciatic notch, unclear ideology as there are no adjacent inflammatory changes, possible nerve sheath tumor is a differential consideration. Probable wall thickening in the distal esophagus versus adjacent compressive subsegmental atelectasis,, apparent wall thickness measuring up to 7 mm. Small right hip joint effusion and moderate osteoarthritic changes. Head CT 06/02/17 00:00 IMPRESSION: MILD CHRONIC CHANGES OF ATROPHY AND MICROVASCULAR ISCHEMIA. NO ACUTE PROCESS. EVIDENCE OF ACUTE STROKE: NO. Chest X-Ray 06/02/17 06:00 IMPRESSION: No significant interval change. Assessment & Plan - Diagnosis (1) EDY (acute kidney injury) Is this a current diagnosis for this admission?: Yes Plan: This could start as secondary to prerenal azotemia due to decreased p.o. intake worsened by persistent hypotension leading to acute tubular necrosis. Currently the patient is nonoliguric and I do not believe she is fluid overloaded either. Patient does not have any proteinuria no significant microhematuria. Needs to maintain an adequate perfusion pressure to the kidneys. At this time the patient does not need any renal replacement therapy. Needs to follow vancomycin trough level to avoid nephrotoxicity. Continuation of vancomycin needs to be evaluated based on cultures. Patient's kidney function is much improved. Her BUN seems to be disproportionately more elevated compared to the creatinine which is likely due to combination of factors including steroids, and cardiorenal syndrome. Decrease her IV fluid to 75 mL an hour. Continue to monitor kidney function. Once the patient start some form of diet I think the IV fluids can be tapered down or discontinued to prevent any fluid overload in view of her known CHF which is currently compensated clinically at least. (2) Acute renal tubular necrosis Is this a current diagnosis for this admission?: Yes (3) Septic shock Is this a current diagnosis for this admission?: Yes (4) Adrenal insufficiency Is this a current diagnosis for this admission?: Yes Plan: Continue hydrocortisone. (5) Hyponatremia Is this a current diagnosis for this admission?: Yes Plan: Improving. Could be due to the hypotonic fluids from medications. (6) Hypoalbuminemia Is this a current diagnosis for this admission?: Yes (7) Bilateral pneumonia Qualifiers: Pneumonia type: due to unspecified organism Lung location: unspecified part of lung Qualified Code(s): J18.9 - Pneumonia, unspecified organism Is this a current diagnosis for this admission?: Yes (8) Atrial fibrillation Qualifiers: Atrial fibrillation type: chronic Qualified Code(s): I48.2 - Chronic atrial fibrillation Is this a current diagnosis for this admission?: Yes (9) Anemia Is this a current diagnosis for this admission?: Yes Plan: Patient transfused 2 units of packed RBC. - Notes Notes: I will sign off at this time. Please do not hesitate to call me if I can be of further help. - Time Time with patient: 15-25 minutes
[2017-06-03] MEDS ORDERED: ONDANSETRON HCL INJ/PF 4 MG/2 ML SDV IV ONE (01:47)
[2017-06-03] MEDS ORDERED: LACTULOSE SYRUP 20 GM/30 ML UDCUP PR ONE (01:49)
[2017-06-03] MEDS: DILTIAZEM HCL/D5W 125 MG/125 ML RTUINJ IV PRN (02:10)
[2017-06-03] MEDS: HYDROCORTISONE SOD SUCCINATE INJ/PF 100 MG/2 ML SDV IV SCH ×2 (03:54→11:49)
--- NOTE | 2017-06-03 04:35 | RADIOLOGY REPORT (SQ) ---
EXAM DESCRIPTION: ABDOMEN 2 VIEWS COMPLETED DATE/TIME: 06/03/2017 3:14 am REASON FOR STUDY: intractable vomiting COMPARISON: CT, 05/29/2017. CR, chest, 06/02/2017. NUMBER OF VIEWS: Two views. TECHNIQUE: Supine and erect/decubitus radiographic images of the abdomen acquired. LIMITATIONS: Positioning. FINDINGS: FREE AIR: None. No abnormal gas collections. LUNG BASES: Clear. BOWEL GAS PATTERN: Nonobstructive pattern. No dilated loops or air fluid levels. Moderate nonspecifi c gastric distention. Residual intraluminal contrast. CALCIFICATIONS: No suspicious calcifications. SOFT TISSUES: No gross mass or suggestion of organomegaly. HARDWARE: Likely adequate Mon catheter. BONES: No acute fracture. No worrisome bone lesions. Moderate vacuum disc desiccation. Oblique view s of the pelvis and hips. Moderate osteoarthritis. OTHER: No other significant finding. IMPRESSION: No acute findings. Limitation. TECHNICAL DOCUMENTATION: JOB ID: [id number] [employer]- All Rights Reserved
--- NOTE | 2017-06-03 05:29 | PDOC PROGRESS REPORT ---
Subjective Progress Note for:: 06/03/17 Subjective:: 61-year-old patient with multiple medical problems currently in the hospital for sepsis due to pneumonia. Patient with poor mobility and constipation. Recently patient has been noted with confusion. Tonight she had multiple episodes of emesis. She apparently has had small response with the enemas with small hard fecal balls and some diarrhea with the enemas. She had been evaluated by 1 of my colleagues several days ago and the impression at that time was constipation. Hospital is requested reevaluation now with her nausea and vomiting. Patient is confused and cannot provide any type of history. Physical Exam Vital Signs: Temp Pulse Resp BP Pulse Ox 98.7 F 128 H 18 133/72 H 100 06/02/17 23:26 06/03/17 02:00 06/02/17 23:26 06/03/17 00:46 06/02/17 23:26 Intake & Output 06/01/17 06/02/17 06/03/17 06:59 06:59 06:59 Intake Total 3546 3323 310 Output Total 1625 2110 3575 Balance 1921 1213 -3265 Weight 88.1 kg 89.6 kg General appearance: PRESENT: morbidly obese Respiratory exam: PRESENT: rhonchi Cardiovascular exam: PRESENT: irregular rhythm GI/Abdominal exam: PRESENT: other - Morbidly obese and difficult to tell whether she is distended however abdomen is very soft with no apparent distention and patient denies any pain with deep palpation. She has a well- healed lower midline abdominal scar with no palpable hernia defects. Patient has hypoactive bowel sounds. Neurological exam: PRESENT: altered, awake Focused psych exam: PRESENT: restlessness Results Laboratory Results: 06/02/17 03:05 06/02/17 03:05 06/01/17 07:50 Blood Type A POSITIVE Antibody Screen NEGATIVE 05/30/17 05/30/17 05/31/17 23:35 23:35 05:25 Troponin I 0.015 NT-Pro-B Natriuret Pep 1950 H 1670 H Impressions: Abdomen/Pelvis CT 05/29/17 19:55 IMPRESSION: Multiple loops of small bowel measuring greater than 4.4 cm in diameter with fecalization of contents common nonspecific, possibly persistent ileus. No obvious mesenteric inflammatory changes. 3.2 cm low-density partial rim enhancing lesion in the right sciatic notch, unclear ideology as there are no adjacent inflammatory changes, possible nerve sheath tumor is a differential consideration. Probable wall thickening in the distal esophagus versus adjacent compressive subsegmental atelectasis,, apparent wall thickness measuring up to 7 mm. Small right hip joint effusion and moderate osteoarthritic changes. Head CT 06/02/17 00:00 IMPRESSION: MILD CHRONIC CHANGES OF ATROPHY AND MICROVASCULAR ISCHEMIA. NO ACUTE PROCESS. EVIDENCE OF ACUTE STROKE: NO. Chest X-Ray 06/02/17 06:00 IMPRESSION: No significant interval change. Abdomen X-Ray 06/03/17 00:00 IMPRESSION: No acute findings. Limitation. Assessment & Plan - Diagnosis (1) Nausea & vomiting Is this a current diagnosis for this admission?: Yes Plan: Of unclear etiology. However abdomen is very soft and nontender. With her altered mental status and nausea and vomiting I highly recommend NG tube decompression. Will obtain a abdominal pelvic CT scan to better assess her abdomen. Surgical service will follow.
[2017-06-03 06:28] LABS: ALBUMIN 2.4 g/dL (3.5-5.0); BILIRUBIN,DIRECT 0.9 mg/dL (0.0-0.4); BLOOD UREA NITROGEN 74 mg/dL (7-20); CARBON DIOXIDE 21 mmol/L (22-30); GLUCOSE 144 mg/dL (75-110); PHOSPHORUS 3.1 mg/dL (2.5-4.5); POTASSIUM 3.6 mmol/L (3.6-5.0); TOTAL PROTEIN 4.2 g/dL (6.3-8.2)
[2017-06-03 06:37] LABS: ARTERIAL BLOOD BASE EXCESS -1.5 mmol/L; ARTERIAL BLOOD O2 SATURATION 96.5 % (94-98)
[2017-06-03 06:41] LABS: ALANINE AMINOTRANSFERASE 44 U/L (9-52); ALKALINE PHOSPHATASE 44 U/L (38-126); ANION GAP 7 (5-19); ASPARTATE AMINO TRANSFERASE 37 U/L (14-36); CALCIUM 8.2 mg/dL (8.4-10.2); CHLORIDE 106 mmol/L (98-107); CREATININE RESULT 1.17 mg/dL (0.52-1.25); DIGOXIN 1.01 ng/mL (0.8-2.0); LIPASE 406.8 U/L (23-300); SODIUM 134.2 mmol/L (137-145)
[2017-06-03 06:48] LABS: HEMATOCRIT 23.8 % (36.0-47.0); HEMOGLOBIN 8.1 g/dL (12.0-15.5); HGB HCT DIFFERENCE 0.5; MEAN CORPUSCULAR VOLUME 97 fl (80-97); RED BLOOD COUNT 2.45 10^6/uL (3.72-5.28); WHITE BLOOD COUNT 10.9 10^3/uL (4.0-10.5)
[2017-06-03 06:49] LABS: MEAN CORPUSCULAR HEMOGLOBIN 33.1 pg (27.0-33.4); MEAN CORPUSCULAR HGB CONC 34.1 g/dL (32.0-36.0); RED CELL DISTRIBUTION WIDTH 17.9 % (11.5-14.0)
[2017-06-03 07:12] LABS: BAND NEUTROPHILS % (MANUAL) 3 % (3-5); BASOPHILS % (MANUAL) 0 % (0-2); EOSINOPHILS % (MANUAL) 0 % (0-6); LYMPHOCYTES % (MANUAL) 7 % (13-45); TOTAL CELLS COUNTED 100
[2017-06-03 07:15] LABS: ANISOCYTOSIS 1+; OVALOCYTES SLIGHT; POIKILOCYTOSIS SLIGHT; SCHISTOCYTES SLIGHT; TEAR DROP CELLS SLIGHT; TOXIC GRANULATION 1+; TOXIC VACUOLATION PRESENT
--- NOTE | 2017-06-03 07:20 | RADIOLOGY REPORT (SQ) ---
EXAM DESCRIPTION: CT ABD/PELVIS NO ORAL OR IV COMPLETED DATE/TIME: 06/03/2017 6:53 am REASON FOR STUDY: vomiting COMPARISON: 05/29/2017. TECHNIQUE: CT scan of the abdomen and pelvis performed without intravenous or oral contrast. Images reviewed with lung, soft tissue, and bone windows. Reconstructed coronal and sagittal MPR images revi ewed. All images stored on PACS. All CT scanners at this facility use dose modulation, iterative reconstruction, and/or weight based d osing when appropriate to reduce radiation dose to as low as reasonably achievable (ALARA). [facility]: Dose Right [facility]: CareDose [facility]: Dose Right [facility]: Teradose 4D [facility]: Smart [employer] RADIATION DOSE: Up-to-date CT equipment and radiation dose reduction techniques were employed. CTDIv ol: 18.3 mGy. DLP: 1019 mGy-cm.mGy. LIMITATIONS: None. FINDINGS: LOWER CHEST: Small to moderate airspace opacity of the left lung base. Minimal bilateral pleural effusion. NON-CONTRASTED LIVER, SPLEEN, ADRENALS: Evaluation limited by lack of IV contrast. No identified sign ificant masses. PANCREAS: No masses. No peripancreatic inflammatory changes. GALLBLADDER: Not discerned. RIGHT KIDNEY AND URETER: No suspicious masses. Assessment limited by lack of IV contrast. No signif icant calcifications. No hydronephrosis or hydroureter. 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 Assessment limited by lack of IV contrast. No significant calcifications. No hydronephrosis or hydroureter. AORTA AND RETROPERITONEUM: No aneurysm. No retroperitoneal masses or adenopathy. BOWEL AND PERITONEAL CAVITY: 4.7 cm diameter fluid distention of small bowel particularly in the left paracentral abdomen predominantly jejunal without zone of transition identified consistent with part ial or intermittent small bowel obstruction intraluminal contrast within the colon. Small colonic di verticulosis. APPENDIX: Not discerned. PELVIS, BLADDER, AND ABDOMINAL WALL:No abnormal masses. No free fluid. Bladder normal. Mon cathete r BONES: Moderate vacuum disc desiccation between the T11 and L3 levels. [id number] disc desicca tion. OTHER: [id number] anasarca. IMPRESSION: 1. Worsened intermittent small bowel obstruction/ileus pattern with jejunal bowel diame ter measuring 4.7 cm. 2. Small left lower lobar pneumonia. 3. Mild anasarca. COMMENT: Quality ID # [id number]: Final reports with documentation of one or more dose reduction techniques (e.g., Automated exposure control, adjustment of the mA and/or kV according to patient size, use of iterative reconstruction technique) TECHNICAL DOCUMENTATION: JOB ID: [id number] [employer]- All Rights Reserved
[2017-06-03 07:43] LABS: PATH REVIEW PATHOLOGIST REVIEWED
[2017-06-03] MEDS ORDERED: BENZOCAINE 20% AEROSOL SPRAY 60 GM TP PRN (07:50)
[2017-06-03] MEDS ORDERED: PROPOFOL 100 ML IV ONE (08:09)
[2017-06-03] MEDS ORDERED: PHARMACY COMMUNICATION ORDER MC NR (08:15)
[2017-06-03] MEDS ORDERED: PROPOFOL INJ 200 MG/20 ML VIAL IV ONE (08:35)
--- NOTE | 2017-06-03 08:38 | RADIOLOGY REPORT (SQ) ---
EXAM DESCRIPTION: CHEST SINGLE VIEW COMPLETED DATE/TIME: 06/03/2017 6:22 am REASON FOR STUDY: septic shock COMPARISON: Chest films 12/04/2016, 05/29/2017, 06/01/2017, 06/02/2017 CT chest 06/28/2016 EXAM PARAMETERS: NUMBER OF VIEWS: One view. TECHNIQUE: Single frontal radiographic view of the chest acquired. RADIATION DOSE: NA LIMITATIONS: None. FINDINGS: LUNGS AND PLEURA: There is patchy airspace disease in the left retrocardiac region, simila r compared to studies in May, worrisome for left lower lobe pneumonia. Minimal bandlike atelectasis right minor fissure. No pleural effusions. No pneumothorax. MEDIASTINUM AND HILAR STRUCTURES: No masses. Contour normal. HEART AND VASCULAR STRUCTURES: Stable cardiomegaly BONES: No acute findings. HARDWARE: Left jugular central line tip in the superior vena cava. OTHER: No other significant finding. IMPRESSION: Persistent left lower lobe airspace disease worrisome for pneumonia TECHNICAL DOCUMENTATION: JOB ID: [id number]
[2017-06-03] MEDS: IPRATROPIUM/ALBUTEROL 0.5-2.5 MG/3 ML AMPUL NEB SCH ×2 (08:39→13:48)
--- NOTE | 2017-06-03 08:49 | PDOC PROGRESS REPORT ---
Subjective Progress Note for:: 06/03/17 Subjective:: awake lethargic was on IMCU feculant vomiting returned to ICU discussed with PCP ;Patient;RN and spouse will intubate as will not be able to decompress w/o sedation Physical Exam Vital Signs: Temp Pulse Resp BP Pulse Ox 98.8 F 99 16 112/72 95 06/03/17 07:42 06/03/17 07:42 06/03/17 07:42 06/03/17 07:42 06/03/17 07:42 Intake & Output 06/02/17 06/03/17 06/04/17 06:59 06:59 06:59 Intake Total 3323 1524 Output Total 2110 3800 75 Balance 7113 -8936 -75 Weight 89.6 kg 88.1 kg General appearance: PRESENT: cooperative, disheveled, mild distress, obese, well -developed Head exam: PRESENT: atraumatic, normocephalic Eye exam: PRESENT: conjunctiva pale, EOMI Mouth exam: PRESENT: dry mucosa, neck supple, tongue midline, other - ET tube 7.5 @21 cm Neck exam: ABSENT: carotid bruit, JVD, lymphadenopathy, thyromegaly Respiratory exam: PRESENT: crackles, decreased breath sounds, prolonged expiratory phas, rhonchi, symmetrical, unlabored, wheezes, other - black copious ET aspirate = NGT aspirate. ABSENT: retraction, stridor, tachypnea Cardiovascular exam: PRESENT: irregular rhythm, other - a-fib with rvr Pulses: PRESENT: normal radial pulses GI/Abdominal exam: PRESENT: soft, tenderness, other - black copiousng ng aspirate Rectal exam: PRESENT: deferred Gentrourinary exam: PRESENT: indwelling catheter Extremities exam: PRESENT: +1 edema Skin exam: PRESENT: dry, warm Results Laboratory Results: 06/03/17 06:00 06/03/17 06:00 06/01/17 06/03/17 06/03/17 07:50 06:00 06:00 WBC RBC Hgb Hct MCV MCH MCHC RDW Plt Count Seg Neutrophils % Lymphocytes % Monocytes % Eosinophils % Basophils % Absolute Neutrophils Absolute Lymphocytes Absolute Monocytes Absolute Eosinophils Absolute Basophils Carbonic Acid Cancelled HCO3/H2CO3 Ratio Cancelled ABG pH Cancelled ABG pCO2 Cancelled ABG pO2 Cancelled ABG HCO3 Cancelled ABG O2 Saturation Cancelled ABG Base Excess Cancelled FiO2 Cancelled Sodium 134.2 L Potassium 3.6 Chloride 106 Carbon Dioxide 21 L Anion Gap 7 BUN 74 H Creatinine 1.17 Est GFR ( Amer) 57 L Est GFR (Non-Af Amer) 47 L Glucose 144 H Lactic Acid Calcium 8.2 L Phosphorus 3.1 Total Bilirubin 2.0 H AST 37 H ALT 44 Alkaline Phosphatase 44 Total Protein 4.2 L Albumin 2.4 L Lipase 406.8 H Blood Type A POSITIVE Antibody Screen NEGATIVE 06/03/17 06/03/17 06/03/17 06:00 06:00 06:25 WBC 10.9 H RBC 2.45 L Hgb 8.1 L Hct 23.8 L MCV 97 MCH 33.1 MCHC 34.1 RDW 17.9 H Plt Count 74 L Seg Neutrophils % Not Reportable Lymphocytes % Not Reportable Monocytes % Not Reportable Eosinophils % Not Reportable Basophils % Not Reportable Absolute Neutrophils Not Reportable Absolute Lymphocytes Not Reportable Absolute Monocytes Not Reportable Absolute Eosinophils Not Reportable Absolute Basophils Not Reportable Carbonic Acid 0.82 L HCO3/H2CO3 Ratio 25:1 ABG pH 7.50 H ABG pCO2 27.4 L ABG pO2 77.0 L ABG HCO3 20.8 ABG O2 Saturation 96.5 ABG Base Excess -1.5 FiO2 2L Sodium Potassium Chloride Carbon Dioxide Anion Gap BUN Creatinine Est GFR ( Amer) Est GFR (Non-Af Amer) Glucose Lactic Acid 1.7 Calcium Phosphorus Total Bilirubin AST ALT Alkaline Phosphatase Total Protein Albumin Lipase Blood Type Antibody Screen 05/30/17 05/30/17 05/31/17 23:35 23:35 05:25 Troponin I 0.015 NT-Pro-B Natriuret Pep 1950 H 1670 H 06/03/17 06:00 Troponin I NT-Pro-B Natriuret Pep 4870 H Impressions: Head CT 06/02/17 00:00 IMPRESSION: MILD CHRONIC CHANGES OF ATROPHY AND MICROVASCULAR ISCHEMIA. NO ACUTE PROCESS. EVIDENCE OF ACUTE STROKE: NO. Abdomen X-Ray 06/03/17 00:00 IMPRESSION: No acute findings. Limitation. Abdomen/Pelvis CT 06/03/17 00:00 IMPRESSION: 1. Worsened intermittent small bowel obstruction/ileus pattern with jejunal bowel diameter measuring 4.7 cm. 2. Small left lower lobar pneumonia. 3. Mild anasarca. Assessment & Plan - Diagnosis (1) ARF (acute renal failure) Qualifiers: Acute renal failure type: unspecified Qualified Code(s): N17.9 - Acute kidney failure, unspecified Is this a current diagnosis for this admission?: Yes (2) Abnormal CT scan, esophagus Is this a current diagnosis for this admission?: Yes (3) Abnormal CT scan, pelvis Is this a current diagnosis for this admission?: Yes Plan: updated today report worsening sm bowel obsrtuction (4) Pulmonary hypertension Is this a current diagnosis for this admission?: Yes (5) Asthma Is this a current diagnosis for this admission?: Yes Plan: Bronchodilators inhaled corticosteroids (6) Atrial fibrillation Qualifiers: Atrial fibrillation type: chronic Qualified Code(s): I48.2 - Chronic atrial fibrillation Is this a current diagnosis for this admission?: Yes Plan: need cardiazem,digoxin and cardevol (7) CHF (congestive heart failure) Qualifiers: Congestive heart failure type: combined Congestive heart failure chronicity : chronic Qualified Code(s): I50.42 - Chronic combined systolic (congestive) and diastolic (congestive) heart failure Is this a current diagnosis for this admission?: No (8) ANNA (obstructive sleep apnea) Is this a current diagnosis for this admission?: Yes (9) Septic shock Is this a current diagnosis for this admission?: Yes Plan: no pressor at this time - Time Critical Time spent with patient: 35 or more minutes - 70 min - Plan Summary Plan Summary: PLAN: discussed with PCP;patient;RN and spouse intubated ;decompress abdomen with ngt transfer to tertiary care
[2017-06-03] MEDS ORDERED: GUAIFENESIN SYRP 200 MG/10 ML UDC NG PRN (09:00)
[2017-06-03] MEDS ORDERED: ACETAMINOPHEN 325 MG TABLET NG PRN (09:00)
[2017-06-03] MEDS ORDERED: MIDAZOLAM HCL 100 ML IV ONE (09:30)
--- NOTE | 2017-06-03 09:30 | RADIOLOGY REPORT (SQ) ---
EXAM DESCRIPTION: CHEST SINGLE VIEW COMPLETED DATE/TIME: 06/03/2017 8:53 am REASON FOR STUDY: ET/NGT placement COMPARISON: 11/02/2016, 12/04/2016, 05/30/2017, 06/03/2017 EXAM PARAMETERS: NUMBER OF VIEWS: One view. TECHNIQUE: Single frontal radiographic view of the chest acquired. RADIATION DOSE: NA LIMITATIONS: None. FINDINGS: LUNGS AND PLEURA: Patchy airspace disease in the left upper lobe is present, asymmetric ed sintia versus pneumonia. Stable lingular scarring or atelectasis. Minimal stable airspace disease right upper lobe adjacent to the minor fissure. No gross pleural effusions or pneumothorax. MEDIASTINUM AND HILAR STRUCTURES: No masses. Contour normal. HEART AND VASCULAR STRUCTURES: Cardiomegaly BONES: No acute findings. HARDWARE: Endotracheal tube tip 2 cm above the elissa. Left-sided jugular central line tip in the mobley perior vena cava. Nasogastric tube tip and side port in the stomach. OTHER: No other significant finding. IMPRESSION: Tubes and lines in good positioning. Airspace disease in the left upper lobe asymmetric edema versus pneumonia. Minimal airspace disease in the right upper lobe adjacent to the major fissure, new compared to previ ous studies Stable lingular scarring or atelectasis and cardiomegaly TECHNICAL DOCUMENTATION: JOB ID: [id number]
[2017-06-03] MEDS ORDERED: DIGOXIN 0.125 MG TABLET NG SCH (10:00)
[2017-06-03] MEDS ORDERED: METOPROLOL SUCCINATE 25 MG TAB.SR.24H PO SCH (10:00)
[2017-06-03] MEDS ORDERED: SPIRONOLACTONE 25 MG TABLET NG SCH (10:00)
[2017-06-03 10:28] LABS: ARTERIAL BLOOD BASE EXCESS -2.4 mmol/L; ARTERIAL BLOOD O2 SATURATION 98.7 % (94-98)
[2017-06-03] MEDS ORDERED: SUCCINYLCHOLINE CHLORIDE INJ 200 MG/10 ML VIAL ONE (10:31)
--- NOTE | 2017-06-03 10:34 | Operative Report ---
Operative Report DATE OF SURGERY: 06/03/17 Operative Report: (r hand dominant) L art line attempted pulse identifiedarea prepped and draped in sterile fashion 2cc 1% lidocaine w/o epineprine into subcutaneous tissue.Using Arrow 20 g arterial kit several pass were attempted with good flash back unfortunately catherter would not advance.Good wave form on pulse oximiter post proceedure PREOPERATIVE DIAGNOSIS: sepsis POSTOPERATIVE DIAGNOSIS: sepsis OPERATION: L ARTERIAL LINE SURGEON: COLLETTE EMMANUEL ANESTHESIA: GA TISSUE REMOVED OR ALTERED: na COMPLICATIONS: none ESTIMATED BLOOD LOSS: 2 cc INTRAOPERATIVE FINDINGS: na
[2017-06-03] MEDS ORDERED: MIDAZOLAM HCL 100 ML IV PRN (10:56)
[2017-06-03] MEDS ORDERED: PROPOFOL 100 ML IV PRN (10:56)
[2017-06-03] MEDS ORDERED: DEXTROSE 5%-WATER 250 ML with NOREPINEPHRINE BITARTRATE 4 MG IV PRN ×2 (10:57)
[2017-06-03] MEDS ORDERED: NORMAL SALINE 1000 ML 1,000 ML IV PRN (10:57)
[2017-06-03] MEDS ORDERED: NOREPINEPHRINE BITARTRATE INJ/PF 4 MG/4 ML SDV IV ONE (10:58)
[2017-06-03] MEDS ORDERED: DIGOXIN INJ 0.5 MG/2 ML AMPULE IV SCH (11:00)
--- NOTE | 2017-06-03 11:12 | PROGRESS NOTE E ---
Progress Note NAME: NIMISHA PORTILLO : 1955 AGE: 61Y DATE: 06/03/2017 ROOM: [facility] SUBJECTIVE: The patient was just intubated and an NG tube was placed. NG tube drained initially about 200 mL of dark green fluid. Her abdomen is flat and soft, though quite difficult to evaluate since she is sedated. PLAN: To reiterate, I do not think she needs an emergency surgery this morning so I will re-evaluate her some time this afternoon. In the meantime, we can continue her IV antibiotics since most likely she aspirated gastric contents. DICTATING PHYSICIAN: MAX SHOEMAKER M.D. [id number] PHY#: [id number] ID: [id number] JOB#: [id number] ACCT: [id number] cc: >
[2017-06-03] MEDS: METRONIDAZOLE 500 MG/NS RTU 100 ML IV SCH ×2 (11:43→14:25)
[2017-06-03] MEDS ORDERED: METOPROLOL TARTRATE 25 MG TABLET NG SCH (12:00)
--- NOTE | 2017-06-03 12:04 | PDOC TRANSFER SUMMARY ---
General Admission Date/PCP: 05/30/17 01:45 ARA WEBB MD Transfer Date: 06/03/17 Accepting Facility: [facility] Accepting Physician: dr Oliver Resuscitation Status: Full Code - Transfer Diagnosis (1) Septic shock Is this a current diagnosis for this admission?: Yes Diagnosis Summary: Secondary to pneumonia (2) Bilateral pneumonia Is this a current diagnosis for this admission?: Yes Diagnosis Summary: Cultures have been negative up to date. (3) ARF (acute renal failure) Is this a current diagnosis for this admission?: Yes Diagnosis Summary: Resolved (4) Metabolic acidosis Is this a current diagnosis for this admission?: Yes (5) Pulmonary hypertension Is this a current diagnosis for this admission?: Yes (6) Atrial fibrillation Is this a current diagnosis for this admission?: Yes (7) CHF (congestive heart failure) Is this a current diagnosis for this admission?: Yes (8) Fibromyalgia Is this a current diagnosis for this admission?: Yes (9) Hyperlipidemia Is this a current diagnosis for this admission?: Yes (10) Hypothyroid Is this a current diagnosis for this admission?: Yes (11) ANNA (obstructive sleep apnea) Is this a current diagnosis for this admission?: Yes (12) Anemia Is this a current diagnosis for this admission?: Yes (13) Encephalopathy Is this a current diagnosis for this admission?: Yes - Transfer Medications Home Medications: Prednisone 2.5 mg PO DAILY@1500 11/11/16 Diltiazem HCl [Cardizem Cd 120 mg Capsule] 120 mg PO DAILY 04/13/17 Albuterol Sulfate [Proair Hfa] 2 puff IN Q4HP PRN 05/30/17 Allopurinol [Zyloprim 300 mg Tablet] 300 mg PO DAILY 05/30/17 Atenolol [Tenormin] 25 mg PO Q12 05/30/17 Cyclobenzaprine HCl [Flexeril 10 mg Tablet] 10 mg PO Q8HP PRN 05/30/17 Fentanyl [Duragesic 25 mcg/hr Transdermal Patch] 1 patch TP Q3D 05/30/17 Fluticasone/Salmeterol [Advair 250-50 Diskus 28 dose] 1 puff IN Q12 05/30/17 Furosemide [Lasix 40 mg Tablet] 40 mg PO Q12 05/30/17 Ipratropium/Albuterol Sulfate [Iprat-Albut 0.5-3(2.5) Mg/3 Ml] 3 ml IN RTQ6HP PRN 05/30/17 Levothyroxine Sodium [Synthroid 0.025 mg Tablet] 0.025 mg PO DAILY 05/30/17 Lidocaine [Lidoderm 5% (700 mg) Transdermal Patch] 1 patch TP DAILY MDD 12 HOURS ON 12 HOURS OFF 05/30/17 Montelukast Sodium [Singulair 10 mg Tablet] 10 mg PO QHS 05/30/17 Oxycodone HCl/Acetaminophen [Oxycodone-Acetaminophen 10-325] 1 tab PO Q6HP PRN 05/30/17 Pregabalin [Lyrica] 150 mg PO Q8 05/30/17 Rivaroxaban [Xarelto] 20 mg PO QHS 05/30/17 Ropinirole HCl [Requip] 4 mg PO QHS 05/30/17 Simvastatin [Zocor 20 mg Tablet] 20 mg PO QHS 05/30/17 Spironolactone [Aldactone 25 mg Tablet] 25 mg PO Q12 05/30/17 Sumatriptan Succinate [Imitrex 100 mg Tablet] 100 mg PO DAILYP PRN MDD 2 TABS Transfer Medications: Current Medications Acetaminophen (Tylenol 325 Mg Tablet) 650 mg NG Q8HP PRN PRN Reason: FOR PAIN OR TEMP Stop: 06/29/17 01:49 Albuterol (Ventolin 0.083% Neb 2.5 Mg/3 Ml Ampul) 2.5 mg NEB RTQ4HP PRN PRN Reason: SHORTNESS OF BREATH Stop: 06/29/17 01:44 Albuterol/Ipratropium (Duoneb 3 Ml Ampul) 3 ml NEB [id number] MADINA Stop: 06/29/17 07:59 Last Admin: 06/03/17 08:39 Dose: 3 ml Benzocaine (Hurricaine 20% Aerosol [place]) 1 spray TP PRN PRN Stop: 07/03/17 07:49 Dextrose (Dextrose Inj 50% Syringe (25 Gm/50 Ml)) 12.5 gm IV PRN PRN; Protocol PRN Reason: FOR BG 50-69 IN ALERT PATIENT Stop: 06/29/17 01:46 Dextrose (Dextrose Inj 50% Syringe (25 Gm/50 Ml)) 25 gm IV PRN PRN PRN Reason: Protocol Stop: 06/29/17 01:46 Digoxin (Lanoxin Inj 0.5 Mg/2 Ml Ampule) 0.125 mg IV DAILY@1100 [facility] Stop: 07/03/17 10:59 Famotidine (Pepcid Inj/Pf 20 Mg/2 Ml Sdv) 10 mg IV Q12 MADINA Stop: 06/29/17 09:59 Last Admin: 06/02/17 21:20 Dose: 10 mg Glucagon (Glucagen Inj 1 Mg Vial) 1 mg IM PRN PRN; Protocol PRN Reason: Evaluate for BG < 70 Stop: 06/29/17 01:46 Glucose (Glutose 40% Gel 15 Gm Tube) 15 gm PO PRN PRN; Protocol PRN Reason: FOR BG 50-69 IN ALERT PATIENT Stop: 06/29/17 01:46 Glucose (Glutose 40% Gel 15 Gm Tube) 30 gm PO PRN PRN; Protocol PRN Reason: FOR BG < 50 IN ALERT PATIENT Stop: 06/29/17 01:46 Guaifenesin (Robitussin Syrup 200 Mg/10 Ml Ud Cup) 200 mg NG Q4HP PRN PRN Reason: COUGH Stop: 06/29/17 01:51 Heparin Sodium (Porcine) (Heparin Inj 5,000 Units/Ml 1 Ml Syringe) 5,000 unit SUBCUT Q12 MADINA Stop: 06/29/17 09:59 Last Admin: 06/02/17 21:20 Dose: Not Given Hydrocortisone Sodium Succinate (Solu-Cortef Inj/Pf 100 Mg/ 2 Ml Sdv) 80 mg IV Q8A MADINA Stop: 06/29/17 09:59 Last Admin: 06/03/17 03:54 Dose: 80 mg Cefepime HCl (Maxipime Rtu 2 Gm-D5w 50 Ml Premix Bag) 2 gm in 50 mls @ 100 mls/ hr IV Q2PM MADINA Stop: 06/06/17 13:59 Last Admin: 06/02/17 14:07 Dose: 50 ml Vancomycin HCl 750 mg/ (Dextrose) 250 mls @ 166.667 mls/hr IV QPM MADINA Stop: 06/06/17 17:59 Last Admin: 06/02/17 18:00 Dose: 750 mg Diltiazem HCl (Cardizem Rtu Inj 125 Mg-D5w 125 Ml Premix) 125 mg in 125 mls @ 0 mls/hr IV CONTINUOUS PRN; Protocol; Titrate PRN Reason: THIS MED IS NOT "PRN" Stop: 06/29/17 11:38 Last Admin: 06/03/17 02:10 Dose: 125 ml Sodium Chloride (Nacl 0.9% 1000 Ml Iv Soln) 1,000 mls @ 75 mls/hr IV CONTINUOUS PRN PRN Reason: THIS MED IS NOT "PRN" Stop: 06/29/17 01:44 Last Admin: 06/01/17 18:01 Dose: 1,000 ml Metronidazole (Flagyl Rtu 500 Mg/Ns 100ml Premix) 100 mls @ 100 mls/hr IV Q6A MADINA Stop: 06/10/17 08:59 Hard Fat/Phenylephrine 40 mg/ (Dextrose) 250 mls @ 0 mls/hr IV CONTINUOUS PRN; Protocol; Titrate PRN Reason: THIS MED IS NOT "PRN" Stop: 07/03/17 08:19 Propofol (Diprivan Rtu 1000 Mg/100 Ml Inf.Bottle) 100 mls @ 0 mls/hr IV CONTINUOUS PRN; Protocol; Titrate PRN Reason: THIS MED IS NOT "PRN" Stop: 07/03/17 10:55 Midazolam HCl (Versed Rtu 50 Mg/100 Ml Premix Bag) 100 mls @ 0 mls/hr IV CONTINUOUS PRN; Protocol; Titrate PRN Reason: THIS MED IS NOT "PRN" Stop: 06/10/17 10:55 Norepinephrine Bitartrate 4 mg (/ Dextrose) 250 mls @ 0 mls/hr IV CONTINUOUS PRN; Protocol; Titrate PRN Reason: THIS MED IS NOT "PRN" Stop: 07/03/17 10:56 Sodium Chloride (Nacl 0.9% 1000 Ml Iv Soln) 1,000 mls @ 0 mls/hr IV CONTINUOUS PRN; Wide Open PRN Reason: THIS MED IS NOT "PRN" Stop: 07/03/17 10:56 Insulin Human Lispro (Humalog Insulin 100 Unit/1 Ml 3 Ml Vial) 0 - 12 unit SUBCUT Q6HP PRN PRN Reason: Protocol Stop: 06/29/17 01:46 Last Admin: 05/31/17 23:55 Dose: 4 unit Lactulose (Cephulac Syrup 20 Gm/30 Ml Udcup) 10 gm NG TID MADINA Stop: 06/30/17 09:59 Lorazepam (Ativan Inj 2 Mg/1 Ml Vial) 1 mg IV Q4HP PRN PRN Reason: ANXIETY Stop: 06/08/17 16:32 Metoprolol Succinate (Toprol Xl 25 Mg Tab.Sr) 12.5 mg PO Q12 MADINA Stop: 07/03/17 09:59 Metoprolol Tartrate (Lopressor 25 Mg Tablet) 12.5 mg NG Q6 MADINA Stop: 07/03/17 11:59 Pharmacy Profile Note (Medication Communication Order) 1 each MC .NOTICE NR Stop: 06/29/17 01:59 Pharmacy Profile Note (Medication Communication Order) 1 each MC .NOTICE NR Stop: 07/03/17 08:14 Promethazine HCl (Phenergan Inj 25 Mg/1 Ml Vial) 6.25 mg IV Q6HP PRN PRN Reason: FOR NAUSEA/VOMITING Stop: 06/29/17 01:49 Last Admin: 06/02/17 00:44 Dose: 6.25 mg Sodium Chloride (Saline Flush 2.5 Ml Monoject Prefil Syrin) 2.5 ml IV Q8 MADINA Stop: 06/29/17 05:59 Last Admin: 06/03/17 07:25 Dose: Not Given Spironolactone (Aldactone 25 Mg Tablet) 25 mg NG DAILY MADINA Stop: 07/02/17 09:59 - Allergies Allergies/Adverse Reactions: MERRITT Inhibitors [Merritt Inhibitors] Allergy (Verified 05/29/17 18:49) Angioneurotic Edema amoxicillin trihydrate [From Augmentin] Allergy (Verified 05/29/17 18:49) Hives bumetanide [From Bumex] Allergy (Verified 05/29/17 18:49) Hives Potassium Clavulanate * [From Augmentin] Allergy (Verified 05/29/17 18:49) Hives - Diet/Activity Discharge Diet: Other (Comments) - N.p.o. Discharge Activity: Activity As Tolerated Hospital Course Hospital Course: 61-year-old female with a history of COPD, atrial fibrillation, CHF who presented with cough, shortness of breath and hypotension all consistent with sepsis. Patient was found to have bilateral pneumonia. The patient was initially admitted to the intensive care unit and started on vasopressors. The patient was started on cefepime and vancomycin and had improvement in her infection. Her blood pressures eventually improved well enough that she was weaned off of vasopressors. The patient was improving and she was moved out of the intensive care unit on 06-02-17. The patient later that evening had an episode of nausea and vomiting of dark stool-like material. She aspirated at that time and became hypotensive. Patient was admitted to the intensive care unit and required vasopressors to be restarted. She was then intubated for airway protection because of her worsening confusion. She also was given IV fluids. The patient had an abdominal CT done this morning which does show an obstruction versus ileus with dilated duodenum. Flagyl was added onto her therapy of vancomycin and cefepime today. When the patient first presented she also was noted to have acute renal failure with a creatinine 2.9. With IV fluids that has returned to normal. The patient is currently on Brady-Synephrine and Levophed. I have discussed the case with Dr. Oliver, critical care in [place] who graciously agrees to accept the patient in transfer. Physical Exam Vital Signs: Temp Pulse Resp BP Pulse Ox 97.7 F 90 20 92/51 L 100 06/03/17 10:00 06/03/17 10:00 06/03/17 10:00 06/03/17 10:00 06/03/17 10:00 Intake & Output 06/02/17 06/03/17 06/04/17 06:59 06:59 06:59 Intake Total 3323 1524 Output Total 2110 3800 1100 Balance 1213 -2276 -1100 Weight 89.6 kg 88.1 kg General appearance: PRESENT: mild distress Eye exam: PRESENT: conjunctiva pink. ABSENT: scleral icterus Mouth exam: PRESENT: moist, tongue midline Neck exam: ABSENT: JVD Respiratory exam: PRESENT: decreased breath sounds - Decreased breath sounds in the left base., rhonchi - Coarse rhonchi bilaterally.. ABSENT: rales, wheezes Cardiovascular exam: PRESENT: irregular rhythm. ABSENT: diastolic murmur, rubs , systolic murmur GI/Abdominal exam: PRESENT: hypoactive bowel sounds, soft. ABSENT: distended, guarding, mass, organolmegaly, rebound, tenderness Extremities exam: ABSENT: calf tenderness, clubbing, pedal edema Neurological exam: PRESENT: altered Psychiatric exam: PRESENT: flat affect Skin exam: PRESENT: other - Ecchymosis on her arms and legs from prior anticoagulation. Results Laboratory Results: 06/03/17 06:00 06/03/17 06:00 06/03/17 06/03/17 06/03/17 06:00 06:00 06:00 WBC RBC Hgb Hct MCV MCH MCHC RDW Plt Count Seg Neutrophils % Lymphocytes % Monocytes % Eosinophils % Basophils % Absolute Neutrophils Absolute Lymphocytes Absolute Monocytes Absolute Eosinophils Absolute Basophils Carbonic Acid Cancelled HCO3/H2CO3 Ratio Cancelled ABG pH Cancelled ABG pCO2 Cancelled ABG pO2 Cancelled ABG HCO3 Cancelled ABG O2 Saturation Cancelled ABG Base Excess Cancelled FiO2 Cancelled Sodium 134.2 L Potassium 3.6 Chloride 106 Carbon Dioxide 21 L Anion Gap 7 BUN 74 H Creatinine 1.17 Est GFR ( Amer) 57 L Est GFR (Non-Af Amer) 47 L Glucose 144 H Lactic Acid 1.7 Calcium 8.2 L Phosphorus 3.1 Total Bilirubin 2.0 H AST 37 H ALT 44 Alkaline Phosphatase 44 Total Protein 4.2 L Albumin 2.4 L Lipase 406.8 H 06/03/17 06/03/17 06/03/17 06:00 06:25 10:15 WBC 10.9 H RBC 2.45 L Hgb 8.1 L Hct 23.8 L MCV 97 MCH 33.1 MCHC 34.1 RDW 17.9 H Plt Count 74 L Seg Neutrophils % Not Reportable Lymphocytes % Not Reportable Monocytes % Not Reportable Eosinophils % Not Reportable Basophils % Not Reportable Absolute Neutrophils Not Reportable Absolute Lymphocytes Not Reportable Absolute Monocytes Not Reportable Absolute Eosinophils Not Reportable Absolute Basophils Not Reportable Carbonic Acid 0.82 L 0.79 L HCO3/H2CO3 Ratio 25:1 25:1 ABG pH 7.50 H 7.50 H ABG pCO2 27.4 L 26.4 L ABG pO2 77.0 L 119.0 H ABG HCO3 20.8 20.2 ABG O2 Saturation 96.5 98.7 H ABG Base Excess -1.5 -2.4 FiO2 2L 50% Sodium Potassium Chloride Carbon Dioxide Anion Gap BUN Creatinine Est GFR ( Amer) Est GFR (Non-Af Amer) Glucose Lactic Acid Calcium Phosphorus Total Bilirubin AST ALT Alkaline Phosphatase Total Protein Albumin Lipase 05/30/17 05/30/17 05/31/17 23:35 23:35 05:25 Troponin I 0.015 NT-Pro-B Natriuret Pep 1950 H 1670 H 06/03/17 06:00 Troponin I NT-Pro-B Natriuret Pep 4870 H Impressions: Head CT 06/02/17 00:00 IMPRESSION: MILD CHRONIC CHANGES OF ATROPHY AND MICROVASCULAR ISCHEMIA. NO ACUTE PROCESS. EVIDENCE OF ACUTE STROKE: NO. Abdomen X-Ray 06/03/17 00:00 IMPRESSION: No acute findings. Limitation. Abdomen/Pelvis CT 06/03/17 00:00 IMPRESSION: 1. Worsened intermittent small bowel obstruction/ileus pattern with jejunal bowel diameter measuring 4.7 cm. 2. Small left lower lobar pneumonia. 3. Mild anasarca. Chest X-Ray 06/03/17 06:00 IMPRESSION: Persistent left lower lobe airspace disease worrisome for pneumonia Plan Discharge Plan: Patient is transferred to [facility]. Dr. Oliver is the accepting physician. Time Spent: Greater than 30 Minutes
[2017-06-03 12:21] LABS: APPEARANCE,URINE CLEAR; BILIRUBIN,URINE NEGATIVE (NEGATIVE); GLUCOSE, URINE >=500 mg/dL (NEGATIVE); KETONES,URINE NEGATIVE (NEGATIVE); LEUKOCYTE ESTERASE,URINE NEGATIVE (NEGATIVE); NITRITE,URINE NEGATIVE (NEGATIVE); PROTEIN,URINE NEGATIVE (NEGATIVE); URINE SPECIFIC GRAVITY 1.007; UROBILINOGEN,URINE NEGATIVE mg/dL (<2.0)
[2017-06-03] MEDS: FAMOTIDINE INJ/PF 20 MG/2 ML SDV IV SCH (12:25)
[2017-06-03] MEDS: DEXTROSE 5%-WATER 250 ML with PHENYLEPHRINE HCL 40 MG IV PRN ×4 (12:30→16:48)
[2017-06-03] MEDS: HEPARIN SOD (PORCINE) 5,000 UNIT/ML 1 ML SYRINGE SUBCUT SCH (12:32)
[2017-06-03] MEDS: LACTULOSE SYRUP 20 GM/30 ML UDCUP NG SCH ×2 (12:32→14:05)
[2017-06-03 12:54] LABS: FIBRINOGEN 523 mg/dL (209-497); PROTHROMBIN TIME 15.3 SEC (11.4-15.4)
[2017-06-03 12:56] LABS: ALANINE AMINOTRANSFERASE 40 U/L (9-52); ALBUMIN 2.1 g/dL (3.5-5.0); ALKALINE PHOSPHATASE 39 U/L (38-126); ANION GAP 5 (5-19); ASPARTATE AMINO TRANSFERASE 33 U/L (14-36); BILIRUBIN,DIRECT 0.9 mg/dL (0.0-0.4); BILIRUBIN,TOTAL 1.7 mg/dL (0.2-1.3); BLOOD UREA NITROGEN 67 mg/dL (7-20); CARBON DIOXIDE 22 mmol/L (22-30); CHLORIDE 107 mmol/L (98-107); CREATININE RESULT 1.11 mg/dL (0.52-1.25); GLUCOSE 163 mg/dL (75-110); MAGNESIUM 2.3 mg/dL (1.6-2.3); POTASSIUM 3.2 mmol/L (3.6-5.0); SODIUM 134.3 mmol/L (137-145); TOTAL PROTEIN 3.8 g/dL (6.3-8.2)
[2017-06-03 13:26] LABS: HEMATOCRIT 21.8 % (36.0-47.0); MEAN CORPUSCULAR HEMOGLOBIN 33.9 pg (27.0-33.4); MEAN CORPUSCULAR VOLUME 97 fl (80-97); RED BLOOD COUNT 2.25 10^6/uL (3.72-5.28); RED CELL DISTRIBUTION WIDTH 19.1 % (11.5-14.0); WHITE BLOOD COUNT 10.8 10^3/uL (4.0-10.5)
--- NOTE | 2017-06-03 13:34 | PDOC PROGRESS REPORT ---
Subjective Progress Note for:: 06/03/17 Subjective:: Patient unfortunately had a episode of vomiting and aspirated. She subsequently went into respiratory failure needing intubation and artificial ventilation. Patient also back into rapid heart rate response from atrial fibrillation and Cardizem drip as to be restarted. Patient also noted to be hypotensive therefore Brady-Synephrine and Levophed are being restarted. Patient has noted to develop a small bowel obstruction. Feel that patient to complicated and needs tertiary care. Dr. talbert has already arranged for patient to be transferred to tertiary care for further care. Patient remains critically ill. Review of systems: Could not be obtained since patient now intubated and sedated. Medications: Medications have been reviewed.. Physical Exam Vital Signs: Temp Pulse Resp BP Pulse Ox 97.5 F 85 16 108/68 99 06/03/17 12:00 06/03/17 12:00 06/03/17 12:00 06/03/17 12:00 06/03/17 12:15 Intake & Output 06/02/17 06/03/17 06/04/17 06:59 06:59 06:59 Intake Total 3323 1524 Output Total 2110 3800 1485 Balance 1213 -2276 -1485 Weight 89.6 kg 88.1 kg Exam: GENERAL: well-nourished and in no acute distress. Patient is intubated and sedated. Orientation cannot be checked HEAD: Atraumatic, normocephalic. EYES: Pupils equal round and reactive to light, extraocular movements could not be checked, sclera anicteric, conjunctiva are normal. ENT: TMs normal, nares patent, oropharynx clear without exudates. Moist mucous membranes. No oral ulcerations or bleeding gums noted NECK: supple without lymphadenopathy or JVD. Trachea is central. No cervical or axillary lymphadenopathy noted. Carotids are 2+ LUNGS: Breath sounds mostly clear to auscultation patient is noted to have bibasal crackles at the extreme bases CHEST: Palpation of the chest wall shows no significant chest wall tenderness or abnormalities. 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 ABDOMEN: Soft, no significant tenderness appreciated, normoactive bowel sounds. No guarding, no rebound. No rigidity noted . No masses appreciated. EXTREMITIES: Pedal pulses are 1-2+, no calf tenderness noted, 1+ pedal edema noted. No clubbing or cyanosis. NEUROLOGICAL: The patient cannot participate in the neurological exam but no facial asymmetry noted. Extremities slightly hypotonic PSYCH: This cannot be evaluated. Patient cannot participate. SKIN: No significant ecchymosis, rash, or signs of pruritus noted. MUSCULOSKELETAL EXAM: No significant joint swelling noted. Patient cannot participate in musculoskeletal exam Results Laboratory Results: 06/03/17 10:35 06/03/17 06/03/17 06/03/17 06:00 06:00 06:00 WBC RBC Hgb Hct MCV MCH MCHC RDW Plt Count Seg Neutrophils % Lymphocytes % Monocytes % Eosinophils % Basophils % Absolute Neutrophils Absolute Lymphocytes Absolute Monocytes Absolute Eosinophils Absolute Basophils Carbonic Acid Cancelled HCO3/H2CO3 Ratio Cancelled ABG pH Cancelled ABG pCO2 Cancelled ABG pO2 Cancelled ABG HCO3 Cancelled ABG O2 Saturation Cancelled ABG Base Excess Cancelled FiO2 Cancelled Sodium 134.2 L Potassium 3.6 Chloride 106 Carbon Dioxide 21 L Anion Gap 7 BUN 74 H Creatinine 1.17 Est GFR ( Amer) 57 L Est GFR (Non-Af Amer) 47 L Glucose 144 H Lactic Acid 1.7 Calcium 8.2 L Phosphorus 3.1 Magnesium Total Bilirubin 2.0 H AST 37 H ALT 44 Alkaline Phosphatase 44 Total Protein 4.2 L Albumin 2.4 L Lipase 406.8 H Urine Color Urine Appearance Urine pH Ur Specific [place] Urine Protein Urine Glucose (UA) Urine Ketones Urine Blood Urine Nitrite Ur Leukocyte Esterase Urine WBC (Auto) Urine RBC (Auto) 06/03/17 06/03/17 06/03/17 06:00 06:25 10:15 WBC 10.9 H RBC 2.45 L Hgb 8.1 L Hct 23.8 L MCV 97 MCH 33.1 MCHC 34.1 RDW 17.9 H Plt Count 74 L Seg Neutrophils % Not Reportable Lymphocytes % Not Reportable Monocytes % Not Reportable Eosinophils % Not Reportable Basophils % Not Reportable Absolute Neutrophils Not Reportable Absolute Lymphocytes Not Reportable Absolute Monocytes Not Reportable Absolute Eosinophils Not Reportable Absolute Basophils Not Reportable Carbonic Acid 0.82 L 0.79 L HCO3/H2CO3 Ratio 25:1 25:1 ABG pH 7.50 H 7.50 H ABG pCO2 27.4 L 26.4 L ABG pO2 77.0 L 119.0 H ABG HCO3 20.8 20.2 ABG O2 Saturation 96.5 98.7 H ABG Base Excess -1.5 -2.4 FiO2 2L 50% Sodium Potassium Chloride Carbon Dioxide Anion Gap BUN Creatinine Est GFR ( Amer) Est GFR (Non-Af Amer) Glucose Lactic Acid Calcium Phosphorus Magnesium Total Bilirubin AST ALT Alkaline Phosphatase Total Protein Albumin Lipase Urine Color Urine Appearance Urine pH Ur Specific [place] Urine Protein Urine Glucose (UA) Urine Ketones Urine Blood Urine Nitrite Ur Leukocyte Esterase Urine WBC (Auto) Urine RBC (Auto) 06/03/17 06/03/17 06/03/17 10:35 10:35 11:30 WBC RBC Hgb Hct MCV MCH MCHC RDW Plt Count Seg Neutrophils % Lymphocytes % Monocytes % Eosinophils % Basophils % Absolute Neutrophils Absolute Lymphocytes Absolute Monocytes Absolute Eosinophils Absolute Basophils Carbonic Acid HCO3/H2CO3 Ratio ABG pH ABG pCO2 ABG pO2 ABG HCO3 ABG O2 Saturation ABG Base Excess FiO2 Sodium 134.3 L Potassium 3.2 L Chloride 107 Carbon Dioxide 22 Anion Gap 5 BUN 67 H Creatinine 1.11 Est GFR ( Amer) > 60 Est GFR (Non-Af Amer) 50 L Glucose 163 H Lactic Acid 1.1 Calcium 8.0 L Phosphorus Magnesium 2.3 Total Bilirubin 1.7 H AST 33 ALT 40 Alkaline Phosphatase 39 Total Protein 3.8 L Albumin 2.1 L Lipase Urine Color YELLOW Urine Appearance CLEAR Urine pH 6.0 Ur Specific [place] 1.007 Urine Protein NEGATIVE Urine Glucose (UA) >=500 H Urine Ketones NEGATIVE Urine Blood MODERATE H Urine Nitrite NEGATIVE Ur Leukocyte Esterase NEGATIVE Urine WBC (Auto) 1 Urine RBC (Auto) 1 05/30/17 05/30/17 05/31/17 23:35 23:35 05:25 Troponin I 0.015 NT-Pro-B Natriuret Pep 1950 H 1670 H 06/03/17 06:00 Troponin I NT-Pro-B Natriuret Pep 4870 H EKG Comments: Atrial fibrillation with rapid ventricular response. No acute ST-T wave changes are noted. Impressions: Head CT 06/02/17 00:00 IMPRESSION: MILD CHRONIC CHANGES OF ATROPHY AND MICROVASCULAR ISCHEMIA. NO ACUTE PROCESS. EVIDENCE OF ACUTE STROKE: NO. Abdomen X-Ray 06/03/17 00:00 IMPRESSION: No acute findings. Limitation. Abdomen/Pelvis CT 06/03/17 00:00 IMPRESSION: 1. Worsened intermittent small bowel obstruction/ileus pattern with jejunal bowel diameter measuring 4.7 cm. 2. Small left lower lobar pneumonia. 3. Mild anasarca. Chest X-Ray 06/03/17 06:00 IMPRESSION: Persistent left lower lobe airspace disease worrisome for pneumonia Assessment & Plan - Diagnosis (1) Hypotension (arterial) Qualifiers: Hypotension type: unspecified hypotension type Qualified Code(s): I95.9 - Hypotension, unspecified Is this a current diagnosis for this admission?: Yes (2) Atrial fibrillation Qualifiers: Atrial fibrillation type: chronic Qualified Code(s): I48.2 - Chronic atrial fibrillation Is this a current diagnosis for this admission?: Yes (3) CHF (congestive heart failure) Qualifiers: Congestive heart failure type: combined Congestive heart failure chronicity : chronic Qualified Code(s): I50.42 - Chronic combined systolic (congestive) and diastolic (congestive) heart failure Is this a current diagnosis for this admission?: Yes (4) Valvular heart disease Is this a current diagnosis for this admission?: Yes (5) Sepsis Qualifiers: Sepsis type: sepsis due to unspecified organism Qualified Code(s): A41.9 - Sepsis, unspecified organism Is this a current diagnosis for this admission?: Yes (6) COPD (chronic obstructive pulmonary disease) Qualifiers: Emphysema type: unspecified Is this a current diagnosis for this admission?: Yes (7) Respiratory failure Qualifiers: Chronicity: acute on chronic Is this a current diagnosis for this admission?: Yes - Notes Notes: Respiratory failure: Secondary to pneumonia and now aspiration pneumonia. Continue oxygen supplementation and artificial ventilation. Hypotension: Currently back on vasopressors. Continue to monitor blood pressure closely. May consider switch to vasopressin Atrial fibrillation with rapid ventricular response: Patient on currently Cardizem drip at 5 mg/h. may try intermittent IV Lopressor if needed on amiodarone drip and bolus protocol. CHF: Seems mildly decompensated. Chest x-ray showing today unilateral left- sided infiltrate.. 2D echo results were reviewed. Valvular heart disease: Currently is stable. Moderate aortic incompetence and mild to moderate mitral regurgitation noted. Sepsis: Continue broad-spectrum antibiotics. Patient being managed by environmental safety specialist and film loader. COPD: Intubated and being artificially ventilated. Pulmonary following. - Time Time with patient: Greater than 35 minutes - CODE STATUS was discussed, patient remains full code. Surrogate decision-maker unchanged. Multiple medical problems were addressed. More than 50% of the time spent coordinating care, discussing management plans with involved caregivers. Management plans discussed with involved personnels. Medical decision making was of moderate to high complexity, patient's has multiple comorbidities. Medications reviewed and adjusted accordingly: Yes
[2017-06-03 13:36] LABS: HEMOGLOBIN 7.6 g/dL (12.0-15.5)
[2017-06-03 13:40] LABS: BAND NEUTROPHILS % (MANUAL) 9 % (3-5); BASOPHILS % (MANUAL) 0 % (0-2); EOSINOPHILS % (MANUAL) 0 % (0-6); LYMPHOCYTES % (MANUAL) 6 % (13-45); NUCLEATED RED BLOOD CELLS 6 /100 WBC (0); TOTAL CELLS COUNTED 100
[2017-06-03 13:51] LABS: ANISOCYTOSIS 2+; POLYCHROMASIA 1+; TOXIC GRANULATION SLIGHT
[2017-06-03 14:02] LABS: ARTERIAL BLOOD O2 SATURATION 98.6 % (94-98)
[2017-06-03] MEDS: CEFEPIME 2 GM/D5W RTU 2 GM/50 ML RTUPB IV SCH (14:24)
[2017-06-03] MEDS: NORMAL SALINE 1000 ML 1,000 ML IV PRN (14:25)
--- NOTE | 2017-06-03 14:38 | OPERATIVE REPORT E ---
Operative Report NAME: NIMISHA PORTILLO : 1955 AGE: 61Y DATE OF SURGERY: 06/03/2017 ROOM: [facility] PREOPERATIVE DIAGNOSIS: OCCLUDED DISTAL PORT OF LEFT INTERNAL JUGULAR TRIPLE LUMEN CATHETER. POSTOPERATIVE DIAGNOSIS: OCCLUDED DISTAL PORT OF LEFT INTERNAL JUGULAR TRIPLE LUMEN CATHETER. OPERATION: Repositioning of central line. SURGEON: MAX SHOEMAKER M.D. ANESTHESIA: Sedation. INDICATION: This is a 61-year-old female who had a left internal jugular line placed. Unfortunately, the distal port appears to be occluded. Chest x-ray showed catheter to be directly the tip at wall of the superior vena cava. Because of this, the catheter just needs to be pulled out about 2 cm to allow aspiration of blood and easy injection of saline. DESCRIPTION OF PROCEDURE: Patient was earlier intubated and left neck prepped and draped in the usual sterile fashion after the dressing removed. The patient had extra propofol given. Old sutures along the catheter were removed. The catheter was able to be pulled back about an inch or so and the distal port could easily aspirate blood and inject saline easily. Next, the Biopatch was replaced and a 3-0 Prolene suture just proximal to the Biopatch and anchored a catheter through the anchoring support around the catheter, and also extended to the phalange of the triple lumen catheter. Next, a transparent dressing was then placed over the catheter and over the Biopatch. Patient tolerated procedure well. Will hold off on doing any chest x-rays since there is no new catheter inserted, and therefore no risk for any complications. DICTATING PHYSICIAN: MAX SHOEMAKER M.D. [id number] PHY#: [id number] ID: [id number] JOB#: [id number] ACCT: [id number] cc:MAX SHOEMAKER M.D. >
[2017-06-03 17:00] VITALS: BP 115/65
== END 2017-06-03 17:25 | disposition short-term general hospital (02) | DRG 871 ==
LOC: ER 18:41 → UNDOADMIN 05-30 01:15 → EH 05-30 01:15 → ICU 05-30 02:40 → 3N 06-02 13:02 → ICU 06-03 01:36
PROVIDERS: ADMIT Family Medicine; ATTEND Family Medicine
PROC: 02HV33Z Insertion of Infusion Device into Superior Vena Cava, Percutaneous Approach (ICD-10-PCS; principal; 2017-05-29)
PROC: 30233N1 Transfusion of Nonautologous Red Blood Cells into Peripheral Vein, Percutaneous Approach (ICD-10-PCS; 2017-06-01)
PROC: 03JY3ZZ Inspection of Upper Artery, Percutaneous Approach (ICD-10-PCS; 2017-06-03)
PROC: 0BH17EZ Insertion of Endotracheal Airway into Trachea, Via Natural or Artificial Opening (ICD-10-PCS; 2017-06-03)
PROC: 5A1935Z Respiratory Ventilation, Less than 24 Consecutive Hours (ICD-10-PCS; 2017-06-03)
PROC: 0D9670Z Drainage of Stomach with Drainage Device, Via Natural or Artificial Opening (ICD-10-PCS; 2017-06-03)
PROC: 30233N1 Transfusion of Nonautologous Red Blood Cells into Peripheral Vein, Percutaneous Approach (ICD-10-PCS; 2017-06-03)
PROC: 03JYXZZ Inspection of Upper Artery, External Approach (ICD-10-PCS; 2017-06-03)
DX: A41.9 Sepsis, unspecified organism (principal); R65.21 Severe sepsis with septic shock; J18.9 Pneumonia, unspecified organism; G93.40 Encephalopathy, unspecified; N17.0 Acute kidney failure with tubular necrosis; J96.20 Acute and chronic respiratory failure, unspecified whether with hypoxia or hypercapnia; I50.42 Chronic combined systolic (congestive) and diastolic (congestive) heart failure; J44.0 Chronic obstructive pulmonary disease with (acute) lower respiratory infection; E27.40 Unspecified adrenocortical insufficiency; E87.1 Hypo-osmolality and hyponatremia; I27.2 Other secondary pulmonary hypertension; G47.33 Obstructive sleep apnea (adult) (pediatric); I48.2 Chronic atrial fibrillation; Z79.01 Long term (current) use of anticoagulants; M79.7 Fibromyalgia; E78.5 Hyperlipidemia, unspecified; E03.9 Hypothyroidism, unspecified; D64.9 Anemia, unspecified; Z79.899 Other long term (current) drug therapy; Z88.1 Allergy status to other antibiotic agents; Z88.8 Allergy status to other drugs, medicaments and biological substances
CPT/HCPCS: 31500; 36415; 36430; 36600; 70450; 71010; 74020; 74176; 80048; 80053; 80162; 80202; 81001; 82271; 82272; 82803; 82962; 83605; 83690; 83735; 83880; 84100; 84484; 85025; 85027; 85379; 85384; 85610; 86022; 86850; 86900; 86901; 86920; 87040; 87070; 87077; 87086; 87186; 87205; 93005; 93010; 93306; 94002; 94640; 94667; 94668; 94799; 96361; 96365; 96367; 96368; 96375; 99291; C1751; J0330; J0456; J0692; J1160; J1644; J1720; J1815; J1940; J1956; J2060; J2250; J2370; J2405; J2550; J2704; J2997; J3370; J3480; J3490; J7030; J7060; J7620; P9016; S0028

== ENCOUNTER 2017-09-04 10:50 | Emergency (ER) | payer OTHER ==
[2017-09-04] MEDS ORDERED: NORMAL SALINE 1000 ML 1,000 ML IV ONE ×3 (11:03→11:42)
[2017-09-04] MEDS ORDERED: LEVOFLOXACIN 750 MG/D5W RTU 750 MG/150 ML RTUPB IV ONE (11:15)
[2017-09-04] MEDS ORDERED: VANCOMYCIN HCL INJ 1000 MG VIAL IV ONE (11:16)
[2017-09-04 11:18] LABS: VENOUS BLOOD BASE EXCESS 0.1 mmol/L; VENOUS BLOOD HCO3 27.1 mmol/L (20-32); VENOUS BLOOD PCO2 57.2 mmHg (35-63); VENOUS BLOOD PH 7.29 (7.30-7.42)
[2017-09-04 11:19] LABS: ABSOLUTE BASOPHILS # (AUTO) 0.1 10^3/uL (0.0-0.2); ABSOLUTE EOSINOPHILS # (AUTO) 0.1 10^3/uL (0.0-0.6); ABSOLUTE LYMPHOCYTES (AUTO) 0.6 10^3/uL (0.5-4.7); ABSOLUTE MONOCYTES (AUTO) 0.7 10^3/uL (0.1-1.4); ABSOLUTE NEUT (AUTO) 9.3 10^3/uL (1.7-8.2); BASOPHILS % (AUTO) 0.5 % (0-2); EOSINOPHILS % (AUTO) 0.6 % (0-6); HEMATOCRIT 28.1 % (36.0-47.0); HEMOGLOBIN 8.7 g/dL (12.0-15.5); LYMPHOCYTES % (AUTO) 5.4 % (13-45); MEAN CORPUSCULAR HEMOGLOBIN 29.1 pg (27.0-33.4); MEAN CORPUSCULAR HGB CONC 30.8 g/dL (32.0-36.0); MEAN CORPUSCULAR VOLUME 95 fl (80-97); MONOCYTES % (AUTO) 6.2 % (3-13); PLATELET COUNT 444 10^3/uL (150-450); RED BLOOD COUNT 2.97 10^6/uL (3.72-5.28); RED CELL DISTRIBUTION WIDTH 17.6 % (11.5-14.0); SEGMENTED NEUTROPHILS % (AUTO) 87.3 % (42-78); TOTAL CELLS COUNTED % (AUTO) 100 %; WHITE BLOOD COUNT 10.6 10^3/uL (4.0-10.5)
[2017-09-04] MEDS ORDERED: NOREPINEPHRINE BITARTRATE INJ/PF 4 MG/4 ML SDV IV ONE ×2 (11:28→15:52)
[2017-09-04] MEDS ORDERED: DEXTROSE 5%-WATER 250 ML with NOREPINEPHRINE BITARTRATE 4 MG IV PRN ×2 (11:30)
[2017-09-04 11:31] LABS: INTERNATIONAL RATION (INR) 2.15; PROTHROMBIN TIME 25.2 SEC (11.4-15.4)
[2017-09-04 11:36] LABS: ALANINE AMINOTRANSFERASE 139 U/L (9-52); ALBUMIN 2.8 g/dL (3.5-5.0); ALKALINE PHOSPHATASE 109 U/L (38-126); ANION GAP 12 (5-19); ASPARTATE AMINO TRANSFERASE 61 U/L (14-36); BILIRUBIN,DIRECT 0.6 mg/dL (0.0-0.4); BILIRUBIN,TOTAL 1.2 mg/dL (0.2-1.3); BLOOD UREA NITROGEN 13 mg/dL (7-20); CALCIUM 8.6 mg/dL (8.4-10.2); CARBON DIOXIDE 25 mmol/L (22-30); CHLORIDE 107 mmol/L (98-107); GLUCOSE 78 mg/dL (75-110); POTASSIUM 3.7 mmol/L (3.6-5.0); SODIUM 144.4 mmol/L (137-145); TOTAL PROTEIN 5.6 g/dL (6.3-8.2)
--- NOTE | 2017-09-04 11:36 | RADIOLOGY REPORT (SQ) ---
EXAM DESCRIPTION: CHEST SINGLE VIEW COMPLETED DATE/TIME: 09/04/2017 11:16 am REASON FOR STUDY: Intubation, Respiratory Distress COMPARISON: 06/03/2017 EXAM PARAMETERS: NUMBER OF VIEWS: One view. TECHNIQUE: Single frontal radiographic view of the chest acquired. RADIATION DOSE: NA LIMITATIONS: None. FINDINGS: LUNGS AND PLEURA: There is collapse/ consolidation of the right upper lobe with patchy rig ht middle lobe and right lower lobe airspace disease. The left lung is grossly clear. MEDIASTINUM AND HILAR STRUCTURES: Shifted to the right No masses. Contour normal. HEART AND VASCULAR STRUCTURES: Heart normal in size. Normal vasculature. BONES: No acute findings. HARDWARE: Satisfactory position of endotracheal tube and nasogastric tube. OTHER: No other significant finding. IMPRESSION: SATISFACTORY POSITION OF ENDOTRACHEAL TUBE AND NASOGASTRIC TUBE. COLLAPSED RIGHT UPPER LOBE/CONSOLIDATION WITH ADDITIONAL MULTIFOCAL AIRSPACE DISEASE RIGHT LUNG. FIN DINGS ARE CONCERNING FOR OBSTRUCTING CENTRAL LESION BURSA IS MUCOUS PLUG. RECOMMEND PULMONOLOGY CONS ULTATION AND POSSIBLY CT FOR FURTHER CHARACTERIZATION TECHNICAL DOCUMENTATION: JOB ID: [id number] [employer]- All Rights Reserved
[2017-09-04 11:45] LABS: TOXIC GRANULATION 1+
[2017-09-04 11:46] LABS: ANISOCYTOSIS 1+; BURR CELLS 1+; OVALOCYTES 1+; PLATELET CLUMPS PRESENT; PLATELET COMMENT ADEQUATE; PLATELET GIANT PRESENT; PLATELET LARGE PRESENT; SCHISTOCYTES 1+; TEAR DROP CELLS SLIGHT
[2017-09-04 11:56] LABS: APPEARANCE,URINE CLEAR; BILIRUBIN,URINE NEGATIVE (NEGATIVE); COLOR,URINE AMBER; GLUCOSE, URINE NEGATIVE (NEGATIVE); KETONES,URINE NEGATIVE (NEGATIVE); LEUKOCYTE ESTERASE,URINE NEGATIVE (NEGATIVE); NITRITE,URINE NEGATIVE (NEGATIVE); PROTEIN,URINE NEGATIVE (NEGATIVE); URINE SPECIFIC GRAVITY 1.016
[2017-09-04 11:58] LABS: ARTERIAL BLOOD BASE EXCESS -5.5 mmol/L; ARTERIAL BLOOD H2CO3 1.05 mmol/L (1.05-1.35); ARTERIAL BLOOD HCO3 19.4 mmol/L (20-26); ARTERIAL BLOOD O2 SATURATION 87.9 % (94-98); ARTERIAL BLOOD PCO2 34.9 mmHg (35-45); ARTERIAL BLOOD PH 7.36 (7.35-7.45); ARTERIAL BLOOD PO2 55.1 mmHg (80-100); ARTERIAL BLOOD TOTAL CO2 20.4 mmol/L (21-25)
[2017-09-04 12:00] LABS: ARTERIAL BLOOD FIO2 100%
--- NOTE | 2017-09-04 12:42 | EKG REPORT ---
SEVERITY:- ABNORMAL ECG - SINUS RHYTHM BORDERLINE RIGHT AXIS DEVIATION LOW VOLTAGE THROUGHOUT BORDERLINE T ABNORMALITIES, ANTERIOR LEADS BORDERLINE PROLONGED QT INTERVAL : Confirmed by: Mikala Olivo MD 04-Sep-2017 12:40:48
[2017-09-04] MEDS ORDERED: KETAMINE HCL INJ 500 MG/10 ML VIAL ONE (12:46)
[2017-09-04] MEDS ORDERED: HYDROCORTISONE SOD SUCCINATE INJ/PF 100 MG/2 ML SDV IV ONE (12:50)
[2017-09-04] MEDS ORDERED: DEXTROSE 5%-WATER 250 ML with EPINEPHRINE/PF 1 MG IV PRN ×2 (12:55)
[2017-09-04] MEDS ORDERED: EPINEPHRINE INJ/PF 1 MG/1 ML AMPULE ONE (13:00)
--- NOTE | 2017-09-04 13:04 | ER Document Report ---
ED General - General Chief Complaint: Respiratory Distress Stated Complaint: DIFFICULTY BREATHING Time Seen by Provider: 09/04/17 10:55 Mode of Arrival: Medic Information source: Relative, Emergency Med Personnel Cannot obtain history due to: Altered mental status Notes: This is a 61-year-old female with a history of COPD, CHF, respiratory failure status post recent hospitalization in [place] for respiratory failure. During that hospitalization, the patient reportedly had right hip surgery as well as cardioversion for atrial fibrillation. Patient was discharged from the hospital 2 days ago. Patient was usual state of health and was difficult to arouse this morning. EMS was called to the home. When they arrived, they reported oxygen saturations in the low 80%'s with a low blood pressure. Patient was agitated at that time and was not tolerating CPAP. On arrival to the emergency room, patient was being bagged by bag valve mask and was obtunded. Her blood pressure was 50 systolic at that time. TRAVEL OUTSIDE OF THE [place] IN LAST 30 DAYS: No - HPI Onset: Just prior to arrival Onset/Duration: Sudden Quality of pain: No pain Severity: None Pain Level: Denies Associated symptoms: None Exacerbated by: Denies Relieved by: Denies Similar symptoms previously: Yes Recently seen / treated by doctor: Yes - Related Data Allergies/Adverse Reactions: MERRITT Inhibitors [Merritt Inhibitors] Allergy (Verified 05/29/17 18:49) Angioneurotic Edema amoxicillin trihydrate [From Augmentin] Allergy (Verified 05/29/17 18:49) Hives bumetanide [From Bumex] Allergy (Verified 05/29/17 18:49) Hives Potassium Clavulanate * [From Augmentin] Allergy (Verified 05/29/17 18:49) Hives Home Medications: Current Home Medications Allopurinol [Zyloprim 300 mg Tablet] 300 mg PO DAILY 09/04/17 [History] Amiodarone HCl [Pacerone] 100 mg PO DAILY 09/04/17 [History] Atenolol [Tenormin] 25 mg PO Q12 09/04/17 [History] Diltiazem HCl [Diltiazem 24Hr ER] 240 mg PO DAILY 09/04/17 [History] Diphenhydramine HCl [Benadryl 25 mg Capsule] 25 mg PO Q6HP PRN 09/04/17 [History ] Escitalopram Oxalate [Lexapro 10 mg Tablet] 10 mg PO DAILY 09/04/17 [History] Fentanyl [Duragesic 25 Mcg/Hr Transdermal Patch] 1 each TD Q3D 09/04/17 [History ] Fluticasone/Salmeterol [Advair 250-50 Diskus 14 Dose/Diskus] 1 inh IH Q12 [History] Furosemide [Lasix 20 mg Tablet] 20 mg PO QAM 09/04/17 [History] Levothyroxine Sodium [Synthroid 0.025 mg Tablet] 25 mcg PO Q6AM 09/04/17 [ History] Loratadine [Claritin 10 mg Tablet] 10 mg PO QHS 09/04/17 [History] Magnesium Oxide [Mag-Ox 400 mg Tablet] 400 mg PO BID 09/04/17 [History] Metoprolol Tartrate [Lopressor 25 mg Tablet] 25 mg PO Q12 09/04/17 [History] Montelukast Sodium [Singulair 10 mg Tablet] 10 mg PO QHS 09/04/17 [History] Oxycodone HCl [Oxy-Ir 5 mg Tablet] 10 mg PO Q6HP PRN MDD FILLED 09/03 FOR 5DS [History] Polyethylene Glycol 3350 [Miralax Powder 17 gm/Packet] 1 packet PO DAILY [History] Polyvinyl Alcohol [Liquitears 1.4% Ophth Soln 15 ml] 2 drop OU Q12 09/04/17 [ History] Potassium Chloride [Klor-Con Sprinkle] 10 meq PO DAILY 09/04/17 [History] Prednisone [Deltasone 5 mg Tablet] 2.5 mg PO DAILY@1500 09/04/17 [History] Prednisone [Deltasone 5 mg Tablet] 5 mg PO QAM 09/04/17 [History] Simvastatin [Zocor 20 mg Tablet] 20 mg PO QHS 09/04/17 [History] Spironolactone [Aldactone 25 mg Tablet] 25 mg PO Q12 09/04/17 [History] Past Medical History - General Information source: Relative, Emergency Med Personnel - Social History Smoking Status: Unknown if Ever Smoked Cigarette use (# per day): No Chew tobacco use (# tins/day): No Frequency of alcohol use: None Drug Abuse: None Lives with: Spouse/Significant other Family History: None, Other - Asthma and dementia Patient has suicidal ideation: No Patient has homicidal ideation: No - Past Medical History Cardiac Medical History: Reports: Hx Atrial Fibrillation, Hx Congestive Heart Failure, Hx Hypercholesterolemia, Hx Hypertension Pulmonary Medical History: Reports: Hx Asthma, Hx COPD, Hx Pneumonia, Hx Respiratory Failure - On home oxygen, Hx Sleep Apnea Endocrine Medical History: Reports: Hx Hypothyroidism Renal/ Medical History: Denies: Hx Peritoneal Dialysis Musculoskeltal Medical History: Reports Hx Fibromyalgia Psychiatric Medical History: Reports: Hx Depression Past Surgical History: Reports: Hx Section - X4, Hx Orthopedic Surgery - right knee replacement, right toe, left shoulder - Immunizations Hx Diphtheria, Pertussis, Tetanus Vaccination: Yes Review of Systems - Review of Systems Constitutional: No symptoms reported EENT: No symptoms reported Cardiovascular: No symptoms reported Respiratory: See HPI Gastrointestinal: No symptoms reported Genitourinary: No symptoms reported Female Genitourinary: No symptoms reported Musculoskeletal: No symptoms reported Skin: No symptoms reported Hematologic/Lymphatic: No symptoms reported Neurological/Psychological: No symptoms reported Physical Exam - Vital signs Vitals: Resp Pulse Ox 24 H 86 L 09/04/17 10:52 09/04/17 10:52 Notes: Physical exam: GENERAL: 61-year-old female, currently receiving bag valve mask by EMS, unresponsive HEAD: Atraumatic, normocephalic. EYES: Pupils equal round and reactive to light, extraocular movements intact, sclera anicteric, conjunctiva are normal. ENT: oropharynx clear without exudates. Moist mucous membranes. NECK: Normal range of motion, supple without obvious mass or JVD. LUNGS: Rhonchi bilaterally HEART: Regular rate and rhythm without murmurs, rubs or gallops. ABDOMEN: Soft, hypoactive bowel sounds. Lipoma right lower quadrant, nondistended. EXTREMITIES: Right hip wound dressed. NEUROLOGICAL: Unresponsive SKIN: Warm, Dry, normal turgor, no rashes or lesions noted. Course - Re-evaluation Re-evalutation: 09/04/17 13:13 I have discussed the patient's dire condition with her . [facility]. I believe transfer is within the patient's best interest for higher level of care. Discussed case with Dr [facility] who [facility] the patient. 09/04/17 13:16 Patient has received 30 cc/kg of normal saline. She is currently on a vent. She has a central line and is receiving norepinephrine and epinephrine. She has received IV antibiotics. Initial lactic acid was 4.1. Repeat lactic acid at approximately 230. Current vent settings are PEEP of 10, 100% FiO2, tidal volume 550,IMV 16. 09/04/17 13:25 - Vital Signs Vital signs: Temp Pulse Resp BP Pulse Ox 100.2 F 16 104/52 L 100 09/04/17 15:31 09/04/17 15:31 09/04/17 15:31 09/04/17 15:47 - Laboratory Result Diagrams: 09/04/17 10:59 09/04/17 10:59 Laboratory results interpreted by me: 09/04/17 09/04/17 09/04/17 10:59 10:59 10:59 WBC 10.6 H RBC 2.97 L Hgb 8.7 L Hct 28.1 L MCHC 30.8 L RDW 17.6 H Seg Neutrophils % 87.3 H Lymphocytes % 5.4 L Absolute Neutrophils 9.3 H PT 25.2 H ABG pCO2 ABG pO2 ABG HCO3 ABG Total CO2 ABG O2 Saturation VBG pH Lactic Acid Direct Bilirubin 0.6 H AST 61 H ALT 139 H Total Protein 5.6 L Albumin 2.8 L Urine Urobilinogen 09/04/17 09/04/17 09/04/17 10:59 10:59 11:15 WBC RBC Hgb Hct MCHC RDW Seg Neutrophils % Lymphocytes % Absolute Neutrophils PT ABG pCO2 ABG pO2 ABG HCO3 ABG Total CO2 ABG O2 Saturation VBG pH 7.29 L Lactic Acid 4.1 H Direct Bilirubin AST ALT Total Protein Albumin Urine Urobilinogen 4.0 H 09/04/17 09/04/17 11:40 14:59 WBC RBC Hgb Hct MCHC RDW Seg Neutrophils % Lymphocytes % Absolute Neutrophils PT ABG pCO2 34.9 L ABG pO2 55.1 L ABG HCO3 19.4 L ABG Total CO2 20.4 L ABG O2 Saturation 87.9 L VBG pH Lactic Acid 3.6 H Direct Bilirubin AST ALT Total Protein Albumin Urine Urobilinogen - Diagnostic Test Radiology reviewed: Image reviewed, Reports reviewed - Chest x-ray shows a significant right upper lobe infiltrate. Is concerning for aspiration. The report by radiology does bring up the possibility of lung collapse. - EKG Interpretation by Vt Rate: Normal Rhythm: NSR - EKG shows normal sinus rhythm with a ventricular rate of 64, no acute ST-T wave changes Procedures - Central Line Right Femoral Time completed: 13:09 Consent obtained: No - Patient's was not here presently. Performed emergently. Central line pre-insertion: Chloraprep applied, Sterile drapes applied Central line size (Fr.): 18 Central line lumen type: Triple Anesthetic type: 1% Lidocaine Ultrasound guided: Yes Line secured with sutures: Yes Central line post-insertion: Blood return from lumens, Biopatch applied, Sutured , Sterile dressing applied Number of attempts: 1 Complications: No Notes: 09/04/17 13:10 MSBT (maximum sterile barrier technique) followed including cap, mask, sterile gloves, large sterile sheet, hand hygiene, sterile ultrasound probe sleeve, sterile saline for probe visualization, liberal ChloraPrep for cutaneous antisepsis both during procedure set up and immediately before Biopatch application, line stabilization with suture and sterile Tegaderm placement. - Intubation Orotracheal Time of Intubation: 13:10 Airway evaluation: Copious secretions Mallampati Classification: Class 2 Medications: Succinylcholine, Ketamine, Other - Rocuronium Intubation method: Orotracheal Blade size: 3 Equipment used: Glidescope ETT size: 7.5 ETT secured at: Lips ETT secured at (cm): 23 End tidal CO2 confirmed: Yes Ventilator settings: SIMV Critical Care Note - Critical Care Note Total time excluding time spent on procedures (mins): 110 Discharge - Discharge Clinical Impression: Respiratory failure, Pneumonia, Severe sepsis Condition: Critical Disposition: [facility]
[2017-09-04] MEDS ORDERED: SUCCINYLCHOLINE CHLORIDE INJ 200 MG/10 ML VIAL IV ONE (13:12)
[2017-09-04] MEDS ORDERED: ROCURONIUM BROMIDE INJ 50 MG/5 ML VIAL IV ONE ×2 (13:12→16:48)
[2017-09-04] MEDS ORDERED: KETAMINE HCL INJ 500 MG/10 ML VIAL IV ONE (13:12)
[2017-09-04] MEDS ORDERED: CEFEPIME 2 GM/D5W RTU 2 GM/50 ML RTUPB IV ONE (13:18)
[2017-09-04] MEDS ORDERED: RINGERS SOLUTION,LACTATED 1,000 ML IV ONE (13:59)
[2017-09-04 15:33] VITALS: BP 104/52
[2017-09-04] MEDS ORDERED: SUCCINYLCHOLINE CHLORIDE INJ 200 MG/10 ML VIAL ONE (16:48)
== END 2017-09-04 16:00 | disposition short-term general hospital (02) ==
LOC: ER 10:50
PROC: 06HM33Z Insertion of Infusion Device into Right Femoral Vein, Percutaneous Approach (ICD-10-PCS; principal; 2017-09-04)
PROC: 0BH17EZ Insertion of Endotracheal Airway into Trachea, Via Natural or Artificial Opening (ICD-10-PCS; 2017-09-04)
DX: J96.90 Respiratory failure, unspecified, unspecified whether with hypoxia or hypercapnia (principal); A41.9 Sepsis, unspecified organism; J15.8 Pneumonia due to other specified bacteria; R06.00 Dyspnea, unspecified; J44.9 Chronic obstructive pulmonary disease, unspecified; I50.9 Heart failure, unspecified; I48.91 Unspecified atrial fibrillation; Z79.899 Other long term (current) drug therapy
CPT/HCPCS: 93005; 99291; 99292; 96365; 51702; 96375; 96366; 96367; 96368; 36415; 87040; 87086; 82962; 82803 ×2; 85025; 85610; 87077; 80053; 81001; 87186; 83605; 71010; 93010; 36556; 31500; J3490 ×3; J0171; J1720; J0330; J7060; J7030; J7120; J3370; J1956; J0692

== ENCOUNTER 2017-10-03 02:42 | Inpatient (IN) | payer OTHER ==
[2017-10-03 03:22] LABS: HEMATOCRIT 32.5 % (36.0-47.0); HEMOGLOBIN 10.2 g/dL (12.0-15.5); MEAN CORPUSCULAR HEMOGLOBIN 27.8 pg (27.0-33.4); MEAN CORPUSCULAR HGB CONC 31.3 g/dL (32.0-36.0); PLATELET COUNT 363 10^3/uL (150-450); RED BLOOD COUNT 3.66 10^6/uL (3.72-5.28); RED CELL DISTRIBUTION WIDTH 18.8 % (11.5-14.0); VENOUS BLOOD HCO3 25.9 mmol/L (20-32); VENOUS BLOOD PCO2 42.3 mmHg (35-63); VENOUS BLOOD PH 7.41 (7.30-7.42); WHITE BLOOD COUNT 21.7 10^3/uL (4.0-10.5)
[2017-10-03 03:32] LABS: INTERNATIONAL RATION (INR) 2.66; PROTHROMBIN TIME 29.6 SEC (11.4-15.4)
[2017-10-03 03:33] LABS: PARTIAL THROMBOPLASTIN TIME 57.2 SEC (23.5-35.8)
[2017-10-03 03:38] LABS: ALANINE AMINOTRANSFERASE 24 U/L (9-52); ALBUMIN 3.4 g/dL (3.5-5.0); ALKALINE PHOSPHATASE 77 U/L (38-126); ANION GAP 10 (5-19); ASPARTATE AMINO TRANSFERASE 41 U/L (14-36); BILIRUBIN,DIRECT 0.4 mg/dL (0.0-0.4); BILIRUBIN,TOTAL 0.9 mg/dL (0.2-1.3); BLOOD UREA NITROGEN 19 mg/dL (7-20); CALCIUM 8.8 mg/dL (8.4-10.2); CARBON DIOXIDE 28 mmol/L (22-30); CHLORIDE 100 mmol/L (98-107); CREATINE KINASE 93 U/L (30-135); GLUCOSE 87 mg/dL (75-110); LIPASE 38.9 U/L (23-300); MAGNESIUM 1.7 mg/dL (1.6-2.3); POTASSIUM 3.5 mmol/L (3.6-5.0); SODIUM 137.6 mmol/L (137-145); TOTAL PROTEIN 6.7 g/dL (6.3-8.2)
[2017-10-03 03:50] LABS: ABSOLUTE LYMPHOCYTES# (MANUAL) 2.8 10^3/uL (0.5-4.7); ABSOLUTE MONOCYTES # (MANUAL) 0.7 10^3/uL (0.1-1.4); BAND NEUTROPHILS % (MANUAL) 6 % (3-5); BASOPHILS % (MANUAL) 1 % (0-2); CREATINE KINASE MB 1.59 ng/mL (<4.55); EOSINOPHILS % (MANUAL) 0 % (0-6); LYMPHOCYTES % (MANUAL) 13 % (13-45); MONOCYTES % (MANUAL) 3 % (3-13); SEGMENTED NEUTROPHILS % (MAN) 77 % (42-78); TOTAL CELLS COUNTED 100; TROPONIN I 0.035 ng/mL
[2017-10-03 03:59] LABS: ANISOCYTOSIS 2+; OVALOCYTES 1+; PLATELET CLUMPS PRESENT; PLATELET COMMENT ADEQUATE; PLATELET GIANT PRESENT; PLATELET LARGE PRESENT; POIKILOCYTOSIS 1+; SCHISTOCYTES 2+; TEAR DROP CELLS SLIGHT; TOXIC GRANULATION 1+
[2017-10-03] MEDS ORDERED: DEXAMETHASONE SOD PHOS INJ 10 MG/1 ML VIAL IV ONE (04:02)
[2017-10-03] MEDS ORDERED: LEVOFLOXACIN 500 MG/D5W RTU 500 MG/100 ML RTUPB IV ONE (04:02)
[2017-10-03 04:03] LABS: MEAN CORPUSCULAR VOLUME 89 fl (80-97)
[2017-10-03] MEDS ORDERED: NORMAL SALINE 1000 ML 1,000 ML IV ONE ×4 (04:12→05:43)
[2017-10-03 04:19] LABS: AMORPHOUS SEDIMENT,URINE 1+ /HPF; APPEARANCE,URINE CLOUDY; BILIRUBIN,URINE NEGATIVE (NEGATIVE); COLOR,URINE YELLOW; GLUCOSE, URINE NEGATIVE (NEGATIVE); KETONES,URINE NEGATIVE (NEGATIVE); LEUKOCYTE ESTERASE,URINE MODERATE (NEGATIVE); NITRITE,URINE NEGATIVE (NEGATIVE); PROTEIN,URINE NEGATIVE (NEGATIVE)
[2017-10-03 04:24] LABS: A TYPE INFLUENZA AG NEGATIVE (NEGATIVE); B INFLUENZA AG NEGATIVE (NEGATIVE)
[2017-10-03] MEDS ORDERED: KETAMINE HCL INJ 500 MG/10 ML VIAL ONE (04:25)
--- NOTE | 2017-10-03 04:31 | RADIOLOGY REPORT (SQ) ---
EXAM DESCRIPTION: CHEST SINGLE VIEW CLINICAL HISTORY: sob COMPARISON: 09/04/2017 FINDINGS: Single frontal view of the chest. Tortuosity of thoracic aorta. Cardiomegaly. Interval removal of endotracheal tube and NG tube. Leads overlie the chest. Improved aeration of the right lung with persistent right upper and mid lung airspace opacity. No pneumothorax or pleural effusion. No displaced rib fractures identified. Upper abdominal soft tissues are unremarkable. IMPRESSION: 1. Improved aeration of the right lung with persistent patchy diffuse airspace opacity which could be seen with pneumonia.
[2017-10-03] MEDS ORDERED: PROPOFOL 100 ML IV ONE (04:34)
[2017-10-03] MEDS ORDERED: VECURONIUM BROMIDE INJ 10 MG VIAL IV ONE ×2 (04:34→05:28)
--- NOTE | 2017-10-03 04:35 | RADIOLOGY REPORT (SQ) ---
EXAM DESCRIPTION: CT HEAD WITHOUT CLINICAL HISTORY: ams COMPARISON: 06/02/2017 TECHNIQUE: Axial CT of the head obtained from the skull apex to the skull base without contrast. FINDINGS: No acute intracranial hemorrhage identified. No mass, mass effect, shift of the midline, abnormal extra-axial fluid collection or CT evidence of acute ischemic change identified. The ventricular system is unremarkable. No acute abnormalities of the supratentorial white matter, basal ganglia, cerebellum, or brainstem. Opacities in the right mastoid air cells without evidence of osseous destruction. Motion artifact. No skull fracture identified. Visualized orbits and globes are unremarkable. DLP: 2534.8 mGy-cm IMPRESSION: 1. No acute intracranial abnormality identified. This exam was performed according to our departmental dose-optimization program, which includes automated exposure control, adjustment of the mA and/or kV according to patient size and/or use of iterative reconstruction technique.
[2017-10-03] MEDS ORDERED: NOREPINEPHRINE BITARTRATE INJ/PF 4 MG/4 ML SDV IV ONE (04:59)
[2017-10-03] MEDS ORDERED: VANCOMYCIN HCL INJ 1000 MG VIAL IV ONE (05:22)
[2017-10-03] MEDS ORDERED: KETAMINE HCL INJ 500 MG/10 ML VIAL IV ONE (05:28)
[2017-10-03] MEDS ORDERED: SUCCINYLCHOLINE CHLORIDE INJ 200 MG/10 ML VIAL IV ONE (05:28)
--- NOTE | 2017-10-03 05:39 | ER Document Report ---
ED General - General Chief Complaint: Shortness Of Breath Stated Complaint: BREATHING DIFFICULTY Time Seen by Provider: 10/03/17 02:52 TRAVEL OUTSIDE OF THE [place] IN LAST 30 DAYS: No - HPI Patient complains to provider of: Shortness of breath Notes: Patient coming in for shortness of breath. According to patient woke up in the night complaining of shortness of breath as the pulse ox placed on the patient's fingers reading 60-40 patient was on finger had no readings patient was then transported to the ER for shortness of breath upon my evaluation patient was on oxygen with normal saturations. States patient has a history of multiple hospitalizations with pneumonia recently approximately 1/2- 2 weeks ago was [facility] in the lungs. Patient also has history of bilateral pneumonias. Patient has a history of renal sufficiency hypothyroidism sepsis A. fib is on Xarelto. 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 states is normally what happens before she gets sick. Fever at home 102 has been to give Tylenol 500 mg. Patient currently is on any antibiotics. states patient normally does have a low blood pressure was systolic in the 80s-90s. Otherwise patient looks to be uncomfortable. - Related Data Allergies/Adverse Reactions: MERRITT Inhibitors [Merritt Inhibitors] Allergy (Verified 05/29/17 18:49) Angioneurotic Edema amoxicillin trihydrate [From Augmentin] Allergy (Verified 05/29/17 18:49) Hives bumetanide [From Bumex] Allergy (Verified 05/29/17 18:49) Hives Potassium Clavulanate * [From Augmentin] Allergy (Verified 05/29/17 18:49) Hives Past Medical History - Social History Smoking Status: Unknown if Ever Smoked Family History: None, Other - Asthma and dementia - Past Medical History Cardiac Medical History: Reports: Hx Atrial Fibrillation, Hx Congestive Heart Failure, Hx Hypercholesterolemia, Hx Hypertension Pulmonary Medical History: Reports: Hx Asthma, Hx COPD, Hx Pneumonia, Hx Respiratory Failure - On home oxygen, Hx Sleep Apnea Endocrine Medical History: Reports: Hx Hypothyroidism Renal/ Medical History: Denies: Hx Peritoneal Dialysis Musculoskeltal Medical History: Reports Hx Fibromyalgia Psychiatric Medical History: Reports: Hx Depression Past Surgical History: Reports: Hx Section - X4, Hx Orthopedic Surgery - right knee replacement, right toe, left shoulder - Immunizations Hx Diphtheria, Pertussis, Tetanus Vaccination: Yes Review of Systems - Review of Systems Constitutional: Fever EENT: No symptoms reported Cardiovascular: No symptoms reported Respiratory: Short of breath Gastrointestinal: No symptoms reported Genitourinary: No symptoms reported Female Genitourinary: No symptoms reported Musculoskeletal: No symptoms reported Skin: No symptoms reported Hematologic/Lymphatic: No symptoms reported Neurological/Psychological: No symptoms reported -: Yes All other systems reviewed and negative Physical Exam - Vital signs Vitals: Temp 99.3 F 10/03/17 03:12 Interpretation: Hypotensive, Hypoxic - General General appearance: Alert, Other - Uncomfortable - HEENT Head: Normocephalic, Atraumatic Eyes: Normal Pupils: PERRL - Respiratory Respiratory status: No respiratory distress Chest status: Nontender Breath sounds: Rhonchi Chest palpation: Normal - Cardiovascular Rhythm: Regular Heart sounds: Normal auscultation Murmur: No - Abdominal Inspection: Normal Distension: No distension Bowel sounds: Normal Tenderness: Nontender Organomegaly: No organomegaly - Back Back: Normal, Nontender - Extremities General upper extremity: Normal inspection, Nontender, Normal color, Normal ROM , Normal temperature General lower extremity: Normal inspection, Nontender, Normal color, Normal ROM , Normal temperature, Normal weight bearing. No: Sarath's sign - Neurological Neuro grossly intact: Yes Cognition: Normal Orientation: AAOx4 Laurence Coma Scale Eye Opening: Spontaneous [place] Coma Scale Verbal: Oriented [place] Coma Scale Motor: Obeys Commands [place] Coma Scale Total: 15 Speech: Normal Motor strength normal: LUE, RUE, LLE, RLE Sensory: Normal - Psychological Associated symptoms: Normal affect, Normal mood - Skin Skin Temperature: Warm Skin Moisture: Dry Skin Color: Pale Course - Re-evaluation Re-evalutation: 10/03/17 05:36 Patient continued to decline after initial evaluation no change in mental status. Only arousable because of dyspnea and history of anticoagulation patient was taken over to CT scan for evaluation CT scan of the head was negative for any bleed. Patient continued to have intermittent episodes of a low GCS difficult to arouse. Because of this and has been giving history patient normally continues to decline decision was made to intubate the patient for airway protection. Oxygenation remained okay on nasal cannula with a pulse ox in the lower 90s. Intubation central line was placed without difficulty. Patient's blood pressure did remain hypertensive therefore patient was started on a low-dose of Levophed. Patient was given 3 L of fluid is at the patient's also given history the patient did not urinate for the last 24 hours. After 2 L patient still had minimal urine output. Chest x-ray consistent with pneumonia. Patient started on Levaquin and vancomycin. Right-sided changes concerning for aspiration according to patient did have a swallow test that did show slight aspiration however no change in diet. More likely underlying sepsis due to pneumonia. 10/03/17 05:42 Discussed with hospitalist will admit to the ICU. I did contact [facility] as that we do not have any room in ICU however provided currently does not have any open beds - Vital Signs Vital signs: Temp Pulse Resp BP Pulse Ox 99.3 F 10/03/17 03:12 - Laboratory Result Diagrams: 10/03/17 03:05 10/03/17 03:05 Laboratory results interpreted by me: 10/03/17 10/03/17 10/03/17 03:05 03:05 03:05 WBC 21.7 H RBC 3.66 L Hgb 10.2 L Hct 32.5 L MCHC 31.3 L RDW 18.8 H Band Neutrophils % 6 H Abs Neuts (Manual) 18.0 H PT 29.6 H APTT 57.2 H Potassium 3.5 L Creatinine 1.50 H Est GFR ( Amer) 42 L Est GFR (Non-Af Amer) 35 L AST 41 H NT-Pro-B Natriuret Pep Albumin 3.4 L Urine Urobilinogen Ur Leukocyte Esterase 10/03/17 10/03/17 03:05 03:43 WBC RBC Hgb Hct MCHC RDW Band Neutrophils % Abs Neuts (Manual) PT APTT Potassium Creatinine Est GFR ( Amer) Est GFR (Non-Af Amer) AST NT-Pro-B Natriuret Pep 4660 H Albumin Urine Urobilinogen 2.0 H Ur Leukocyte Esterase MODERATE H Procedures - Central Line Left Internal jugular Consent obtained: Yes Central line pre-insertion: Sterile PPE donned, Chloraprep applied Central line lumen type: Triple Ultrasound guided: Yes CM at insertion site: 20 Line secured with sutures: Yes Central line post-insertion: Blood return from lumens, Biopatch applied, Sutured , Sterile dressing applied, Position confirmed w/ CXR Number of attempts: 1 Complications: No - Intubation Orotracheal Airway evaluation: Normal anatomy Mallampati Classification: Class 2 Medications: Succinylcholine, Ketamine Intubation method: Orotracheal Blade size: 3 Equipment used: Glidescope ETT size: 7.0 ETT secured at: Teeth ETT secured at (cm): 21 Breath Sounds after Intubation: Equal End tidal CO2 confirmed: Yes Post Intubation Xray: Yes - Nausea Intubation Complications: No complications - Additional Procedures Orogastric tube placed Notes: 10/03/17 05:40 Orogastric tube was placed secured teeth approximately 55 cm. Auscultation did reveal positive gastric sounds with insertion of air through the syringe. Return of gastric content was hooked up to suction. Critical Care Note - Critical Care Note Total time excluding time spent on procedures (mins): 45 Comments: Multiple evaluation patient with more likely underlying sepsis from pneumonia and possible UTI time excludes procedures Discharge - Discharge Clinical Impression: COPD exacerbation, Adrenal insufficiency, ANNA (obstructive sleep apnea), Anticoagulated Atrial fibrillation Qualifiers: Atrial fibrillation type: unspecified Qualified Code(s): I48.91 - Unspecified atrial fibrillation Sepsis Qualifiers: Sepsis type: sepsis due to unspecified organism Qualified Code(s): A41.9 - Sepsis, unspecified organism Pneumonia Qualifiers: Pneumonia type: due to unspecified organism Laterality: right Lung location: unspecified part of lung Qualified Code(s): J18.9 - Pneumonia, unspecified organism Condition: Good Disposition: ADMITTED INPATIENT Admitting Provider: [facility] Unit Admitted: ICU
[2017-10-03] MEDS ORDERED: PROPOFOL 100 ML IV PRN (05:57)
--- NOTE | 2017-10-03 05:57 | RADIOLOGY REPORT (SQ) ---
EXAM DESCRIPTION: CHEST SINGLE VIEW CLINICAL HISTORY: s/p lines COMPARISON: 09/04/2017 FINDINGS: Single frontal view of the chest. Tortuosity of thoracic aorta. Cardiomegaly. Endotracheal tube with tip at the level of the clavicles. Left IJ central venous catheter with tip in the meng right atrium. NG tube with tip below the diaphragm.. Leads overlie the chest. Interval increase in diffuse right lung airspace opacity as well as patchy left basilar airspace opacity. Low lung volumes. No acute osseous abnormalities. Upper abdominal soft tissues are unremarkable. IMPRESSION: 1. Interval placement of tubes and lines as detailed above. Interval increase in diffuse right and left basilar airspace opacity. Electronically signed by: Jayden Cabrales 10/03/2017 4:55 AM
[2017-10-03] MEDS ORDERED: PHARMACY COMMUNICATION ORDER MC NR (06:00)
[2017-10-03] MEDS ORDERED: AZTREONAM INJ 1 GM VIAL IV SCH (06:15)
--- NOTE | 2017-10-03 06:39 | PDOC H&P ---
History of Present Illness Admission Date/PCP: 10/03/17 05:53 Patient complains of: Fever shortness of breath and confusion History of Present Illness: NIMISHA PORTILLO is a 61 year old female who had been recently discharged from another hospital for congestive heart failure and pneumonia. She apparently did well in detail the day of her admission. She became more hypoxemic. She became febrile and confused. She was brought to our emergency room where she was intubated and started on antibiotics. We are asked to assume care for this patient. Past Medical History Cardiac Medical History: Reports: Atrial Fibrillation, Congestive Heart Failure - Diastolic, Hyperlipidema, Hypertension Pulmonary Medical History: Reports: Asthma, Chronic Obstructive Pulmonary Disease (COPD) - On chronic steroids, Pneumonia, Respiratory Failure - On home oxygen, Sleep Apnea Endocrine Medical History: Reports: Hypothyroidism Renal/ Medical History: Reports: Chronic Kidney Disease Musculoskeltal Medical History: Reports: Fibromyalgia Psychiatric Medical History: Reports: Depression Past Surgical History Past Surgical History: Reports: Section - X4, Orthopedic Surgery - right knee replacement, right toe, left shoulder Social History Information Source: Relative - Spouse, Emergency Med Personnel Lives with: Spouse/Significant other Smoking Status: Unknown if Ever Smoked Frequency of Alcohol Use: None Hx Recreational Drug Use: No Drugs: None Hx Prescription Drug Abuse: No - Advance Directive Resuscitation Status: Full Code Surrogate healthcare decision maker:: Family History Family History: Other - Asthma and dementia Family History: Not obtainable secondary to patient being intubated Parental Family History Reviewed: No Children Family History Reviewed: No Sibling(s) Family History Reviewed.: No Medication/Allergy Home Medications: Allopurinol [Zyloprim 300 mg Tablet] 300 mg PO DAILY 09/04/17 Amiodarone HCl [Pacerone] 100 mg PO DAILY 09/04/17 Atenolol [Tenormin] 25 mg PO Q12 09/04/17 Diltiazem HCl [Diltiazem 24Hr ER] 240 mg PO DAILY 09/04/17 Diphenhydramine HCl [Benadryl 25 mg Capsule] 25 mg PO Q6HP PRN 09/04/17 Escitalopram Oxalate [Lexapro 10 mg Tablet] 10 mg PO DAILY 09/04/17 Fentanyl [Duragesic 25 Mcg/Hr Transdermal Patch] 1 each TD Q3D 09/04/17 Fluticasone/Salmeterol [Advair 250-50 Diskus 14 Dose/Diskus] 1 inh IH Q12 Furosemide [Lasix 20 mg Tablet] 20 mg PO QAM 09/04/17 Levothyroxine Sodium [Synthroid 0.025 mg Tablet] 25 mcg PO Q6AM 09/04/17 Loratadine [Claritin 10 mg Tablet] 10 mg PO QHS 09/04/17 Magnesium Oxide [Mag-Ox 400 mg Tablet] 400 mg PO BID 09/04/17 Metoprolol Tartrate [Lopressor 25 mg Tablet] 25 mg PO Q12 09/04/17 Montelukast Sodium [Singulair 10 mg Tablet] 10 mg PO QHS 09/04/17 Oxycodone HCl [Oxy-Ir 5 mg Tablet] 10 mg PO Q6HP PRN MDD FILLED 09/03 FOR 5DS Polyethylene Glycol 3350 [Miralax Powder 17 gm/Packet] 1 packet PO DAILY Polyvinyl Alcohol [Liquitears 1.4% Ophth Soln 15 ml] 2 drop OU Q12 09/04/17 Potassium Chloride [Klor-Con Sprinkle] 10 meq PO DAILY 09/04/17 Prednisone [Deltasone 5 mg Tablet] 2.5 mg PO DAILY@1500 09/04/17 Prednisone [Deltasone 5 mg Tablet] 5 mg PO QAM 09/04/17 Simvastatin [Zocor 20 mg Tablet] 20 mg PO QHS 09/04/17 Spironolactone [Aldactone 25 mg Tablet] 25 mg PO Q12 09/04/17 Allergies/Adverse Reactions: MERRITT Inhibitors [Merritt Inhibitors] Allergy (Verified 05/29/17 18:49) Angioneurotic Edema amoxicillin trihydrate [From Augmentin] Allergy (Verified 05/29/17 18:49) Hives bumetanide [From Bumex] Allergy (Verified 05/29/17 18:49) Hives Potassium Clavulanate * [From Augmentin] Allergy (Verified 05/29/17 18:49) Hives Review of Systems ROS unobtainable: Due to endotracheal tube, Due to mental status Physical Exam Vital Signs: Temp Pulse Resp BP Pulse Ox 99.3 F 18 80/49 L 100 10/03/17 03:12 10/03/17 06:10 10/03/17 06:02 10/03/17 06:10 General appearance: PRESENT: no acute distress, other - Intubated and sedated Head exam: PRESENT: atraumatic, normocephalic Neck exam: ABSENT: carotid bruit, JVD, tenderness, thyromegaly Respiratory exam: PRESENT: clear to auscultation lyn. ABSENT: accessory muscle use, rhonchi, stridor, wheezes Cardiovascular exam: PRESENT: RRR, systolic murmur GI/Abdominal exam: PRESENT: guarding, hypoactive bowel sounds, normal bowel sounds Rectal exam: PRESENT: deferred Gentrourinary exam: PRESENT: indwelling catheter Skin exam: PRESENT: dry, intact, warm. ABSENT: cyanosis, rash Results Laboratory Results: 10/03/17 10/03/17 10/03/17 03:05 03:05 03:05 WBC 21.7 H Hgb 10.2 L Hct 32.5 L Plt Count 363 PT 29.6 H INR 2.66 APTT 57.2 H VBG pH VBG pCO2 VBG HCO3 Sodium 137.6 Potassium 3.5 L Chloride 100 Carbon Dioxide 28 Anion Gap 10 BUN 19 Creatinine 1.50 H Creatine Kinase 93 CK-MB (CK-2) Troponin I NT-Pro-B Natriuret Pep Total Protein 6.7 Albumin 3.4 L Lipase 38.9 Ur Leukocyte Esterase Urine WBC (Auto) Urine Bacteria (Auto) Urine WBC Clumps Influenza A (Rapid) Influenza B (Rapid) 10/03/17 10/03/17 10/03/17 03:05 03:05 03:43 WBC Hgb Hct Plt Count PT INR APTT VBG pH 7.41 VBG pCO2 42.3 VBG HCO3 25.9 Sodium Potassium Chloride Carbon Dioxide Anion Gap BUN Creatinine Creatine Kinase CK-MB (CK-2) 1.59 Troponin I 0.035 NT-Pro-B Natriuret Pep 4660 H Total Protein Albumin Lipase Ur Leukocyte Esterase MODERATE H Urine WBC (Auto) 29 Urine Bacteria (Auto) 3+ Urine WBC Clumps OCC Influenza A (Rapid) Influenza B (Rapid) 10/03/17 03:43 WBC Hgb Hct Plt Count PT INR APTT VBG pH VBG pCO2 VBG HCO3 Sodium Potassium Chloride Carbon Dioxide Anion Gap BUN Creatinine Creatine Kinase CK-MB (CK-2) Troponin I NT-Pro-B Natriuret Pep Total Protein Albumin Lipase Ur Leukocyte Esterase Urine WBC (Auto) Urine Bacteria (Auto) Urine WBC Clumps Influenza A (Rapid) NEGATIVE Influenza B (Rapid) NEGATIVE Impressions: Head CT 10/03/17 03:55 IMPRESSION: 1. No acute intracranial abnormality identified. This exam was performed according to our departmental dose-optimization program, which includes automated exposure control, adjustment of the mA and/or kV according to patient size and/or use of iterative reconstruction technique. Chest X-Ray 10/03/17 05:33 IMPRESSION: 1. Interval placement of tubes and lines as detailed above. Interval increase in diffuse right and left basilar airspace opacity. Assessment & Plan - Diagnosis (1) Sepsis Qualifiers: Sepsis type: sepsis due to unspecified organism Qualified Code(s): A41.9 - Sepsis, unspecified organism Is this a current diagnosis for this admission?: Yes (2) Adrenal insufficiency Is this a current diagnosis for this admission?: Yes (3) Acute on chronic diastolic heart failure Is this a current diagnosis for this admission?: Yes - Time Time Spent: 30 to 50 Minutes - Inpatient Certification Based on my medical assessment, after consideration of the patient's comorbidities, presenting symptoms, or acuity I expect that the services needed warrant INPATIENT care.: Yes I certify that my determination is in accordance with my understanding of Medicare's requirements for reasonable and necessary INPATIENT services [42 CFR 412.3e].: Yes Medical Necessity: Significant Comorbidiites Make Outpatient Treatment Too Risky , Need For IV Fluids - Plan Summary Plan Summary: Patient has been intubated and started on pressors in the emergency room. Of course this will be continued. We will ask for the assistance of a nursing unit manager. Patient will be placed on antibiotics as per protocol for sepsis. The source appears to be urinary. Her chest x-ray changes appear to be resolving pneumonitis from earlier this month and not active pneumonia. Patient is on chronic steroids at home she will be given a steroid burst to prevent addisonian crisis. She will not need DVT prophylaxis as she is on chronic anticoagulation. Anticipated length of stay is greater than 2 midnights
[2017-10-03 07:44] LABS: ARTERIAL BLOOD BASE EXCESS -4.1 mmol/L; ARTERIAL BLOOD H2CO3 1.14 mmol/L (1.05-1.35); ARTERIAL BLOOD HCO3 20.9 mmol/L (20-26); ARTERIAL BLOOD O2 SATURATION 95.7 % (94-98); ARTERIAL BLOOD PH 7.36 (7.35-7.45); ARTERIAL BLOOD PO2 81.4 mmHg (80-100); ARTERIAL BLOOD TOTAL CO2 22.1 mmol/L (21-25)
[2017-10-03 07:51] LABS: ARTERIAL BLOOD FIO2 40%
--- NOTE | 2017-10-03 07:52 | EKG REPORT ---
SEVERITY:- ABNORMAL ECG - SINUS RHYTHM NONSPECIFIC T ABNORMALITIES, ANT-LAT LEADS PROLONGED QT INTERVAL : Confirmed by: Kamar Mitchell MD 03-Oct-2017 07:52:05
--- NOTE | 2017-10-03 08:53 | RADIOLOGY REPORT (SQ) ---
EXAM DESCRIPTION: KUB/ABDOMEN (SINGLE VIEW) COMPLETED DATE/TIME: 10/03/2017 7:11 am REASON FOR STUDY: Check Placement of NG Tube COMPARISON: None. NUMBER OF VIEWS: One view. TECHNIQUE: Supine radiographic image of the abdomen acquired. LIMITATIONS: None. FINDINGS: BOWEL GAS PATTERN: Normal bowel gas pattern. No dilated loops. CALCIFICATIONS: No suspicious calcifications. SOFT TISSUES: No gross mass or suggestion of organomegaly. HARDWARE: Nasogastric tube tip in the antrum of the stomach. Venous access catheter. BONES: No acute fracture. No worrisome bone lesions. OTHER: Interstitial changes in the lungs. IMPRESSION: NG tube tip in expected location. TECHNICAL DOCUMENTATION: JOB ID: [id number] [employer]- All Rights Reserved
[2017-10-03] MEDS: AZTREONAM 1 GM in DEXTROSE 5%-WATER 50 ML IV SCH ×2 (09:24→18:10)
[2017-10-03] MEDS: FAMOTIDINE INJ/PF 20 MG/2 ML SDV IV SCH (09:24)
[2017-10-03] MEDS ORDERED: FAMOTIDINE INJ/PF 20 MG/2 ML SDV IV SCH (10:00)
[2017-10-03] MEDS: MORPHINE SULFATE 10 MG/ML INJ IV PRN ×2 (10:10→13:30)
[2017-10-03] MEDS: LEVOTHYROXINE SODIUM INJ/PF 0.1 MG SDV IV SCH (10:10)
[2017-10-03 13:02] LABS: CREATINE KINASE MB 2.22 ng/mL (<4.55); TROPONIN I 0.017 ng/mL
[2017-10-03] MEDS: RINGERS SOLUTION,LACTATED 1,000 ML IV PRN ×2 (14:18→21:47)
[2017-10-03] MEDS: HYDROCORTISONE SOD SUCCINATE INJ/PF 100 MG/2 ML SDV IV SCH ×2 (14:18→21:47)
--- NOTE | 2017-10-03 14:31 | PDOC CONSULTATION ---
Consultation Consult Date: 10/03/17 Attending physician:: CHRIS PALACIO Consult reason:: acute/chronic resp failure History of Present Illness Admission Date/PCP: 10/03/17 05:53 History of Present Illness: NIMISHA PORTILLO is a 61 year old female who had been recently discharged from another hospital for congestive heart failure and pneumonia. She apparently did well Until the day of her admission.Found by her to become lethargic and not arousable they work on pursed lip breathing after he had taken her saturation which was 44%; by the time EMT arrived She become more hypoxemic. She became febrile and confused. She was intubated and started on antibiotics. she had patient has been seen by [facility] several times in the past in addition to COPD.She suffers from chronic atrial fibrillation and congestive heart failure Past Medical History Cardiac Medical History: Reports: Atrial Fibrillation, Congestive Heart Failure - Diastolic, Hyperlipidema, Hypertension Pulmonary Medical History: Reports: Asthma, Chronic Obstructive Pulmonary Disease (COPD) - On chronic steroids, Pneumonia, Respiratory Failure - On home oxygen, Sleep Apnea EENT Medical History: Denies: Ears, Nose, Throat Neurological Medical History: Denies: Multiple Sclerosis, Seizures Endocrine Medical History: Reports: Hypothyroidism Renal/ Medical History: Reports: Chronic Kidney Disease Musculoskeltal Medical History: Reports: Fibromyalgia Skin Medical History: Denies: Psoriasis Psychiatric Medical History: Reports: Depression Traumatic Medical History: Denies: Traumatic Brain Injury Hematology: Denies: Sickle Cell Disease Past Surgical History Past Surgical History: Reports: Section - X4, Orthopedic Surgery - right knee replacement, right toe, left shoulder Social History Information Source: [facility] Records Lives with: Spouse/Significant other Smoking Status: Unknown if Ever Smoked Frequency of Alcohol Use: None Hx Recreational Drug Use: No Drugs: None Hx Prescription Drug Abuse: No Have you had any respiratory illnesses as a child?: No Have you been exposed to any sick contacts recently?: No Have you had any recent respiratory illnesses?: No Have you travelled outside of [place] in the past 12 months?: No - Advance Directive Resuscitation Status: Full Code Family History Family History: Other - Asthma and dementia Parental Family History Reviewed: Yes Children Family History Reviewed: Yes Sibling(s) Family History Reviewed.: Yes Medication/Allergy Home Medications: Allopurinol [Zyloprim 300 mg Tablet] 300 mg PO DAILY 10/03/17 Amiodarone HCl [Cordarone 200 mg Tablet] 100 mg PO DAILY 10/03/17 Atenolol [Tenormin] 25 mg PO Q12 10/03/17 Docusate Sodium [Colace 100 mg Capsule] 100 mg PO DAILY 10/03/17 Fentanyl [Duragesic 25 Mcg/Hr Transdermal Patch] 1 each TD Q3D 10/03/17 Furosemide [Lasix 40 mg Tablet] 40 mg PO DAILY 10/03/17 Levothyroxine Sodium [Synthroid 0.025 mg Tablet] 25 mcg PO QAM 10/03/17 Magnesium Oxide [Mag-Ox 400 mg Tablet] 400 mg PO BID 10/03/17 Metoprolol Tartrate [Lopressor 25 mg Tablet] 37.5 mg PO Q12 10/03/17 Potassium Chloride [Klor-Con 10 Meq Tablet.sa] 10 meq PO DAILY 10/03/17 Spironolactone [Aldactone 25 mg Tablet] 12.5 mg PO DAILY 10/03/17 Valsartan [Diovan 40 mg Tablet] 40 mg PO DAILY 10/03/17 Allergies/Adverse Reactions: MERRITT Inhibitors [Merritt Inhibitors] Allergy (Verified 05/29/17 18:49) Angioneurotic Edema amoxicillin trihydrate [From Augmentin] Allergy (Verified 05/29/17 18:49) Hives bumetanide [From Bumex] Allergy (Verified 05/29/17 18:49) Hives Potassium Clavulanate * [From Augmentin] Allergy (Verified 05/29/17 18:49) Hives Review of Systems Constitutional: PRESENT: fatigue, fever(s), weakness. ABSENT: night sweats Eyes: ABSENT: visual disturbances Ears: ABSENT: hearing changes Nose, Mouth, and Throat: ABSENT: mouth pain, sore throat Cardiovascular: PRESENT: palpitations Respiratory: PRESENT: dyspnea. ABSENT: hemoptysis Gastrointestinal: PRESENT: hematochezia, nausea. ABSENT: abdominal pain, coffee ground emesis, dysphagia, heartburn, hematemesis, melena, vomiting Genitourinary: PRESENT: nocturia. ABSENT: dysuria, hematuria Integumentary: ABSENT: lesions, pruritus Neurological: PRESENT: abnormal movements. ABSENT: abnormal speech, confusion, convulsions, frequent falls, lack of coordination, memory loss, numbness Psychiatric: ABSENT: hallucinations, homidical ideation, suicidal ideation Hematologic/Lymphatic: PRESENT: easy bruising Physical Exam Vital Signs: Temp Pulse Resp BP Pulse Ox 99.3 F 15 115/60 97 10/03/17 03:12 10/03/17 10:31 10/03/17 10:31 10/03/17 10:31 Intake & Output 10/02/17 10/03/17 10/04/17 06:59 06:59 06:59 Output Total 125 Balance -125 General appearance: PRESENT: no acute distress, disheveled, obese, well- developed. ABSENT: cooperative, mild distress, morbidly obese, severe distress Head exam: PRESENT: atraumatic, normocephalic Eye exam: PRESENT: conjunctiva pale. ABSENT: conjunctiva pink, nystagmus Mouth exam: PRESENT: dry mucosa, neck supple, tongue midline, other - ET. ABSENT: laceration, moist Neck exam: ABSENT: carotid bruit, JVD, lymphadenopathy, thyromegaly, tracheal deviation, tracheostomy Respiratory exam: PRESENT: decreased breath sounds, prolonged expiratory phas, rhonchi, symmetrical, unlabored. ABSENT: clear to auscultation lyn, crackles, rales, stridor Cardiovascular exam: PRESENT: irregular rhythm, tachycardia Pulses: PRESENT: normal radial pulses GI/Abdominal exam: PRESENT: diminished bowel sounds, soft Gentrourinary exam: PRESENT: indwelling catheter Extremities exam: ABSENT: clubbing, joint swelling Musculoskeletal exam: ABSENT: ambulatory, deformity, dislocation Neurological exam: ABSENT: alert, awake, oriented to person Skin exam: PRESENT: dry, warm Results Laboratory Results: 10/03/17 07:36 Carbonic Acid 1.14 HCO3/H2CO3 Ratio 18:1 ABG pH 7.36 ABG pCO2 38.0 ABG pO2 81.4 ABG HCO3 20.9 ABG O2 Saturation 95.7 ABG Base Excess -4.1 FiO2 40% Impressions: Head CT 10/03/17 03:55 IMPRESSION: 1. No acute intracranial abnormality identified. This exam was performed according to our departmental dose-optimization program, which includes automated exposure control, adjustment of the mA and/or kV according to patient size and/or use of iterative reconstruction technique. Chest X-Ray 10/03/17 05:33 IMPRESSION: 1. Interval placement of tubes and lines as detailed above. Interval increase in diffuse right and left basilar airspace opacity. KUB X-Ray 10/03/17 05:59 IMPRESSION: NG tube tip in expected location. Assessment & Plan - Diagnosis (2) Pneumonia Qualifiers: Pneumonia type: due to unspecified organism Laterality: right Lung location: unspecified part of lung Qualified Code(s): J18.9 - Pneumonia, unspecified organism Plan: recent admission to [facility] must cover for HAP (3) Atrial fibrillation Qualifiers: Atrial fibrillation type: unspecified Qualified Code(s): I48.91 - Unspecified atrial fibrillation Is this a current diagnosis for this admission?: Yes Plan: stable (4) ANNA (obstructive sleep apnea) Is this a current diagnosis for this admission?: Yes Plan: stable (5) CHF (congestive heart failure) Qualifiers: Congestive heart failure type: combined Congestive heart failure chronicity : chronic Qualified Code(s): I50.42 - Chronic combined systolic (congestive) and diastolic (congestive) heart failure Is this a current diagnosis for this admission?: Yes Plan: on diuretic and fluid restriction - Time Time Spent with patient: 50 Total Critical Time (Minutes): 50
[2017-10-03] MEDS ORDERED: MIDAZOLAM HCL 50 MG/100 ML RTUINJ IV PRN (16:58)
[2017-10-03] MEDS ORDERED: MIDAZOLAM HCL 50 MG/100 ML RTUINJ IV ONE (17:09)
[2017-10-03 19:14] LABS: CREATINE KINASE MB 1.94 ng/mL (<4.55); TROPONIN I 0.014 ng/mL
[2017-10-04 01:06] LABS: CREATINE KINASE MB 1.42 ng/mL (<4.55)
[2017-10-04 01:09] LABS: TROPONIN I < 0.012 ng/mL
[2017-10-04] MEDS: AZTREONAM 1 GM in DEXTROSE 5%-WATER 50 ML IV SCH ×3 (01:33→17:07)
[2017-10-04 05:10] LABS: ARTERIAL BLOOD BASE EXCESS -1.7 mmol/L; ARTERIAL BLOOD H2CO3 1.02 mmol/L (1.05-1.35); ARTERIAL BLOOD HCO3 22.1 mmol/L (20-26); ARTERIAL BLOOD O2 SATURATION 98.4 % (94-98); ARTERIAL BLOOD PCO2 33.9 mmHg (35-45); ARTERIAL BLOOD PH 7.43 (7.35-7.45); ARTERIAL BLOOD PO2 118.7 mmHg (80-100); ARTERIAL BLOOD TOTAL CO2 23.1 mmol/L (21-25)
[2017-10-04 05:11] LABS: ARTERIAL BLOOD FIO2 30%
[2017-10-04] MEDS: HYDROCORTISONE SOD SUCCINATE INJ/PF 100 MG/2 ML SDV IV SCH ×3 (05:13→21:50)
[2017-10-04 05:22] LABS: ABSOLUTE LYMPHOCYTES (AUTO) 0.8 10^3/uL (0.5-4.7); ABSOLUTE MONOCYTES (AUTO) 0.3 10^3/uL (0.1-1.4); ABSOLUTE NEUT (AUTO) 12.6 10^3/uL (1.7-8.2); BASOPHILS % (AUTO) 0.1 % (0-2); HEMATOCRIT 25.2 % (36.0-47.0); LYMPHOCYTES % (AUTO) 6.1 % (13-45); MEAN CORPUSCULAR HEMOGLOBIN 27.9 pg (27.0-33.4); MEAN CORPUSCULAR HGB CONC 31.6 g/dL (32.0-36.0); MEAN CORPUSCULAR VOLUME 88 fl (80-97); MONOCYTES % (AUTO) 2.5 % (3-13); PLATELET COUNT 254 10^3/uL (150-450); RED BLOOD COUNT 2.86 10^6/uL (3.72-5.28); RED CELL DISTRIBUTION WIDTH 19.1 % (11.5-14.0); SEGMENTED NEUTROPHILS % (AUTO) 91.3 % (42-78); TOTAL CELLS COUNTED % (AUTO) 100 %; WHITE BLOOD COUNT 13.7 10^3/uL (4.0-10.5)
[2017-10-04 05:38] LABS: ALANINE AMINOTRANSFERASE 20 U/L (9-52); ALBUMIN 2.4 g/dL (3.5-5.0); ALKALINE PHOSPHATASE 52 U/L (38-126); ANION GAP 10 (5-19); ASPARTATE AMINO TRANSFERASE 16 U/L (14-36); BILIRUBIN,DIRECT 0.3 mg/dL (0.0-0.4); BILIRUBIN,TOTAL 0.3 mg/dL (0.2-1.3); BLOOD UREA NITROGEN 19 mg/dL (7-20); CARBON DIOXIDE 22 mmol/L (22-30); CHLORIDE 111 mmol/L (98-107); GLUCOSE 110 mg/dL (75-110); MAGNESIUM 1.8 mg/dL (1.6-2.3); PHOSPHORUS 4.1 mg/dL (2.5-4.5); POTASSIUM 3.2 mmol/L (3.6-5.0); TOTAL PROTEIN 4.9 g/dL (6.3-8.2)
--- NOTE | 2017-10-04 07:46 | RADIOLOGY REPORT (SQ) ---
EXAM DESCRIPTION: CHEST SINGLE VIEW CLINICAL HISTORY: 61 years, Female, intubated respiratory failure COMPARISON: 10/03/17. NUMBER OF VIEWS: 1 LIMITATIONS: None. FINDINGS: Moderate mixed airspace and interstitial opacity, moderate lung volume, moderate enlargement of the cardiac silhouette, no pneumothorax, adequate appearing endotracheal tube, likely adequate enteric tube obscured at its tip. Left jugular central line tip at the right atrium; consider 4 cm retraction. No acute bony defect. IMPRESSION: No significant change.
--- NOTE | 2017-10-04 08:30 | PDOC PROGRESS REPORT ---
Subjective Progress Note for:: 10/04/17 Subjective:: Patient is resting in bed intubated to ventilator and sedated. She does open her eyes to name and weakly follows some commands. Her is at the bedside. Nursing report no issues overnight. Reason For Visit: UTI WITH SEPSIS, DISTALOTIC HT FAILURE, RESOLVING Physical Exam Vital Signs: Temp Pulse Resp BP Pulse Ox 97.2 F 64 12 104/58 L 98 10/04/17 06:35 10/04/17 03:17 10/04/17 06:35 10/04/17 06:07 10/04/17 07:33 Intake & Output 10/03/17 10/04/17 10/05/17 06:59 06:59 06:59 Intake Total 2453 Output Total 1875 Balance 578 Weight 69.2 kg General appearance: PRESENT: no acute distress, obese, well-developed, well- nourished, other - intubated and sedated Head exam: PRESENT: atraumatic, normocephalic Eye exam: PRESENT: conjunctiva pink, EOMI, PERRLA. ABSENT: scleral icterus Ear exam: PRESENT: normal external ear exam Mouth exam: PRESENT: moist, tongue midline Neck exam: ABSENT: carotid bruit, JVD, lymphadenopathy, thyromegaly Respiratory exam: PRESENT: decreased breath sounds, symmetrical, unlabored Cardiovascular exam: PRESENT: RRR. ABSENT: diastolic murmur, rubs, systolic murmur Pulses: PRESENT: normal dorsalis pedis pul GI/Abdominal exam: PRESENT: normal bowel sounds, soft. ABSENT: distended, guarding, mass, organolmegaly, rebound, tenderness Rectal exam: PRESENT: deferred Extremities exam: PRESENT: full ROM. ABSENT: calf tenderness, clubbing, pedal edema Musculoskeletal exam: PRESENT: other - Moves all extremities on bed. Intubated and sedated Neurological exam: PRESENT: other - intubated and sedated Psychiatric exam: PRESENT: other - Intubated and sedated Results Laboratory Results: 10/04/17 04:55 10/04/17 04:55 10/04/17 10/04/17 10/04/17 04:55 04:55 04:55 WBC 13.7 H RBC 2.86 L Hgb 8.0 L D Hct 25.2 L MCV 88 MCH 27.9 MCHC 31.6 L RDW 19.1 H Plt Count 254 Seg Neutrophils % 91.3 H Lymphocytes % 6.1 L Monocytes % 2.5 L Eosinophils % 0.0 Basophils % 0.1 Absolute Neutrophils 12.6 H Absolute Lymphocytes 0.8 Absolute Monocytes 0.3 Absolute Eosinophils 0.0 Absolute Basophils 0.0 Carbonic Acid 1.02 L HCO3/H2CO3 Ratio 21:1 ABG pH 7.43 ABG pCO2 33.9 L ABG pO2 118.7 H ABG HCO3 22.1 ABG O2 Saturation 98.4 H ABG Base Excess -1.7 FiO2 30% Sodium 143.0 Potassium 3.2 L Chloride 111 H Carbon Dioxide 22 Anion Gap 10 BUN 19 Creatinine 0.87 Est GFR ( Amer) > 60 Est GFR (Non-Af Amer) > 60 Glucose 110 Calcium 9.0 Phosphorus 4.1 Magnesium 1.8 Total Bilirubin 0.3 AST 16 ALT 20 Alkaline Phosphatase 52 Total Protein 4.9 L Albumin 2.4 L 10/03/17 10/03/17 10/03/17 12:16 12:16 18:30 Creatine Kinase 137 H 90 CK-MB (CK-2) 2.22 Troponin I 0.017 NT-Pro-B Natriuret Pep 10/03/17 10/04/17 10/04/17 18:30 00:20 00:20 Creatine Kinase 66 CK-MB (CK-2) 1.94 1.42 Troponin I 0.014 < 0.012 NT-Pro-B Natriuret Pep 10/04/17 04:55 Creatine Kinase CK-MB (CK-2) Troponin I NT-Pro-B Natriuret Pep 3520 H Impressions: Head CT 10/03/17 03:55 IMPRESSION: 1. No acute intracranial abnormality identified. This exam was performed according to our departmental dose-optimization program, which includes automated exposure control, adjustment of the mA and/or kV according to patient size and/or use of iterative reconstruction technique. KUB X-Ray 10/03/17 05:59 IMPRESSION: NG tube tip in expected location. Chest X-Ray 10/04/17 06:00 IMPRESSION: No significant change. Assessment & Plan - Diagnosis (1) Sepsis Qualifiers: Sepsis type: sepsis due to unspecified organism Qualified Code(s): A41.9 - Sepsis, unspecified organism Is this a current diagnosis for this admission?: Yes Plan: Cultures pending. Being treated as UTI primary. Recent hospital acquired pneumonia. Leucocytosis improving. (2) UTI (urinary tract infection) Qualifiers: Urinary tract infection type: site unspecified Is this a current diagnosis for this admission?: Yes Plan: Continue antibiotics cultures pending (3) COPD (chronic obstructive pulmonary disease) Qualifiers: Emphysema type: unspecified Is this a current diagnosis for this admission?: Yes Plan: Vent management per pulmonary (4) Debility Is this a current diagnosis for this admission?: Yes Plan: Multiple hospitalizations over the last 4 months. She was primarily bed bound at home according to (5) Encephalopathy Is this a current diagnosis for this admission?: Yes (6) Respiratory failure Qualifiers: Chronicity: acute on chronic Is this a current diagnosis for this admission?: Yes Plan: Vent weaning per pulmonary (7) Hyperlipidemia Qualifiers: Hyperlipidemia type: unspecified Qualified Code(s): E78.5 - Hyperlipidemia , unspecified Is this a current diagnosis for this admission?: Yes (8) Hypothyroid Qualifiers: Hypothyroidism type: acquired Qualified Code(s): E03.9 - Hypothyroidism, unspecified Is this a current diagnosis for this admission?: Yes Plan: Continue synthroid (10) Adrenal insufficiency Is this a current diagnosis for this admission?: Yes (12) Atrial fibrillation Qualifiers: Atrial fibrillation type: unspecified Qualified Code(s): I48.91 - Unspecified atrial fibrillation Is this a current diagnosis for this admission?: Yes (13) ANNA (obstructive sleep apnea) Is this a current diagnosis for this admission?: Yes (14) Anemia Is this a current diagnosis for this admission?: Yes Plan: Drop in hemoglobin to 8.0, No overt bleeding. Will check stools - Time Time Spent with patient: 35 or more minutes Total Critical Time (Minutes): 20
[2017-10-04] MEDS ORDERED: POTASSIUM CHLORIDE 20 MEQ/15 ML UDCUP NG ONE (09:00)
[2017-10-04] MEDS ORDERED: POTASSI CL 20 MEQ/50 ML RIDER 20 MEQ/50 ML RTUPB IV ONE (09:00)
[2017-10-04] MEDS: LEVOTHYROXINE SODIUM INJ/PF 0.1 MG SDV IV SCH (09:35)
[2017-10-04] MEDS: FAMOTIDINE INJ/PF 20 MG/2 ML SDV IV SCH (09:35)
[2017-10-04] MEDS ORDERED: MAGNESIUM OXIDE 400 MG TABLET PO SCH (10:00)
[2017-10-04] MEDS ORDERED: FUROSEMIDE 40 MG TABLET PO SCH (10:00)
[2017-10-04] MEDS: RINGERS SOLUTION,LACTATED 1,000 ML IV PRN (10:03)
[2017-10-04] MEDS ORDERED: FUROSEMIDE INJ/PF 20 MG/2 ML SDV IV ONE (14:51)
[2017-10-04] MEDS ORDERED: RINGERS SOLUTION,LACTATED 1,000 ML IV PRN (14:51)
[2017-10-04] MEDS ORDERED: VANCOMYCIN HCL 0 MG in DEXTROSE 5%-WATER 250 ML IV NR (15:00)
--- NOTE | 2017-10-04 15:17 | PDOC PROGRESS REPORT ---
Subjective Progress Note for:: 10/04/17 Subjective:: Intubated but awake Reason For Visit: UTI WITH SEPSIS, DISTALOTIC HT FAILURE, RESOLVING Physical Exam Vital Signs: Temp Pulse Resp BP Pulse Ox 97.3 F 74 0 L 102/57 L 97 10/04/17 08:20 10/04/17 08:27 10/04/17 08:20 10/04/17 08:07 10/04/17 08:20 Intake & Output 10/03/17 10/04/17 10/05/17 06:59 06:59 06:59 Intake Total 2453 Output Total 1875 35 Balance 578 -35 Weight 69.2 kg General appearance: PRESENT: no acute distress, cooperative, disheveled, well- developed Head exam: PRESENT: atraumatic, normocephalic Eye exam: PRESENT: conjunctiva pale, EOMI. ABSENT: conjunctival injection, conjunctiva pink, nystagmus, periorbital swelling Mouth exam: PRESENT: dry mucosa, neck supple, tongue midline, other - ET tube in place. ABSENT: laceration, moist Neck exam: ABSENT: carotid bruit, JVD, lymphadenopathy, thyromegaly, tracheal deviation, tracheostomy Respiratory exam: PRESENT: decreased breath sounds, prolonged expiratory phas, rhonchi, symmetrical, unlabored. ABSENT: accessory muscle use, chest wall tenderness, clear to auscultation lyn, crackles, retraction, stridor, tachypnea Cardiovascular exam: PRESENT: RRR, +S1, +S2 Pulses: PRESENT: normal radial pulses GI/Abdominal exam: PRESENT: diminished bowel sounds, soft Extremities exam: ABSENT: clubbing, joint swelling Musculoskeletal exam: ABSENT: ambulatory, deformity, dislocation Neurological exam: PRESENT: awake Skin exam: PRESENT: dry, warm Results Laboratory Results: 10/04/17 04:55 10/04/17 04:55 10/04/17 10/04/17 10/04/17 04:55 04:55 04:55 WBC 13.7 H RBC 2.86 L Hgb 8.0 L D Hct 25.2 L MCV 88 MCH 27.9 MCHC 31.6 L RDW 19.1 H Plt Count 254 Seg Neutrophils % 91.3 H Lymphocytes % 6.1 L Monocytes % 2.5 L Eosinophils % 0.0 Basophils % 0.1 Absolute Neutrophils 12.6 H Absolute Lymphocytes 0.8 Absolute Monocytes 0.3 Absolute Eosinophils 0.0 Absolute Basophils 0.0 Carbonic Acid 1.02 L HCO3/H2CO3 Ratio 21:1 ABG pH 7.43 ABG pCO2 33.9 L ABG pO2 118.7 H ABG HCO3 22.1 ABG O2 Saturation 98.4 H ABG Base Excess -1.7 FiO2 30% Sodium 143.0 Potassium 3.2 L Chloride 111 H Carbon Dioxide 22 Anion Gap 10 BUN 19 Creatinine 0.87 Est GFR ( Amer) > 60 Est GFR (Non-Af Amer) > 60 Glucose 110 Calcium 9.0 Phosphorus 4.1 Magnesium 1.8 Total Bilirubin 0.3 AST 16 ALT 20 Alkaline Phosphatase 52 Total Protein 4.9 L Albumin 2.4 L 10/03/17 10/03/17 10/03/17 12:16 12:16 18:30 Creatine Kinase 137 H 90 CK-MB (CK-2) 2.22 Troponin I 0.017 NT-Pro-B Natriuret Pep 10/03/17 10/04/17 10/04/17 18:30 00:20 00:20 Creatine Kinase 66 CK-MB (CK-2) 1.94 1.42 Troponin I 0.014 < 0.012 NT-Pro-B Natriuret Pep 10/04/17 04:55 Creatine Kinase CK-MB (CK-2) Troponin I NT-Pro-B Natriuret Pep 3520 H Impressions: Head CT 10/03/17 03:55 IMPRESSION: 1. No acute intracranial abnormality identified. This exam was performed according to our departmental dose-optimization program, which includes automated exposure control, adjustment of the mA and/or kV according to patient size and/or use of iterative reconstruction technique. KUB X-Ray 10/03/17 05:59 IMPRESSION: NG tube tip in expected location. Chest X-Ray 10/04/17 06:00 IMPRESSION: No significant change. Assessment & Plan - Diagnosis (1) COPD exacerbation Is this a current diagnosis for this admission?: Yes Plan: Minute volume, FiO2, respiratory, and airway pressures suggest successful extubation will extubate to BiPAP (2) Pneumonia Qualifiers: Pneumonia type: due to unspecified organism Laterality: right Lung location: unspecified part of lung Qualified Code(s): J18.9 - Pneumonia, unspecified organism Plan: 10/03/17 03:43 Urine Culture - Preliminary Catheterized Urine Gram Negative Rods Gram Negative Rods#2 No other positive cultures thus far (3) Atrial fibrillation Qualifiers: Atrial fibrillation type: unspecified Qualified Code(s): I48.91 - Unspecified atrial fibrillation Is this a current diagnosis for this admission?: Yes Plan: stable (4) ANNA (obstructive sleep apnea) Is this a current diagnosis for this admission?: Yes Plan: stable (5) CHF (congestive heart failure) Qualifiers: Congestive heart failure type: combined Congestive heart failure chronicity : chronic Qualified Code(s): I50.42 - Chronic combined systolic (congestive) and diastolic (congestive) heart failure Is this a current diagnosis for this admission?: Yes Plan: on diuretic and fluid restriction - Time Total Critical Time (Minutes): 55
[2017-10-04] MEDS ORDERED: FUROSEMIDE INJ/PF 40 MG/4 ML SDV IV ONE (15:30)
[2017-10-04] MEDS: MAGNESIUM OXIDE 400 MG TABLET NG SCH (17:04)
[2017-10-04 17:20] LABS: ARTERIAL BLOOD BASE EXCESS 0.5 mmol/L; ARTERIAL BLOOD H2CO3 1.13 mmol/L (1.05-1.35); ARTERIAL BLOOD HCO3 24.6 mmol/L (20-26); ARTERIAL BLOOD O2 SATURATION 97.3 % (94-98); ARTERIAL BLOOD PCO2 37.7 mmHg (35-45); ARTERIAL BLOOD PH 7.43 (7.35-7.45); ARTERIAL BLOOD PO2 91.7 mmHg (80-100); ARTERIAL BLOOD TOTAL CO2 25.8 mmol/L (21-25)
[2017-10-04 17:21] LABS: ARTERIAL BLOOD FIO2 3L
[2017-10-04] MEDS ORDERED: VANCOMYCIN HCL 1,250 MG in DEXTROSE 5%-WATER 250 ML IV SCH (18:00)
[2017-10-04] MEDS: MORPHINE SULFATE 10 MG/ML INJ IV PRN (21:56)
[2017-10-05] MEDS: AZTREONAM 1 GM in DEXTROSE 5%-WATER 50 ML IV SCH ×3 (01:36→17:11)
[2017-10-05 05:44] LABS: ARTERIAL BLOOD BASE EXCESS 1.9 mmol/L; ARTERIAL BLOOD H2CO3 1.23 mmol/L (1.05-1.35); ARTERIAL BLOOD HCO3 26.4 mmol/L (20-26); ARTERIAL BLOOD O2 SATURATION 97.9 % (94-98); ARTERIAL BLOOD PCO2 40.9 mmHg (35-45); ARTERIAL BLOOD PH 7.43 (7.35-7.45); ARTERIAL BLOOD PO2 103.6 mmHg (80-100); ARTERIAL BLOOD TOTAL CO2 27.7 mmol/L (21-25)
[2017-10-05 05:48] LABS: ARTERIAL BLOOD FIO2 3L
[2017-10-05 06:02] LABS: ABSOLUTE LYMPHOCYTES (AUTO) 0.8 10^3/uL (0.5-4.7); ABSOLUTE MONOCYTES (AUTO) 0.4 10^3/uL (0.1-1.4); ABSOLUTE NEUT (AUTO) 10.9 10^3/uL (1.7-8.2); BASOPHILS % (AUTO) 0.1 % (0-2); HEMATOCRIT 25.1 % (36.0-47.0); LYMPHOCYTES % (AUTO) 6.9 % (13-45); MEAN CORPUSCULAR HEMOGLOBIN 27.9 pg (27.0-33.4); MEAN CORPUSCULAR HGB CONC 31.4 g/dL (32.0-36.0); MEAN CORPUSCULAR VOLUME 89 fl (80-97); MONOCYTES % (AUTO) 3.1 % (3-13); PLATELET COUNT 267 10^3/uL (150-450); RED BLOOD COUNT 2.83 10^6/uL (3.72-5.28); RED CELL DISTRIBUTION WIDTH 18.7 % (11.5-14.0); SEGMENTED NEUTROPHILS % (AUTO) 89.9 % (42-78); TOTAL CELLS COUNTED % (AUTO) 100 %; WHITE BLOOD COUNT 12.2 10^3/uL (4.0-10.5)
[2017-10-05 06:14] LABS: ALANINE AMINOTRANSFERASE 23 U/L (9-52); ALBUMIN 2.5 g/dL (3.5-5.0); ALKALINE PHOSPHATASE 49 U/L (38-126); ASPARTATE AMINO TRANSFERASE 14 U/L (14-36); BILIRUBIN,DIRECT 0.2 mg/dL (0.0-0.4); BILIRUBIN,TOTAL 0.3 mg/dL (0.2-1.3); BLOOD UREA NITROGEN 20 mg/dL (7-20); CALCIUM 9.2 mg/dL (8.4-10.2); CARBON DIOXIDE 28 mmol/L (22-30); GLUCOSE 97 mg/dL (75-110); MAGNESIUM 1.8 mg/dL (1.6-2.3); PHOSPHORUS 3.9 mg/dL (2.5-4.5); TOTAL PROTEIN 5.1 g/dL (6.3-8.2)
[2017-10-05 06:17] LABS: HEMOGLOBIN 7.9 g/dL (12.0-15.5)
[2017-10-05 06:21] LABS: CHLORIDE 111 mmol/L (98-107); POTASSIUM 3.6 mmol/L (3.6-5.0); SODIUM 143.2 mmol/L (137-145)
[2017-10-05 06:23] LABS: ANION GAP 4 (5-19)
[2017-10-05] MEDS: HYDROCORTISONE SOD SUCCINATE INJ/PF 100 MG/2 ML SDV IV SCH (06:24)
[2017-10-05 06:35] LABS: INTERNATIONAL RATION (INR) 1.07
--- NOTE | 2017-10-05 06:43 | RADIOLOGY REPORT (SQ) ---
EXAM DESCRIPTION: CHEST SINGLE VIEW COMPLETED DATE/TIME: 10/05/2017 6:33 am REASON FOR STUDY: intubated respiratory failure COMPARISON: Chest x-ray 10/04/2017. EXAM PARAMETERS: NUMBER OF VIEWS: One view. TECHNIQUE: Single frontal radiographic view of the chest acquired. RADIATION DOSE: NA LIMITATIONS: None. FINDINGS: LUNGS AND PLEURA: Persistent bilateral airspace opacities. No sizable pleural effusion or pneumothorax. MEDIASTINUM AND HILAR STRUCTURES: No masses. Contour normal. HEART AND VASCULAR STRUCTURES: The heart is enlarged. There is vascular congestion. BONES: Degenerative changes in the spine. HARDWARE: The endotracheal tube and the enteric tube have been removed. There is a left IJ central l ine with the tip overlying the cavoatrial junction. IMPRESSION: Cardiomegaly and vascular congestion. Persistent bilateral airspace opacities. TECHNICAL DOCUMENTATION: JOB ID: [id number] [employer]- All Rights Reserved
[2017-10-05 06:56] LABS: PROTHROMBIN TIME 14.7 SEC (11.4-15.4)
[2017-10-05] MEDS ORDERED: LEVOTHYROXINE SODIUM 0.025 MG TABLET PO SCH (08:00)
--- NOTE | 2017-10-05 09:33 | PDOC PROGRESS REPORT ---
Subjective Progress Note for:: 10/05/17 Subjective:: Patient is resting in bed on nasal cannula. She is awake, alert and oriented x 3 . She has had no issues overnight according to nursing staff. She denies any shortness or breath, dyspnea or chest pain. She denies any nausea, vomiting, or diarrhea. She denies any fevers or chills. She denies any significant arthralgias or myalgias. Reason For Visit: UTI WITH SEPSIS, DISTALOTIC HT FAILURE, RESOLVING Physical Exam Vital Signs: Temp Pulse Resp BP Pulse Ox 97.5 F 77 17 109/62 97 10/05/17 07:56 10/05/17 07:56 10/05/17 07:56 10/05/17 07:56 10/05/17 07:56 Intake & Output 10/04/17 10/05/17 10/06/17 06:59 06:59 06:59 Intake Total 2453 3802 Output Total 1875 2140 10 Balance 578 1662 -10 Weight 69.2 kg 69.2 kg General appearance: PRESENT: no acute distress, obese, well-developed, well- nourished Head exam: PRESENT: atraumatic, normocephalic Eye exam: PRESENT: conjunctiva pink, EOMI, PERRLA. ABSENT: scleral icterus Ear exam: PRESENT: normal external ear exam Mouth exam: PRESENT: moist, tongue midline Neck exam: PRESENT: carotid bruit, full ROM. ABSENT: JVD, lymphadenopathy, thyromegaly Respiratory exam: PRESENT: clear to auscultation lyn. ABSENT: rales, rhonchi, wheezes Cardiovascular exam: PRESENT: RRR. ABSENT: diastolic murmur, rubs, systolic murmur Pulses: PRESENT: normal dorsalis pedis pul Vascular exam: PRESENT: normal capillary refill GI/Abdominal exam: PRESENT: normal bowel sounds, soft. ABSENT: distended, guarding, mass, organolmegaly, rebound, tenderness Rectal exam: PRESENT: deferred Extremities exam: PRESENT: full ROM. ABSENT: calf tenderness, clubbing, pedal edema Musculoskeletal exam: PRESENT: full ROM, normal inspection Neurological exam: PRESENT: alert, awake, oriented to person, oriented to place , oriented to time, oriented to situation, CN II-XII grossly intact. ABSENT: motor sensory deficit Psychiatric exam: PRESENT: appropriate affect, normal mood. ABSENT: homicidal ideation, suicidal ideation Skin exam: PRESENT: dry, intact, warm. ABSENT: cyanosis, rash Results Laboratory Results: 10/05/17 05:10 10/05/17 05:10 10/04/17 10/05/17 10/05/17 17:15 05:10 05:10 WBC 12.2 H RBC 2.83 L Hgb 7.9 L Hct 25.1 L MCV 89 MCH 27.9 MCHC 31.4 L RDW 18.7 H Plt Count 267 Seg Neutrophils % 89.9 H Lymphocytes % 6.9 L Monocytes % 3.1 Eosinophils % 0.0 Basophils % 0.1 Absolute Neutrophils 10.9 H Absolute Lymphocytes 0.8 Absolute Monocytes 0.4 Absolute Eosinophils 0.0 Absolute Basophils 0.0 Carbonic Acid 1.13 1.23 HCO3/H2CO3 Ratio 21:1 21:1 ABG pH 7.43 7.43 ABG pCO2 37.7 40.9 ABG pO2 91.7 103.6 H ABG HCO3 24.6 26.4 H ABG O2 Saturation 97.3 97.9 ABG Base Excess 0.5 1.9 FiO2 3L 3L Sodium Potassium Chloride Carbon Dioxide Anion Gap BUN Creatinine Est GFR ( Amer) Est GFR (Non-Af Amer) Glucose Calcium Phosphorus Magnesium Total Bilirubin AST ALT Alkaline Phosphatase Total Protein Albumin 10/05/17 05:10 WBC RBC Hgb Hct MCV MCH MCHC RDW Plt Count Seg Neutrophils % Lymphocytes % Monocytes % Eosinophils % Basophils % Absolute Neutrophils Absolute Lymphocytes Absolute Monocytes Absolute Eosinophils Absolute Basophils Carbonic Acid HCO3/H2CO3 Ratio ABG pH ABG pCO2 ABG pO2 ABG HCO3 ABG O2 Saturation ABG Base Excess FiO2 Sodium 143.2 Potassium 3.6 Chloride 111 H Carbon Dioxide 28 Anion Gap 4 L BUN 20 Creatinine 0.76 Est GFR ( Amer) > 60 Est GFR (Non-Af Amer) > 60 Glucose 97 Calcium 9.2 Phosphorus 3.9 Magnesium 1.8 Total Bilirubin 0.3 AST 14 ALT 23 Alkaline Phosphatase 49 Total Protein 5.1 L Albumin 2.5 L 10/03/17 10/03/17 10/03/17 12:16 12:16 18:30 Creatine Kinase 137 H 90 CK-MB (CK-2) 2.22 Troponin I 0.017 NT-Pro-B Natriuret Pep 10/03/17 10/04/1710/04/18 18:30 00:20 00:20 Creatine Kinase 66 CK-MB (CK-2) 1.94 1.42 Troponin I 0.014 < 0.012 NT-Pro-B Natriuret Pep 10/04/17 10/05/17 04:55 05:10 Creatine Kinase CK-MB (CK-2) Troponin I NT-Pro-B Natriuret Pep 3520 H 9920 H Impressions: Head CT 10/03/17 03:55 IMPRESSION: 1. No acute intracranial abnormality identified. This exam was performed according to our departmental dose-optimization program, which includes automated exposure control, adjustment of the mA and/or kV according to patient size and/or use of iterative reconstruction technique. KUB X-Ray 10/03/17 05:59 IMPRESSION: NG tube tip in expected location. Chest X-Ray 10/05/17 06:00 IMPRESSION: Cardiomegaly and vascular congestion. Persistent bilateral airspace opacities. Assessment & Plan - Diagnosis (1) Sepsis Qualifiers: Sepsis type: sepsis due to unspecified organism Qualified Code(s): A41.9 - Sepsis, unspecified organism Is this a current diagnosis for this admission?: Yes (2) UTI (urinary tract infection) Qualifiers: Urinary tract infection type: site unspecified Is this a current diagnosis for this admission?: Yes (3) COPD (chronic obstructive pulmonary disease) Qualifiers: Emphysema type: unspecified Is this a current diagnosis for this admission?: Yes (4) Debility Is this a current diagnosis for this admission?: Yes (5) Encephalopathy Is this a current diagnosis for this admission?: Yes (6) Respiratory failure Qualifiers: Chronicity: acute on chronic Is this a current diagnosis for this admission?: Yes (7) Hyperlipidemia Qualifiers: Hyperlipidemia type: unspecified Qualified Code(s): E78.5 - Hyperlipidemia , unspecified Is this a current diagnosis for this admission?: Yes (8) Hypothyroid Qualifiers: Hypothyroidism type: acquired Qualified Code(s): E03.9 - Hypothyroidism, unspecified Is this a current diagnosis for this admission?: Yes (10) Adrenal insufficiency Is this a current diagnosis for this admission?: Yes (12) Atrial fibrillation Qualifiers: Atrial fibrillation type: unspecified Qualified Code(s): I48.91 - Unspecified atrial fibrillation Is this a current diagnosis for this admission?: Yes (13) ANNA (obstructive sleep apnea) Is this a current diagnosis for this admission?: Yes (14) Anemia Is this a current diagnosis for this admission?: Yes
[2017-10-05] MEDS ORDERED: FUROSEMIDE INJ/PF 20 MG/2 ML SDV IV ONE (09:35)
[2017-10-05] MEDS: IPRATROPIUM/ALBUTEROL 0.5-2.5 MG/3 ML AMPUL NEB PRN (10:24)
[2017-10-05] MEDS: POTASSIUM CHLORIDE 10 MEQ TABLET.SA PO SCH (10:27)
[2017-10-05] MEDS: LORAZEPAM INJ 2 MG/1 ML VIAL IV PRN (10:27)
[2017-10-05] MEDS: LEVOTHYROXINE SODIUM INJ/PF 0.1 MG SDV IV SCH (10:27)
[2017-10-05] MEDS: VALSARTAN 40 MG TABLET PO SCH (10:28)
[2017-10-05] MEDS: METOPROLOL TARTRATE 25 MG TABLET PO SCH ×2 (10:28→22:31)
[2017-10-05] MEDS: ALLOPURINOL 300 MG TABLET PO SCH (10:28)
[2017-10-05] MEDS: SPIRONOLACTONE 25 MG TABLET PO SCH (10:28)
[2017-10-05] MEDS: MAGNESIUM OXIDE 400 MG TABLET NG SCH ×2 (10:29→17:11)
[2017-10-05] MEDS: DOCUSATE SODIUM 100 MG CAPSULE PO SCH (10:32)
[2017-10-05] MEDS: FAMOTIDINE INJ/PF 20 MG/2 ML SDV IV SCH (10:32)
[2017-10-05] MEDS: FENTANYL 25 MCG/HR PATCH.TD72 TD SCH (10:32)
[2017-10-05] MEDS: AMIODARONE HCL 200 MG TABLET PO SCH (10:32)
[2017-10-05] MEDS: ENOXAPARIN SODIUM INJ 40 MG/0.4 ML DISP.SYRIN SUBCUT SCH (10:33)
[2017-10-06] MEDS: LORAZEPAM INJ 2 MG/1 ML VIAL IV PRN (00:22)
[2017-10-06] MEDS: AZTREONAM 1 GM in DEXTROSE 5%-WATER 50 ML IV SCH ×3 (02:51→17:29)
[2017-10-06 04:45] LABS: ABSOLUTE EOSINOPHILS # (AUTO) 0.2 10^3/uL (0.0-0.6); ABSOLUTE MONOCYTES (AUTO) 0.7 10^3/uL (0.1-1.4); ABSOLUTE NEUT (AUTO) 6.4 10^3/uL (1.7-8.2); BASOPHILS % (AUTO) 0.3 % (0-2); EOSINOPHILS % (AUTO) 2.5 % (0-6); HEMATOCRIT 23.4 % (36.0-47.0); LYMPHOCYTES % (AUTO) 21.6 % (13-45); MEAN CORPUSCULAR HEMOGLOBIN 28.6 pg (27.0-33.4); MEAN CORPUSCULAR HGB CONC 32.3 g/dL (32.0-36.0); MEAN CORPUSCULAR VOLUME 89 fl (80-97); PLATELET COUNT 226 10^3/uL (150-450); RED BLOOD COUNT 2.64 10^6/uL (3.72-5.28); RED CELL DISTRIBUTION WIDTH 18.7 % (11.5-14.0); SEGMENTED NEUTROPHILS % (AUTO) 68.6 % (42-78); TOTAL CELLS COUNTED % (AUTO) 100 %; WHITE BLOOD COUNT 9.3 10^3/uL (4.0-10.5)
[2017-10-06 04:50] LABS: HEMOGLOBIN 7.5 g/dL (12.0-15.5)
[2017-10-06 04:58] LABS: BLOOD UREA NITROGEN 20 mg/dL (7-20); CALCIUM 8.7 mg/dL (8.4-10.2); GLUCOSE 83 mg/dL (75-110)
[2017-10-06 05:19] LABS: ANION GAP 5 (5-19); CARBON DIOXIDE 30 mmol/L (22-30); CHLORIDE 107 mmol/L (98-107); SODIUM 142.3 mmol/L (137-145)
[2017-10-06 05:24] LABS: POTASSIUM 2.8 mmol/L (3.6-5.0)
[2017-10-06] MEDS ORDERED: POTASSIUM CHLORIDE 10 MEQ TABLET.SA PO ONE (05:44)
[2017-10-06] MEDS: MAGNESIUM SULFATE/D5W 1 GM/100 ML RTUPB IV SCH ×2 (06:08→06:46)
[2017-10-06] MEDS: POTASSI CL 20 MEQ/50 ML RIDER 20 MEQ/50 ML RTUPB IV SCH ×2 (06:09→08:02)
[2017-10-06] MEDS ORDERED: NORMAL SALINE 250 ML IV PRN ×2 (09:00)
[2017-10-06] MEDS ORDERED: HYDROCHLOROTHIAZIDE 25 MG TABLET PO ONE (09:03)
--- NOTE | 2017-10-06 09:23 | PDOC PROGRESS REPORT ---
Subjective Progress Note for:: 10/06/17 Subjective:: Patient seen in the intensive care unit states that she feels better. She was admitted with sepsis with UTI. She denies any nausea or vomiting fever abdominal pain. Reason For Visit: UTI WITH SEPSIS, DISTALOTIC HT FAILURE, RESOLVING Physical Exam Vital Signs: Temp Pulse Resp BP Pulse Ox 97.9 F 67 16 104/56 L 99 10/06/17 06:25 10/05/17 22:00 10/06/17 06:25 10/06/17 06:23 10/06/17 06:25 Intake & Output 10/05/17 10/06/17 10/07/17 06:59 06:59 06:59 Intake Total 3802 1446 Output Total 2140 2014 Balance 1662 -569 Weight 69.2 kg 70.3 kg General appearance: PRESENT: no acute distress, well-developed, well-nourished Head exam: PRESENT: atraumatic Mouth exam: PRESENT: neck supple, tongue midline Neck exam: PRESENT: full ROM. ABSENT: JVD, thyromegaly GI/Abdominal exam: PRESENT: normal bowel sounds, soft. ABSENT: distended, guarding, mass, organolmegaly, rebound, tenderness Rectal exam: PRESENT: deferred Extremities exam: PRESENT: full ROM. ABSENT: calf tenderness, clubbing, pedal edema Psychiatric exam: PRESENT: appropriate affect Skin exam: PRESENT: dry, intact, warm. ABSENT: cyanosis, rash Results Laboratory Results: 10/06/17 04:15 10/06/17 04:15 10/06/17 10/06/17 04:15 04:15 WBC 9.3 RBC 2.64 L Hgb 7.5 L Hct 23.4 L MCV 89 MCH 28.6 MCHC 32.3 RDW 18.7 H Plt Count 226 Seg Neutrophils % 68.6 Lymphocytes % 21.6 Monocytes % 7.0 Eosinophils % 2.5 Basophils % 0.3 Absolute Neutrophils 6.4 Absolute Lymphocytes 2.0 Absolute Monocytes 0.7 Absolute Eosinophils 0.2 Absolute Basophils 0.0 Sodium 142.3 Potassium 2.8 L* Chloride 107 Carbon Dioxide 30 Anion Gap 5 BUN 20 Creatinine 0.68 Est GFR ( Amer) > 60 Est GFR (Non-Af Amer) > 60 Glucose 83 Calcium 8.7 10/03/17 06:20 Tracheal Aspirate Gram Stain - Final 10/03/17 06:20 Tracheal Aspirate Sputum Culture - Final NORMAL AURY 10/03/17 10/03/17 10/03/17 12:16 12:16 18:30 Creatine Kinase 137 H 90 CK-MB (CK-2) 2.22 Troponin I 0.017 NT-Pro-B Natriuret Pep 10/03/17 10/04/17 10/04/17 18:30 00:20 00:20 Creatine Kinase 66 CK-MB (CK-2) 1.94 1.42 Troponin I 0.014 < 0.012 NT-Pro-B Natriuret Pep 10/04/17 10/05/17 04:55 05:10 Creatine Kinase CK-MB (CK-2) Troponin I NT-Pro-B Natriuret Pep 3520 H 9920 H Impressions: Head CT 10/03/17 03:55 IMPRESSION: 1. No acute intracranial abnormality identified. This exam was performed according to our departmental dose-optimization program, which includes automated exposure control, adjustment of the mA and/or kV according to patient size and/or use of iterative reconstruction technique. KUB X-Ray 10/03/17 05:59 IMPRESSION: NG tube tip in expected location. Chest X-Ray 10/05/17 06:00 IMPRESSION: Cardiomegaly and vascular congestion. Persistent bilateral airspace opacities. Assessment & Plan - Time Time Spent with patient: 15-24 minutes Medications reviewed and adjusted accordingly: Yes - Plan Summary Plan Summary: Assessment and plan These are current diagnosis for this admission 1. Sepsis likely secondary to urinary tract infection. Patient remains hypotensive however this appears to be her baseline and she has been on no vasopressors. 2. Urinary tract infection site unspecified 3. COPD stable 4. General debility patient will benefit from physical therapy 5. Encephalopathy resolved likely secondary to acute infection 6. Respiratory failure acute on chronic stable 7. Hyperlipidemia 8. Hypothyroidism continue current medications 9. Adrenal insufficiency chronic 10. Atrial fibrillation chronic 11. Obstructive sleep apnea 12. Anemia 13. Hypotensive asymptomatic and chronic 14. Patient is awaiting transfer out of the ICU she is stable enough to be moved to the medical floor 15. Hypokalemia with potassium of 2.8 this is currently being replaced IV. 16. Anemia there is no evidence of acute blood loss however her hemoglobin has dropped to 7.3. There is no azotemia. She may be at the point of blood transfusion. Will check iron studies as appropriate as well as stool studies. 17. Elevated BNP patient has received a lot of fluids and this may explain that. We will give her Lasix as tolerated we will because of a BP this would need to be judicious.
--- NOTE | 2017-10-06 09:39 | PDOC PROGRESS REPORT ---
Subjective Progress Note for:: 10/06/17 Subjective:: Patient complains having to wear CPAP all the time Reason For Visit: UTI WITH SEPSIS, DISTALOTIC HT FAILURE, RESOLVING Physical Exam Vital Signs: Temp Pulse Resp BP Pulse Ox 97.9 F 67 16 104/56 L 99 10/06/17 06:25 10/05/17 22:00 10/06/17 06:25 10/06/17 06:23 10/06/17 06:25 Intake & Output 10/05/17 10/06/17 10/07/17 06:59 06:59 06:59 Intake Total 3802 1446 Output Total 2140 2014 Balance 1662 -569 Weight 69.2 kg 70.3 kg General appearance: PRESENT: no acute distress, disheveled, obese, well- developed Head exam: PRESENT: atraumatic, normocephalic Eye exam: PRESENT: conjunctiva pale, EOMI Mouth exam: PRESENT: dry mucosa, neck supple, tongue midline Neck exam: ABSENT: carotid bruit, JVD, lymphadenopathy, thyromegaly, tracheal deviation, tracheostomy Respiratory exam: PRESENT: decreased breath sounds, prolonged expiratory phas, rales, rhonchi, symmetrical, unlabored. ABSENT: tachypnea Cardiovascular exam: PRESENT: RRR, +S1, +S2 Pulses: PRESENT: normal radial pulses - [id number] GI/Abdominal exam: PRESENT: diminished bowel sounds, soft Extremities exam: ABSENT: clubbing Musculoskeletal exam: ABSENT: ambulatory, deformity, dislocation Neurological exam: PRESENT: alert, awake Skin exam: PRESENT: dry, warm Results Laboratory Results: 10/06/17 04:15 10/06/17 04:15 10/06/17 10/06/17 04:15 04:15 WBC 9.3 RBC 2.64 L Hgb 7.5 L Hct 23.4 L MCV 89 MCH 28.6 MCHC 32.3 RDW 18.7 H Plt Count 226 Seg Neutrophils % 68.6 Lymphocytes % 21.6 Monocytes % 7.0 Eosinophils % 2.5 Basophils % 0.3 Absolute Neutrophils 6.4 Absolute Lymphocytes 2.0 Absolute Monocytes 0.7 Absolute Eosinophils 0.2 Absolute Basophils 0.0 Sodium 142.3 Potassium 2.8 L* Chloride 107 Carbon Dioxide 30 Anion Gap 5 BUN 20 Creatinine 0.68 Est GFR ( Amer) > 60 Est GFR (Non-Af Amer) > 60 Glucose 83 Calcium 8.7 10/03/17 06:20 Tracheal Aspirate Gram Stain - Final 10/03/17 06:20 Tracheal Aspirate Sputum Culture - Final NORMAL AURY 10/03/17 10/03/17 10/03/17 12:16 12:16 18:30 Creatine Kinase 137 H 90 CK-MB (CK-2) 2.22 Troponin I 0.017 NT-Pro-B Natriuret Pep 10/03/17 10/04/17 10/04/17 18:30 00:20 00:20 Creatine Kinase 66 CK-MB (CK-2) 1.94 1.42 Troponin I 0.014 < 0.012 NT-Pro-B Natriuret Pep 10/04/17 10/05/17 04:55 05:10 Creatine Kinase CK-MB (CK-2) Troponin I NT-Pro-B Natriuret Pep 3520 H 9920 H Impressions: Head CT 10/03/17 03:55 IMPRESSION: 1. No acute intracranial abnormality identified. This exam was performed according to our departmental dose-optimization program, which includes automated exposure control, adjustment of the mA and/or kV according to patient size and/or use of iterative reconstruction technique. KUB X-Ray 10/03/17 05:59 IMPRESSION: NG tube tip in expected location. Chest X-Ray 10/05/17 06:00 IMPRESSION: Cardiomegaly and vascular congestion. Persistent bilateral airspace opacities. Assessment & Plan - Diagnosis (1) COPD exacerbation Is this a current diagnosis for this admission?: Yes Plan: 240hrs s/p Extubation still requiring support from BiPAP (2) Pneumonia Qualifiers: Pneumonia type: due to unspecified organism Laterality: right Lung location: unspecified part of lung Qualified Code(s): J18.9 - Pneumonia, unspecified organism Is this a current diagnosis for this admission?: Yes Plan: 10/03/17 03:43 Urine Culture - Preliminary Catheterized Urine Gram Negative Rods Gram Negative Rods#2 No other positive cultures thus far Labs- All tests 24 hr 10/03/17 10/04/17 10/05/17 03:05 04:55 05:10 WBC 21.7 H 13.7 H 12.2 H 10/06/17 04:15 WBC 9.3 (3) Atrial fibrillation Qualifiers: Atrial fibrillation type: unspecified Qualified Code(s): I48.91 - Unspecified atrial fibrillation Is this a current diagnosis for this admission?: Yes Plan: stable (4) ANNA (obstructive sleep apnea) Is this a current diagnosis for this admission?: Yes Plan: stable (5) CHF (congestive heart failure) Qualifiers: Congestive heart failure type: combined Congestive heart failure chronicity : chronic Qualified Code(s): I50.42 - Chronic combined systolic (congestive) and diastolic (congestive) heart failure Is this a current diagnosis for this admission?: Yes Plan: on diuretic and fluid restriction - Time Total Critical Time (Minutes): 35
[2017-10-06 09:54] LABS: ABSOLUTE RETICS # 0.041 10^6/uL (0.028-0.122); RETICULOCYTE COUNT (AUTO) 1.55 % (0.66-2.85)
[2017-10-06] MEDS ORDERED: LEVOTHYROXINE SODIUM 0.025 MG TABLET PO ONE (10:00)
[2017-10-06 10:18] LABS: IRON(TIBC) 24.4 ug/dL (37-170)
[2017-10-06] MEDS: ENOXAPARIN SODIUM INJ 40 MG/0.4 ML DISP.SYRIN SUBCUT SCH (10:58)
[2017-10-06] MEDS: POTASSIUM CHLORIDE 10 MEQ TABLET.SA PO SCH (10:58)
[2017-10-06] MEDS: SPIRONOLACTONE 25 MG TABLET PO SCH (10:59)
[2017-10-06] MEDS: DOCUSATE SODIUM 100 MG CAPSULE PO SCH (10:59)
[2017-10-06] MEDS: MAGNESIUM OXIDE 400 MG TABLET NG SCH ×2 (11:01→17:29)
[2017-10-06] MEDS: FAMOTIDINE 20 MG TABLET PO SCH (11:01)
[2017-10-06] MEDS: AMIODARONE HCL 200 MG TABLET PO SCH (11:01)
[2017-10-06 11:25] LABS: FOLATE 6.21 ng/mL (>2.76)
[2017-10-06] MEDS: VALSARTAN 40 MG TABLET PO SCH (11:30)
[2017-10-06] MEDS: ALLOPURINOL 300 MG TABLET PO SCH (11:30)
[2017-10-06] MEDS: METOPROLOL TARTRATE 25 MG TABLET PO SCH (11:30)
[2017-10-06 23:24] LABS: ABSOLUTE BASOPHILS # (AUTO) 0.1 10^3/uL (0.0-0.2); ABSOLUTE EOSINOPHILS # (AUTO) 0.6 10^3/uL (0.0-0.6); ABSOLUTE LYMPHOCYTES (AUTO) 1.9 10^3/uL (0.5-4.7); ABSOLUTE MONOCYTES (AUTO) 0.7 10^3/uL (0.1-1.4); ABSOLUTE NEUT (AUTO) 3.8 10^3/uL (1.7-8.2); BASOPHILS % (AUTO) 0.7 % (0-2); EOSINOPHILS % (AUTO) 7.8 % (0-6); HEMATOCRIT 30.8 % (36.0-47.0); LYMPHOCYTES % (AUTO) 27.3 % (13-45); MEAN CORPUSCULAR HEMOGLOBIN 28.4 pg (27.0-33.4); MEAN CORPUSCULAR HGB CONC 32.7 g/dL (32.0-36.0); MEAN CORPUSCULAR VOLUME 87 fl (80-97); MONOCYTES % (AUTO) 10.3 % (3-13); PLATELET COUNT 217 10^3/uL (150-450); RED BLOOD COUNT 3.55 10^6/uL (3.72-5.28); RED CELL DISTRIBUTION WIDTH 18.7 % (11.5-14.0); SEGMENTED NEUTROPHILS % (AUTO) 53.9 % (42-78); TOTAL CELLS COUNTED % (AUTO) 100 %; WHITE BLOOD COUNT 7.1 10^3/uL (4.0-10.5)
[2017-10-06 23:26] LABS: BLOOD UREA NITROGEN 19 mg/dL (7-20); CALCIUM 8.6 mg/dL (8.4-10.2); GLUCOSE 71 mg/dL (75-110); MAGNESIUM 2.1 mg/dL (1.6-2.3)
[2017-10-06 23:27] LABS: HEMOGLOBIN 10.1 g/dL (12.0-15.5)
[2017-10-06 23:35] LABS: CARBON DIOXIDE 30 mmol/L (22-30); CHLORIDE 107 mmol/L (98-107); SODIUM 140.3 mmol/L (137-145)
[2017-10-07 01:32] LABS: ANION GAP 3 (5-19)
[2017-10-07] MEDS: METOPROLOL TARTRATE 25 MG TABLET PO SCH ×3 (01:34→23:12)
--- NOTE | 2017-10-07 07:11 | RADIOLOGY REPORT (SQ) ---
EXAM DESCRIPTION: CHEST SINGLE VIEW COMPLETED DATE/TIME: 10/07/2017 6:24 am REASON FOR STUDY: resp failuew COMPARISON: CT chest 06/28/2016 Chest films 07/26/2016, 06/03/2017, 10/03/2017, 10/04/2017, 10/05/2017 EXAM PARAMETERS: NUMBER OF VIEWS: One view. TECHNIQUE: Single frontal radiographic view of the chest acquired. RADIATION DOSE: NA LIMITATIONS: None. FINDINGS: LUNGS AND PLEURA: Stable patchy alveolar and interstitial infiltrates bilaterally, similar compared to 10/05/2017. Trace left pleural fluid No pneumothorax MEDIASTINUM AND HILAR STRUCTURES: No masses. Contour normal. HEART AND VASCULAR STRUCTURES: Stable cardiomegaly BONES: No acute findings. HARDWARE: Left jugular central line tip superior vena cava OTHER: No other significant finding. IMPRESSION: Stable appearance compared to 10/05/2017 TECHNICAL DOCUMENTATION: JOB ID: [id number] [employer]- All Rights Reserved
[2017-10-07] MEDS: LEVOTHYROXINE SODIUM 0.025 MG TABLET PO SCH (08:13)
[2017-10-07 08:34] LABS: ABSOLUTE EOSINOPHILS # (AUTO) 0.6 10^3/uL (0.0-0.6); ABSOLUTE LYMPHOCYTES (AUTO) 1.9 10^3/uL (0.5-4.7); ABSOLUTE MONOCYTES (AUTO) 0.6 10^3/uL (0.1-1.4); ABSOLUTE NEUT (AUTO) 3.5 10^3/uL (1.7-8.2); BASOPHILS % (AUTO) 0.7 % (0-2); EOSINOPHILS % (AUTO) 9.1 % (0-6); HEMATOCRIT 32.1 % (36.0-47.0); HEMOGLOBIN 10.3 g/dL (12.0-15.5); LYMPHOCYTES % (AUTO) 28.7 % (13-45); MEAN CORPUSCULAR HEMOGLOBIN 28.1 pg (27.0-33.4); MEAN CORPUSCULAR HGB CONC 32.2 g/dL (32.0-36.0); MEAN CORPUSCULAR VOLUME 87 fl (80-97); MONOCYTES % (AUTO) 8.7 % (3-13); PLATELET COUNT 221 10^3/uL (150-450); RED BLOOD COUNT 3.68 10^6/uL (3.72-5.28); SEGMENTED NEUTROPHILS % (AUTO) 52.8 % (42-78); TOTAL CELLS COUNTED % (AUTO) 100 %; WHITE BLOOD COUNT 6.6 10^3/uL (4.0-10.5)
[2017-10-07 08:39] LABS: ARTERIAL BLOOD BASE EXCESS 2.7 mmol/L; ARTERIAL BLOOD H2CO3 1.48 mmol/L (1.05-1.35); ARTERIAL BLOOD HCO3 28.5 mmol/L (20-26); ARTERIAL BLOOD PCO2 49.1 mmHg (35-45); ARTERIAL BLOOD PH 7.38 (7.35-7.45); ARTERIAL BLOOD PO2 55.4 mmHg (80-100)
[2017-10-07 08:40] LABS: ARTERIAL BLOOD FIO2 4L
[2017-10-07 08:54] LABS: ANION GAP 6 (5-19); BLOOD UREA NITROGEN 15 mg/dL (7-20); CALCIUM 8.5 mg/dL (8.4-10.2); CARBON DIOXIDE 29 mmol/L (22-30); CHLORIDE 106 mmol/L (98-107); GLUCOSE 65 mg/dL (75-110); POTASSIUM 4.1 mmol/L (3.6-5.0); SODIUM 140.8 mmol/L (137-145)
[2017-10-07] MEDS: AZTREONAM 1 GM in DEXTROSE 5%-WATER 50 ML IV SCH ×3 (10:31→17:24)
[2017-10-07] MEDS: DOCUSATE SODIUM 100 MG CAPSULE PO SCH (10:36)
[2017-10-07] MEDS: SPIRONOLACTONE 25 MG TABLET PO SCH (10:50)
[2017-10-07] MEDS: POTASSIUM CHLORIDE 10 MEQ TABLET.SA PO SCH (10:55)
[2017-10-07] MEDS: MAGNESIUM OXIDE 400 MG TABLET NG SCH ×2 (10:56→17:23)
[2017-10-07] MEDS: AMIODARONE HCL 200 MG TABLET PO SCH (10:56)
[2017-10-07] MEDS: FAMOTIDINE 20 MG TABLET PO SCH (10:56)
[2017-10-07] MEDS: VALSARTAN 40 MG TABLET PO SCH (10:57)
[2017-10-07] MEDS: ALLOPURINOL 300 MG TABLET PO SCH (10:58)
[2017-10-07] MEDS: ENOXAPARIN SODIUM INJ 40 MG/0.4 ML DISP.SYRIN SUBCUT SCH (11:01)
[2017-10-07] MEDS ORDERED: ACETAMINOPHEN 325 MG TABLET ONE (15:30)
[2017-10-07] MEDS ORDERED: ACETAMINOPHEN 325 MG TABLET PO PRN (15:35)
[2017-10-07] MEDS ORDERED: FUROSEMIDE INJ/PF 20 MG/2 ML SDV IV ONE ×2 (17:49→21:15)
--- NOTE | 2017-10-07 17:53 | PDOC PROGRESS REPORT ---
Subjective Progress Note for:: 10/07/17 Subjective:: Patient seen in the intensive care unit states that she feels better. She was admitted with sepsis with UTI. She denies any nausea or vomiting fever abdominal pain. She received 2 units PRBC on 10/06 Reason For Visit: UTI WITH SEPSIS, DISTALOTIC HT FAILURE, RESOLVING Physical Exam Vital Signs: Temp Pulse Resp BP Pulse Ox 98.6 F 70 17 120/68 96 10/07/17 14:10 10/07/17 09:23 10/07/17 14:10 10/07/17 10:55 10/07/17 16:00 Intake & Output 10/06/17 10/07/17 10/08/17 06:59 06:59 06:59 Intake Total 1446 1626 604 Output Total 2014 550 1200 Balance -569 1076 -596 Weight 70.3 kg General appearance: PRESENT: no acute distress, well-developed Head exam: PRESENT: atraumatic, normocephalic Eye exam: PRESENT: conjunctiva pink, EOMI, PERRLA. ABSENT: scleral icterus Ear exam: PRESENT: normal external ear exam Mouth exam: PRESENT: moist, tongue midline Neck exam: ABSENT: carotid bruit, JVD, lymphadenopathy, thyromegaly Respiratory exam: PRESENT: decreased breath sounds. ABSENT: rales, rhonchi, wheezes Cardiovascular exam: PRESENT: RRR. ABSENT: diastolic murmur, rubs, systolic murmur Pulses: PRESENT: normal dorsalis pedis pul Vascular exam: PRESENT: normal capillary refill GI/Abdominal exam: PRESENT: normal bowel sounds, soft. ABSENT: distended, guarding, mass, organolmegaly, rebound, tenderness Rectal exam: PRESENT: deferred Extremities exam: PRESENT: full ROM. ABSENT: calf tenderness, clubbing, pedal edema Neurological exam: PRESENT: alert, awake, oriented to person, oriented to place , oriented to time, oriented to situation, CN II-XII grossly intact. ABSENT: motor sensory deficit Psychiatric exam: PRESENT: appropriate affect, normal mood. ABSENT: homicidal ideation, suicidal ideation Skin exam: PRESENT: dry, intact, warm. ABSENT: cyanosis, rash Results Laboratory Results: 10/07/17 07:55 10/07/17 07:55 10/06/17 10/06/17 10/06/17 09:25 23:00 23:00 WBC 7.1 RBC 3.55 L Hgb 10.1 L D Hct 30.8 L MCV 87 MCH 28.4 MCHC 32.7 RDW 18.7 H Plt Count 217 Seg Neutrophils % 53.9 Lymphocytes % 27.3 Monocytes % 10.3 Eosinophils % 7.8 H Basophils % 0.7 Absolute Neutrophils 3.8 Absolute Lymphocytes 1.9 Absolute Monocytes 0.7 Absolute Eosinophils 0.6 Absolute Basophils 0.1 Carbonic Acid HCO3/H2CO3 Ratio ABG pH ABG pCO2 ABG pO2 ABG HCO3 ABG O2 Saturation ABG Base Excess FiO2 Sodium 140.3 Potassium 4.0 D Chloride 107 Carbon Dioxide 30 Anion Gap 3 L BUN 19 Creatinine 0.61 Est GFR ( Amer) > 60 Est GFR (Non-Af Amer) > 60 Glucose 71 L Calcium 8.6 Magnesium 2.1 Blood Type A POSITIVE Antibody Screen NEGATIVE 10/07/17 10/07/17 10/07/17 07:55 07:55 07:55 WBC 6.6 RBC 3.68 L Hgb 10.3 L Hct 32.1 L MCV 87 MCH 28.1 MCHC 32.2 RDW 18.0 H Plt Count 221 Seg Neutrophils % 52.8 Lymphocytes % 28.7 Monocytes % 8.7 Eosinophils % 9.1 H Basophils % 0.7 Absolute Neutrophils 3.5 Absolute Lymphocytes 1.9 Absolute Monocytes 0.6 Absolute Eosinophils 0.6 Absolute Basophils 0.0 Carbonic Acid 1.48 H HCO3/H2CO3 Ratio 19:1 ABG pH 7.38 ABG pCO2 49.1 H ABG pO2 55.4 L ABG HCO3 28.5 H ABG O2 Saturation 88.0 L ABG Base Excess 2.7 FiO2 4L Sodium 140.8 Potassium 4.1 Chloride 106 Carbon Dioxide 29 Anion Gap 6 BUN 15 Creatinine 0.60 Est GFR ( Amer) > 60 Est GFR (Non-Af Amer) > 60 Glucose 65 L Calcium 8.5 Magnesium 2.0 Blood Type Antibody Screen 10/03/17 10/03/17 10/03/17 12:16 12:16 18:30 Creatine Kinase 137 H 90 CK-MB (CK-2) 2.22 Troponin I 0.017 NT-Pro-B Natriuret Pep 10/03/17 10/04/17 10/04/17 18:30 00:20 00:20 Creatine Kinase 66 CK-MB (CK-2) 1.94 1.42 Troponin I 0.014 < 0.012 NT-Pro-B Natriuret Pep 10/04/17 10/05/17 10/07/17 04:55 05:10 07:55 Creatine Kinase CK-MB (CK-2) Troponin I NT-Pro-B Natriuret Pep 3520 H 9920 H 8670 H Impressions: Head CT 10/03/17 03:55 IMPRESSION: 1. No acute intracranial abnormality identified. This exam was performed according to our departmental dose-optimization program, which includes automated exposure control, adjustment of the mA and/or kV according to patient size and/or use of iterative reconstruction technique. KUB X-Ray 10/03/17 05:59 IMPRESSION: NG tube tip in expected location. Chest X-Ray 10/07/17 06:00 IMPRESSION: Stable appearance compared to 10/05/2017 Assessment & Plan - Time Time Spent with patient: 15-24 minutes - Inpatient Certification Medical Necessity: Need for IV Antibiotics - Plan Summary Plan Summary: Assessment and plan These are current diagnosis for this admission 1. Sepsis likely secondary to urinary tract infection. Patient remains hypotensive however this appears to be her baseline and she has been on no vasopressors. 2. Urinary tract infection site unspecified 3. COPD stable 4. General debility patient will benefit from physical therapy and possibly rehab at discharge 5. Encephalopathy resolved likely secondary to acute infection 6. Respiratory failure acute on chronic stable 7. Hyperlipidemia 8. Hypothyroidism continue current medications 9. Adrenal insufficiency chronic 10. Atrial fibrillation chronic 11. Obstructive sleep apnea 12. Anemia status post 2 units of packed red blood cells. Hemoglobin has come up nicely 13. Hypotensive asymptomatic and chronic 14. Patient is awaiting transfer out of the ICU she is stable enough to be moved to the medical floor 15. Hypokalemia - replaced 16. Elevated BNP patient has received a lot of fluids and this may explain that. We will give her Lasix as tolerated we will because of a BP this would need to be judicious.
[2017-10-08] MEDS: AZTREONAM 1 GM in DEXTROSE 5%-WATER 50 ML IV SCH (02:10)
[2017-10-08] MEDS: LEVOTHYROXINE SODIUM 0.025 MG TABLET PO SCH (06:20)
[2017-10-08 06:33] LABS: ARTERIAL BLOOD BASE EXCESS 2.4 mmol/L; ARTERIAL BLOOD H2CO3 1.06 mmol/L (1.05-1.35); ARTERIAL BLOOD HCO3 25.6 mmol/L (20-26); ARTERIAL BLOOD O2 SATURATION 98.1 % (94-98); ARTERIAL BLOOD PCO2 35.3 mmHg (35-45); ARTERIAL BLOOD PH 7.48 (7.35-7.45); ARTERIAL BLOOD PO2 104.3 mmHg (80-100); ARTERIAL BLOOD TOTAL CO2 26.7 mmol/L (21-25)
[2017-10-08 06:37] LABS: ARTERIAL BLOOD FIO2 30%
[2017-10-08 06:40] LABS: ABSOLUTE EOSINOPHILS # (AUTO) 0.7 10^3/uL (0.0-0.6); ABSOLUTE LYMPHOCYTES (AUTO) 1.6 10^3/uL (0.5-4.7); ABSOLUTE MONOCYTES (AUTO) 0.6 10^3/uL (0.1-1.4); ABSOLUTE NEUT (AUTO) 4.6 10^3/uL (1.7-8.2); BASOPHILS % (AUTO) 0.6 % (0-2); EOSINOPHILS % (AUTO) 9.4 % (0-6); HEMATOCRIT 33.9 % (36.0-47.0); LYMPHOCYTES % (AUTO) 21.3 % (13-45); MEAN CORPUSCULAR HEMOGLOBIN 28.2 pg (27.0-33.4); MEAN CORPUSCULAR HGB CONC 32.4 g/dL (32.0-36.0); MEAN CORPUSCULAR VOLUME 87 fl (80-97); MONOCYTES % (AUTO) 8.1 % (3-13); PLATELET COUNT 242 10^3/uL (150-450); RED CELL DISTRIBUTION WIDTH 17.8 % (11.5-14.0); SEGMENTED NEUTROPHILS % (AUTO) 60.6 % (42-78); TOTAL CELLS COUNTED % (AUTO) 100 %; WHITE BLOOD COUNT 7.6 10^3/uL (4.0-10.5)
--- NOTE | 2017-10-08 07:53 | RADIOLOGY REPORT (SQ) ---
EXAM DESCRIPTION: CHEST SINGLE VIEW COMPLETED DATE/TIME: 10/08/2017 6:56 am REASON FOR STUDY: resp failure COMPARISON: Chest x-ray 10/07/2017. EXAM PARAMETERS: NUMBER OF VIEWS: One view. TECHNIQUE: Single frontal radiographic view of the chest acquired. RADIATION DOSE: NA LIMITATIONS: None. FINDINGS: LUNGS AND PLEURA: Interval increase in the airspace opacities. No sizable pleural effusio n or pneumothorax. MEDIASTINUM AND HILAR STRUCTURES: No masses. Contour normal. HEART AND VASCULAR STRUCTURES: The heart is enlarged. There is vascular congestion. BONES: Degenerative changes in the spine. HARDWARE: Left IJ central line with the tip overlying the region of the SVC. IMPRESSION: Worsening appearance of the chest with interval increase in the airspace opacities. Car diomegaly and vascular congestion. TECHNICAL DOCUMENTATION: JOB ID: [id number] [employer]- All Rights Reserved
--- NOTE | 2017-10-08 09:01 | PDOC PROGRESS REPORT ---
Subjective Progress Note for:: 10/08/17 Subjective:: Patient seen in the intensive care unit states that she feels better. She was admitted with sepsis with UTI. She was septic with hypotension and was initially intubated. UC yielded Citrobacter. She has been treated with Azactam She denies any nausea or vomiting fever abdominal pain. She received 2 units PRBC on 10/06 Reason For Visit: UTI WITH SEPSIS, DISTALOTIC HT FAILURE, RESOLVING Physical Exam Vital Signs: Temp Pulse Resp BP Pulse Ox 98.8 F 71 14 144/68 H 94 10/08/17 08:00 10/08/17 08:00 10/08/17 08:00 10/08/17 08:00 10/08/17 08:00 Intake & Output 10/07/17 10/08/17 10/09/17 06:59 06:59 06:59 Intake Total 1626 654 360 Output Total 550 4040 Balance 1076 -3386 360 General appearance: PRESENT: no acute distress, well-developed, well-nourished Head exam: PRESENT: atraumatic, normocephalic Eye exam: PRESENT: conjunctiva pink, EOMI, PERRLA. ABSENT: scleral icterus Ear exam: PRESENT: normal external ear exam Mouth exam: PRESENT: moist, tongue midline Neck exam: ABSENT: carotid bruit, JVD, lymphadenopathy, thyromegaly Respiratory exam: PRESENT: crackles - Basal. ABSENT: rales, rhonchi, wheezes Cardiovascular exam: PRESENT: RRR. ABSENT: diastolic murmur, rubs, systolic murmur Pulses: PRESENT: normal dorsalis pedis pul Vascular exam: PRESENT: normal capillary refill GI/Abdominal exam: PRESENT: normal bowel sounds, soft. ABSENT: distended, guarding, mass, organolmegaly, rebound, tenderness Rectal exam: PRESENT: deferred Extremities exam: PRESENT: full ROM. ABSENT: calf tenderness, clubbing, pedal edema Neurological exam: PRESENT: alert, awake, oriented to person, oriented to place , oriented to time, oriented to situation, CN II-XII grossly intact. ABSENT: motor sensory deficit Psychiatric exam: PRESENT: appropriate affect, normal mood. ABSENT: homicidal ideation, suicidal ideation Skin exam: PRESENT: dry, intact, warm. ABSENT: cyanosis, rash Results Laboratory Results: 10/08/17 06:15 10/07/17 07:55 10/07/17 10/08/17 10/08/17 07:55 06:15 06:15 WBC 7.6 RBC 3.90 Hgb 11.0 L Hct 33.9 L MCV 87 MCH 28.2 MCHC 32.4 RDW 17.8 H Plt Count 242 Seg Neutrophils % 60.6 Lymphocytes % 21.3 Monocytes % 8.1 Eosinophils % 9.4 H Basophils % 0.6 Absolute Neutrophils 4.6 Absolute Lymphocytes 1.6 Absolute Monocytes 0.6 Absolute Eosinophils 0.7 H Absolute Basophils 0.0 Carbonic Acid 1.06 HCO3/H2CO3 Ratio 24:1 ABG pH 7.48 H ABG pCO2 35.3 ABG pO2 104.3 H ABG HCO3 25.6 ABG O2 Saturation 98.1 H ABG Base Excess 2.4 FiO2 30% Sodium 140.8 Potassium 4.1 Chloride 106 Carbon Dioxide 29 Anion Gap 6 BUN 15 Creatinine 0.60 Est GFR ( Amer) > 60 Est GFR (Non-Af Amer) > 60 Glucose 65 L Calcium 8.5 Magnesium 2.0 10/03/17 10/03/17 10/03/17 12:16 12:16 18:30 Creatine Kinase 137 H 90 CK-MB (CK-2) 2.22 Troponin I 0.017 NT-Pro-B Natriuret Pep 10/03/17 10/04/17 10/04/17 18:30 00:20 00:20 Creatine Kinase 66 CK-MB (CK-2) 1.94 1.42 Troponin I 0.014 < 0.012 NT-Pro-B Natriuret Pep 10/04/17 10/05/17 10/07/17 04:55 05:10 07:55 Creatine Kinase CK-MB (CK-2) Troponin I NT-Pro-B Natriuret Pep 3520 H 9920 H 8670 H Impressions: Head CT 10/03/17 03:55 IMPRESSION: 1. No acute intracranial abnormality identified. This exam was performed according to our departmental dose-optimization program, which includes automated exposure control, adjustment of the mA and/or kV according to patient size and/or use of iterative reconstruction technique. KUB X-Ray 10/03/17 05:59 IMPRESSION: NG tube tip in expected location. Chest X-Ray 10/08/17 06:00 IMPRESSION: Worsening appearance of the chest with interval increase in the airspace opacities. Cardiomegaly and vascular congestion. Assessment & Plan - Time Time Spent with patient: 15-24 minutes Anticipated discharge: Home with Homehealth Within: within 72 hours - Inpatient Certification Medical Necessity: Other - Recovery from sepsis and completion of antibiotic treatment - Plan Summary Plan Summary: Assessment and plan These are current diagnosis for this admission 1. Sepsis likely secondary to urinary tract infection. Hypotension resolved 2. Urinary tract infection site unspecified secondary to citrobacter. Will dc Azactam and start Cipro. 3. COPD stable 4. General debility patient will benefit from physical therapy. She wants to go home at dc 5. Encephalopathy resolved likely secondary to acute infection 6. Respiratory failure acute on chronic - still has PVC. I have placed her back on Lasix 7. Hyperlipidemia 8. Hypothyroidism continue current medications 9. Adrenal insufficiency chronic 10. Atrial fibrillation chronic 11. Obstructive sleep apnea 12. Anemia status post 2 units of packed red blood cells. Hemoglobin remains stable 13. Hypotensive -resolved, likely secondary to sepsis 14. Patient is awaiting transfer out of the ICU she is stable enough to be moved to the medical floor 15. Hypokalemia - replaced 16. Elevated BNP patient has received a lot of fluids. Will continue diuresis
[2017-10-08] MEDS: IPRATROPIUM/ALBUTEROL 0.5-2.5 MG/3 ML AMPUL NEB PRN (09:04)
[2017-10-08] MEDS: METOPROLOL TARTRATE 25 MG TABLET PO SCH ×2 (10:58→21:31)
[2017-10-08] MEDS: SPIRONOLACTONE 25 MG TABLET PO SCH (10:58)
[2017-10-08] MEDS: MAGNESIUM OXIDE 400 MG TABLET NG SCH ×2 (10:59→17:12)
[2017-10-08] MEDS: CIPROFLOXACIN HCL 500 MG TABLET PO SCH ×2 (10:59→21:32)
[2017-10-08] MEDS: FUROSEMIDE 40 MG TABLET PO SCH (10:59)
[2017-10-08] MEDS: AMIODARONE HCL 200 MG TABLET PO SCH (11:00)
[2017-10-08] MEDS: OXYCODONE HCL SR 10 MG TABLET PO PRN (11:00)
[2017-10-08] MEDS: FAMOTIDINE 20 MG TABLET PO SCH (11:01)
[2017-10-08] MEDS: POTASSIUM CHLORIDE 10 MEQ TABLET.SA PO SCH (11:01)
[2017-10-08] MEDS: ALLOPURINOL 300 MG TABLET PO SCH (11:02)
[2017-10-08] MEDS: FENTANYL 25 MCG/HR PATCH.TD72 TD SCH (11:02)
[2017-10-08] MEDS: VALSARTAN 40 MG TABLET PO SCH (11:02)
[2017-10-08] MEDS: ENOXAPARIN SODIUM INJ 40 MG/0.4 ML DISP.SYRIN SUBCUT SCH (11:03)
[2017-10-08] MEDS: DOCUSATE SODIUM 100 MG CAPSULE PO SCH (11:12)
[2017-10-08] MEDS: NYSTATIN/TRIAMCIN CREAM 15 GM TP SCH ×2 (17:12→21:32)
[2017-10-09] MEDS: LEVOTHYROXINE SODIUM 0.025 MG TABLET PO SCH (06:30)
[2017-10-09 07:20] LABS: BLOOD UREA NITROGEN 9 mg/dL (7-20); CALCIUM 8.9 mg/dL (8.4-10.2); CHLORIDE 103 mmol/L (98-107); GLUCOSE 73 mg/dL (75-110); POTASSIUM 3.9 mmol/L (3.6-5.0)
[2017-10-09 07:35] LABS: CARBON DIOXIDE 35 mmol/L (22-30); SODIUM 139.7 mmol/L (137-145)
[2017-10-09 07:37] LABS: ANION GAP 2 (5-19)
[2017-10-09] MEDS: FUROSEMIDE 40 MG TABLET PO SCH (10:51)
[2017-10-09] MEDS: METOPROLOL TARTRATE 25 MG TABLET PO SCH ×2 (10:51→22:28)
[2017-10-09] MEDS: DOCUSATE SODIUM 100 MG CAPSULE PO SCH (10:51)
[2017-10-09] MEDS: ENOXAPARIN SODIUM INJ 40 MG/0.4 ML DISP.SYRIN SUBCUT SCH (10:51)
[2017-10-09] MEDS: MAGNESIUM OXIDE 400 MG TABLET NG SCH ×2 (10:51→18:07)
[2017-10-09] MEDS: VALSARTAN 40 MG TABLET PO SCH (10:52)
[2017-10-09] MEDS: AMIODARONE HCL 200 MG TABLET PO SCH (10:52)
[2017-10-09] MEDS: SPIRONOLACTONE 25 MG TABLET PO SCH (10:52)
[2017-10-09] MEDS: POTASSIUM CHLORIDE 10 MEQ TABLET.SA PO SCH (10:52)
[2017-10-09] MEDS: ALLOPURINOL 300 MG TABLET PO SCH (10:52)
[2017-10-09] MEDS: NYSTATIN/TRIAMCIN CREAM 15 GM TP SCH ×4 (10:52→22:23)
[2017-10-09] MEDS: FAMOTIDINE 20 MG TABLET PO SCH (10:52)
[2017-10-09] MEDS: CIPROFLOXACIN HCL 500 MG TABLET PO SCH ×2 (10:52→22:22)
--- NOTE | 2017-10-09 16:20 | PDOC PROGRESS REPORT ---
Subjective Subjective:: Patient seen in the medical unit states that she feels better. She was admitted with sepsis with UTI. She was septic with hypotension and was initially intubated. UC yielded Citrobacter. She has been treated with Azactam and now currently on Cipro She denies any nausea or vomiting fever abdominal pain. She received 2 units PRBC on 10/06 Reason For Visit: UTI WITH SEPSIS, DISTALOTIC HT FAILURE, RESOLVING Physical Exam Vital Signs: Temp Pulse Resp BP Pulse Ox 98.3 F 60 16 113/61 100 10/09/17 11:30 10/09/17 14:00 10/09/17 11:30 10/09/17 11:30 10/09/17 11:30 Intake & Output 10/08/17 10/09/17 10/10/17 06:59 06:59 06:59 Intake Total 654 1205 Output Total 4040 1725 Balance -3386 -520 Weight 69.6 kg 64.3 kg General appearance: PRESENT: no acute distress Head exam: PRESENT: atraumatic Eye exam: PRESENT: conjunctiva pink, EOMI, PERRLA. ABSENT: scleral icterus Ear exam: PRESENT: normal external ear exam Neck exam: ABSENT: carotid bruit, JVD, lymphadenopathy, thyromegaly Respiratory exam: PRESENT: clear to auscultation lyn. ABSENT: rales, rhonchi, wheezes Cardiovascular exam: PRESENT: RRR. ABSENT: diastolic murmur, rubs, systolic murmur GI/Abdominal exam: PRESENT: normal bowel sounds, soft. ABSENT: distended, guarding, mass, organolmegaly, rebound, tenderness Rectal exam: PRESENT: deferred Musculoskeletal exam: PRESENT: ambulatory Neurological exam: PRESENT: alert, awake, oriented to person, oriented to place , oriented to time Psychiatric exam: PRESENT: appropriate affect, normal mood. ABSENT: homicidal ideation, suicidal ideation Results Laboratory Results: 10/08/17 06:15 10/09/17 06:25 10/09/17 06:25 Sodium 139.7 Potassium 3.9 Chloride 103 Carbon Dioxide 35 H Anion Gap 2 L BUN 9 Creatinine 0.56 Est GFR ( Amer) > 60 Est GFR (Non-Af Amer) > 60 Glucose 73 L Calcium 8.9 10/03/17 10/03/17 10/03/17 12:16 12:16 18:30 Creatine Kinase 137 H 90 CK-MB (CK-2) 2.22 Troponin I 0.017 NT-Pro-B Natriuret Pep 10/03/17 10/04/17 10/04/17 18:30 00:20 00:20 Creatine Kinase 66 CK-MB (CK-2) 1.94 1.42 Troponin I 0.014 < 0.012 NT-Pro-B Natriuret Pep 10/04/17 10/05/17 10/07/17 04:55 05:10 07:55 Creatine Kinase CK-MB (CK-2) Troponin I NT-Pro-B Natriuret Pep 3520 H 9920 H 8670 H 10/09/17 06:25 Creatine Kinase CK-MB (CK-2) Troponin I NT-Pro-B Natriuret Pep 44920 H Impressions: Head CT 10/03/17 03:55 IMPRESSION: 1. No acute intracranial abnormality identified. This exam was performed according to our departmental dose-optimization program, which includes automated exposure control, adjustment of the mA and/or kV according to patient size and/or use of iterative reconstruction technique. KUB X-Ray 10/03/17 05:59 IMPRESSION: NG tube tip in expected location. Chest X-Ray 10/08/17 06:00 IMPRESSION: Worsening appearance of the chest with interval increase in the airspace opacities. Cardiomegaly and vascular congestion. Assessment & Plan - Time Time Spent with patient: 15-24 minutes Medications reviewed and adjusted accordingly: Yes Anticipated discharge: Home Within: within 48 hours - Inpatient Certification Based on my medical assessment, after consideration of the patient's comorbidities, presenting symptoms, or acuity I expect that the services needed warrant INPATIENT care.: Yes Medical Necessity: Other - Stabilization prior to discharge
[2017-10-09] MEDS: OXYCODONE HCL SR 10 MG TABLET PO PRN (18:40)
[2017-10-10] MEDS: LEVOTHYROXINE SODIUM 0.025 MG TABLET PO SCH (06:11)
[2017-10-10] MEDS: POTASSIUM CHLORIDE 10 MEQ TABLET.SA PO SCH (10:51)
[2017-10-10] MEDS: MAGNESIUM OXIDE 400 MG TABLET NG SCH (10:52)
[2017-10-10] MEDS: AMIODARONE HCL 200 MG TABLET PO SCH (10:52)
[2017-10-10] MEDS: ALLOPURINOL 300 MG TABLET PO SCH (10:52)
[2017-10-10] MEDS: NYSTATIN/TRIAMCIN CREAM 15 GM TP SCH (10:55)
[2017-10-10] MEDS: CIPROFLOXACIN HCL 500 MG TABLET PO SCH ×2 (11:02→20:16)
[2017-10-10] MEDS: ENOXAPARIN SODIUM INJ 40 MG/0.4 ML DISP.SYRIN SUBCUT SCH (11:03)
[2017-10-10] MEDS: FAMOTIDINE 20 MG TABLET PO SCH (11:03)
[2017-10-10] MEDS: METOPROLOL TARTRATE 25 MG TABLET PO SCH (11:19)
[2017-10-10] MEDS: FUROSEMIDE 40 MG TABLET PO SCH (11:19)
[2017-10-10] MEDS: SPIRONOLACTONE 25 MG TABLET PO SCH (11:19)
[2017-10-10] MEDS: VALSARTAN 40 MG TABLET PO SCH (11:19)
[2017-10-10] MEDS: DOCUSATE SODIUM 100 MG CAPSULE PO SCH (11:19)
--- NOTE | 2017-10-10 14:44 | PDOC DISCHARGE SUMMARY ---
General - Admit/Disc Date/PCP Admission Date/Primary Care Provider: 10/03/17 05:53 Discharge Date: 10/10/17 - Discharge Diagnosis (1) COPD exacerbation Is this a current diagnosis for this admission?: Yes (2) Pneumonia Is this a current diagnosis for this admission?: Yes (3) Sepsis Is this a current diagnosis for this admission?: Yes (4) UTI (urinary tract infection) Is this a current diagnosis for this admission?: Yes (5) Adrenal insufficiency Is this a current diagnosis for this admission?: Yes (7) Atrial fibrillation Is this a current diagnosis for this admission?: Yes (8) ANNA (obstructive sleep apnea) Is this a current diagnosis for this admission?: Yes (10) Anemia Is this a current diagnosis for this admission?: Yes (12) COPD (chronic obstructive pulmonary disease) Is this a current diagnosis for this admission?: Yes (13) CHF (congestive heart failure) Is this a current diagnosis for this admission?: Yes - Additional Information Resuscitation Status: Full Code Discharge Diet: Cardiac Discharge Activity: Activity As Tolerated Prescriptions: Ciprofloxacin HCl [Cipro 500 mg Tablet] 500 mg PO Q12 #6 tablet Home Medications: Allopurinol [Zyloprim 300 mg Tablet] 300 mg PO DAILY 10/03/17 Amiodarone HCl [Cordarone 200 mg Tablet] 100 mg PO DAILY 10/03/17 Atenolol [Tenormin] 25 mg PO Q12 10/03/17 Docusate Sodium [Colace 100 mg Capsule] 100 mg PO DAILY 10/03/17 Fentanyl [Duragesic 25 mcg/hr Transdermal Patch] 1 each TD Q3D 10/03/17 Furosemide [Lasix 40 mg Tablet] 40 mg PO DAILY 10/03/17 Levothyroxine Sodium [Synthroid 0.025 mg Tablet] 25 mcg PO QAM 10/03/17 Magnesium Oxide [Mag-Ox 400 mg Tablet] 400 mg PO BID 10/03/17 Metoprolol Tartrate [Lopressor 25 mg Tablet] 37.5 mg PO Q12 10/03/17 Potassium Chloride [Klor-Con 10 Meq Tablet.sa] 10 meq PO DAILY 10/03/17 Spironolactone [Aldactone 25 mg Tablet] 12.5 mg PO DAILY 10/03/17 Valsartan [Diovan 40 mg Tablet] 40 mg PO DAILY 10/03/17 Ciprofloxacin HCl [Cipro 500 mg Tablet] 500 mg PO Q12 #6 tablet 10/10/17 Nystatin/Triamcin [Mycolog-II Cream 15 gm] 1 applic TP QID tube 10/10/17 History of Present Illness History of Present Illness: NIMISHA PORTILLO is a 61 year old female who had been recently discharged from another hospital for congestive heart failure and pneumonia. She apparently did well in detail the day of her admission. She became more hypoxemic. She became febrile and confused. She was brought to our emergency room where she was intubated and started on antibiotics Hospital Course Hospital Course: Patient was admitted with difficulty breathing and shortness of breath. Was found to be septic secondary to pneumonia and patient was intubated and admitted to the intensive care unit for monitoring. Was seen by the irrigation district manager who helped manage her pulmonary illnesses. Patient was ultimately successfully extubated and respiratory status has been relatively stable. She was also found to have a urinary tract infection secondary to Citrobacter and she has received intravenous antibiotics which was subsequently changed to oral ciprofloxacin. Patient has acute on chronic respiratory failure with history of chronic obstructive pulmonary disease as well as obstructive sleep apnea. She will benefit from home BiPAP and this is being arranged with the help of the irrigation district manager. Patient has continue to improve although as expected she is been somewhat debilitated as she has been in hospital multiple times over the last few weeks. She is to be seen by physical therapy prior to discharge today. Patient was transfused with 2 units of packed red blood cells due to anemia and her hemoglobin has been relatively stable. She also received potassium due to hypokalemia. Her Lasix was temporarily held as she was septic and hypotensive but this has been restarted. Atenolol is still on hold as her blood pressure still somewhat borderline but this should be restarted as outpatient once her blood pressure recovers Physical Exam Vital Signs: Temp Pulse Resp BP Pulse Ox 98.5 F 64 16 121/63 100 10/10/17 11:41 10/10/17 11:41 10/10/17 11:41 10/10/17 11:41 10/10/17 11:41 Intake & Output 10/09/17 10/10/17 10/11/17 06:59 06:59 06:59 Intake Total 1205 1980 Output Total 1725 1800 Balance -520 180 Weight 64.3 kg 62.5 kg General appearance: PRESENT: no acute distress, well-developed, well-nourished Head exam: PRESENT: atraumatic Eye exam: PRESENT: conjunctiva pink, EOMI, PERRLA. ABSENT: scleral icterus Ear exam: PRESENT: normal external ear exam Neck exam: ABSENT: carotid bruit, JVD, lymphadenopathy, thyromegaly Respiratory exam: PRESENT: clear to auscultation lyn. ABSENT: rales, rhonchi, wheezes Cardiovascular exam: PRESENT: RRR. ABSENT: diastolic murmur, rubs, systolic murmur Pulses: PRESENT: normal dorsalis pedis pul Vascular exam: PRESENT: normal capillary refill GI/Abdominal exam: PRESENT: normal bowel sounds, soft. ABSENT: distended, guarding, mass, organolmegaly, rebound, tenderness Rectal exam: PRESENT: deferred Musculoskeletal exam: PRESENT: ambulatory Neurological exam: PRESENT: alert, awake, oriented to person, oriented to place , oriented to time, oriented to situation, CN II-XII grossly intact. ABSENT: motor sensory deficit Results Laboratory Results: 10/08/17 06:15 10/09/17 06:25 10/08/17 06:15 Transferrin 141 L 10/03/17 10/03/17 10/03/17 12:16 12:16 18:30 Creatine Kinase 137 H 90 CK-MB (CK-2) 2.22 Troponin I 0.017 NT-Pro-B Natriuret Pep 10/03/17 10/04/17 10/04/17 18:30 00:20 00:20 Creatine Kinase 66 CK-MB (CK-2) 1.94 1.42 Troponin I 0.014 < 0.012 NT-Pro-B Natriuret Pep 10/04/17 10/05/17 10/07/17 04:55 05:10 07:55 Creatine Kinase CK-MB (CK-2) Troponin I NT-Pro-B Natriuret Pep 3520 H 9920 H 8670 H 10/09/17 06:25 Creatine Kinase CK-MB (CK-2) Troponin I NT-Pro-B Natriuret Pep 24889 H Impressions: Head CT 10/03/17 03:55 IMPRESSION: 1. No acute intracranial abnormality identified. This exam was performed according to our departmental dose-optimization program, which includes automated exposure control, adjustment of the mA and/or kV according to patient size and/or use of iterative reconstruction technique. KUB X-Ray 10/03/17 05:59 IMPRESSION: NG tube tip in expected location. Chest X-Ray 10/08/17 06:00 IMPRESSION: Worsening appearance of the chest with interval increase in the airspace opacities. Cardiomegaly and vascular congestion.
[2017-10-10 16:56] VITALS: BP 104/48
== END 2017-10-10 21:45 | disposition home health service (06) | DRG 871 ==
LOC: ER 02:42 → EH 05:53 → ICU 15:12 → 4N 10-08 20:33
PROVIDERS: ADMIT Internal Medicine; ATTEND Internal Medicine
PROC: 5A1945Z Respiratory Ventilation, 24-96 Consecutive Hours (ICD-10-PCS; principal; 2017-10-03)
PROC: 0BH17EZ Insertion of Endotracheal Airway into Trachea, Via Natural or Artificial Opening (ICD-10-PCS; 2017-10-03)
PROC: 5A09357 Assistance with Respiratory Ventilation, Less than 24 Consecutive Hours, Continuous Positive Airway Pressure (ICD-10-PCS; 2017-10-04)
PROC: 3E0F73Z Introduction of Anti-inflammatory into Respiratory Tract, Via Natural or Artificial Opening (ICD-10-PCS; 2017-10-05)
PROC: 30233N1 Transfusion of Nonautologous Red Blood Cells into Peripheral Vein, Percutaneous Approach (ICD-10-PCS; 2017-10-06)
DX: A41.9 Sepsis, unspecified organism (principal); J18.9 Pneumonia, unspecified organism; J96.21 Acute and chronic respiratory failure with hypoxia; G93.40 Encephalopathy, unspecified; J44.1 Chronic obstructive pulmonary disease with (acute) exacerbation; J44.0 Chronic obstructive pulmonary disease with (acute) lower respiratory infection; N39.0 Urinary tract infection, site not specified; E27.40 Unspecified adrenocortical insufficiency; I13.0 Hypertensive heart and chronic kidney disease with heart failure and stage 1 through stage 4 chronic kidney disease, or unspecified chronic kidney disease; I50.42 Chronic combined systolic (congestive) and diastolic (congestive) heart failure; G47.33 Obstructive sleep apnea (adult) (pediatric); B96.89 Other specified bacterial agents as the cause of diseases classified elsewhere; E87.6 Hypokalemia; E03.9 Hypothyroidism, unspecified; N18.9 Chronic kidney disease, unspecified; F32.9 Major depressive disorder, single episode, unspecified; M79.7 Fibromyalgia; D63.1 Anemia in chronic kidney disease; I48.2 Chronic atrial fibrillation; E78.00 Pure hypercholesterolemia, unspecified; Z78.1 Physical restraint status; Z79.899 Other long term (current) drug therapy; Z99.81 Dependence on supplemental oxygen; Z88.1 Allergy status to other antibiotic agents; Z88.0 Allergy status to penicillin; Z88.8 Allergy status to other drugs, medicaments and biological substances; Z96.651 Presence of right artificial knee joint; Z82.5 Family history of asthma and other chronic lower respiratory diseases; Z81.8 Family history of other mental and behavioral disorders
CPT/HCPCS: 36415; 36430; 51702; 70450; 71045; 74018; 80048; 80053; 81001; 82550; 82553; 82607; 82728; 82746; 82803; 82962; 83540; 83550; 83605; 83690; 83735; 83880; 84100; 84466; 84484; 85025; 85045; 85610; 85730; 86850; 86900; 86901; 86920; 87040; 87070; 87086; 87088; 87186; 87205; 87804; 93005; 93010; 94002; 94003; 94660; 94799; 96365; 96375; 99291; C1751; J0330; J1100; J1650; J1720; J1940; J1956; J2060; J2250; J2270; J2704; J3370; J3475; J3480; J3490; J7030; J7060; J7120; J7620; P9016; S0028

== ENCOUNTER → 2017-10-19 | Outpatient (CLI) | payer OTHER ==
[2017-10-19 13:32] LABS: ARTERIAL BLOOD BASE EXCESS -2.5 mmol/L; ARTERIAL BLOOD FIO2 2L; ARTERIAL BLOOD HCO3 23.7 mmol/L (20-26); ARTERIAL BLOOD O2 SATURATION 94.4 % (94-98); ARTERIAL BLOOD PCO2 46.5 mmHg (35-45); ARTERIAL BLOOD PH 7.33 (7.35-7.45); ARTERIAL BLOOD PO2 76.9 mmHg (80-100); ARTERIAL BLOOD TOTAL CO2 25.1 mmol/L (21-25)
--- NOTE | 2017-10-19 14:03 | RADIOLOGY REPORT (SQ) ---
EXAM DESCRIPTION: CHEST PA/LAT COMPLETED DATE/TIME: 10/19/2017 1:39 pm REASON FOR STUDY: CHRONIC RESPIRATORY FAILURE (J96.10) COMPARISON: 12/04/2016. TECHNIQUE: Frontal and lateral radiographic views of the chest acquired. NUMBER OF VIEWS: Two view. LIMITATIONS: None. FINDINGS: LUNGS AND PLEURA: Prominent central vessels and interstitial markings. No significant ple ural disease, however. No evidence of pneumonia. MEDIASTINUM AND HILAR STRUCTURES: Stable contours. HEART AND VASCULAR STRUCTURES: Cardiac enlargement. BONES: Chronic bilateral rotator cuff tears. HARDWARE: None in the chest. OTHER: No other significant finding. IMPRESSION: Relatively chronic cardiomegaly and vascular congestion. TECHNICAL DOCUMENTATION: JOB ID: [id number] [employer]- All Rights Reserved
[2017-10-19 14:56] LABS: ABSOLUTE BASOPHILS # (AUTO) 0.2 10^3/uL (0.0-0.2); ABSOLUTE EOSINOPHILS # (AUTO) 0.5 10^3/uL (0.0-0.6); ABSOLUTE LYMPHOCYTES (AUTO) 1.5 10^3/uL (0.5-4.7); ABSOLUTE MONOCYTES (AUTO) 0.8 10^3/uL (0.1-1.4); BASOPHILS % (AUTO) 1.3 % (0-2); EOSINOPHILS % (AUTO) 4.4 % (0-6); HEMATOCRIT 37.5 % (36.0-47.0); HEMOGLOBIN 12.1 g/dL (12.0-15.5); LYMPHOCYTES % (AUTO) 12.8 % (13-45); MEAN CORPUSCULAR HEMOGLOBIN 28.5 pg (27.0-33.4); MEAN CORPUSCULAR HGB CONC 32.3 g/dL (32.0-36.0); MEAN CORPUSCULAR VOLUME 88 fl (80-97); MONOCYTES % (AUTO) 6.9 % (3-13); PLATELET COUNT 345 10^3/uL (150-450); RED BLOOD COUNT 4.25 10^6/uL (3.72-5.28); RED CELL DISTRIBUTION WIDTH 18.8 % (11.5-14.0); SEGMENTED NEUTROPHILS % (AUTO) 74.6 % (42-78); TOTAL CELLS COUNTED % (AUTO) 100 %; WHITE BLOOD COUNT 12.1 10^3/uL (4.0-10.5)
[2017-10-19 15:01] LABS: APPEARANCE,URINE SLIGHTLY-CLOUDY; BILIRUBIN,URINE NEGATIVE (NEGATIVE); COLOR,URINE YELLOW; GLUCOSE, URINE NEGATIVE (NEGATIVE); KETONES,URINE NEGATIVE (NEGATIVE); LEUKOCYTE ESTERASE,URINE SMALL (NEGATIVE); NITRITE,URINE NEGATIVE (NEGATIVE); PROTEIN,URINE NEGATIVE (NEGATIVE); URINE SPECIFIC GRAVITY 1.017; UROBILINOGEN,URINE NEGATIVE mg/dL (<2.0)
[2017-10-19 15:10] LABS: ANION GAP 10 (5-19); BLOOD UREA NITROGEN 32 mg/dL (7-20); CALCIUM 10.2 mg/dL (8.4-10.2); CARBON DIOXIDE 24 mmol/L (22-30); CHLORIDE 103 mmol/L (98-107); GLUCOSE 103 mg/dL (75-110); SODIUM 136.9 mmol/L (137-145)
== END ==
LOC: LAB 12:56
PROVIDERS: ATTEND Physician Assistant
DX: J96.10 Chronic respiratory failure, unspecified whether with hypoxia or hypercapnia (principal); R53.83 Other fatigue
CPT/HCPCS: 36415; 36600; 71046; 80048; 81001; 82803; 85025; 87086; 87088; 87186

== ENCOUNTER → 2018-01-10 | Outpatient (CLI) | payer OTHER ==
--- NOTE | 2018-01-10 15:15 | RADIOLOGY REPORT (SQ) ---
EXAM DESCRIPTION: CT CHEST WITHOUT COMPLETED DATE/TIME: 01/10/2018 2:54 pm REASON FOR STUDY: R93.8 ABNORMAL FINDINGS ON DIAGNOSTIC IMAGING OF BODY STRUCTURES R93.8 ABNORMAL F INDINGS ON DIAGNOSTIC IMAGING OF BODY STRUCT COMPARISON: 06/28/2016 TECHNIQUE: CT scan performed of the chest without intravenous contrast. Images reviewed with lung, soft tissue and bone windows. Reconstructed coronal and sagittal MPR images reviewed. All images st ored on PACS. All CT scanners at this facility use dose modulation, iterative reconstruction, and/or weight based d osing when appropriate to reduce radiation dose to as low as reasonably achievable (ALARA). [facility]: Dose Right [facility]: CareDose [facility]: Dose Right [facility]: Teradose 4D [facility]: ParentPlus RADIATION DOSE: CT Rad equipment meets quality standard of care and radiation dose reduction techniq ues were employed. CTDIvol: 10.8 mGy. DLP: 387 mGy-cm. mGy. LIMITATIONS: No technical limitations. FINDINGS: LUNGS AND PLEURA: Chronic bandlike scarring in the lingula and left lower lobe. No suspic ious nodules. No effusions. HILAR AND MEDIASTINAL STRUCTURES: No identified masses or abnormal nodes. No obvious aneurysm. HEART AND VASCULAR STRUCTURES: No aneurysm. No pericardial effusion. UPPER ABDOMEN: Small left renal angiomyolipoma. THYROID AND OTHER SOFT TISSUES: No masses. No adenopathy. BONES: No significant finding. HARDWARE: None in the chest. OTHER: No other significant findings. IMPRESSION: No acute findings in the chest. TECHNICAL DOCUMENTATION: JOB ID: [id number] Quality ID # [id number]: Final reports with documentation of one or more dose reduction techniques (e.g., Au tomated exposure control, adjustment of the mA and/or kV according to patient size, use of iterative reconstruction technique) 2010 [employer]- All Rights Reserved Reading location - IP/workstation name: [email or web address] [email or web address]
== END ==
LOC: RAD 16:05
PROVIDERS: ATTEND Physician Assistant
DX: R93.8 Abnormal findings on diagnostic imaging of other specified body structures (principal)
CPT/HCPCS: 71250